=== PATIENT | female | born 1975 | race Caucasian/White ===

== ENCOUNTER → 2017-12-11 07:55 | Outpatient (CLI) | payer BC, SELFPAY ==
[2017-12-11 10:40] LABS: Absolute Lymphocyte Count 2.73 X10^3/ul (0.83-4.51); Absolute Neutrophil Count 5.4 X10^3/uL (2.0-7.7); Basophil# 0.03 X10^3/uL; Basophil% 0.3 % (0-1); Eosinophils% 1.2 % (0-5); Hematocrit 39.6 % (37-47); Hemoglobin 13.1 g/dl (12.0-15.0); Lymphocyte # 2.73 X10^3/ul (4.0); Lymphocyte % 31.6 % (19-41); Mean Corp Hgb Conc 33.1 g/gl (32-36); Mean Corpuscular Hgb 27.8 pg (27.0-32.0); Mean Corpuscular Volume 84.1 fL (81-99); Mean Platelet Vol. 9.6 fl (6.2-12.0); Monocyte% 4.6 % (0-10); Neutrophil # 5.36 X10^3/uL (2.7-7.7); Neutrophil % 62.1 % (47-70); Platelet Count 379 K/mm3 (150-450); RBC Distribution Width CV 13.7 % (11.6-14.6); RBC Distribution Width SD 41.7 fl (35.1-43.9); Red Blood Count 4.71 M/mm3 (4.2-5.4); White Blood Count 8.6 K/mm3 (4.4-11.0)
[2017-12-11 10:42] LABS: POSITIVE COUNT NO; POSITIVE DIFFERENTIAL NO; POSITIVE MORPHOLOGY NO
[2017-12-11 10:56] LABS: Vitamin D,25 Hydroxy 12.2 ng/mL (19.95-100.01)
[2017-12-11 11:10] LABS: ALB/GLOB Ratio 0.7 RATIO (0.9-2.4); AST(SGOT) 11 U/L (15-37); Alanine Aminotransfer ALT/SGPT 24 U/L (13-56); Alkaline Phosphatase 124 U/L (45-117); Anion Gap 10 (5-15); BUN 8 mg/dL (7-18); BUN/Creat Ratio 13.9 RATIO (10-20); Calcium,Total 8.5 mg/dL (8.5-10.1); Chloride 103 mmol/L (98-107); Cholesterol 196 mg/dL (200); Creatinine, Serum 0.58 mg/dL (0.55-1.02); EST Glomerular Filtration Rate 122 mL/min (>60); Est Glom Filt Rate - Afr Amer 148 mL/min (>60); Globulin 4.5 g/dL (2.2-4.2); Glucose 87 mg/dL (74-106); High Density Lipoprotein 41 mg/dL; Potassium 3.8 mmol/L (3.5-5.1); Protein, Total 7.5 g/dL (6.4-8.2); Sodium Level 137 mmol/L (136-145); Thyroid Stim Hormone (TSH) 2.52 uIU/mL (0.358-3.74); Triglycerides 103 mg/dL; Very Low Density Lipoprotein 21 mg/dL (5-40)
== END ==
PROVIDERS: Family Provider Family Medicine; PCP Family Medicine; Visit Provider Family Medicine
DX: I10 Essential (primary) hypertension (principal); E55.9 Vitamin D deficiency, unspecified; R63.5 Abnormal weight gain
CPT/HCPCS: 36415; 80053; 80061; 82306; 84443; 85025

== ENCOUNTER → 2018-03-09 07:06 | Outpatient (CLI) | payer BC, SELFPAY ==
--- NOTE | 2018-03-09 07:11 | BI_ITS ---
MAMMOGRAPHY - BILATERAL SCREENING REASON FOR EXAM: Female, 42 years old. Routine annual screening examination. PERTINENT HISTORY: Grandmother with breast cancer. Aunt with breast cancer. TECHNIQUE: Digital bilateral breast john (3D mammographic acquisition) in the CC and MLO projections. 2-D mediolateral oblique (MLO) and craniocaudad (CC) views of both breasts were obtained. CAD: Full Field Digital Mammography with Computer Added Detection was performed. COMPARISON: Comparison is made with prior study dated March 05, 2017 and November 19, 2015. FINDINGS: Breast Composition: The breasts are almost entirely fatty. There are no dominant masses or suspicious calcifications. Stable small benign-appearing bilateral axillary lymph nodes. No other significant abnormalities are identified. There has been no significant change since the prior study. BI/SCREENING MAMM (CAD), BILAT IMPRESSION: Stable bilateral screening mammogram. Yearly follow-up mammogram recommended. (A) ASSESSMENT CATEGORY: BIRADS Category 2: Benign. A letter regarding these results will be sent to the patient by the facility within 30 days. Approximately 10% of breast cancers are not detected by mammography. A normal mammogram should not delay biopsy of a clinically suspicious abnormality. [id number] Electronically Signed: Bright Quintanilla MD at 9:26 EDT Tel [phone], Service support ,
== END ==
PROVIDERS: Family Provider Family Medicine; PCP Family Medicine; Visit Provider Family Medicine
DX: Z12.31 Encounter for screening mammogram for malignant neoplasm of breast (principal)
CPT/HCPCS: 77063; 77067

== ENCOUNTER → 2018-03-29 14:18 | Outpatient (CLI) | payer BC, SELFPAY ==
--- NOTE | 2018-03-29 14:18 | DT_ITS ---
This patient was seen during an EMR downtime March 22, 2018 - March 29, 2018. This patient may have a combination of paper and electronic documentation or all paper documentation. All documentation is viewable within the e-chart portion of [facility] for each patient visit.
[2018-03-29 16:03] LABS: Hematocrit 42.4 % (37-47); Hemoglobin 13.4 g/dl (12.0-15.0); Mean Corp Hgb Conc 31.6 g/gl (32-36); Mean Corpuscular Hgb 26.9 pg (27.0-32.0); Mean Platelet Vol. 9.3 fl (6.2-12.0); Platelet Count 385 K/mm3 (150-450); RBC Distribution Width CV 14.3 % (11.6-14.6); RBC Distribution Width SD 44.3 fl (35.1-43.9); Red Blood Count 4.99 M/mm3 (4.2-5.4); White Blood Count 10.8 K/mm3 (4.4-11.0)
[2018-03-29 16:07] LABS: Scan Indicated on CBC? Y/N NO
[2018-03-29 16:26] LABS: Follicle Stimulating Hormone 13.9 mIU/mL; Thyroid Stim Hormone (TSH) 3.03 uIU/mL (0.358-3.74)
== END ==
PROVIDERS: Visit Provider Obstetrics & Gynecology
DX: N92.6 Irregular menstruation, unspecified (principal); N95.1 Menopausal and female climacteric states
CPT/HCPCS: 36415; 83001; 84443; 85027

== ENCOUNTER → 2019-01-13 10:11 | Outpatient (CLI) | payer BC, SELFPAY ==
--- NOTE | 2019-01-13 10:15 | RAD_ITS ---
STUDY: X-RAY CHEST REASON FOR EXAM: Female, 43 years old. Cough and wheezing. TECHNIQUE: PA and lateral views of the chest. COMPARISON: September 29, 2016. FINDINGS: The lungs are hypoexpanded. There is no focal mass or infiltrate. There is no demonstrated pleural abnormality. Normal size heart. Normal mediastinum and lalo. Normal visualized pulmonary arteries. Normal visualized aortic arch and descending thoracic aorta. Normal visualized thoracic spine. Normal visualized ribs, clavicles, and shoulders. There is no demonstrated abnormality of the visualized soft tissue structures of the upper abdomen. RAD/Chest PA and Lateral IMPRESSION: No acute cardiopulmonary disease or major interval change. Electronically Signed: Armani Spencer DO at 11:14 EDT Tel [phone], Service support ,
== END ==
PROVIDERS: Family Provider Family Medicine; PCP Family Medicine; Referring Provider Family Medicine; Visit Provider Family Medicine
DX: J11.1 Influenza due to unidentified influenza virus with other respiratory manifestations (principal); R05 Cough
CPT/HCPCS: 71046

== ENCOUNTER → 2019-01-28 14:54 | Outpatient (CLI) | payer BC, SELFPAY ==
[2019-01-28 17:42] LABS: Absolute Lymphocyte Count 3.35 X10^3/ul (0.83-4.51); Absolute Neutrophil Count 8.1 X10^3/uL (2.0-7.7); Basophil# 0.02 X10^3/uL; Basophil% 0.2 % (0-1); Eosinophil# 0.17 X10^3/uL; Eosinophils% 1.4 % (0-5); Hematocrit 39.5 % (37-47); Lymphocyte # 3.35 X10^3/ul (4.0); Lymphocyte % 27.7 % (19-41); Mean Corp Hgb Conc 32.9 g/gl (32-36); Mean Corpuscular Hgb 28.4 pg (27.0-32.0); Mean Corpuscular Volume 86.2 fL (81-99); Mean Platelet Vol. 9.4 fl (6.2-12.0); Monocyte# 0.48 X10^3/uL; Neutrophil # 8.05 X10^3/uL (2.7-7.7); Neutrophil % 66.5 % (47-70); Platelet Count 358 K/mm3 (150-450); RBC Distribution Width CV 14.4 % (11.6-14.6); RBC Distribution Width SD 44.6 fl (35.1-43.9); Red Blood Count 4.58 M/mm3 (4.2-5.4); White Blood Count 12.1 K/mm3 (4.4-11.0)
[2019-01-28 17:43] LABS: POSITIVE COUNT NO; POSITIVE DIFFERENTIAL NO; POSITIVE MORPHOLOGY NO
[2019-01-28 19:20] LABS: ALB/GLOB Ratio 0.7 RATIO (0.9-2.4); AST(SGOT) 16 U/L (15-37); Alanine Aminotransfer ALT/SGPT 28 U/L (13-56); Albumin, Serum 3.2 g/dL (3.2-5.0); Alkaline Phosphatase 117 U/L (45-117); Anion Gap 10 (5-15); BUN 6 mg/dL (7-18); BUN/Creat Ratio 9.6 RATIO (10-20); Calcium,Total 8.5 mg/dL (8.5-10.1); Chloride 104 mmol/L (98-107); Cholesterol 196 mg/dL (200); Creatinine, Serum 0.62 mg/dL (0.55-1.02); EST Glomerular Filtration Rate 111 mL/min (>60); Est Glom Filt Rate - Afr Amer 134 mL/min (>60); Globulin 4.5 g/dL (2.2-4.2); Glucose 77 mg/dL (74-106); High Density Lipoprotein 42 mg/dL; Potassium 3.2 mmol/L (3.5-5.1); Protein, Total 7.7 g/dL (6.4-8.2); Sodium Level 138 mmol/L (136-145); Thyroid Stim Hormone (TSH) 2.76 uIU/mL (0.358-3.74); Triglycerides 115 mg/dL; Very Low Density Lipoprotein 23 mg/dL (5-40)
[2019-01-28 19:48] LABS: Insulin 20.9 mU/L (2.6-37.6); Vitamin D,25 Hydroxy 8.2 ng/mL (29.95-100.01)
== END ==
PROVIDERS: Family Provider Family Medicine; PCP Family Medicine; Visit Provider Family Medicine
DX: Z00.00 Encounter for general adult medical examination without abnormal findings (principal); I10 Essential (primary) hypertension; E55.9 Vitamin D deficiency, unspecified; R53.83 Other fatigue; R73.01 Impaired fasting glucose
CPT/HCPCS: 36415; 80053; 80061; 82306; 83525; 84443; 85025

== ENCOUNTER → 2019-04-08 07:05 | Outpatient (CLI) | payer BC, SELFPAY ==
--- NOTE | 2019-04-08 07:08 | BI_ITS ---
MAMMOGRAPHY - BILATERAL SCREENING 3-D TOMOSYNTHESIS REASON FOR EXAM: Female, 44 years old. Bilateral Screening 3-D tomosynthesis PERTINENT HISTORY: No significant family history. TECHNIQUE: 2-D mammograms and 3-D Tomosynthesis of the breast (s) were performed. CAD was performed. COMPARISON was made to a study of March 09, 2018-March 05, 2017 and November 19, 2015. FINDINGS: Both breasts are entirely involuted by adipose tissue without evidence of spiculated lesion, microcalcifications, skin thickening or nipple retraction. There are benign looking lymph node seen in the axillary areas bilaterally. BI/SCREEN MAMM (CAD) W/SHANIQUA BILAT IMPRESSION: Negative digital mammography of both breasts for malignancy unchanged since the previous exams. ASSESSMENT CATEGORY: BIRADS Category 1: Negative. A letter regarding these results will be sent to the patient by the facility within 30 days. FOLLOW UP RECOMMENDATION: Yearly follow up mammogram recommended. (A) Approximately 10% of breast cancers are not detected by mammography. A normal mammogram should not delay biopsy of a clinically suspicious abnormality. Electronically Signed: Mariela Alegria, at 15:12 EDT Tel , Service support ,
== END ==
PROVIDERS: Family Provider Family Medicine; PCP Family Medicine; Referring Provider Family Medicine; Visit Provider Family Medicine
DX: Z12.31 Encounter for screening mammogram for malignant neoplasm of breast (principal)
CPT/HCPCS: 77063; 77067

== ENCOUNTER 2019-05-02 17:00 | Outpatient (RCR) | payer BC, SELFPAY | END 2019-05-18 23:59 | LOC: NS 17:00 | PROVIDERS: Family Provider Family Medicine; PCP Family Medicine; Visit Provider Family Medicine | DX: E66.01 Morbid (severe) obesity due to excess calories (principal); Z68.42 Body mass index [BMI] 45.0-49.9, adult; Z71.3 Dietary counseling and surveillance | CPT/HCPCS: 97802; 97803 ==

== ENCOUNTER → 2019-06-01 07:46 | Outpatient (CLI) | payer BC, SELFPAY ==
[2019-06-01 10:18] LABS: Absolute Lymphocyte Count 2.39 X10^3/uL (0.83-4.51); Absolute Neutrophil Count 5.8 X10^3/uL (2.0-7.7); Basophil# 0.04 X10^3/uL; Basophil% 0.5 % (0-1); Eosinophils% 1.2 % (0-5); Hematocrit 42.5 % (37-47); Hemoglobin 13.7 g/dL (12.0-15.0); Lymphocyte # 2.39 X10^3/ul (4.0); Lymphocyte % 27.6 % (19-41); Mean Corp Hgb Conc 32.2 g/dL (32-36); Mean Corpuscular Hgb 27.5 pg (27.0-32.0); Mean Corpuscular Volume 85.2 fL (81-99); Mean Platelet Vol. 9.4 fl (6.2-12.0); Monocyte# 0.35 X10^3/uL; NRBC Flagged by Analyzer 0 % (0-5); Neutrophil # 5.75 X10^3/uL (2.7-7.7); Neutrophil % 66.4 % (47-70); Platelet Count 378 K/mm3 (150-450); RBC Distribution Width CV 13.7 % (11.6-14.6); RBC Distribution Width SD 42.7 fl (35.1-43.9); Red Blood Count 4.99 M/mm3 (4.2-5.4); White Blood Count 8.7 K/mm3 (4.4-11.0)
[2019-06-01 10:34] LABS: Vitamin D,25 Hydroxy 31.5 ng/mL (29.95-100.01)
[2019-06-01 10:35] LABS: Cholesterol 220 mg/dL (200); Glucose 103 mg/dL (74-106); High Density Lipoprotein 41 mg/dL; Triglycerides 97 mg/dL; Very Low Density Lipoprotein 19 mg/dL (5-40)
[2019-06-01 13:43] LABS: Hemoglobin A1c 5.9 % (4.2-6.3)
== END ==
PROVIDERS: Family Provider Family Medicine; PCP Family Medicine; Referring Provider Family Medicine; Visit Provider Family Medicine
DX: I10 Essential (primary) hypertension (principal); E78.5 Hyperlipidemia, unspecified; R73.01 Impaired fasting glucose; E16.1 Other hypoglycemia; E55.9 Vitamin D deficiency, unspecified
CPT/HCPCS: 36415; 80061; 82306; 82947; 83036; 85025

== ENCOUNTER 2019-06-27 17:14 | Outpatient (RCR) | payer BC, SELFPAY | END 2019-06-27 23:59 | disposition home or self-care (01) | LOC: NS 17:14 | PROVIDERS: Family Provider Family Medicine; PCP Family Medicine; Visit Provider Family Medicine | DX: Z71.3 Dietary counseling and surveillance (principal); E66.01 Morbid (severe) obesity due to excess calories; Z68.42 Body mass index [BMI] 45.0-49.9, adult | CPT/HCPCS: 97803 ==

== ENCOUNTER → 2019-09-09 20:14 | Outpatient (CLI) | payer BC, SELFPAY | PROVIDERS: Family Provider Family Medicine; PCP Family Medicine; Referring Provider Family Medicine; Visit Provider Family Medicine | DX: G47.10 Hypersomnia, unspecified (principal); R06.83 Snoring; I10 Essential (primary) hypertension; E66.9 Obesity, unspecified | CPT/HCPCS: 95810 ==

== ENCOUNTER → 2019-09-29 20:23 | Outpatient (CLI) | payer BC, SELFPAY | PROVIDERS: Family Provider Family Medicine; PCP Family Medicine; Referring Provider Family Medicine; Visit Provider Family Medicine | DX: G47.10 Hypersomnia, unspecified (principal); E66.9 Obesity, unspecified; I10 Essential (primary) hypertension; R06.83 Snoring | CPT/HCPCS: 95811 ==

== ENCOUNTER → 2019-10-11 09:00 | Outpatient (CLI) | payer BC, SELFPAY | PROVIDERS: Family Provider Family Medicine; PCP Family Medicine; Referring Provider Family Medicine; Visit Provider Family Medicine | DX: Z46.89 Encounter for fitting and adjustment of other specified devices (principal) ==

== ENCOUNTER → 2019-10-28 11:00 | Outpatient (CLI) | payer BC, SELFPAY | PROVIDERS: Family Provider Family Medicine; PCP Family Medicine; Referring Provider Family Medicine; Visit Provider Family Medicine | DX: Z46.89 Encounter for fitting and adjustment of other specified devices (principal) ==

== ENCOUNTER → 2020-04-19 08:55 | Outpatient (CLI) | payer BC, SELFPAY ==
[2020-04-19 12:39] LABS: Absolute Lymphocyte Count 2.66 X10^3/uL (0.83-4.51); Absolute Neutrophil Count 5.4 X10^3/uL (2.0-7.7); Basophil# 0.03 X10^3/uL; Basophil% 0.3 % (0-1); Eosinophil# 0.12 X10^3/uL; Eosinophils% 1.4 % (0-5); Hematocrit 39.9 % (37-47); Hemoglobin 12.4 g/dL (12.0-15.0); Lymphocyte # 2.66 X10^3/ul (4.0); Lymphocyte % 30.9 % (19-41); Mean Corp Hgb Conc 31.1 g/dL (32-36); Mean Corpuscular Hgb 26.7 pg (27.0-32.0); Mean Platelet Vol. 9.6 fl (6.2-12.0); Monocyte# 0.37 X10^3/uL; Monocyte% 4.3 % (0-10); NRBC Flagged by Analyzer 0 % (0-5); Neutrophil # 5.39 X10^3/uL (2.7-7.7); Neutrophil % 62.8 % (47-70); Platelet Count 393 K/mm3 (150-450); RBC Distribution Width SD 47.4 fl (35.1-43.9); Red Blood Count 4.64 M/mm3 (4.2-5.4); White Blood Count 8.6 K/mm3 (4.4-11.0)
[2020-04-19 12:53] LABS: Color, Urine Straw (Yellow); Glucose, Dipstick Normal (Normal); Ketone-Dipstick Negative (Negative); Leukocyte Esterase-Dipstick Negative /ul (Negative); Nitrite-Dipstick Negative (Negative); Occult Blood-Urine 10 /ul (Negative); Protein-Dipstick Negative (Negative); Urine Bilirubin Dipstick Negative (Negative); Urine Clarity Clear (Clear); Urine Urobilinogen Normal (Normal)
[2020-04-19 13:07] LABS: Bacteria 2+ /hpf (None Seen); Mucous, Urine 3+ /hpf (<or=2+)
[2020-04-19 13:09] LABS: Squamous Epithelial Cells - UA 5-10 SEEN /hpf (5-10); White Blood Cells 0-5 SEEN /hpf (0-5)
[2020-04-19 13:13] LABS: Red Blood Cells-Urine 0-5 SEEN /hpf (0-5)
[2020-04-19 13:43] LABS: ALB/GLOB Ratio 0.7 RATIO (0.9-2.4); AST(SGOT) 26 U/L (15-37); Alanine Aminotransfer ALT/SGPT 35 U/L (13-56); Albumin, Serum 3.1 g/dL (3.2-5.0); Alkaline Phosphatase 123 U/L (45-117); Anion Gap 8 (5-15); BUN 8 mg/dL (7-18); BUN/Creat Ratio 11.7 RATIO (10-20); Calcium,Total 8.4 mg/dL (8.5-10.1); Chloride 104 mmol/L (98-107); Cholesterol 206 mg/dL (200); Creatinine, Serum 0.68 mg/dL (0.55-1.02); EST Glomerular Filtration Rate 99 mL/min (>60); Est Glom Filt Rate - Afr Amer 120 mL/min (>60); Globulin 4.7 g/dL (2.2-4.2); Glucose 100 mg/dL (74-106); High Density Lipoprotein 37 mg/dL; Potassium 3.6 mmol/L (3.5-5.1); Protein, Total 7.8 g/dL (6.4-8.2); Sodium Level 136 mmol/L (136-145); T4 Free Direct 1.11 ng/dL (0.76-1.46); Thyroid Stim Hormone (TSH) 3.14 uIU/mL (0.358-3.74); Triglycerides 111 mg/dL; Very Low Density Lipoprotein 22 mg/dL (5-40)
[2020-04-19 13:47] LABS: Hemoglobin A1c 5.8 % (3.8-5.6)
== END ==
PROVIDERS: Family Provider Family Medicine; PCP Family Medicine; Visit Provider Family Medicine
DX: Z00.00 Encounter for general adult medical examination without abnormal findings (principal); I10 Essential (primary) hypertension; E16.1 Other hypoglycemia; E78.5 Hyperlipidemia, unspecified; R73.03 Prediabetes; R60.9 Edema, unspecified
CPT/HCPCS: 36415; 80053; 80061; 81001; 83036; 84439; 84443; 85025

== ENCOUNTER → 2020-05-21 07:03 | Outpatient (CLI) | payer BC, SELFPAY ==
--- NOTE | 2020-05-21 07:06 | BI_ITS ---
MAMMOGRAPHY - BILATERAL SCREENING REASON FOR EXAM: Female, 45 years old. Routine annual screening examination. PERTINENT HISTORY: Grandmother with breast cancer. Aunt with breast cancer. TECHNIQUE: Digital bilateral breast shaniqua (3D mammographic acquisition) in the CC and MLO projections. 2-D mediolateral oblique (MLO) and craniocaudad (CC) views of both breasts were obtained. CAD: Full Field Digital Mammography with Computer Added Detection was performed. COMPARISON: Comparison is made with prior study dated 04/08/2019 and 03/09/2018. FINDINGS: Breast Composition: There are scattered areas of fibroglandular density. There are no dominant masses or suspicious calcifications. Stable benign-appearing bilateral axillary lymph nodes. No other significant abnormalities are identified. There has been no significant change since the prior study. BI/SCREEN MAMM (CAD) W/SHANIQUA BILAT IMPRESSION: Stable bilateral screening mammogram. Yearly follow-up mammogram recommended. (A) ASSESSMENT CATEGORY: BIRADS Category 2: Benign. A letter regarding these results will be sent to the patient by the facility within 30 days. Approximately 10% of breast cancers are not detected by mammography. A normal mammogram should not delay biopsy of a clinically suspicious abnormality. [id number] Electronically Signed: Bright Quintanilla, at 8:58 EDT , Service support ,
== END ==
PROVIDERS: PCP Family Medicine; Referring Provider Family Medicine; Visit Provider Family Medicine
DX: Z12.31 Encounter for screening mammogram for malignant neoplasm of breast (principal)
CPT/HCPCS: 77063; 77067

== ENCOUNTER → 2020-07-19 07:40 | Outpatient (CLI) | payer BC, SELFPAY ==
--- NOTE | 2020-07-19 07:43 | ECHOD_ITS ---
Reason For Study: Murmur Procedure This was a 2D Doppler, Color Flow transthoracic echocardiogram. Exam performed in department. Left Ventricle Normal LV size. The estimated ejection fraction is 70 %. No evidence for diastolic dysfunction. No regional wall motion abnormalities noted. Right Ventricle Normal RV size. Normal systolic function. Atria Normal left atrium. Normal right atrium. No doppler evidence for ASD. Mitral Valve There is no mitral valve stenosis. No mitral valve insufficiency. Tricuspid Valve There is no tricuspid stenosis. Unable to estimate RV systolic pressure due to inadequate jet, pulmonary artery pressure probably normal. Aortic Valve Trisinus/trileaflet aortic valve. There is no aortic stenosis. No aortic valve insufficiency. Pulmonic Valve There is no pulmonic valvular stenosis. No pulmonic valve insufficiency. Great Vessels Normal aortic root. Pericardium/Pleural No pericardial effusion. MMode/2D Measurements & Calculations LVIDd: 3.4 cm IVSd: 1.6 cm LVOT diam: 2.0 cm LVIDs: 2.4 cm LVPWd: 1.4 cm LVOT area: 3.1 cm2 RVDd: 3.6 cm FS: 30.6 % Ao root diam: 3.1 cm LAV(MOD-bp): 40.8 ml LVAd ap4: 30.0 cm2 LAV(MOD-bp) Indexed: 17.9 ml/m2 EDV(MOD-sp4): 90.3 ml LAV(MOD-sp2): 40.2 ml EDV(sp4-el): 92.0 ml LAV(MOD-sp4): 37.1 ml LVAs ap4: 15.0 cm2 ESV(MOD-sp4): 29.5 ml ESV(sp4-el): 28.8 ml EF(MOD-sp4): 67.4 % EF(sp4-el): 68.7 % SV(MOD-sp4): 60.8 ml SV(sp4-el): 63.1 ml LA A4 area: 15.4 cm2 RA A4 area: 10.8 cm2 Doppler Measurements & Calculations MV E max clyde: 84.2 cm/sec Lat Peak E' Clyde: 6.7 cm/sec Med Peak E' Clyde: 6.1 cm/sec MV A max clyde: 120.5 cm/sec E/E' lat: 12.5 E/E' med: 13.7 MV E/A: 0.70 Ao V2 max: 200.4 cm/sec LV V1 max: 131.8 cm/sec SV(LVOT): 84.4 ml Ao max P.1 mmHg LV V1 max P.0 mmHg Ao V2 mean: 128.2 cm/sec LV V1 mean P.4 mmHg Ao mean P.5 mmHg LV V1 mean: 84.5 cm/sec Ao V2 VTI: 38.5 cm LV V1 VTI: 27.0 cm CHELSIE(I,D): 2.2 cm2 CHELSIE(V,D): 2.1 cm2 PA V2 max: 114.4 cm/sec TR max clyde: 242.3 cm/sec TR max P.5 mmHg Interpretation Summary The estimated ejection fraction is 70 %. No evidence for diastolic dysfunction. The study was technically difficult. Ordering Physician: Olman Rm Referring Physician: Olman Rm Performed By: Goldie Arnold, BERNIE
== END ==
PROVIDERS: PCP Family Medicine; Referring Provider Family Medicine; Visit Provider Family Medicine
DX: R01.1 Cardiac murmur, unspecified (principal)
CPT/HCPCS: 93306

== ENCOUNTER → 2020-08-24 14:56 | Outpatient (CLI) | payer BC, SELFPAY ==
[2020-08-16 14:50] VITALS: BMI 46.5
--- NOTE | 2020-08-24 14:56 | CT_ITS ---
STUDY: CT ABDOMEN AND PELVIS WITH CONTRAST REASON FOR EXAM: Female, 45 years old. ABD PAIN, LOWER/UMBILICAL RADIATION DOSAGE (If Supplied By Facility): CTDIvol = ( 17.07 ) mGy, DLP = ( 1370.21 ) mGycm TECHNIQUE: Transaxial images were obtained from the dome of the diaphragm to the symphysis pubis with oral contrast. Oral and amp; IV Readi-CAT and amp; 100mL Isovue-300 was administered. Sagittal and coronal images were reconstructed. Individualized dose optimization techniques were used for this CT. COMPARISON: 04/28/2014 FINDINGS: The visualized lung bases are unremarkable. The visualized portions of the heart are within normal limits. Normal liver. There are surgical clips in the gallbladder fossa consistent with a prior cholecystectomy. Normal spleen. Normal pancreas. Normal bilateral adrenal glands. Normal right kidney. Normal left kidney. Normal visualized stomach. Normal small intestine. Normal colon. The appendix is visualized and appears normal. Normal abdominal aorta. Normal inferior vena cava. Normal retroperitoneum. Normal urinary bladder. Normal abdominal wall. Mild levoscoliosis of the lumbar spine. CT/Abdomen/Pelvis WITH Contrast IMPRESSION: Normal enhanced CT of the abdomen and pelvis. Electronically Signed: Shukri Street MD at 16:41 EST Tel , Service support ,
== END ==
PROVIDERS: PCP Family Medicine; Referring Provider Surgery; Visit Provider Surgery
DX: R10.9 Unspecified abdominal pain (principal)
CPT/HCPCS: 74177; Q9967

== ENCOUNTER → 2020-12-13 09:53 | Outpatient (CLI) | payer BC, SELFPAY ==
[2020-12-13 12:31] LABS: Absolute Lymphocyte Count 2.43 X10^3/uL (0.83-4.51); Absolute Neutrophil Count 5.1 X10^3/uL (2.0-7.7); Basophil# 0.07 X10^3/uL; Basophil% 0.9 % (0-1); Eosinophil# 0.12 X10^3/uL; Eosinophils% 1.5 % (0-5); Hematocrit 43.1 % (37-47); Hemoglobin 13.1 g/dL (12.0-15.0); Lymphocyte # 2.43 X10^3/ul (4.0); Lymphocyte % 30.3 % (19-41); Mean Corp Hgb Conc 30.4 g/dL (32-36); Mean Corpuscular Hgb 26.5 pg (27.0-32.0); Mean Corpuscular Volume 87.1 fL (81-99); Mean Platelet Vol. 9.7 fl (6.2-12.0); Monocyte# 0.31 X10^3/uL; Monocyte% 3.9 % (0-10); NRBC Flagged by Analyzer 0 % (0-5); Neutrophil # 5.07 X10^3/uL (2.7-7.7); Neutrophil % 63.2 % (47-70); Platelet Count 374 K/mm3 (150-450); RBC Distribution Width CV 14.9 % (11.6-14.6); Red Blood Count 4.95 M/mm3 (4.2-5.4)
[2020-12-13 12:50] LABS: ALB/GLOB Ratio 0.7 RATIO (0.9-2.4); AST(SGOT) 21 U/L (15-37); Alanine Aminotransfer ALT/SGPT 41 U/L (13-56); Albumin, Serum 3.2 g/dL (3.2-5.0); Alkaline Phosphatase 129 U/L (45-117); Anion Gap 7 (5-15); BUN 10 mg/dL (7-18); BUN/Creat Ratio 15.2 RATIO (10-20); Calcium,Total 8.7 mg/dL (8.5-10.1); Chloride 105 mmol/L (98-107); Cholesterol 230 mg/dL (200); Creatinine, Serum 0.66 mg/dL (0.55-1.02); EST Glomerular Filtration Rate 103 mL/min (>60); Est Glom Filt Rate - Afr Amer 125 mL/min (>60); Globulin 4.6 g/dL (2.2-4.2); Glucose 92 mg/dL (74-106); High Density Lipoprotein 47 mg/dL; Potassium 3.9 mmol/L (3.5-5.1); Protein, Total 7.8 g/dL (6.4-8.2); Sodium Level 138 mmol/L (136-145); Triglycerides 94 mg/dL; Very Low Density Lipoprotein 19 mg/dL (5-40)
[2020-12-13 12:54] LABS: Hemoglobin A1c 5.6 % (3.8-5.6)
== END ==
PROVIDERS: PCP Family Medicine; Visit Provider Family Medicine
DX: I10 Essential (primary) hypertension (principal); E16.1 Other hypoglycemia; E78.5 Hyperlipidemia, unspecified; E55.9 Vitamin D deficiency, unspecified
CPT/HCPCS: 36415; 80053; 80061; 82306; 83036; 85025

== ENCOUNTER → 2020-12-20 12:30 | Outpatient (CLI) | payer BC, SELFPAY ==
[2020-12-20 15:53] LABS: Microalbumin,Random Urine < 5.0 mg/L (NO RANGE EST.)
== END ==
PROVIDERS: PCP Family Medicine; Visit Provider Family Medicine
DX: I10 Essential (primary) hypertension (principal); E55.9 Vitamin D deficiency, unspecified
CPT/HCPCS: 82043; 82570

== ENCOUNTER → 2021-07-08 07:41 | Outpatient (CLI) | payer BC, SELFPAY ==
--- NOTE | 2021-07-08 07:46 | BI_ITS ---
MAMMOGRAPHY - BILATERAL SCREENING REASON FOR EXAM: Female, 46 years old. Routine annual screening examination. PERTINENT HISTORY: Grandmother with breast cancer. Aunt with breast cancer. TECHNIQUE: Digital bilateral breast shaniqua (3D mammographic acquisition) in the CC and MLO projections. 2-D mediolateral oblique (MLO) and craniocaudad (CC) views of both breasts were obtained. CAD: Full Field Digital Mammography with Computer Added Detection was performed. COMPARISON: Comparison is made with prior examination dated 05/21/2020 and 04/08/2019. FINDINGS: Breast Composition: There are scattered areas of fibroglandular density. There are no dominant masses or suspicious calcifications. Stable benign-appearing small axillary lymph nodes. No other significant abnormalities are identified. There has been no significant change since the prior study. BI/SCRN MAMM (CAD)W/SHANIQUA BILAT IMPRESSION: Stable bilateral screening mammogram. Yearly follow-up mammogram recommended. (A) ASSESSMENT CATEGORY: BIRADS Category 2: Benign. A letter regarding these results will be sent to the patient by the facility within 30 days. Approximately 10% of breast cancers are not detected by mammography. A normal mammogram should not delay biopsy of a clinically suspicious abnormality. [id number] Electronically Signed: Bright Quintanilla MD at 9:11 EDT , Service support ,
== END ==
PROVIDERS: PCP Family Medicine; Referring Provider Family Medicine; Visit Provider Family Medicine
DX: Z12.31 Encounter for screening mammogram for malignant neoplasm of breast (principal)
CPT/HCPCS: 77063; 77067

== ENCOUNTER 2022-01-06 16:30 | Outpatient (RCR) | payer BC, SELFPAY | END 2022-01-16 23:59 | LOC: NS 16:30 | PROVIDERS: PCP Family Medicine; Referring Provider Family Medicine; Visit Provider Family Medicine | DX: Z71.3 Dietary counseling and surveillance (principal); E66.9 Obesity, unspecified; Z68.43 Body mass index [BMI] 50.0-59.9, adult | CPT/HCPCS: 97802; 97803 ==

== ENCOUNTER 2022-01-22 12:46 | Outpatient (RCR) | payer BC, SELFPAY | END 2022-02-15 23:59 | LOC: NS 12:46 | PROVIDERS: PCP Family Medicine; Referring Provider Family Medicine; Visit Provider Family Medicine | DX: Z71.3 Dietary counseling and surveillance (principal); E66.9 Obesity, unspecified; Z68.43 Body mass index [BMI] 50.0-59.9, adult | CPT/HCPCS: 97803 ==

== ENCOUNTER 2022-02-27 07:21 | Outpatient (RCR) | payer BC, SELFPAY | END 2022-02-27 23:59 | disposition home or self-care (01) | LOC: NS 07:21 | PROVIDERS: PCP Family Medicine; Referring Provider Family Medicine; Visit Provider Family Medicine | DX: Z71.3 Dietary counseling and surveillance (principal); E66.9 Obesity, unspecified; Z68.43 Body mass index [BMI] 50.0-59.9, adult | CPT/HCPCS: 97803 ==

== ENCOUNTER → 2022-04-18 | Outpatient (CLI) | payer BC, SELFPAY ==
--- NOTE | 2022-04-18 07:58 | US_ITS ---
STUDY: ABDOMINAL ULTRASOUND - RIGHT UPPER QUADRANT REASON FOR VISIT: Female, 47 years old FATTY LIVER TECHNIQUE: Ultrasound evaluation of the right upper quadrant was performed with real-time and static arita-scale imaging. TECHNICAL QUALITY: Adequate. COMPARISON: None. FINDINGS: Liver: The liver is enlarged and measures 19.4 cm. There is increased echogenicity consistent with fatty infiltration. The bile ducts are within normal limits. There is hepatic color flow. The direction of portal flow is hepatopetal. There is no demonstrated mass lesion. Gallbladder: The patient is status post cholecystectomy. Common Bile Duct (C.B.D.): The common bile duct is dilated and measures 10.3 mm. Pancreas: Normal size of the head, body and tail of the pancreas. There is normal echogenicity of the pancreas. There is no demonstrated pancreatic mass or cyst. Right Kidney: Normal size of the right kidney. The right kidney measures 11.1 cm x 5.9 cm x 5.9 cm. Normal renal cortex. The right cortex measures 1.2 cm. There is no demonstrated renal mass or cyst. There is no right hydronephrosis. US/Abdomen Limited IMPRESSION: Hepatomegaly and diffuse fatty infiltration of the liver. Status post cholecystectomy. Mild dilatation of the common bile duct. Electronically Signed: Bright Quintanilla MD at 12:17 EDT ,
== END | disposition home or self-care (01) ==
LOC: US 07:56
PROVIDERS: PCP Family Medicine; Referring Provider Internal Medicine Gastroenterology; Visit Provider Internal Medicine Gastroenterology
DX: K76.0 Fatty (change of) liver, not elsewhere classified (principal); Z90.49 Acquired absence of other specified parts of digestive tract
CPT/HCPCS: 76705

== ENCOUNTER → 2022-05-15 | Outpatient (CLI) | payer BC, SELFPAY ==
--- NOTE | 2022-05-15 06:58 | US_ITS ---
STUDY: ABDOMINAL ULTRASOUND - ELASTOGRAPHY REASON FOR VISIT: Female, 47 years old. Fatty infiltration of the liver. TECHNIQUE: Liver stiffness measurements were obtained on a ResiModel RS 85 ultrasound machine using a CA 1-7 probe following the SRU guidelines. 3 measurements were obtained using a 2-D-SWE method. The IQR/M was 26% suggesting a quality data set. TECHNICAL QUALITY: Limited study. Examination limited due to obesity. COMPARISON: Comparison is made with prior study dated 04/18/2022. FINDINGS: Liver: Fatty infiltration of the liver. Hepatomegaly. Median liver stiffness measured 10.1 kPa. US/Elastography Parenchyma/Organ IMPRESSION: Liver stiffness measures 10.1 kPa compatible with F2-F3 (Mild to moderate liver fibrosis) Metavir score. Electronically Signed: Bright Quintanilla MD at 14:05 EDT ,
== END | disposition home or self-care (01) ==
LOC: US 06:57
PROVIDERS: PCP Family Medicine; Referring Provider Internal Medicine Gastroenterology; Visit Provider Internal Medicine Gastroenterology
DX: K76.0 Fatty (change of) liver, not elsewhere classified (principal)
CPT/HCPCS: 76981

== ENCOUNTER 2022-07-05 08:02 | Emergency (ER) | payer BC, SELFPAY ==
[2022-07-05 08:02] VITALS: BP 138/95; PULSE 84; RESP 18; TEMP 36.6; O2SAT 98; BMI 48.2
--- NOTE | 2022-07-05 08:21 | EDS_ITS ---
HPI HPI - GI History of Present Illness Chief Complaint: Abd Pain Narrative Narrative: 47-year-old female with mild upper abdominal pain and left-sided abdominal pain. She states it started a couple of days ago. She is not had any nausea, vomiting, diarrhea. No fever or chills. She states the pain is about a 4 at the most. Patient does state that she has had decreased bowel movements over the last couple of days. Her last bowel movement was yesterday and is very small. No black or bloody stools. No urinary complaints. Patient states that she has not taken any laxatives to try to increase her bowel movements. She states that the only abdominal surgery she had was gallbladder removal. No history of obstruction. [facility], [facility] Medical History Depression HTN (hypertension) Home Medications amlodipine 5 mg tablet 5 mg PO DAILY 08/17/15 [History Last Taken Unknown] atorvastatin 20 mg tablet 20 mg PO DAILY 07/05/22 [History Last Taken Unknown] cholecalciferol (vitamin D3) 50 mcg (2,000 unit) tablet (Vitamin D3) 50 mcg PO DAILY 07/05/22 [History Last Taken Unknown] vitamin E 400 unit tablet 45 mg PO DAILY 07/05/22 [History Last Taken Unknown] Allergy/AdvReac Type Severity Reaction Status Date / Time adhesive tape Allergy Mild unknown Verified 08/28/20 09:21 Family History Brother No problems noted. Father Hypertension CAD (coronary artery disease) Surgical History S/P laparoscopic cholecystectomy S/P tubal ligation Status post section Social History Smoking Status: Never smoker alcohol intake: never ROS ROS ED Constitutional Constitutional ED: Denies fever(s) or subjective ENT ENT ED: Denies rhinorrhea or sore throat Cardiovascular Cardiovascular: Denies chest pain or palpitations Respiratory/Chest Respiratory/Chest: Denies cough or dyspnea Gastrointestinal Gastrointestinal: Reports abdominal pain and constipation; Denies diarrhea, melena, nausea or vomiting Genitourinary Genitourinary ED: Denies dysuria or hematuria Musculoskeletal Musculoskeletal: Denies arthralgias or back pain Integumentary Denies abscess or Abrasions Neurologic Neurologic: Denies headache(s) Psychiatric Psychiatric: Denies anxiety or depression Endocrine Endocrinology: Denies polydipsia or polyphagia EXAM Physical Exam Const Vital Signs: 07/05/22 08:02 07/05/22 08:43 Temperature 97.8 F Temperature Source Temporal Pulse Rate 84 84 Respiratory Rate 18 18 Blood Pressure 138/95 H 111/75 Blood Pressure Mean 109 87 Pulse Ox 98 97 Oxygen Delivery Method Room Air Room Air Positive well nourished General Appearance ED: NAD; Negative for pallor HEENT Reports TM's clear and moist mucous membranes normocephalic and atraumatic Tympanic Membrane ED: Yes TM's clear Eyes PERRL and EOMs intact bilaterally General Eye ED: Negative for pale conjunctiva or scleral icterus Resp normal respiratory effort Auscultation: Negative for rales, rhonchi or wheezes Cardio regular rate and regular rhythm GI GI Narrative: Soft, nondistended, no peritoneal signs Palpation: tender epigastric, LLQ and LUQ Back/Spine no CVA tenderness Extremity full ROM Neuro CN's II-XII intact bilaterally Sensorium / Orientation: alert, oriented to person, oriented to place and oriented to time Motor Exam: strength 5/5 throughout Psych mental status grossly normal Skin General Skin Exam: Negative for jaundice or pallor MDM MDM MDM Narrative Medical decision making narrative: Well-appearing 47-year-old female with mild abdominal pain consistent with a few day history of constipation. Abdominal exam is benign. I obtained an acute abdominal series which on my interpretation does not show any obstructive process. No acute cardiopulmonary process noted. After discussion with the patient she is amenable to trying magnesium citrate and see if this alleviates her symptoms. I do not believe she needs blood work or imaging further right now. Return precautions were discussed. Patient discharged stable condition. Impression: 1. Abdominal pain 2. Constipation Lab Data Attestation: I reviewed the patient's lab results. Radiography Diagnostic Testing: Clinical Impression(s) from Imaging Studies Acute Abdomen Series 07/05/22 08:30 IMPRESSION: Normal x-ray examination of the chest, abdomen, and pelvis. Electronically Signed: Shukri Street MD at 9:04 EDT , Discharge Plan Triage Chief Complaint: Abd Pain ED Provider: Jesus Keenan Dx/Rx/DC Orders Instructions: ED Abdominal Pain Unkn Cause Fem, ED Constipation (Adult) Prescriptions: No Action amlodipine 5 MG tablet 5 mg PO DAILY atorvastatin 20 mg Tablet 20 mg PO DAILY vitamin E 400 unit Tablet 45 mg PO DAILY cholecalciferol (vitamin D3) [Vitamin D3] 50 mcg (2,000 unit) Tablet 50 mcg PO DAILY Primary Care Provider: Olman Rm Referrals: Olman Rm DO [Primary Care Provider] - Disposition Disposition: Home, Self Care
--- NOTE | 2022-07-05 08:30 | RAD_ITS ---
STUDY: X-RAY - ACUTE ABDOMINAL SERIES REASON FOR EXAM: Female, 47 years old. abdominal pain TECHNIQUE: Single view of the chest. Supine, and erect view(s) of the abdomen were obtained. COMPARISON: None. FINDINGS: The lungs are clear and expanded. Normal size heart. Normal mediastinum and lalo. Normal visualized pulmonary arteries. Normal visualized aortic arch and descending thoracic aorta. There is a non-specific bowel gas pattern. The soft tissue structures of the abdomen and pelvis are unremarkable. Normal visualized osseous structures. Status post bilateral tubal ligation. RAD/Acute Abdomen Inc Chest IMPRESSION: Normal x-ray examination of the chest, abdomen, and pelvis. Electronically Signed: Shukri Street MD at 9:04 EDT ,
[2022-07-05 08:43] VITALS: BP 111/75; PULSE 84; RESP 18; O2SAT 97
== END 2022-07-05 09:57 | disposition home or self-care (01) ==
PROVIDERS: Emergency Provider Student in an Organized Health Care Education/Training Program; PCP Family Medicine; Visit Provider Student in an Organized Health Care Education/Training Program
DX: K59.00 Constipation, unspecified (principal); I10 Essential (primary) hypertension; Z90.49 Acquired absence of other specified parts of digestive tract; Z79.899 Other long term (current) drug therapy
CPT/HCPCS: 74022; 99282

== ENCOUNTER 2022-07-08 07:54 | Emergency (ER) | payer BC, SELFPAY ==
[2022-07-08 07:55] VITALS: BP 163/101; PULSE 91; RESP 18; TEMP 36.8; O2SAT 98; BMI 49.1
--- NOTE | 2022-07-08 08:56 | CT_ITS ---
INDICATION: upper abdominal pain EXAMINATION: CT ABDOMEN AND PELVIS WITH CONTRAST - CT Abdomen And Pelvis W/ Contrast Injection TECHNIQUE: Helically acquired images were obtained of the abdomen and pelvis following IV contrast. A radiation dose optimization technique was used for this scan. IV Contrast dosage and agent: 100 mL of ISOVUE-300. Oral contrast: None. COMPARISON: 08/24/2020. FINDINGS: LOWER CHEST: Lung bases are clear. No cardiomegaly or pericardial effusion. LIVER: Homogeneous. No focal mass. GALLBLADDER AND BILIARY TREE: Surgical clips visualized in the gallbladder fossa. No intra- or extrahepatic biliary ductal dilation. PANCREAS: No focal cystic or solid mass. SPLEEN: Normal size without focal cystic or solid mass. ADRENAL GLANDS: No nodules. KIDNEYS AND URETERS: Normal renal size and position. No hydronephrosis. PERITONEUM: No ascites or free air. No other fluid collection. Surgical clips visualized in the left anterolateral aspect of the pelvic cavity, these demonstrate no significant change in comparison to the prior study. BOWEL: No evidence of acute appendicitis. No stomach or bowel distension. No focal inflammatory change. LYMPH NODES: No enlarged mesenteric or retroperitoneal lymph nodes. VESSELS: Aorta is non-dilated. URINARY BLADDER: The urinary bladder is decompressed. REPRODUCTIVE ORGANS: No pelvic masses. Mild irregularity in the contour of the uterus is visualized but no evidence of well-defined mass is seen. The ovaries appear unremarkable bilaterally. A simple cyst is visualized in the left ovary measuring 1.7 cm. ABDOMINAL WALL: No discrete abdominal or pelvic wall hernia. BONES: No lytic or blastic abnormality. CT/Abdomen/Pelvis W IV Cont ONLY IMPRESSION: No evidence of acute abdominal/pelvic pathology. Electronically Signed: Jag Fritz MD at 10:28 EDT ,
[2022-07-08] MEDS: 0.9% Normal Saline 1,000 ML 1000 ML IV (09:11)
[2022-07-08] MEDS: Ondansetron 4 MG/2 ML Vial IV (09:13)
[2022-07-08] MEDS: Morphine 4 MG/ML Syringe IV (09:14)
[2022-07-08 09:17] LABS: Absolute Lymphocyte Count 2.61 X10^3/uL (0.83-4.51); Absolute Neutrophil Count 6.5 X10^3/uL (2.0-7.7); Basophil# 0.04 X10^3/uL; Basophil% 0.4 % (0-1); Hematocrit 39.2 % (37-47); Hemoglobin 12.5 g/dL (12.0-15.0); Lymphocyte # 2.61 X10^3/ul (0.83-4.51); Mean Corp Hgb Conc 31.9 g/dL (32-36); Mean Corpuscular Hgb 26.9 pg (27.0-32.0); Mean Corpuscular Volume 84.3 fL (81-99); Mean Platelet Vol. 8.9 fl (6.2-12.0); Monocyte# 0.41 X10^3/uL; Monocyte% 4.2 % (0-10); NRBC Flagged by Analyzer 0 % (0-5); Neutrophil # 6.47 X10^3/uL (2.7-7.7); Neutrophil % 66.9 % (47-70); Platelet Count 336 K/mm3 (150-450); RBC Distribution Width CV 14.6 % (11.6-14.6); RBC Distribution Width SD 44.3 fl (35.1-43.9); Red Blood Count 4.65 M/mm3 (4.2-5.4); White Blood Count 9.7 K/mm3 (4.4-11.0)
[2022-07-08 09:39] LABS: AST(SGOT) 26 U/L (15-37); Alanine Aminotransfer ALT/SGPT 42 U/L (13-56); Albumin, Serum 3.1 g/dL (3.2-5.0); Alkaline Phosphatase 131 U/L (45-117); Anion Gap 7 (5-15); BUN 7 mg/dL (7-18); BUN/Creat Ratio 10.2 RATIO (10-20); Bilirubin, Direct 0.12 mg/dL (0.00-0.30); Calcium,Total 9.1 mg/dL (8.5-10.1); Chloride 109 mmol/L (98-107); Creatinine, Serum 0.69 mg/dL (0.55-1.02); EST Glomerular Filtration Rate 98 mL/min (>60); Est Glom Filt Rate - Afr Amer 118 mL/min (>60); Estimated Creatinine Clearance 91.67 ml/min; Globulin 4.6 g/dL (2.2-4.2); Glucose 122 mg/dL (74-106); Lipase 94 U/L (73-393); Potassium 3.6 mmol/L (3.5-5.1); Protein, Total 7.7 g/dL (6.4-8.2); Sodium Level 143 mmol/L (136-145); Troponin-I HS 3 pg/mL (3.0-54.0)
--- NOTE | 2022-07-08 10:05 | EDS_ITS ---
HPI HPI - GI History of Present Illness Chief Complaint: Abd Pain Informant: patient Narrative Narrative: Patient is a 47-year-old female with history of anxiety, hypertension, hyperlipidemia and prediabetes presenting with worsening upper abdominal pain. Patient was seen in the ER 3 days ago for the same complaint. At that time was felt to be secondary to constipation and she was started on stool softener. She did not have any work-up at that time and chose to be treated conservatively. She started on senna and had a couple soft stools yesterday. She did she was actually feeling better until this morning. She states she woke up with increased achy pain in her epigastric region. It is diffuse across her upper abdomen. She states she has been passing gas. She denies any blood in her stool. She notes she is also getting intermittent upper chest discomfort but thinks that is associate with her anxiety. She currently has no chest pain or chest discomfort. No associated shortness of breath. Mild nausea with no vom iting. No black or blood in her stool. States she is previously seen Dr. Shepherd who did a CT scan and states she had a small hernia but notes it is nothing that would be intervened on. She has a history of cholecystectomy and 2 C-sections. [facility] Medical History (Updated 07/08/22 @ 12:[address] Arlyn Vaz DO) Depression HTN (hypertension) Home Medications amlodipine 5 mg tablet 5 mg PO DAILY 08/17/15 [History Last Taken Unknown] atorvastatin 20 mg tablet 20 mg PO DAILY 07/05/22 [History Last Taken Unknown] cholecalciferol (vitamin D3) 50 mcg (2,000 unit) tablet (Vitamin D3) 50 mcg PO DAILY 07/05/22 [History Last Taken Unknown] vitamin E 400 unit tablet 45 mg PO DAILY 07/05/22 [History Last Taken Unknown] famotidine 40 mg tablet (Pepcid) 40 mg PO DAILY #14 tabs 07/08/22 [Rx Last Taken Unknown] Allergy/AdvReac Type Severity Reaction Status Date / Time adhesive tape Allergy Mild unknown Verified 07/08/22 07:57 Family History Brother No problems noted. Father Hypertension CAD (coronary artery disease) Surgical History S/P laparoscopic cholecystectomy S/P tubal ligation Status post section Social History Smoking Status: Never smoker alcohol intake: never ROS ROS ED Constitutional Constitutional ED: Denies chills or fever(s) ENT ENT ED: Denies rhinorrhea or sore throat Cardiovascular Cardiovascular: Reports chest pain; Denies palpitations Respiratory/Chest Respiratory/Chest: Denies cough or dyspnea Gastrointestinal Gastrointestinal: Reports abdominal pain, constipation and nausea; Denies vomiting Genitourinary Genitourinary ED: Denies dysuria or hematuria Musculoskeletal Musculoskeletal: Denies arthralgias, back pain or myalgias Integumentary Denies rash Neurologic Neurologic: Denies headache(s) or paresthesias Psychiatric Psychiatric: Reports anxiety Hematologic/Lymphatic Hematologic/Lymphatic: Denies easy bleeding or easy bruising EXAM Physical Exam Const Vital Signs: 07/08/22 07:55 07/08/22 13:06 Temperature 98.2 F Temperature Source Temporal Pulse Rate 91 80 Respiratory Rate 18 16 Blood Pressure 163/101 H 129/86 H Blood Pressure Mean 121 100 Pulse Ox 98 96 Oxygen Delivery Method Room Air Room Air Positive well nourished, well developed and obese General Appearance ED: well developed and NAD Nutritional Appearance: obese HEENT Reports moist mucous membranes normocephalic and atraumatic Eyes PERRL and EOMs intact bilaterally Neck supple Resp normal respiratory effort Cardio regular rate, regular rhythm and no murmurs GI non-tender, non-distended and no masses Back/Spine no CVA tenderness Extremity full ROM Neuro moves all extremities Sensorium / Orientation: alert, oriented to person, oriented to place and oriented to time Psych mental status grossly normal and thought process normal Skin no wounds MDM MDM MDM Narrative Medical decision making narrative: Patient is evaluated for recurrent upper abdominal pain. It is worse in her epigastric region but she points to her entire upper abdomen. She is tried stool softeners but continues to have discomfort. Patient is initially given IV fluids, IV Zofran and morphine for symptom control. She does have improvement on repeat evaluation. CBC, CMP and lipase are largely normal. High since he troponin is 3 and she does not have any ischemic EKG changes. I do not think this is referred cardiac pain. Urinalysis is normal. CT of the abdomen pelvis does not show any acute process. The patient is given a GI cocktail with further improvement of her symptoms. Discussed that this could be peptic ulcer disease, gastritis or other GI issue. She will follow-up with her surgeon, Dr. Cora Fagan her primary care doctor. I did start her on Pepcid. She is agreeable to splenic care. Counseled on return precautions. Lab Data Attestation: I reviewed the patient's lab results. Labs: Laboratory Results - last 24 hr 07/08/22 07/08/22 07/08/22 09:12 09:12 11:25 WBC 9.7 RBC 4.65 Hgb 12.5 Hct 39.2 MCV 84.3 MCH 26.9 L MCHC 31.9 L RDW Std Deviation 44.3 H RDW Coeff of Conor 14.6 Plt Count 336 MPV 8.9 Immature Gran % (Auto) 0.500 Neut % (Auto) 66.9 Lymph % (Auto) 27.0 [place] % (Auto) 4.2 Eos % (Auto) 1.0 Baso % (Auto) 0.4 Absolute Neuts (auto) 6.5 Absolute Lymphs (auto) 2.61 Nucleated RBC % 0 Sodium 143 Potassium 3.6 Chloride 109 H Carbon Dioxide 27.0 Anion Gap 7 BUN 7 Creatinine 0.69 Estim Creat Clear Calc 91.67 Est GFR (MDRD) Af Amer 118 Est GFR (MDRD) Non-Af 98 BUN/Creatinine Ratio 10.2 Glucose 122 H Calcium 9.1 Total Bilirubin 0.40 Direct Bilirubin 0.12 AST 26 ALT 42 Alkaline Phosphatase 131 H Troponin I High Sens 3 Total Protein 7.7 Albumin 3.1 L Globulin 4.6 H Lipase 94 Urine Color Yellow Urine Clarity Clear Urine pH 7.0 Ur Specific [place] 1.005 Urine Protein Negative Urine Glucose (UA) Normal Urine Ketones Negative Urine Occult Blood Negative Urine Nitrite Negative Urine Bilirubin Negative Urine Urobilinogen Normal Ur Leukocyte Esterase Negative Urine RBC 0 SEEN Urine WBC 0 SEEN Ur Squamous Epith Cells 0-5 SEEN Urine Bacteria 0 SEEN Urine Mucus 0 SEEN Urine Test Negative Radiography Diagnostic Testing: Clinical Impression(s) from Imaging Studies Abdomen/Pelvis CT 07/08/22 08:56 IMPRESSION: No evidence of acute abdominal/pelvic pathology. Electronically Signed: Jag Fritz MD at 10:28 EDT Reading Location ID and State: [facility] / [place] Tel , Service support , Rhythm Strip Rhythm Strip: Sinus Rhythm Rate: 78 Ectopy: None EKG Initial EKG: Attestation: I personally reviewed and interpreted this EKG as follows: Interpretation: Sinus Rhythm Comments: Normal sinus rhythm at a rate of 78 Normal axis Normal intervals Normal ST segments No change greater prior EKG on 09/29/2015 Discharge Plan Triage Chief Complaint: Abd Pain ED Provider: Arlyn Vaz Dx/Rx/DC Orders Clinical Impression: Epigastric abdominal pain Instructions: ED Epigastric Pain Uncertain Cause Prescriptions: New famotidine [Pepcid] 40 mg tablet 40 mg PO DAILY Qty: 14 0RF No Action amlodipine 5 MG tablet 5 mg PO DAILY atorvastatin 20 mg Tablet 20 mg PO DAILY vitamin E 400 unit Tablet 45 mg PO DAILY cholecalciferol (vitamin D3) [Vitamin D3] 50 mcg (2,000 unit) Tablet 50 mcg PO DAILY Primary Care Provider: Olman Rm Referrals: Olman Rm DO [Primary Care Provider] - FriendAron DO [Med Staff - Active Staff] - As Needed Disposition Disposition: Home, Self Care Discharge Date/Time: 07/08/22 13:14
[2022-07-08 11:34] LABS: Bacteria 0 SEEN /hpf (None Seen); Mucous, Urine 0 SEEN /hpf (<or=2+); Red Blood Cells-Urine 0 SEEN /hpf (0-5); White Blood Cells 0 SEEN /hpf (0-5)
[2022-07-08 11:37] LABS: Color, Urine Yellow (Yellow); Glucose, Dipstick Normal (Normal); Ketone-Dipstick Negative (Negative); Leukocyte Esterase-Dipstick Negative /ul (Negative); Nitrite-Dipstick Negative (Negative); Occult Blood-Urine Negative /ul (Negative); Protein-Dipstick Negative (Negative); Specific Gravity, Urine 1.005 (1.002-1.030); Urine Bilirubin Dipstick Negative (Negative); Urine Clarity Clear (Clear); Urine Urobilinogen Normal (Normal)
[2022-07-08 11:40] LABS: Internal QC Validated? YES +Cl - CLEAR BKGD; Pregnancy, Urine Negative Negative
[2022-07-08 11:42] LABS: Squamous Epithelial Cells - UA 0-5 SEEN /hpf (5-10)
[2022-07-08] MEDS: Mag Hydrox/Al Hydrox/Simeth 30 ML UDC PO (12:08)
[2022-07-08 13:06] VITALS: BP 129/86; PULSE 80; RESP 16; O2SAT 96
== END 2022-07-08 13:14 | disposition home or self-care (01) ==
PROVIDERS: Emergency Provider Emergency Medicine; PCP Family Medicine; Visit Provider Emergency Medicine
DX: R10.13 Epigastric pain (principal); I10 Essential (primary) hypertension; E78.5 Hyperlipidemia, unspecified; Z98.51 Tubal ligation status; Z90.49 Acquired absence of other specified parts of digestive tract; Z79.899 Other long term (current) drug therapy
CPT/HCPCS: 74177; 80048; 80076; 81001; 81025; 83690; 84484; 85025; 93005; 96361; 96374; 96375; 99283; J7030; Q9967; A4216; J2405

== ENCOUNTER → 2022-08-04 | Outpatient (CLI) | payer BC, SELFPAY ==
--- NOTE | 2022-08-04 07:05 | BI_ITS ---
MAMMOGRAPHY - BILATERAL SCREENING REASON FOR EXAM: Female, 47 years old. Routine annual screening examination. PERTINENT HISTORY: Grandmother with breast cancer. Grandmother with breast cancer. TECHNIQUE: Digital bilateral breast shaniqua (3D mammographic acquisition) in the CC and MLO projections. 2-D mediolateral oblique (MLO) and craniocaudad (CC) views of both breasts were obtained. CAD: Full Field Digital Mammography with Computer Added Detection was performed. COMPARISON: Comparison is made with prior study dated 07/08/2021 and 05/21/2020. FINDINGS: Breast Composition: There are scattered areas of fibroglandular density. There are no dominant masses or suspicious calcifications. Stable benign-appearing bilateral axillary No other significant abnormalities are identified. There has been no significant change since the prior study. BI/SCRN MAMM (CAD)W/SHANIQUA BILAT IMPRESSION: Stable bilateral screening mammogram. Yearly follow-up mammogram recommended. (A) ASSESSMENT CATEGORY: BIRADS Category 2: Benign. A letter regarding these results will be sent to the patient by the facility within 30 days. Approximately 10% of breast cancers are not detected by mammography. A normal mammogram should not delay biopsy of a clinically suspicious abnormality. [id number] Electronically Signed: Bright Quintanilla MD at 8:43 EDT ,
== END | disposition home or self-care (01) ==
LOC: OPBI 07:03
PROVIDERS: PCP Family Medicine; Visit Provider Obstetrics & Gynecology
DX: Z12.31 Encounter for screening mammogram for malignant neoplasm of breast (principal); Z80.3 Family history of malignant neoplasm of breast
CPT/HCPCS: 77063; 77067

== ENCOUNTER → 2022-08-08 | Outpatient (CLI) | payer BC, SELFPAY ==
[2022-08-08 12:54] LABS: Hemoglobin A1c 6.2 % (3.8-5.6)
[2022-08-08 12:57] LABS: ALB/GLOB Ratio 0.7 RATIO (0.9-2.4); AST(SGOT) 21 U/L (15-37); Alanine Aminotransfer ALT/SGPT 37 U/L (13-56); Albumin, Serum 3.4 g/dL (3.2-5.0); Alkaline Phosphatase 148 U/L (45-117); Anion Gap 8 (5-15); BUN 7 mg/dL (7-18); BUN/Creat Ratio 10.4 RATIO (10-20); Calcium,Total 9.1 mg/dL (8.5-10.1); Chloride 105 mmol/L (98-107); Cholesterol 151 mg/dL (200); Creatinine, Serum 0.68 mg/dL (0.55-1.02); EST Glomerular Filtration Rate 100 mL/min (>60); Est Glom Filt Rate - Afr Amer 120 mL/min (>60); Globulin 4.8 g/dL (2.2-4.2); Glucose 114 mg/dL (74-106); High Density Lipoprotein 42 mg/dL; Potassium 3.8 mmol/L (3.5-5.1); Protein, Total 8.2 g/dL (6.4-8.2); Sodium Level 137 mmol/L (136-145); Triglycerides 90 mg/dL; Very Low Density Lipoprotein 18 mg/dL (5-40)
== END | disposition home or self-care (01) ==
LOC: LAB.FUTURE 10:56
PROVIDERS: PCP Family Medicine; Visit Provider Family Medicine
DX: E88.81 Metabolic syndrome and other insulin resistance (principal); I10 Essential (primary) hypertension; E16.1 Other hypoglycemia; E78.5 Hyperlipidemia, unspecified; E55.9 Vitamin D deficiency, unspecified
CPT/HCPCS: 36415; 80053; 80061; 82306; 83036

== ENCOUNTER → 2022-09-23 | Outpatient (CLI) | payer BC, SELFPAY ==
--- NOTE | 2022-09-23 12:16 | ART_ITS ---
Reason For Study: pain Procedure A bilateral lower extremity continuous wave Doppler with analog waveform analysis and ankle brachial indexes. Left Segmental Pressures Left brachial= 140mmHg. Left posterior tibial artery = 169mmHg. Left dorsalis pedis artery = 158mmHg. The left dorsalis pedis waveforms are triphasic. The left posterior tibial artery waveforms are triphasic. Right Segmental Pressures Right brachial= 147mmHg. Right posterior tibial artery = 167mmHg. Right dorsalis pedis artery = 153mmHg. The right dorsalis pedis waveforms are triphasic. The right posterior tibial artery waveforms are triphasic. Indices The right ankle brachial index by the posterior tibial artery is 1.14. The right ankle brachial index by the dorsalis pedis is 1.04. The left ankle brachial index by the posterior tibial artery is 1.15. The left ankle brachial index by the dorsalis pedis is 1.07. VL/Ankle Brachial Index Interpretation Summary Triphasic Doppler waveforms are noted at ankle level bilaterally. Pulse-volume recordings appear satisfactory at ankle level bilaterally. Resting ankle-brachial indices are nor mal bilaterally. There is no evidence of significant arterial occlusive disease in the lower ext remities bilaterally. Ordering Physician: Olman Rm Performed By: Ryan Guzman RVT
--- NOTE | 2022-09-23 12:16 | VDLE_ITS ---
Reason For Study: pain RIGHT LEFT GSV is normal. GSV is normal. CFV is compressible, spontaneous, phasic, CFV is compressible, spontaneous, phasic, competent and demonstrates normal competent, and demonstrates normal augmentation. augmentation. FV is compressible, spontaneous, phasic, FV is compressible, spontaneous, phasic, competent and demonstrates normal competent and demonstrates normal augmentation. augmentation. POP V is compressible, spontaneous, phasic, POP V is compressible, spontaneous, phasic, competent and demonstrates normal competent and demonstrates normal augmentation. augmentation. T/P Trunk is compressible. T/P Trunk is compressible. PTV is compressible. PTV is compressible. RT PerV is compressible. LT PerV is compressible. Procedure This is a venous duplex using B-mode, color flow and spectral Doppler. Exam performed in department. The exam was diagnostic. A preliminary report was called and/or faxed to Dr. Rm. VL/Venous Duplex US - Shreyas Extrem Interpretation Summary Deep veins of the lower extremities are bilaterally patent and compressible seg mentally. There is no evidence of deep vein thrombosis on either side. Valvular competence appears in tact within the proximal deep venous systems bilaterally. The great saphenous veins appear bila terally patent and compressible segmentally. Ordering Physician: Olman Rm Performed By: Ryan Guzman RVT
== END | disposition home or self-care (01) ==
PROVIDERS: PCP Family Medicine; Referring Provider Family Medicine; Visit Provider Family Medicine
DX: M79.662 Pain in left lower leg (principal); M79.661 Pain in right lower leg
CPT/HCPCS: 93922; 93970

== ENCOUNTER → 2022-09-24 | Outpatient (CLI) | payer BC, SELFPAY ==
--- NOTE | 2022-09-24 09:17 | STEWCON_ITS ---
Reason For Study: Metabolic Syndrome; Chest Pain Stress Results Protocol: All Protocol WITH DEFINITY Maximum Predicted HR: 174 bpm Target HR: 148 bpm % Maximum Predicted HR: 86 % Heart Stage Duration Rate BP Comment (mm:ss) (bpm) Baseline 82 138/84No Chest Pain; 6 ML Diluted Definity All Protocol Stage I 3:00 123 146/78No Chest Pain All Protocol Stage II 3:00 137 150/72No Chest Pain; Mild Dypsnea All Protocol Stage III 1:00 150 / No Chest Pain; Mod Dyspnea No Chest Pain; EKG Malfunctioned 1st 3 min of Recovery 92 128/70Recovery Stress Duration: 7:00 mm:ss Maximum Stress HR: 150 bpm METS: 10 Baseline Echocardiogram Findings Stress Echo Wall motion Data Resting WM Intermediate WM Stress WM ECHO/Stress Test Echo W/Contrast Interpretation Summary Exercise stress echo. 47-year-old lady with a history of chest pain. Stress protocol: Resting EKG demonstrates normal sinus rhythm with a rate of 82 bpm normal inter vals are noted resting blood pressure is 138/84 mmHg. The patient exercised according to the r egular All protocol for a total duration of 7 minutes. Patient completed 1 minute into stage III of the All protocol. The maximum heart rate attained was 150 bpm which was 86% of max impacted heart rate the maximum workload was 10 metabolic equivalents. At rest there were no ST or T wave spicer es noted to suggest ischemia and at peak exercise nonspecific ST changes were noted. The test was t erminated due to dyspnea. The peak blood pressure was 150/72 mmHg. Rate-pressure product was 20, 550. Stress echocardiogram. The resting echocardiogram was performed with Definity e nhancement demonstrating preserved ejection fraction of 55% with no wall motion abnormalit ies noted. At peak exercise there was thickening of all trivedi and reduction of low ventricular cav ity size peaking at 75%. No wall motion abnormalities were noted. Conclusion: Normal exercise stress echo with no evidence of ischemia at a high workload. Preserved ejection fraction. Ordering Physician: Olman Rm Referring Physician: Olman Rm Performed By: Vijay Strange RCS
== END | disposition home or self-care (01) ==
LOC: CVS 09:14
PROVIDERS: PCP Family Medicine; Referring Provider Family Medicine; Visit Provider Family Medicine
DX: E88.81 Metabolic syndrome and other insulin resistance (principal); I10 Essential (primary) hypertension; R07.9 Chest pain, unspecified
CPT/HCPCS: 93017; 93350; Q9957; A4216; C8928

== ENCOUNTER → 2022-11-24 | Outpatient (CLI) | payer BC, SELFPAY ==
[2022-11-24 12:38] LABS: ALB/GLOB Ratio 0.7 RATIO (0.9-2.4); AST(SGOT) 23 U/L (15-37); Alanine Aminotransfer ALT/SGPT 34 U/L (13-56); Albumin, Serum 3.2 g/dL (3.2-5.0); Alkaline Phosphatase 139 U/L (45-117); Anion Gap 8 (5-15); BUN 9 mg/dL (7-18); BUN/Creat Ratio 13.1 RATIO (10-20); Chloride 107 mmol/L (98-107); Cholesterol 132 mg/dL (200); Creatinine, Serum 0.69 mg/dL (0.55-1.02); EST Glomerular Filtration Rate 98 mL/min (>60); Est Glom Filt Rate - Afr Amer 118 mL/min (>60); Globulin 4.6 g/dL (2.2-4.2); Glucose 120 mg/dL (74-106); High Density Lipoprotein 34 mg/dL; Protein, Total 7.8 g/dL (6.4-8.2); Sodium Level 141 mmol/L (136-145); Triglycerides 113 mg/dL; Very Low Density Lipoprotein 23 mg/dL (5-40)
[2022-11-24 12:41] LABS: Vitamin D,25 Hydroxy 61.4 ng/mL
[2022-11-24 13:09] LABS: Hemoglobin A1c 6.5 % (3.8-5.6)
== END | disposition home or self-care (01) ==
LOC: BFHLAB 09:38
PROVIDERS: PCP Family Medicine; Visit Provider Family Medicine
DX: E88.81 Metabolic syndrome and other insulin resistance (principal); I10 Essential (primary) hypertension; K76.0 Fatty (change of) liver, not elsewhere classified; E55.9 Vitamin D deficiency, unspecified
CPT/HCPCS: 36415; 80053; 80061; 82306; 83036

== ENCOUNTER → 2023-02-16 | Outpatient (CLI) | payer BC, SELFPAY ==
[2023-02-16 15:23] LABS: ALB/GLOB Ratio 0.7 RATIO (0.9-2.4); AST(SGOT) 14 U/L (15-37); Alanine Aminotransfer ALT/SGPT 27 U/L (13-56); Albumin, Serum 3.2 g/dL (3.2-5.0); Alkaline Phosphatase 154 U/L (45-117); Anion Gap 9 (5-15); BUN 9 mg/dL (7-18); BUN/Creat Ratio 13.3 RATIO (10-20); Calcium,Total 9.2 mg/dL (8.5-10.1); Chloride 105 mmol/L (98-107); Cholesterol 135 mg/dL (200); Creatinine, Serum 0.68 mg/dL (0.55-1.02); EST Glomerular Filtration Rate 99 mL/min (>60); Est Glom Filt Rate - Afr Amer 120 mL/min (>60); Globulin 4.7 g/dL (2.2-4.2); Glucose 88 mg/dL (74-106); High Density Lipoprotein 36 mg/dL; Potassium 3.8 mmol/L (3.5-5.1); Protein, Total 7.9 g/dL (6.4-8.2); Sodium Level 140 mmol/L (136-145); Triglycerides 118 mg/dL; Very Low Density Lipoprotein 24 mg/dL (5-40)
[2023-02-16 15:29] LABS: Hemoglobin A1c 5.8 % (3.8-5.6)
== END | disposition home or self-care (01) ==
LOC: BFHLAB 11:16
PROVIDERS: PCP Family Medicine; Referring Provider Family Medicine; Visit Provider Family Medicine
DX: E11.9 Type 2 diabetes mellitus without complications (principal); I10 Essential (primary) hypertension; E78.5 Hyperlipidemia, unspecified
CPT/HCPCS: 36415; 80053; 80061; 83036

== ENCOUNTER → 2023-07-13 | Outpatient (CLI) | payer BC, SELFPAY ==
[2023-07-13 10:29] LABS: Absolute Lymphocyte Count 2.91 X10^3/uL (0.83-4.51); Absolute Neutrophil Count 7.8 X10^3/uL (2.0-7.7); Basophil# 0.05 X10^3/uL; Basophil% 0.4 % (0-1); Eosinophil# 0.18 X10^3/uL; Eosinophils% 1.6 % (0-5); Hematocrit 40.7 % (37-47); Hemoglobin 12.7 g/dL (12.0-15.0); Lymphocyte # 2.91 X10^3/ul (0.83-4.51); Lymphocyte % 25.6 % (19-41); Mean Corp Hgb Conc 31.2 g/dL (32-36); Mean Corpuscular Hgb 26.9 pg (27.0-32.0); Mean Corpuscular Volume 86.2 fL (81-99); Mean Platelet Vol. 9.2 fl (6.2-12.0); Monocyte# 0.37 X10^3/uL; Monocyte% 3.3 % (0-10); NRBC Flagged by Analyzer 0 % (0-5); Neutrophil # 7.84 X10^3/uL (2.7-7.7); Neutrophil % 68.9 % (47-70); Platelet Count 349 K/mm3 (150-450); RBC Distribution Width CV 14.4 % (11.6-14.6); RBC Distribution Width SD 45.5 fl (35.1-43.9); Red Blood Count 4.72 M/mm3 (4.2-5.4); White Blood Count 11.4 K/mm3 (4.4-11.0)
[2023-07-13 10:48] LABS: Hemoglobin A1c 6.1 % (3.8-5.6)
[2023-07-13 11:35] LABS: ALB/GLOB Ratio 0.7 RATIO (0.9-2.4); AST(SGOT) 15 U/L (15-37); Alanine Aminotransfer ALT/SGPT 31 U/L (13-56); Albumin, Serum 3.1 g/dL (3.2-5.0); Alkaline Phosphatase 149 U/L (45-117); Anion Gap 8 (5-15); BUN 8 mg/dL (7-18); BUN/Creat Ratio 11.3 RATIO (10-20); Chloride 106 mmol/L (98-107); Cholesterol 149 mg/dL (200); Creatinine, Serum 0.71 mg/dL (0.55-1.02); EST Glomerular Filtration Rate 94 mL/min (>60); Est Glom Filt Rate - Afr Amer 114 mL/min (>60); Globulin 4.6 g/dL (2.2-4.2); Glucose 107 mg/dL (74-106); High Density Lipoprotein 38 mg/dL; Potassium 3.6 mmol/L (3.5-5.1); Protein, Total 7.7 g/dL (6.4-8.2); Sodium Level 137 mmol/L (136-145); Triglycerides 118 mg/dL; Very Low Density Lipoprotein 24 mg/dL (5-40)
== END | disposition home or self-care (01) ==
LOC: MTLAB 08:06
PROVIDERS: PCP Family Medicine; Referring Provider Family Medicine; Visit Provider Family Medicine
DX: Z00.00 Encounter for general adult medical examination without abnormal findings (principal); E11.9 Type 2 diabetes mellitus without complications
CPT/HCPCS: 36415; 80053; 80061; 83036; 85025; 86900; 86901

== ENCOUNTER → 2023-08-05 | Outpatient (CLI) | payer BC, SELFPAY ==
--- NOTE | 2023-08-05 07:02 | BI_ITS ---
MAMMOGRAPHY - BILATERAL SCREENING REASON FOR EXAM: Female, 48 years old. Routine annual screening examination. PERTINENT HISTORY: Grandmother with breast cancer. Aunt with breast cancer. TECHNIQUE: Digital bilateral breast shaniqua (3D mammographic acquisition) in the CC and MLO projections. 2-D mediolateral oblique (MLO) and craniocaudad (CC) views of both breasts were obtained. CAD: Full Field Digital Mammography with Computer Added Detection was performed. COMPARISON: Comparison is made with prior study August 04, 2022 and July 08, 2021. FINDINGS: Breast Composition: There are scattered areas of fibroglandular density. There are no dominant masses or suspicious calcifications. Stable small benign-appearing bilateral axillary lymph nodes. No other significant abnormalities are identified. There has been no significant change since the prior study. BI/SCRN MAMM (CAD)W/SHANIQUA BILAT IMPRESSION: Stable bilateral screening mammogram. Yearly follow-up mammogram recommended. (A) ASSESSMENT CATEGORY: BIRADS Category 2: Benign. A letter regarding these results will be sent to the patient by the facility within 30 days. Approximately 10% of breast cancers are not detected by mammography. A normal mammogram should not delay biopsy of a clinically suspicious abnormality. [id number] Electronically Signed: Bright Quintanilla MD at 9:11 EDT ,
== END | disposition home or self-care (01) ==
LOC: OPBI 06:59
PROVIDERS: PCP Family Medicine; Referring Provider Family Medicine; Visit Provider Family Medicine
DX: Z12.31 Encounter for screening mammogram for malignant neoplasm of breast (principal); Z80.3 Family history of malignant neoplasm of breast
CPT/HCPCS: 77063; 77067

== ENCOUNTER 2023-09-07 09:55 | Emergency (ER) | payer BC, SELFPAY ==
[2023-09-07 09:56] VITALS: BP 145/110; PULSE 82; RESP 16; TEMP 36.8; O2SAT 99; BMI 47.0
--- NOTE | 2023-09-07 10:07 | EX.ED.DYSGE1 ---
HPI History of Present Illness Chief Complaint: Headache [facility] Medical History (Updated 09/07/23 @ 10:[address] Lm Patel, DO) Depression HTN (hypertension) Home Medications amlodipine 5 mg tablet 5 mg PO DAILY 08/17/15 [History Last Taken Unknown] atorvastatin 20 mg tablet 20 mg PO DAILY 07/05/22 [History Last Taken Unknown] cholecalciferol (vitamin D3) 50 mcg (2,000 unit) tablet (Vitamin D3) 50 mcg PO DAILY 07/05/22 [History Last Taken Unknown] vitamin E 400 unit tablet 45 mg PO DAILY 07/05/22 [History Last Taken Unknown] metformin 500 mg tablet 500 mg PO BID 07/07/23 [History Last Taken Unknown] metoclopramide HCl 5 mg tablet (Reglan) 5 mg PO Q8H PRN PRN headache 5 days #15 tabs 09/07/23 [Rx Last Taken Unknown] Allergy/AdvReac Type Severity Reaction Status Date / Time adhesive tape Allergy Intermediate Hives Verified 09/07/23 10:01 Family History Brother No problems noted. Father Hypertension CAD (coronary artery disease) Surgical History S/P laparoscopic cholecystectomy S/P tubal ligation Status post section Social History Smoking Status: Never smoker alcohol intake: never EXAM Physical Exam Const Vital Signs: 09/07/23 09:56 Temperature 98.2 F Temperature Source Temporal Pulse Rate 82 Respiratory Rate 16 Blood Pressure 145/110 H Blood Pressure Mean 121 Pulse Ox 99 Oxygen Delivery Method Room Air MDM MDM MDM Narrative Medical decision making narrative: HISTORY OF PRESENT ILLNESS: 48-year-old female presents with headache. Notes right-sided hoahaoism pain since Thursday. Is in the setting of having double ear infection. States she has been compliant with home antimicrobial therapy. She further states this began gradually on Thursday. Denies any recent head trauma. Patient denies sudden onset or thunderclap headache, denies maximal intensity within 1 minute, vomiting, neck pain or stiffness, changes in vision, fever, history malignancy, syncope, seizures. REVIEW OF SYSTEMS: All other systems reviewed and are negative except as noted in the history of present illness. At least 10 review of systems reviewed and are negative except as noted in history of present illness. PHYSICAL EXAM: Nursing triage notes reviewed, Vital signs reviewed Constitutional: please see [facility] HENT: MMM, bilateral TMs pearly arita with no obvious hyperemia, no temporal artery tenderness, Eyes: Pupils equal round and reactive to light, Extraocular muscles intact Neck: No stridor, no JVD, full neck ROM, no carotid bruits Lungs: Clear to auscultation, No wheezing or rales. No increased work of breathing, no conversational dyspnea, no accessory muscle use, no nasal flaring. No respiratory distress noted Heart: Regular rate and rhythm, No murmurs, No rubs and No gallops, 2+ distal pulses (radial, femoral, posterior tibial) in all extremities Neuro: Alert and oriented x3, neuro exam at baseline, cranial nerves II through XII are intact. No pain with extraocular muscle movement. There is negative test of skew. Normal speech. 5 of 5 strength in upper and lower extremities in flexion extension. Intact sensation to light touch in upper and lower extremity dermatomes. No truncal or extremity ataxia. No dysdiadochokinesia. Normal gait. 2+ reflexes. No meningeal signs. Negative Babinski. NIH of 0 Skin: No rash or lesions noted MEDICAL DECISION MAKING: Chief Complaint: Headache External records reviewed: Imaging studies reviewed: No recent advanced imaging of the brain noted Factors affecting care: Hypertension, hyperlipidemia, type 2 diabetes Social determinants of health: none History obtained from others: none Consults: none [facility] Narrative: Patient was hemodynamically stable, afebrile, nontoxic-appearing. There are no focal neurologic deficits on exam. No temporal artery tenderness. I suspect the patient's headache is likely secondary to recent otitis media for which she is undergoing antimicrobial therapy for. I considered the following differential diagnosis: Subarachnoid hemorrhage, epidural hematoma, ICH, meningitis, carotid artery dissection, primary headache (primary headache, migraine, tension headache, cluster headache), temporal arteritis The patient looks great and is in no significant objective discomfort currently. The patient's headache is non-specific. Exam is unremarkable. The patient is in no distress and the patient?s neurological exam is non-focal, neck is supple and without meningismus. The headache is not consistent with meningitis or infection, nor is it consistent with intracranial bleed (SAH etc.), carotid dissection, nor mass by history and examination. Medication and outpatient follow-up was instructed. The patient was instructed to return as needed or if symptoms changed or worsened, fever developed or inability to tolerate fluids. The patient agreed with plan. The patient and/or family, caregivers express understanding. The patient and/or family, caregivers agrees with the plan. Total critical care time today provided was at least 0 minutes. This excludes separately billable procedures. Critical care time (if documented) is secondary to the patient having high probability of clinically significant/life threatening deterioration in the patient's condition which required my urgent intervention. Shared decision making: I will have a discussion with the patient and or visitors regarding risk/benefits of further testing or admission. They will be made aware of of the risk/benefits inherent in this decision they will be given the opportunity to voice understanding. Impression: 1. Acute headache Disposition: Discharge Discharge Plan Triage Chief Complaint: Headache ED Provider: Lm Patel Dx/Rx/DC Orders Clinical Impression: Acute headache Instructions: ED Headache Unspecified Prescriptions: New metoclopramide HCl [Reglan] 5 mg tablet 5 mg PO Q8H PRN PRN (Reason: headache) 5 Days Qty: 15 0RF No Action amlodipine 5 MG tablet 5 mg PO DAILY atorvastatin 20 mg Tablet 20 mg PO DAILY vitamin E 400 unit Tablet 45 mg PO DAILY cholecalciferol (vitamin D3) [Vitamin D3] 50 mcg (2,000 unit) Tablet 50 mcg PO DAILY Stand Alone Forms: ED Work / School Excuse Primary Care Provider: Olman Rm Referrals: Olman Rm DO [Primary Care Provider] - Activity Restrictions/Additional Instructions: Thank you for trusting us with your care today! Please take Tylenol (2 pills, 650 mg), ibuprofen (2 pills, 400 mg) every 6 hours as needed for pain and fever control. Please take Reglan as needed for headache treatment. Please return to the emergency department if your symptoms change or worsen. Specifically develop loss of vision, if you lose consciousness, develop seizures, develop focal loss of sensation or movement in your extremities. Please follow with your primary care physician for further outpatient evaluation and management. Disposition Disposition: Home, Self Care Discharge Date/Time: 09/07/23 10:52
[2023-09-07] MEDS: Ibuprofen 200 MG Tablet 400 MG PO (10:25)
[2023-09-07] MEDS: Acetaminophen 325 MG Tablet PO (10:26)
[2023-09-07] MEDS: Metoclopramide 5 MG TABLET PO (10:26)
== END 2023-09-07 10:52 | disposition home or self-care (01) ==
LOC: ED 10:21
PROVIDERS: Emergency Provider Emergency Medicine; PCP Family Medicine; Visit Provider Emergency Medicine
DX: R51.9 Headache, unspecified (principal); E11.9 Type 2 diabetes mellitus without complications
CPT/HCPCS: 99283

== ENCOUNTER → 2023-11-30 | Outpatient (CLI) | payer BC, SELFPAY ==
--- OUTSIDE RECORDS SUMMARY | 2023-11-30 07:04 | XMS RPT_ITS | CCD ---
Author Name Unknown Address [address] [facility] [address] [place] [address] Organization [facility] Care Team Providers Care Manager Golf Name Role Phone Peterson Rm DO Primary Care Provider MARSHA SUNG Attending Unavailable PETERSON RM Primary Care Unavailable MARSHA SUNG Attending Unavailable PETERSON RM Primary Care Unavailable Peterson Rm Primary Care Provider OSIRIS VELASQUEZ Attending Unavailable PETERSON RM Primary Care Unavailable OSIRIS VELASQUEZ Attending Unavailable PETERSON RM Primary Care Unavailable OSIRIS VELASQUEZ Attending Unavailable PETERSON RM Primary Care Unavailable OSIRIS VELASQUEZ Attending Unavailable PETERSON RM Primary Care Unavailable OSIRIS VELASQUEZ Attending Unavailable Medications Current Medications Medication Drug Class(es) Dates Sig (Normalized) Sig (Original) amLODIPine 5 mg oral tablet (7 sources) Dihydropyridine Calcium Channel Kim Start: 05-28-2022 amLODIPine (Norvasc) 5 MG tablet Take 1 tablet by mouth. 0 05/28/2022 Active Completed/Discontinued Medications Medication Drug Class(es) Dates Sig (Normalized) Sig (Original) Bifidobacterium Infantis (3 sources) End: 05-28-2023 Bifidobacterium infantis (ALIGN ORAL) Take by mouth. 0 05/28/2023 Discontinued Problems Active Problems Problem Classification Problem Date Documented Da te Episodic/Chronic Diabetes mellitus without complication (6 sources) Type 2 diabetes mellitus without complication; Translations: [Type 2 diabetes mellitus without complications] Onset: 01-21-2023 Chronic Disorders of lipid metabolism (4 sources) Hyperlipidemia; Translations: [Hyperlipidemia, unspecified] Onset: 06-30-2022 08-02-2022 Chronic Other nutritional; endocrine; and metabolic disorders (6 sources) Body mass index 40+ - severely obese; Translations: [Body mass index (BMI) 45.0-49.9, adult] Onset: 05-28-2023 Chronic Other nutritional; endocrine; and metabolic disorders (4 sources) Severe obesity; Translations: [Morbid (severe) obesity due to excess calories] Chronic Other nutritional; endocrine; and metabolic disorders (2 sources) Body mass index (BMI) 45.0-49.9, adult; Translations: [Body mass index (BMI) 45.0-49.9, adult (HCC)] Onset: 01-21-2023 Chronic Other nutritional; endocrine; and metabolic disorders (2 sources) Morbid (severe) obesity due to excess calories; Translations: [Morbid (severe) obesity due to excess calories (HCC)] Onset: 01-21-2023 Chronic Residual codes; unclassified (4 sources) Sleep apnea; Translations: [Sleep apnea, unspecified] Onset: 06-30-2022 08-02-2022 Chronic Past or Other Problems Problem Classification Problem Date Documented Da te Episodic/Chronic Diabetes mellitus without complication (4 sources) Prediabetes; Translations: [Prediabetes] Onset: 06-30-2022 08-02-2022 Episodic Inflammatory diseases of female pelvic organs (2 sources) Abscess of vulva; Translations: [Abscess of vulva] Onset: 01-16-2023 Episodic Other lower respiratory disease (4 sources) Dyspnea on exertion; Translations: [Other forms of dyspnea] Onset: 06-30-2022 08-02-2022 Episodic Other nutritional; endocrine; and metabolic disorders (2 sources) Weight loss; Translations: [Weight Loss] Onset: 12-12-2022 Episodic Results Test Name Value Interpretation Reference Range Facil ity Vital Signs Date Time Vital Sign Value Performing Clinician Faci lity 08-14-2023 08:19-0400 Body height 166.4 cm Osiris Velasquez MD Work Phone: [facility] 08-14-2023 08:19-0400 Body mass index (BMI) [Ratio] 46.44 kg/m2 Osiris Velasquez MD Work Phone: [facility] 08-14-2023 08:19-0400 Body weight 128.55 kg Osiris Velasquez MD Work Phone: [facility] 08-14-2023 08:19-0400 Diastolic blood pressure 84 mm[Hg] Osiris Velasquez MD Work Phone: [facility] 08-14-2023 08:19-0400 Heart rate 80 /min Osiris Velasquez MD Work Phone: [facility] 08-14-2023 08:19-0400 Systolic blood pressure 123 mm[Hg] Osiris Velasquez MD Work Phone: [facility] 05-28-2023 08:21-0400 Body height 165.1 cm Marsha Sung MD Work Phone: [facility] 05-28-2023 08:21-0400 Body weight 128.28 kg Marsha Sung MD Work Phone: [facility] 05-28-2023 08:21-0400 Diastolic blood pressure 78 mm[Hg] Marsha Sung MD Work Phone: [facility] 05-28-2023 08:21-0400 Systolic blood pressure 128 mm[Hg] Marsha Sung MD Work Phone: [facility] 05-20-2023 08:03-0400 Body height 166.4 cm Osiris Velasquez MD Work Phone: [facility] 05-20-2023 08:03-0400 Body mass index (BMI) [Ratio] 47.49 kg/m2 Osiris Velasquez MD Work Phone: [facility] 05-20-2023 08:03-0400 Body weight 131.45 kg Osiris Velasquez MD Work Phone: [facility] 05-20-2023 08:03-0400 Diastolic blood pressure 71 mm[Hg] Osiris Velasquez MD Work Phone: [facility] 05-20-2023 08:03-0400 Heart rate 76 /min Osiris Velasquez MD Work Phone: [facility] 05-20-2023 08:03-0400 Systolic blood pressure 104 mm[Hg] Osiris Velasquez MD Work Phone: [facility] 01-21-2023 07:38-0400 Body height 166.4 cm Osiris Velasquez MD Work Phone: [facility] 01-21-2023 07:38-0400 Body mass index (BMI) [Ratio] 47.03 kg/m2 Osiris Velasquez MD Work Phone: [facility] 01-21-2023 07:38-0400 Body weight 130.18 kg Osiris Velasquez MD Work Phone: [facility] 01-21-2023 07:38-0400 Diastolic blood pressure 82 mm[Hg] Osiris Velasquez MD Work Phone: [facility] 01-21-2023 07:38-0400 Heart rate 85 /min Osiris Velasquez MD Work Phone: [facility] 01-21-2023 07:38-0400 Systolic blood pressure 126 mm[Hg] Osiris Velasquez MD Work Phone: [facility] 01-16-2023 14:20-0400 Body weight 134.72 kg Marsha Sung MD Work Phone: [facility] 01-16-2023 14:20-0400 Diastolic blood pressure 88 mm[Hg] Marsha Sung MD Work Phone: [facility] 01-16-2023 14:20-0400 Systolic blood pressure 132 mm[Hg] Marsha Sung MD Work Phone: [facility] Encounters Encounter Date Encounter Type Care Provider Facility Start: 08-14-2023 End: 08-14-2023 ambulatory OSIRIS VELASQUEZ [facility] Start: 08-14-2023 End: 08-14-2023 Office outpatient visit 15 minutes Osiris Velasquez MD Work Phone: [facility] Procedures Date Procedure Procedure Detail Performing Clinician Start: 08-05-2023 Mammography Osiris maurice MD Work Phone: Start: 08-04-2022 Mammography Marsha rice MD Work Phone: Plan of Treatment Date Care Activity Detail Author Start: 2026 Zoster Vaccines (1 of 2) Zoster Vaccines (1 of 2) [facility] Start: 10-21-2024 HPV TESTING HPV TESTING [facility] Start: 10-21-2024 PAP TESTING PAP TESTING [facility] Start: 08-05-2024 Screening for malignant neoplasm of breast Mammogram [facility] Start: 09-30-2023 End: 09-30-2023 Patient encounter procedure 09/30/2023 8:00 AM EST Office Visit [facility] [address] [place] [address] Osiris Velasquez MD [address] [place], [place] [id number] [facility] Start: 08-04-2023 Mammography MAMMOGRAM [facility] Start: 08-04-2023 Screening for malignant neoplasm of breast Mammogram [facility] Start: 07-08-2023 End: 07-08-2023 Patient encounter procedure 07/08/2023 8:20 AM EDT Office Visit [facility] [address] [place] [address] Osiris Velasquez MD [address] [place], [place] [id number] [facility] Start: 06-19-2023 Influenza vaccination [facility] Start: 02-27-2023 End: 02-27-2023 Patient encounter procedure 02/27/2023 Office Visit Weight Management Osiris Velasquez MD [address] [place], [place] [id number] [facility] Start: 10-19-2022 DEPRESSION ASSESSMENT DEPRESSION ASSESSMENT [facility] Start: 12-20-2021 COVID-19 VACCINE (3 - Booster for Moderna series) COVID-19 VACCINE (3 - Booster for Moderna series) [facility] Start: 03-04-2022 COVID-19 VACCINE (3 - Moderna series) COVID-19 VACCINE (3 - Moderna series) [facility] Start: 2021 COLOGUARD (FIT-DNA) COLOGUARD (FIT-DNA) [facility] Start: 2021 Colonoscopy COLONOSCOPY [facility] Start: 2021 COLORECTAL CANCER SCREENING COLORECTAL CANCER SCREENING [facility] Start: [address] COLONOGRAPHY [facility] Start: 2021 DIABETES SCREEN DIABETES SCREEN [facility] Start: 2021 FECAL OCCULT BLOOD FECAL OCCULT BLOOD [facility] Start: 2021 LIPID SCREEN LIPID SCREEN [facility] Start: 2021 SIGMOIDOSCOPY SIGMOIDOSCOPY [facility] Start: 2006 Screening for malignant neoplasm of cervix [facility] Start: 1997 Screening for malignant neoplasm of cervix Pap Smear [facility] Start: 1995 DTaP/Tdap/Td Vaccines (1 - Tdap) DTaP/Tdap/Td Vaccines (1 - Tdap) [facility] Start: 1995 Urine microalbumin profile DTAP,TDAP,TD (1 - Tdap) [facility] Start: 1995 Urine screening for protein Diabetes: Urine Protein Screening [facility] Start: 1994 HEPATITIS C SCREENING HEPATITIS C SCREENING [facility] Start: 1994 Hepatitis C screening Hepatitis C Screening [facility] Start: 1994 HIV SCREENING HIV SCREENING [facility] Start: 1988 Depression Screening Depression Screening [facility] Start: 1986 Diabetic foot examination Diabetes: Foot Exam [facility] Start: 1986 Glaucoma screening Diabetes: Retinopathy Screening [facility] Start: 1986 Preventive dental service Diabetes: Dental Exam [facility] Start: 1982 Pneumococcal Vaccine: Pediatrics (0 to 5 Years) and At-Risk Patients (6 to 64 Years) (1 - PCV) Pneumococcal Vaccine: Pediatrics (0 to 5 Years) and At-Risk Patients (6 to 64 Years) (1 - PCV) [facility] Start: 1977 MMR Vaccines (1 of 1 - Standard series) MMR Vaccines (1 of 1 - Standard series) [facility] Start: 1976 Hemoglobin A1c measurement Diabetes: Hemoglobin A1C [facility] Start: 1976 HEPATITIS B (1 of 3 - 3-dose series) HEPATITIS B (1 of 3 - 3-dose series) [facility] Start: 1976 Hepatitis B Vaccines (1 of 3 - 3-dose series) Hepatitis B Vaccines (1 of 3 - 3-dose series) [facility] Start: 1976 HIV screening HIV Screening [facility] Start: 1976 Lipid panel Lipid Panel [facility] Start: 1976 Screening for malignant neoplasm of colon [facility] Immunizations Immunization Date Immunization Notes Care Provider [facility] 07-30-2022 influenza virus vaccine, unspecified formulation Osiris Velasquez MD Work Phone: [facility] 08-31-2018 influenza, injectabl e, quadrivalent, preservative free Marsha Sung MD Work Phone: [facility] Work Phone: Payers Date Payer Category Payer Unknown [id number] 2013 Unknown [id number] Social History Date Type Detail Facility Start: 01-16-2023 End: 05-28-2023 Tobacco smoking status NHIS Never smoked tobacco [facility] Start: 01-16-2023 End: 05-28-2023 Tobacco use and exposure Smokeless tobacco non-user [facility] Start: 01-16-2023 End: 08-14-2023 Alcohol intake Ex-drinker (finding) [facility] Start: 1975 Sex Assigned At Not on file [facility] Start: 01-11-2023 End: 05-20-2023 Exposure to SARS-CoV-2 (event) Not sure [facility] Start: 12-12-2022 End: 05-28-2023 History of Social function [facility] Start: 12-12-2022 End: 05-28-2023 Tobacco use panel [facility] National Score (1-100), lower number is lower risk 51 [facility] NEGATED: Highlighted rowStart: NINF History of tobacco use Passive smoker [facility] Work Phone: Clinical Notes 10-29-2022 to 08-14-2023 Michelle Barajas LPN - 08/14/2023 8:40 AM Cory Velasquez MD - 08/14/2023 8:40 AM Marsha Gonzalez MD - 05/28/2023 8:20 AM Chichi Barajas LPN - 05/20/2023 8:20 AM EDT Note Date & Type Note Facility 08-14-2023 History of Presen t illness Narrative [facility] NON-SURGICAL WEIGHT LOSS MANAGEMENT PROGRAM ROOMING NOTE: FOLLOW UP VISIT Patient: Olamide Cast Date of : 1975 Service Date: 08/14/2023 Patient History/Assessment Summary: The patient is a pleasant 48 y.o. year old female, who stands Height: 5' 5.5 (166.4 cm) tall with a weight of Weight: 283 lb 6.4 oz (129 kg) pounds, resulting in a BMI of Body mass index is 46.44 kg/m . kg/m2. She is here for follow-up for non-surgical treatment of Obesity Patient has the following question(s): none Pre Program Weight Metrics ([facility]) Date of Initial Consultation:@FLOWLAST([id number])@ Initial Weight: @FLOWLAST([id number])@ Initial BMI: @FLOWLAST([id number])@ Lena Body Weight: @FLOWLAST([id number])@ Excess Body Weight: @FLOWLAST([id number])@ Body Fat Percentage: No flowsheet data found. Subsequent Body Fat Percentage: No flowsheet data found. Pre Program Weight Metrics (Epic) (Surgical Wt Loss Management- baseline) This Visit Non-Surgical Subsequent Eval Date: 08/14/23 Height: 5' 5.5 (166.4 cm) Weight: 283 lb 6.4 oz (129 kg) BMI: 46.44 Weight Change: -6.4 lbs Total Weight Change: -24.4 lbs % EBWL: 14% Subsequent Body Fat %: 55.73 Body Fat % Change: -1.26 Follow Up Weight Metrics Last Three Weights Including Today's Weight: Wt Readings from Last 3 Encounters: 08/14/23 283 lb 6.4 oz (129 kg) 05/20/23 289 lb 12.8 oz (131 kg) 01/21/23 287 lb (130 kg) Diabetes Do you currently have diabetes? Yes Are you currently prescribed insulin? No Are you currently prescribed an oral medication for diabetes? Yes GERD (Gastroesophageal Reflux Disease) Do you currently have GERD? No Do you get heartburn type symptoms more than twice per week? No Are you currently on a medication for GERD? (not TUMS) (examples: Prilosec/omeprazole, Zantac/ranitidine, etc.) No Hyperlipidemia (high cholesterol) Do you currently have a diagnosis of high cholesterol? Yes Are you currently prescribed a medication for high cholesterol? (examples Lipitor/Atorvastatin, Pravastatin, Zetia, Tricor, etc.) Yes Have you been diagnosed with high cholesterol but chosen not to take medication? No Hypertension (high blood pressure) Do you currently have a diagnosis of Hypertension? Yes Are you currently on a medication for Hypertension? Yes Have you been diagnosed with Hypertension but have chosen not to take the medication? No Sleep Apnea Do you currently have Sleep Apnea? No Are you on a device (CPAP, BiPAP, etc) for Sleep Apnea? No Have you been diagnosed with Sleep Apnea but cannot tolerate or have chosen not to treat? No Comorbids summary (flow sheet comorbids) Falls Risk Assessment Patient does not take medications which affect BP or mental status Patient does not have newly prescribed or changed dosage of medications within past 30 days which affect BP or mental status Patient has not fallen in the past 2 months Patient does not demonstrate unsteady gait Patient uses the following ambulatory assistive devices: none Patient states the presence of the following traits which increases risk of fall: none Patient is not on home O2 Completed by: Michelle Barajas LPN HPI, PHYSICAL EXAMINATION & PLAN HPI: Patient here today for follow up for non-surgical weight loss management Weight trend since last visit: lost 4 lbs over 3 m stable This patient's excess weight is causing the following co-morbid conditions at this time:DM Physical Examination: Blood pressure 126/82, pulse 85, height 5' 5.5 (1.664 m), weight 287 lb (130 kg). General: This patient is calm and pleasant General: This patient is awake, alert, and oriented, and is in no apparent distress. Extremities: No cyanosis, clubbing or edema/ No calf tenderness/No restrictions of movement, is ambulatory without assistance. Neurological: Intact x 4 extremities, no focal deficits notes. Skin: No rashes or lesions noted. Social History: This patient is alone for the evaluation today. She does notsmoke, and does notdrink alcohol. Current Diet This patient s current diet is: 80% meal plan Her diet contains adequate amounts of protein, adequate amounts of healthy fats, adequate amounts of green, leafy vegetables, and adequate amounts of fruits. Her comfort foods include: none Current Activity This patient currently does exercise for 30 Minutes per session, 4 times per week, including the following: walking and water ferdinand . Current Eating Behaviors This patients demonstrates the following behaviors as they relate to her eating: structured She eats approximately 3-4 times per day. Her last meal/snack was at 6 am/pm. Progress Made Towards Goals: 3 month weight goal: 20 6 month weight goal: 30 12 month weight goal: 60 Plan: Obesity stable Continue current management, continue weight loss program Will focus on the portion control Calorie [id number] daily Will restart with meal preparation Discuss option for breakfast , lunch and dinner Portions Focus on the meal structure, composition and portion control Discuss how to eat in the hospital Minimize damages for stress eating ( CABG in 2 wks) DM Recent dx Started on metformin and ozempic Discuss the mechanism of action Continue current management, continue weight loss program stable [x] Protein goal of 1g protein per 1 kg of ideal body weight: 75 grams [x] Patient advised to maintain a food/exercise/behavior diary until next physician visit and to bring the completed diary to next visit [] Referred patient to surgical weight loss management program (FD to place referral) Other: Physician Diet Recommendations given to patient See Follow up Section of today's encounter for next visit and additional scheduling orders Obtain follow up lab work: BARIATRIC; Non Surg Lab orders: no Patient is not taking anti-obesity medication. I spend a total of 20 minutes on the same day of the visit in discussing/counseling the patient regarding the diet and exercise in order to lose weight.Education on the meal plan and 7 rules of eating is provided. Meal prep is encouraged as a foundation of the meal plan. Food journal is encouraged as a feedback system. Exercise and its role in weight loss is explained. Weight loss medications role in weight loss journey is discussed DM Is associated with obesity and weight loss is discussed as a treatment option for DM Full chart review was performed.Clinical documentation is updated and completed. documented in this encounter [facility] 05-28-2023 Note HNO ID: [id number] Author: Marsha Sung MD Service: ? Author Type: Physician Type: Progress Notes Filed: 05/28/2023 8:54 AM Note Text: Jayde is a 48 year old who presents for an annual gynecologic exam without complaints. Menses: s/p endoemtrial ablation, no menses. No hot flashes or other concerns. Contraception: tubal sterilization HPV vaccine: No Last Pap: 10/25/2019 normal HPV: 10/25/2019 negative History of abnormal pap: No Last mammogram: 2021normal OB History T2 L2 SAB0 IAB0 Ectopic0 Multiple0 Live Births2 Nurse Wound History LMP: 04/28/2018, Ablation Age at Menarche: Age at First : Age at Menopause: Nurse Wound History Comments: Sexual Activity: Yes; Male; novasure Contraception: Tubal Ligation PAST MEDICAL HISTORY Diagnosis Date Anxiety Diabetes mellitus (HCC) Heart murmur Hypertension PAST SURGICAL HISTORY Procedure Laterality Date DELIVERY ONLY x 2 CHOLECYSTECTOMY CYST/MOLE REMOVAL 09/2021 ENDOMETRIAL ABLTJ THERMAL W/O HYSTEROSCOPIC GUID 2015 novasure approx 2015 LIGATE FALLOPIAN TUBE FAMILY HISTORY Problem Relation Age of Onset other (back pain) Mother Hypertension Father Clotting Disorder Sister factor V Factor 5 Leiden Sister Breast Cancer Maternal Grandmother Ischemic Heart Disease Maternal Grandfather 53 of [place] Breast Cancer Maternal Aunt SOCIAL HISTORY Social History Tobacco Use Smoking status: Never Passive exposure: Never Smokeless tobacco: Never Vaping Use Vaping Use: Never used Substance Use Topics Alcohol use: Not Currently Drug use: Never REVIEW OF SYSTEMS Abdomen: No abdominal pain, nausea, vomiting, diarrhea, or constipation. No bloating, early satiety, indigestion, or increased flatulence. Bladder: No dysuria, gross hematuria, urinary frequency, urinary urgency, or incontinence. Breast: No breast lumps, nipple d/c, overlying skin changes, redness or skin retraction. Allergies and current medication updated:Yes EXAM: Ht 5' 5 (1.65m) Wt 282 lb 12.8 oz (128.3kg) LMP 04/28/2018 BMI 47.06 kg/(m2). GENERAL: pleasant, female in no apparent distress HEENT: Normocephalic, atraumatic, mucus membranes moist, and no lesions NECK: Supple, full range of motion, no adenopathy, and thyroid normal DERMATOLOGY: Normal, without lesions, non-icteric, and non-hirsute BREAST: soft, non-tender, symmetric, no dominant mass, normal nipple-areolar complex, no lymphadenopathy, and no nipple discharge CHEST: Normal inspiratory effort ABDOMEN: soft, non-tender, and no masses PELVIC: external genitalia normal, normal Bartholin's glands, urethra, [place]'s glands, no vulvar lesions, no cervical lesions, good vaginal support, physiologic discharge present, normal appearing perineal body and perianal region BIMANUAL: uterus normal size, shape and consistency, no adnexal masses, and non-tender RECTOVAGINAL: deferred. NEURO: alert and oriented x3,exam grossly non-focal EXTREMITIES: normal ASSESSMENT/PLAN: 1) Health maintenance: Pap/HPV up to date. Mammogram ordered. 2) Contraception: tubal sterilization. Contraceptive options reviewed and information provided. 3) STD screening: Declined STD check. 4) Follow up one year or sooner as needed Marsha Sung MD [facility] 05-28-2023 History of Presen t illness Narrative Jayde is a 48 year old who presents for an annual gynecologic exam without complaints. Menses: s/p endoemtrial ablation, no menses. No hot flashes or other concerns. Contraception: tubal sterilization HPV vaccine: No Last Pap: 10/25/2019 normal HPV: 10/25/2019 negative History of abnormal pap: No Last mammogram: 2021normal OB History T2 L2 SAB0 IAB0 Ectopic0 Multiple0 Live Births2 Nurse Wound History LMP: 04/28/2018, Ablation Age at Menarche: Age at First : Age at Menopause: Nurse Wound History Comments: Sexual Activity: Yes; Male; novasure Contraception: Tubal Ligation PAST MEDICAL HISTORY Diagnosis Date Anxiety Diabetes mellitus (HCC) Heart murmur Hypertension PAST SURGICAL HISTORY Procedure Laterality Date DELIVERY ONLY x 2 CHOLECYSTECTOMY CYST/MOLE REMOVAL 09/2021 ENDOMETRIAL ABLTJ THERMAL W/O HYSTEROSCOPIC GUID 2014 novasure approx 2015 LIGATE FALLOPIAN TUBE FAMILY HISTORY Problem Relation Age of Onset other (back pain) Mother Hypertension Father Clotting Disorder Sister factor V Factor 5 Leiden Sister Breast Cancer Maternal Grandmother Ischemic Heart Disease Maternal Grandfather 53 of [place] Breast Cancer Maternal Aunt SOCIAL HISTORY Social History Tobacco Use Smoking status: Never Passive exposure: Never Smokeless tobacco: Never Vaping Use Vaping Use: Never used Substance Use Topics Alcohol use: Not Currently Drug use: Never REVIEW OF SYSTEMS Abdomen: No abdominal pain, nausea, vomiting, diarrhea, or constipation. No bloating, early satiety, indigestion, or increased flatulence. Bladder: No dysuria, gross hematuria, urinary frequency, urinary urgency, or incontinence. Breast: No breast lumps, nipple d/c, overlying skin changes, redness or skin retraction. Allergies and current medication updated:Yes EXAM: Ht 5' 5 (1.65m) Wt 282 lb 12.8 oz (128.3kg) LMP 04/28/2018 BMI 47.06 kg/(m^2). GENERAL: pleasant, female in no apparent distress HEENT: Normocephalic, atraumatic, mucus membranes moist, and no lesions NECK: Supple, full range of motion, no adenopathy, and thyroid normal DERMATOLOGY: Normal, without lesions, non-icteric, and non-hirsute BREAST: soft, non-tender, symmetric, no dominant mass, normal nipple-areolar complex, no lymphadenopathy, and no nipple discharge CHEST: Normal inspiratory effort ABDOMEN: soft, non-tender, and no masses PELVIC: external genitalia normal, normal Bartholin's glands, urethra, [place]'s glands, no vulvar lesions, no cervical lesions, good vaginal support, physiologic discharge present, normal appearing perineal body and perianal region BIMANUAL: uterus normal size, shape and consistency, no adnexal masses, and non-tender RECTOVAGINAL: deferred. NEURO: alert and oriented x3,exam grossly non-focal EXTREMITIES: normal ASSESSMENT/PLAN: 1) Health maintenance: Pap/HPV up to date. Mammogram ordered. 2) Contraception: tubal sterilization. Contraceptive options reviewed and information provided. 3) STD screening: Declined STD check. 4) Follow up one year or sooner as needed Marsha Sung MD documented in this encounter [facility] 05-20-2023 History of Presen t illness Narrative [facility] NON-SURGICAL WEIGHT LOSS MANAGEMENT PROGRAM ROOMING NOTE: FOLLOW UP VISIT Patient: Olamide Cast Date of : 1975 Service Date: 05/20/2023 Patient History/Assessment Summary: The patient is a pleasant 48 y.o. year old female, who stands Height: 5' 5.5 (166.4 cm) tall with a weight of Weight: 289 lb 12.8 oz (131 kg) pounds, resulting in a BMI of Body mass index is 47.49 kg/m . kg/m2. She is here for follow-up for non-surgical treatment of Morbid Obesity Patient has the following question(s): none Pre Program Weight Metrics (CARE Path) Date of Initial Consultation:@FLOWLAST([id number])@ Initial Weight: @FLOWLAST([id number])@ Initial BMI: @FLOWLAST([id number])@ Lena Body Weight: @FLOWLAST([id number])@ Excess Body Weight: @FLOWLAST([id number])@ Body Fat Percentage: No flowsheet data found. Subsequent Body Fat Percentage: No flowsheet data found. Pre Program Weight Metrics (Epic) (Surgical Wt Loss Management- baseline) This Visit Non-Surgical Subsequent Eval Date: 05/20/23 Height: 5' 5.5 (166.4 cm) Weight: 289 lb 12.8 oz (131 kg) BMI: 47.49 Weight Change: 2.8 lbs Total Weight Change: -18 lbs % EBWL: 11% Subsequent Body Fat %: 56.99 Body Fat % Change: 0.55 Follow Up Weight Metrics Last Three Weights Including Today's Weight: Wt Readings from Last 3 Encounters: 05/20/23 289 lb 12.8 oz (131 kg) 01/21/23 287 lb (130 kg) 12/12/22 296 lb 12.8 oz (135 kg) Diabetes Do you currently have diabetes? No Are you currently prescribed insulin? No Are you currently prescribed an oral medication for diabetes? No GERD (Gastroesophageal Reflux Disease) Do you currently have GERD? no Do you get heartburn type symptoms more than twice per week? No Are you currently on a medication for GERD? (not TUMS) (examples: Prilosec/omeprazole, Zantac/ranitidine, etc.) No Hyperlipidemia (high cholesterol) Do you currently have a diagnosis of high cholesterol? Yes Are you currently prescribed a medication for high cholesterol? (examples Lipitor/Atorvastatin, Pravastatin, Zetia, Tricor, etc.) Yes Have you been diagnosed with high cholesterol but chosen not to take medication? No Hypertension (high blood pressure) Do you currently have a diagnosis of Hypertension? Yes Are you currently on a medication for Hypertension? Yes Have you been diagnosed with Hypertension but have chosen not to take the medication? No Sleep Apnea Do you currently have Sleep Apnea? Yes Are you on a device (CPAP, BiPAP, etc) for Sleep Apnea? Yes Have you been diagnosed with Sleep Apnea but cannot tolerate or have chosen not to treat? No Comorbids summary (flow sheet comorbids) Falls Risk Assessment Patient does not take medications which affect BP or mental status Patient does not have newly prescribed or changed dosage of medications within past 30 days which affect BP or mental status Patient has not fallen in the past 2 months Patient does not demonstrate unsteady gait Patient uses the following ambulatory assistive devices: none Patient states the presence of the following traits which increases risk of fall: none Patient is not on home O2 Completed by: Michelle Barajas LPN HPI, PHYSICAL EXAMINATION & PLAN HPI: Patient here today for follow up for non-surgical weight loss management Weight trend since last visit: lost 2 lbs over 4 m stable This patient's excess weight is causing the following co-morbid conditions at this time:DM Physical Examination: Blood pressure 126/82, pulse 85, height 5' 5.5 (1.664 m), weight 287 lb (130 kg). General: This patient is calm and pleasant General: This patient is awake, alert, and oriented, and is in no apparent distress. Extremities: No cyanosis, clubbing or edema/ No calf tenderness/No restrictions of movement, is ambulatory without assistance. Neurological: Intact x 4 extremities, no focal deficits notes. Skin: No rashes or lesions noted. Social History: This patient is alone for the evaluation today. She does notsmoke, and does notdrink alcohol. Current Diet This patient s current diet is: 80% meal plan Her diet contains adequate amounts of protein, adequate amounts of healthy fats, adequate amounts of green, leafy vegetables, and adequate amounts of fruits. Her comfort foods include: none Current Activity This patient currently does exercise for 30 Minutes per session, 4 times per week, including the following: walking and water ferdinand . Current Eating Behaviors This patients demonstrates the following behaviors as they relate to her eating: structured She eats approximately 3-4 times per day. Her last meal/snack was at 6 am/pm. Progress Made Towards Goals: 3 month weight goal: 20 6 month weight goal: 30 12 month weight goal: 60 Plan: Obesity stable Continue current management, continue weight loss program Will focus on the portion control Calorie 4812-0010 daily Will restart with meal preparation Discuss option for breakfast , lunch and dinner Portions Focus on the meal structure, composition and portion control DM Recent dx Started on metformin Continue current management, continue weight loss program stable [x] Protein goal of 1g protein per 1 kg of ideal body weight: 75 grams [x] Patient advised to maintain a food/exercise/behavior diary until next physician visit and to bring the completed diary to next visit [] Referred patient to surgical weight loss management program (FD to place referral) Other: Physician Diet Recommendations given to patient See Follow up Section of today's encounter for next visit and additional scheduling orders Obtain follow up lab work: BARIATRIC; Non Surg Lab orders: no Patient is not taking anti-obesity medication. I spend a total of 20 minutes on the same day of the visit in discussing/counseling the patient regarding the diet and exercise in order to lose weight.Education on the meal plan and 7 rules of eating is provided. Meal prep is encouraged as a foundation of the meal plan. Food journal is encouraged as a feedback system. Exercise and its role in weight loss is explained. Weight loss medications role in weight loss journey is discussed DM Is associated with obesity and weight loss is discussed as a treatment option for DM Full chart review was performed.Clinical documentation is updated and completed. documented in this encounter [facility] 02-19-2023 Miscellaneous Notes Please see pt's mychart message and further advise. Olamide Cisneros LPN documented in this encounter [facility] 01-21-2023 History of Presen t illness Narrative [facility] NON-SURGICAL WEIGHT LOSS MANAGEMENT PROGRAM ROOMING NOTE: FOLLOW UP VISIT Patient: Olamide Cast Date of : 1975 Service Date: 01/21/2023 Patient History/Assessment Summary: The patient is a pleasant 47 y.o. year old female, who stands Height: 5' 5.5 (166.4 cm) tall with a weight of Weight: 287 lb (130 kg) pounds, resulting in a BMI of Body mass index is 47.03 kg/m . kg/m2. She is here for follow-up for non-surgical treatment of Obesity Patient has the following question(s): none Pre Program Weight Metrics ([facility]ARE [facility]) Date of Initial Consultation:@FLOWLAST([id number])@ Initial Weight: @FLOWLAST([id number])@ Initial BMI: @FLOWLAST([id number])@ Lena Body Weight: @FLOWLAST([id number])@ Excess Body Weight: @FLOWLAST([id number])@ Body Fat Percentage: No flowsheet data found. Subsequent Body Fat Percentage: No flowsheet data found. Pre Program Weight Metrics (Epic) (Surgical Wt Loss Management- baseline) This Visit Non-Surgical Subsequent Eval Date: 01/20/23 Height: 5' 5.5 (166.4 cm) Weight: 287 lb (130 kg) BMI: 47.03 Weight Change: -9.8 lbs Total Weight Change: -20.8 lbs % EBWL: 12% Subsequent Body Fat %: 56.44 Body Fat % Change: -1.92 Follow Up Weight Metrics Last Three Weights Including Today's Weight: Wt Readings from Last 3 Encounters: 01/21/23 287 lb (130 kg) 12/12/22 296 lb 12.8 oz (135 kg) 10/29/22 (!) 307 lb 12.8 oz (140 kg) Diabetes Do you currently have diabetes? Yes Are you currently prescribed insulin? Yes Are you currently prescribed an oral medication for diabetes? Yes GERD (Gastroesophageal Reflux Disease) Do you currently have GERD? No Do you get heartburn type symptoms more than twice per week? No Are you currently on a medication for GERD? (not TUMS) (examples: Prilosec/omeprazole, Zantac/ranitidine, etc.) No Hyperlipidemia (high cholesterol) Do you currently have a diagnosis of high cholesterol? Yes Are you currently prescribed a medication for high cholesterol? (examples Lipitor/Atorvastatin, Pravastatin, Zetia, Tricor, etc.) Yes Have you been diagnosed with high cholesterol but chosen not to take medication? Yes Hypertension (high blood pressure) Do you currently have a diagnosis of Hypertension? yes Are you currently on a medication for Hypertension? Yes Have you been diagnosed with Hypertension but have chosen not to take the medication? No Sleep Apnea Do you currently have Sleep Apnea? Yes Are you on a device (CPAP, BiPAP, etc) for Sleep Apnea? Yes Have you been diagnosed with Sleep Apnea but cannot tolerate or have chosen not to treat? No Comorbids summary (flow sheet comorbids) Falls Risk Assessment Patient does not take medications which affect BP or mental status Patient does not have newly prescribed or changed dosage of medications within past 30 days which affect BP or mental status Patient has not fallen in the past 2 months Patient does not demonstrate unsteady gait Patient uses the following ambulatory assistive devices: none Patient states the presence of the following traits which increases risk of fall: none Patient is not on home O2 Completed by: Michelle Barajas LPN HPI, PHYSICAL EXAMINATION & PLAN HPI: Patient here today for follow up for non-surgical weight loss management Weight trend since last visit: lost 9 lbs over 1 m stable This patient's excess weight is causing the following co-morbid conditions at this time:DM Physical Examination: Blood pressure 126/82, pulse 85, height 5' 5.5 (1.664 m), weight 287 lb (130 kg). General: This patient is calm and pleasant General: This patient is awake, alert, and oriented, and is in no apparent distress. Extremities: No cyanosis, clubbing or edema/ No calf tenderness/No restrictions of movement, is ambulatory without assistance. Neurological: Intact x 4 extremities, no focal deficits notes. Skin: No rashes or lesions noted. Social History: This patient is alone for the evaluation today. She does notsmoke, and does notdrink alcohol. Current Diet This patient s current diet is: 80% meal plan Her diet contains adequate amounts of protein, adequate amounts of healthy fats, adequate amounts of green, leafy vegetables, and adequate amounts of fruits. Her comfort foods include: none Current Activity This patient currently does exercise for 30 Minutes per session, 4 times per week, including the following: walking and water ferdinand . Current Eating Behaviors This patients demonstrates the following behaviors as they relate to her eating: structured She eats approximately 3-4 times per day. Her last meal/snack was at 6 am/pm. Progress Made Towards Goals: 3 month weight goal: 20 6 month weight goal: 30 12 month weight goal: 60 Plan: Obesity stable Continue current management, continue weight loss program Will focus on the portion control Calorie 1643-0336 daily Will start feedback system DM Recent dx Started on metformin Continue current management, continue weight loss program stable [x] Protein goal of 1g protein per 1 kg of ideal body weight: 75 grams [x] Patient advised to maintain a food/exercise/behavior diary until next physician visit and to bring the completed diary to next visit [] Referred patient to surgical weight loss management program (FD to place referral) Other: Physician Diet Recommendations given to patient See Follow up Section of today's encounter for next visit and additional scheduling orders Obtain follow up lab work: BARIATRIC; Non Surg Lab orders: no Patient is not taking anti-obesity medication. I spend a total of 20 minutes on the same day of the visit in discussing/counseling the patient regarding the diet and exercise in order to lose weight.Education on the meal plan and 7 rules of eating is provided. Meal prep is encouraged as a foundation of the meal plan. Food journal is encouraged as a feedback system. Exercise and its role in weight loss is explained. Weight loss medications role in weight loss journey is discussed DM Is associated with obesity and weight loss is discussed as a treatment option for DM Full chart review was performed.Clinical documentation is updated and completed. documented in this encounter [facility] 01-16-2023 Note HNO ID: [id number] Author: Marsha Sung MD Service: ? Author Type: Physician Type: Progress Notes Filed: 01/16/2023 3:27 PM Note Text: Jayde Cast is a 47 year old female who presents for problem visit for lump right Noticed morning when she was showering. Mildly tender. No drainage that she notices. No history of previous lesions. No dysuria or hematuria. Has been exercising and so wondered if she got an infected hair or boil from that. No fevers or chills OB History T2 L2 SAB0 IAB0 Ectopic0 Multiple0 Live Births2 Nurse Wound History LMP: 04/28/2018, Ablation Age at Menarche: Age at First : Age at Menopause: Nurse Wound History Comments: Sexual Activity: Yes; Male; novasure Contraception: Tubal Ligation PAST MEDICAL HISTORY Diagnosis Date Anxiety Heart murmur Hypertension PAST SURGICAL HISTORY Procedure Laterality Date DELIVERY ONLY x 2 CHOLECYSTECTOMY CYST/MOLE REMOVAL 09/2021 ENDOMETRIAL ABLTJ THERMAL W/O HYSTEROSCOPIC GUID 2015 novasure approx 2015 LIGATE FALLOPIAN TUBE FAMILY HISTORY Problem Relation Age of Onset other (back pain) Mother Hypertension Father Clotting Disorder Sister factor V Factor 5 Leiden Sister Breast Cancer Maternal Grandmother Ischemic Heart Disease Maternal Grandfather 53 of [place] Breast Cancer Maternal Aunt Social History Tobacco Use Smoking status: Never Smokeless tobacco: Never Vaping Use Vaping Use: Never used Substance Use Topics Alcohol use: Not Currently Drug use: Never Current Outpatient Medications Medication Sig metFORMIN (GLUCOPHAGE) 500 mg tablet Take 500 mg by mouth twice daily. vitamin E acid succinate (VITAMIN E SUCCINATE) 268 mg (400 unit) tab Take 1 tablet by mouth once daily. elderberry fruit (ELDERBERRY ORAL) Take by mouth as directed. Bifidobacterium infantis (ALIGN ORAL) Take by mouth. cholecalciferol, vitamin D3, (VITAMIN D3 ORAL) Take by mouth. atorvastatin calcium (ATORVASTATIN ORAL) Take by mouth. amLODIPine (NORVASC) 5 mg tablet Take 5 mg by mouth once daily. FLUoxetine HCl (PROZAC) 40 mg capsule Take 40 mg by mouth once daily. (Patient not taking: Reported on 01/16/2023) No current facility-administered medications for this visit. Allergies As of Date: 01/16/2023 (No Known Allergies) Fully Assessed 12/30/2021 Allergies and current medication updated:Yes EXAM: BP 132/88 Wt 297 lb (134.7kg) LMP 04/28/2018 GENERAL: pleasant, female in no apparent distress PELVIC: Counseling inclusion cyst in the labia majora bilaterally. Normal labia minora. Normal hair distribution and lines pubis. Normal perineum. Right labia majora has a 1.5 x 1 cm indurated area with some erythema that is tender. Small necrotic area at the apex of this lesion. No other lesions, fissures, ulcerations or hyperpigmentation. Consistent with boil/abscess ASSESSMENT AND PLAN: Response alternatives to incision and drainage of the vulvar abscess were discussed with patient, questions were answered to her satisfaction she desires to proceed. Consent was signed. Discussed with her post drainage management and wound care. Call if any worsening of symptoms. Otherwise follow-up for annual as scheduled. Bactrim prescription given for mild surrounding cellulitis. Medical Decision Making: Problems: Moderate: New problem with uncertain prognosis Risk: Moderate: Drug management Medical Decision Making Level: 4 - Moderate Marsha Sung MD Jayde Cast is a 47 year old female who presents for management of vulva abscess right labia majroum EXAM: BP 132/88 Wt 297 lb (134.7kg) LMP 04/28/2018 UNIVERSAL PROTOCOL / SAFETY CHECKLIST Procedure to be Performed: IANDC of vulvar abscess Sign In: A Moment of CARE was completed. Personnel directly involved with the procedure wore the appropriate PPE (Personal Protective Equipment). Patient/Surrogate Stated/Verified: PATIENT VERIFIED(optional for EMERGENT procedures): Patient name, Date of , Relevant allergies, and The intended procedure Time Out Communication: Intended patient and procedure match the source documents. Consent documented and matches the intended procedure. No implant(s) inserted. Sign Out: SIGN OUT (optional for EMERGENT procedures): No specimen collected. All instruments, equipment, possible retained foreign bodies accounted for. Post-procedure follow-up management communicated and Plan of Care Visit completed when applicable. Marsha Sung MD PROCEDURE NOTE: bilateral Labial area was cleansed with betadine and anesthetized with 0.3mL 0.5 % bupivicaine w/ 1:100,000 epi. Procedure Summary: Patient tolerated procedure well. ASSESSMENT: right labial vulvar abscess PLAN: Antibiotics given: bactrim wound care reviewed Marsha Sung MD [facility] 01-16-2023 History of Presen t illness Narrative Jayde Cast is a 47 year old female who presents for problem visit for lump right Noticed morning when she was showering. Mildly tender. No drainage that she notices. No history of previous lesions. No dysuria or hematuria. Has been exercising and so wondered if she got an infected hair or boil from that. No fevers or chills OB History T2 L2 SAB0 IAB0 Ectopic0 Multiple0 Live Births2 Nurse Wound History LMP: 04/28/2018, Ablation Age at Menarche: Age at First : Age at Menopause: Nurse Wound History Comments: Sexual Activity: Yes; Male; novasure Contraception: Tubal Ligation PAST MEDICAL HISTORY Diagnosis Date Anxiety Heart murmur Hypertension PAST SURGICAL HISTORY Procedure Laterality Date DELIVERY ONLY x 2 CHOLECYSTECTOMY CYST/MOLE REMOVAL 09/2021 ENDOMETRIAL ABLTJ THERMAL W/O HYSTEROSCOPIC GUID 2014 novasure approx 2014 LIGATE FALLOPIAN TUBE FAMILY HISTORY Problem Relation Age of Onset other (back pain) Mother Hypertension Father Clotting Disorder Sister factor V Factor 5 Leiden Sister Breast Cancer Maternal Grandmother Ischemic Heart Disease Maternal Grandfather 53 of [place] Breast Cancer Maternal Aunt Social History Tobacco Use Smoking status: Never Smokeless tobacco: Never Vaping Use Vaping Use: Never used Substance Use Topics Alcohol use: Not Currently Drug use: Never Current Outpatient Medications Medication Sig metFORMIN (GLUCOPHAGE) 500 mg tablet Take 500 mg by mouth twice daily. vitamin E acid succinate (VITAMIN E SUCCINATE) 268 mg (400 unit) tab Take 1 tablet by mouth once daily. elderberry fruit (ELDERBERRY ORAL) Take by mouth as directed. Bifidobacterium infantis (ALIGN ORAL) Take by mouth. cholecalciferol, vitamin D3, (VITAMIN D3 ORAL) Take by mouth. atorvastatin calcium (ATORVASTATIN ORAL) Take by mouth. amLODIPine (NORVASC) 5 mg tablet Take 5 mg by mouth once daily. FLUoxetine HCl (PROZAC) 40 mg capsule Take 40 mg by mouth once daily. (Patient not taking: Reported on 01/16/2023) No current facility-administered medications for this visit. Allergies As of Date: 01/16/2023 (No Known Allergies) Fully Assessed 12/30/2021 Allergies and current medication updated:Yes EXAM: BP 132/88 Wt 297 lb (134.7kg) LMP 04/28/2018 GENERAL: pleasant, female in no apparent distress PELVIC: Counseling inclusion cyst in the labia majora bilaterally. Normal labia minora. Normal hair distribution and lines pubis. Normal perineum. Right labia majora has a 1.5 x 1 cm indurated area with some erythema that is tender. Small necrotic area at the apex of this lesion. No other lesions, fissures, ulcerations or hyperpigmentation. Consistent with boil/abscess ASSESSMENT AND PLAN: Response alternatives to incision and drainage of the vulvar abscess were discussed with patient, questions were answered to her satisfaction she desires to proceed. Consent was signed. Discussed with her post drainage management and wound care. Call if any worsening of symptoms. Otherwise follow-up for annual as scheduled. Bactrim prescription given for mild surrounding cellulitis. Medical Decision Making: Problems: Moderate: New problem with uncertain prognosis Risk: Moderate: Drug management Medical Decision Making Level: 4 - Moderate Marsha Sung MD Jayde Cast is a 47 year old female who presents for management of vulva abscess right labia majroum EXAM: BP 132/88 Wt 297 lb (134.7kg) LMP 04/28/2018 UNIVERSAL PROTOCOL / SAFETY CHECKLIST Procedure to be Performed: I&C of vulvar abscess Sign In: A Moment of CARE was completed. Personnel directly involved with the procedure wore the appropriate PPE (Personal Protective Equipment). Patient/Surrogate Stated/Verified: PATIENT VERIFIED(optional for EMERGENT procedures): Patient name, Date of , Relevant allergies, and The intended procedure Time Out Communication: Intended patient and procedure match the source documents. Consent documented and matches the intended procedure. No implant(s) inserted. Sign Out: SIGN OUT (optional for EMERGENT procedures): No specimen collected. All instruments, equipment, possible retained foreign bodies accounted for. Post-procedure follow-up management communicated and Plan of Care Visit completed when applicable. Marsha Sung MD PROCEDURE NOTE: bilateral Labial area was cleansed with betadine and anesthetized with 0.3mL 0.5 % bupivicaine w/ 1:100,000 epi. Procedure Summary: Patient tolerated procedure well. ASSESSMENT: right labial vulvar abscess PLAN: Antibiotics given: bactrim wound care reviewed Marsha Sung MD documented in this encounter [facility] 10-29-2022 Note [facility] NON-SURGICAL WEIGHT LOSS MANAGEMENT PROGRAM PROGRESS NOTE INITIAL EVALUATION Patient: Olamide Cast Service Date: 10/29/22 Date of : 1975 Patient History/Assessment Summary: The patient is a pleasant 47 y.o. year old female, who stands Height: 5' 5.5 (166.4 cm) tall with a weight of Weight: (!) 307 lb 12.8 oz (140 kg) pounds, resulting in a BMI of Body mass index is 50.44 kg/m?. kg/m2. She has been overweight for 10+ years, and has tried and failed multiple previous diet attempts and is now seeking non-surgical treatment of her obese. This patient is unaccompanied for the evaluation today. PLAN ROS: I have reviewed New Patient Assessment Form with the Patient, which is located in the [employer]ester Tab. History: Past Medical History: Diagnosis Date Anxiety Depression TRISTAN (dyspnea on exertion) Hyperlipidemia Joint pain Pre-diabetes Sleep apnea ON BIPAP Past Surgical History: Procedure Laterality Date SECTION (HISTORICAL) 2002 [place] SECTION (HISTORICAL) 2000 [place] CHOLECYSTECTOMY 2000 [place] TUBAL LIGATION 2003 [place] Family History Problem Relation Name Age of Onset Obesity Father Hypertension Father Heart disease Maternal Grandfather Diabetes Father Cancer Maternal Grandmother Social History Tobacco Use Smoking status: Never Smokeless tobacco: Never Substance Use Topics Alcohol use: Not Currently This patient's excess weight is causing the following co-morbid conditions at this time:High Cholesterol Physical Examination: BP 119/71 Pulse 86 Resp 16 Ht 5' 5.5 (1.664 m) Wt (!) 307 lb 12.8 oz (140 kg) BMI 50.44 kg/m? Weight Metrics: Lena Body Weight: Lena Body Weight: 137 lb (62.1 kg) Excess Body Weight: Lena BMI: 30 General: This patient is alert and oriented X3 General: This patient is obese, and is in no apparent distress. Psychological: Patient is awake, alert and oriented to person, place and time Patient's mood is Euthymic Current Diet This patient?s current diet is:high in simple carbohydrates and contains large amounts of high glycemic index foods Her diet contains adequate amounts of protein, adequate amounts of healthy fats, adequate amounts of green, leafy vegetables, and adequate amounts of fruits. Her comfort foods include:fried foods and salty foods Current Activity This patient currently does exercise for 15 per session, 7 times per week, including the following: walking Current Eating Behaviors No meal planning Large portion Eating out lunch Health and Behavior Inventory Patient scores as (Select one): [] Unguided Grazer [] Nighttime Nibbler [x] Convenient Consumer [] Fruitless Gail [] Mindless Muncher [] Hearty Portioner [] Deprived Sneaker [] Hate to Move Struggler [] Self-Conscious Hider [] Inexperienced [place] [] Fmy-ht-Vyrgqjq Doer [] Set-Routine Repeater [] Brxst-ghm-Wwkqb Sufferer [] Gq-ipyu-ww-Exercise Protester [] Emotional Installer Helper [] Yeo-Vmjw-Zedsan Sufferer [] Persistent Procrastinator [] Can?t-Say-No Pleaser [] Fast Pacer [] 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 Her last meal/snack was at 6-7 pm. Plan: Obesity stable Continue current management, start weight loss program Advised patient that they are cleared medically to proceed with enrollment in our non-surgical weight loss management program Goals: 3 month weight goal: 20 lbs 6 month weight goal: 30 lbs 12 month weight goal: 40 lbs Tests Labwork:none - to be drawn 2 weeks prior to first physician follow up visit Additional Labwork: None - to be drawn 2 weeks prior to first physician follow up visit Consultations: Cardiology Risk Stratification: None Pulmonary Evaluation: None Other Consultations:None Obtain prior medical records from: [] Refer for Surgical Weight Loss Evaluation Mail labwork order with schedule Current Meds Patient's Medications New Prescriptions No medications on file Previous Medications AMLODIPINE (NORVASC) 5 MG TABLET Take 1 tablet by mouth. ATORVASTATIN (LIPITOR) 20 MG TABLET Take 1 tablet by mouth. CHOLECALCIFEROL (D3-5) 5,000 UNITS TABLET Take by mouth. ELDERBERRY PO Take by mouth. VITAMIN E 400 UNITS TABLET Take 1 tablet by mouth daily. Modified Medications No medications on file Discontinued Medications No medications on file Patient is not taking anti-obesity medication. I spent a total of 45 minutes on the day of the visit in counseling, discussing lifestyle changes that are pertinent to a successful weight loss journey;and reviewing the chart including available communication from the the patient and the referring provider. 1.Education on meal composition,meal structure, meal preps, shopping list 2. Discus (more content not included)... [facility] Type 2 diabetes mellitus without complication, without long-term current use of insulin (CMS/HCC) (HCC)- Primary BMI 45.0-49.9, adult (HCC) Class 3 severe obesity with serious comorbidity and body mass index (BMI) of 45.0 to 49.9 in adult, unspecified obesity type (HCC) documented in this encounter [facility] note* Diagnosis Type 2 diabetes mellitus without complication, without long-term current use of insulin (CMS/HCC) (HCC)- Primary BMI 45.0-49.9, adult (HCC) Class 3 severe obesity with serious comorbidity and body mass index (BMI) of 45.0 to 49.9 in adult, unspecified obesity type (HCC) documented in this encounter [facility] note* Diagnosis Type 2 diabetes mellitus without complication, without long-term current use of insulin (CMS/HCC) (HCC)- Primary BMI 45.0-49.9, adult (HCC) Class 3 severe obesity with serious comorbidity and body mass index (BMI) of 45.0 to 49.9 in adult, unspecified obesity type (HCC) documented in this encounter [facility] note* Diagnosis Encounter for gynecological examination (general) (routine) without abnormal findings- Primary Obesity, Class III, BMI >= 40 Morbid obesity documented in this encounter [facility] Summary Purpose Family History No Family History Records FoundNo Family History Records Found Advance Directives No Advanced Directives Records FoundNo Advanced Directives Records Found Additional Source Comments Source Comments (unrecognize d section and content) In the event this informatio n is protected by the Federal Confidentiality of Alcohol and Drug Abuse Patient Records regulations: The Federal rules restrict any use of the information to criminally investigate or prosecute any alcohol or drug abuse patient.[facility] event this information is protected by the Federal Confidentiality of Alcohol and Drug Abuse Patient Records regulations: The Federal rules restrict any use of the information to criminally investigate or prosecute any alcohol or drug abuse patient.[facility] the event this information is protected by the Federal Confidentiality of Alcohol and Drug Abuse Patient Records regulations: The Federal rules restrict any use of the information to criminally investigate or prosecute any alcohol or drug abuse patient.[facility] Reason for Visit (unrecogniz ed section and content) Reason Comments Weight Loss NSURG #3 Reason Comments Weight Loss NSURG #4 Reason Comments Yearly Exam Reason Comments Weight Loss NSURG #5 Care Teams (unrecognized sec tion and content) Manager Golf Relationship Specialty Start Date End Date Peterson Rm [address] [place] [place] [phone] PCP - General 06/09/22 Manager Golf Relationship Specialty Start Date End Date Peterson Rm DO [address] [place], [place] [phone] PCP - General Family Medicine 07/06/18 Manager Golf Relationship Specialty Start Date End Date Peterson Rm [address] [place] [phone] PCP - General 06/09/22 Manager Golf Relationship Specialty Start Date End Date Peterson Rm [address] [place] [phone] PCP - General 06/09/22 Manager Golf Relationship Specialty Start Date End Date Peterson Rm DO [address] [place] [phone] PCP - General Family Medicine 07/06/18 INFORMATION SOURCE (unrecogn ized section and content) DATE CREATED AUTHOR [facility]23 [facility] FOR RECORDS PERTAINING TO PATIENTS WHO ARE OR HAVE BEEN ENROLLED IN A CHEMICAL DEPENDENCY/SUBSTANCEABUSE PROGRAM, SOME INFORMATION MAY BE OMITTED. This clinical summary was aggregated from multiple sources. Caution should be exercised in using it in the provision of clinical care. This summary normalizes information from multiple sources, and as a consequence, information in this document may materially change the coding, format and clinical context of patient data. In addition, data may be omitted in some cases. CLINICAL DECISIONS SHOULD BE BASED ON THE PRIMARY CLINICAL RECORDS. [facility] [employer] [facility]. provides no warranty or guarantee of the accuracy or completeness of information in this document.
[2023-11-30 12:05] LABS: ALB/GLOB Ratio 0.7 RATIO (0.9-2.4); AST(SGOT) 16 U/L (15-37); Alanine Aminotransfer ALT/SGPT 32 U/L (13-56); Albumin, Serum 3.2 g/dL (3.2-5.0); Alkaline Phosphatase 141 U/L (45-117); Anion Gap 9 (5-15); BUN 11 mg/dL (7-18); BUN/Creat Ratio 16.2 RATIO (10-20); Calcium,Total 9.3 mg/dL (8.5-10.1); Chloride 106 mmol/L (98-107); Cholesterol 159 mg/dL (200); Creatinine, Serum 0.68 mg/dL (0.55-1.02); EST Glomerular Filtration Rate 98 mL/min (>60); Est Glom Filt Rate - Afr Amer 119 mL/min (>60); Globulin 4.6 g/dL (2.2-4.2); Glucose 103 mg/dL (74-106); High Density Lipoprotein 40 mg/dL; Potassium 3.9 mmol/L (3.5-5.1); Protein, Total 7.8 g/dL (6.4-8.2); Sodium Level 140 mmol/L (136-145); Triglycerides 87 mg/dL; Very Low Density Lipoprotein 17 mg/dL (5-40)
[2023-11-30 14:13] LABS: Hemoglobin A1c 6.3 % (3.8-5.6)
== END | disposition home or self-care (01) ==
PROVIDERS: PCP Family Medicine; Referring Provider Family Medicine; Visit Provider Family Medicine
DX: I10 Essential (primary) hypertension (principal); E11.9 Type 2 diabetes mellitus without complications; K76.0 Fatty (change of) liver, not elsewhere classified
CPT/HCPCS: 36415; 80053; 80061; 83036

== ENCOUNTER → 2024-03-30 | Outpatient (CLI) | payer BC, SELFPAY ==
--- NOTE | 2024-03-30 07:07 | US_ITS ---
STUDY: ABDOMINAL ULTRASOUND - RIGHT UPPER QUADRANT REASON FOR VISIT: Female, 49 years old fatty infiltration of the liver. TECHNIQUE: Ultrasound evaluation of the right upper quadrant was performed with real-time and static arita-scale imaging. TECHNICAL QUALITY: Adequate. COMPARISON: Comparison is made with prior study dated April 18, 2022. FINDINGS: Liver: The liver is enlarged and measures 19.2 cm. There is increased echogenicity consistent with fatty infiltration. The bile ducts are within normal limits. There is hepatic color flow. The direction of portal flow is hepatopetal. There is no demonstrated mass lesion. Gallbladder: The patient is status post cholecystectomy. Common Bile Duct (C.B.D.): The common bile duct measures 7.5 mm. Pancreas: Normal size of the head, body and tail of the pancreas. There is increased echogenicity of the pancreas. There is no demonstrated pancreatic mass or cyst. Right Kidney: Normal size of the right kidney. The right kidney measures 11.6 cm x 5.8 cm x 5.5 cm. Normal renal cortex. The right cortex measures 1.3 cm. There is no demonstrated renal mass or cyst. There is no right hydronephrosis. US/Liver IMPRESSION: Hepatomegaly and fatty infiltration of the liver. Status post cholecystectomy. Mild prominence of the common bile duct. Electronically Signed: Bright Quintanilla MD at 8:53 EDT ,
== END | disposition home or self-care (01) ==
PROVIDERS: PCP Family Medicine; Referring Provider Family Medicine; Visit Provider Family Medicine
DX: K76.0 Fatty (change of) liver, not elsewhere classified (principal)
CPT/HCPCS: 76705

== ENCOUNTER → 2024-06-02 | Outpatient (CLI) | payer BC, SELFPAY ==
[2024-06-02 10:08] LABS: Absolute Lymphocyte Count 3.06 X10^3/uL (0.83-4.51); Basophil# 0.04 X10^3/uL; Basophil% 0.4 % (0-1); Eosinophil# 0.14 X10^3/uL; Eosinophils% 1.4 % (0-5); Hemoglobin 12.6 g/dL (12.0-15.0); Lymphocyte # 3.06 X10^3/ul (0.83-4.51); Lymphocyte % 31.6 % (19-41); Mean Corp Hgb Conc 31.5 g/dL (32-36); Mean Corpuscular Hgb 26.4 pg (27.0-32.0); Mean Corpuscular Volume 83.7 fL (81-99); Mean Platelet Vol. 9.4 fl (6.2-12.0); Monocyte# 0.41 X10^3/uL; Monocyte% 4.2 % (0-10); NRBC Flagged by Analyzer 0 % (0-5); Neutrophil # 6.02 X10^3/uL (2.7-7.7); Neutrophil % 62.2 % (47-70); Platelet Count 333 K/mm3 (150-450); RBC Distribution Width CV 14.6 % (11.6-14.6); RBC Distribution Width SD 44.5 fl (35.1-43.9); Red Blood Count 4.78 M/mm3 (4.2-5.4); White Blood Count 9.7 K/mm3 (4.4-11.0)
[2024-06-02 10:55] LABS: ALB/GLOB Ratio 0.7 RATIO (0.9-2.4); AST(SGOT) 18 U/L (15-37); Alanine Aminotransfer ALT/SGPT 34 U/L (13-56); Alkaline Phosphatase 139 U/L (45-117); Anion Gap 10 (5-15); BUN 8 mg/dL (7-18); BUN/Creat Ratio 10.7 RATIO (10-20); Calcium,Total 8.8 mg/dL (8.5-10.1); Chloride 105 mmol/L (98-107); Cholesterol 125 mg/dL (200); Creatinine, Serum 0.75 mg/dL (0.55-1.02); EST Glomerular Filtration Rate 88 mL/min (>60); Est Glom Filt Rate - Afr Amer 107 mL/min (>60); Globulin 4.5 g/dL (2.2-4.2); Glucose 97 mg/dL (74-106); High Density Lipoprotein 40 mg/dL; Potassium 3.7 mmol/L (3.5-5.1); Protein, Total 7.5 g/dL (6.4-8.2); Sodium Level 138 mmol/L (136-145); Triglycerides 91 mg/dL; Very Low Density Lipoprotein 18 mg/dL (5-40)
[2024-06-02 14:17] LABS: Hemoglobin A1c 5.4 % (3.8-5.6)
== END | disposition home or self-care (01) ==
PROVIDERS: PCP Family Medicine; Referring Provider Family Medicine; Visit Provider Family Medicine
DX: Z00.00 Encounter for general adult medical examination without abnormal findings (principal); E11.9 Type 2 diabetes mellitus without complications
CPT/HCPCS: 36415; 80053; 80061; 83036; 85025

== ENCOUNTER → 2024-08-08 | Outpatient (CLI) | payer BC, SELFPAY ==
--- NOTE | 2024-08-08 07:17 | BI_ITS ---
MAMMOGRAPHY - BILATERAL SCREENING REASON FOR EXAM: Female, 49 years old. Routine annual screening examination. PERTINENT HISTORY: Grandmother with breast cancer. Aunt with breast cancer. TECHNIQUE: Digital bilateral breast shaniqua (3D mammographic acquisition) in the CC and MLO projections. 2-D mediolateral oblique (MLO) and craniocaudad (CC) views of both breasts were obtained. CAD: Full Field Digital Mammography with Computer Added Detection was performed. COMPARISON: Comparison is made with prior study August 05, 2023 and August 04, 2022. FINDINGS: Breast Composition: There are scattered areas of fibroglandular density. There are no dominant masses or suspicious calcifications. Stable bilateral axillary lymph nodes. No other significant abnormalities are identified. There has been no significant change since the prior study. BI/SCRN MAMM (CAD)W/SHANIQUA BILAT IMPRESSION: Stable bilateral screening mammogram. Yearly follow-up mammogram recommended. (A) ASSESSMENT CATEGORY: BIRADS Category 2: Benign. A letter regarding these results will be sent to the patient by the facility within 30 days. Approximately 10% of breast cancers are not detected by mammography. A normal mammogram should not delay biopsy of a clinically suspicious abnormality. [id number] Electronically Signed: Bright Quintanilla MD at 11:01 EDT ,
== END | disposition home or self-care (01) ==
LOC: OPBI 07:08
PROVIDERS: PCP Family Medicine; Referring Provider Family Medicine; Visit Provider Family Medicine
DX: Z12.31 Encounter for screening mammogram for malignant neoplasm of breast (principal)
CPT/HCPCS: 77063; 77067

== ENCOUNTER → 2024-08-25 | Outpatient (CLI) | payer BC, SELFPAY ==
[2024-08-25 12:42] LABS: Hemoglobin A1c 5.6 % (3.8-5.6)
== END | disposition home or self-care (01) ==
PROVIDERS: PCP Family Medicine; Referring Provider Family Medicine; Visit Provider Family Medicine
DX: E11.9 Type 2 diabetes mellitus without complications (principal)
CPT/HCPCS: 36415; 83036

== ENCOUNTER → 2024-11-14 | Outpatient (CLI) | payer BC, SELFPAY ==
[2024-11-14 15:38] LABS: Absolute Lymphocyte Count 3.11 X10^3/uL (0.83-4.51); Absolute Neutrophil Count 8.7 X10^3/uL (2.0-7.7); Basophil# 0.08 X10^3/uL; Basophil% 0.6 % (0-1); Eosinophil# 0.12 X10^3/uL; Hematocrit 43.8 % (37-47); Hemoglobin 13.9 g/dL (12.0-15.0); Lymphocyte # 3.11 X10^3/ul (0.83-4.51); Lymphocyte % 24.9 % (19-41); Mean Corp Hgb Conc 31.7 g/dL (32-36); Mean Corpuscular Hgb 26.9 pg (27.0-32.0); Mean Corpuscular Volume 84.9 fL (81-99); Mean Platelet Vol. 9.6 fl (6.2-12.0); Monocyte# 0.44 X10^3/uL; Monocyte% 3.5 % (0-10); NRBC Flagged by Analyzer 0 % (0-5); Neutrophil # 8.68 X10^3/uL (2.7-7.7); Neutrophil % 69.7 % (47-70); Platelet Count 364 K/mm3 (150-450); RBC Distribution Width CV 14.8 % (11.6-14.6); RBC Distribution Width SD 46.4 fl (35.1-43.9); Red Blood Count 5.16 M/mm3 (4.2-5.4); White Blood Count 12.5 K/mm3 (4.4-11.0)
[2024-11-14 15:43] LABS: ALB/GLOB Ratio 0.6 RATIO (0.9-2.4); AST(SGOT) 25 U/L (15-37); Alanine Aminotransfer ALT/SGPT 27 U/L (13-56); Albumin, Serum 3.3 g/dL (3.2-5.0); Alkaline Phosphatase 160 U/L (45-117); Anion Gap 7 (5-15); BUN 8 mg/dL (7-18); BUN/Creat Ratio 11.6 RATIO (10-20); Calcium,Total 9.4 mg/dL (8.5-10.1); Chloride 108 mmol/L (98-107); Creatinine, Serum 0.69 mg/dL (0.55-1.02); EST Glomerular Filtration Rate 96 mL/min (>60); Est Glom Filt Rate - Afr Amer 116 mL/min (>60); Globulin 5.1 g/dL (2.2-4.2); Glucose 87 mg/dL (74-106); Protein, Total 8.4 g/dL (6.4-8.2); Sodium Level 137 mmol/L (136-145)
== END | disposition home or self-care (01) ==
PROVIDERS: PCP Family Medicine; Visit Provider Family Medicine
DX: R10.11 Right upper quadrant pain (principal)
CPT/HCPCS: 36415; 80053; 85025

== ENCOUNTER → 2024-11-15 | Outpatient (CLI) | payer BC, SELFPAY ==
[2024-11-15 10:25] LABS: Erythrocyte Sedimentation Rate 29 mm/hr (0-30)
[2024-11-18 17:07] LABS: Immunoglobulin A 535 mg/dL (87-352); Immunoglobulin G 1428 mg/dL (586-1602); Immunoglobulin M 194 mg/dL (26-217); PROEL- A/G Ratio 0.9 (0.7-1.7); PROEL- Albumin 3.6 g/dL (2.9-4.4); PROEL- Alpha-1 Globulin 0.3 g/dL (0.0-0.4); PROEL- Beta Globulin 1.2 g/dL (0.7-1.3); PROEL- Gamma Globulin 1.4 g/dL (0.4-1.8); PROEL- Globulin, Total 3.9 g/dL (2.2-3.9); PROEL- TOTAL PROTEIN 7.5 g/dL (6.0-8.5); PROEL-M-Spike Not Observed g/dL (Not Observed); PROELU- Albumin, Urine 20.9 % (.); PROELU- Alpha-1-Globulin,Ur 5.8 % (.); PROELU- Alpha-2-Globulin,Ur 20.4 % (.); PROELU- Beta Globulin, Ur 44.4 % (.); PROELU- Gamma Globulin, Ur 8.5 % (.); Total Protein, Ur 11.4 mg/dL (Not Estab.)
== END | disposition home or self-care (01) ==
LOC: MTLAB 08:43
PROVIDERS: PCP Family Medicine; Referring Provider Family Medicine; Visit Provider Family Medicine
DX: D72.829 Elevated white blood cell count, unspecified (principal); R77.1 Abnormality of globulin
CPT/HCPCS: 36415; 82784; 84165; 84166; 85652; 86140; 86334

== ENCOUNTER → 2024-11-16 | Outpatient (CLI) | payer BC, SELFPAY ==
--- NOTE | 2024-11-16 07:05 | US_ITS ---
PROCEDURE: ABDOMEN LIMITED REASON FOR EXAM: Right upper quadrant pain for 5 days. History of FLD. COMPARISON: None provided. FINDINGS: Liver: Hepatomegaly is seen, with the liver measured at 19.3 cm in length. Diffusely echogenic hepat ic parenchyma is seen, with differential diagnosis including diffuse fatty infiltration of the liver and hepatocellular disease. No focal hepatic process is noted. A smooth hepatic surface is seen. No evidence of intrahepatic biliary ductal dilation. Hepatopetal flow is noted 4 the portal vein. Gallbladder: Surgically absent Common bile duct: Normal measuring 7.4 mm. Pancreas: Visualized portions are sonographically unremarkable. Visualized portions of the right kidney are unremarkable. The right kidney is measured at 11.5 x 6.0 x 5.8 cm. The cortex is measured at 13 mm in thickness. No right upper quadrant ascites. US/Abdomen Limited IMPRESSION: 1. Hepatomegaly is seen, with the liver measured at 19.3 cm in length. Diffusel y echogenic hepatic parenchyma is seen, with differential diagnosis including diffuse fatty infiltration of the liver and he patocellular disease. 2. Prior cholecystectomy. Reading Location: [id number]
== END | disposition home or self-care (01) ==
LOC: US 07:04
PROVIDERS: PCP Family Medicine; Referring Provider Family Medicine; Visit Provider Family Medicine
DX: R10.11 Right upper quadrant pain (principal)
CPT/HCPCS: 76705

== ENCOUNTER → 2025-03-15 | Outpatient (CLI) | payer BC, SELFPAY ==
[2025-03-15 11:05] LABS: Absolute Lymphocyte Count 2.76 X10^3/uL (0.83-4.51); Absolute Neutrophil Count 7.4 X10^3/uL (2.0-7.7); Basophil# 0.07 X10^3/uL; Basophil% 0.6 % (0-1); Eosinophil# 0.12 X10^3/uL; Eosinophils% 1.1 % (0-5); Hematocrit 42.4 % (37-47); Hemoglobin 13.6 g/dL (12.0-15.0); Lymphocyte # 2.76 X10^3/ul (0.83-4.51); Lymphocyte % 25.6 % (19-41); Mean Corp Hgb Conc 32.1 g/dL (32-36); Mean Corpuscular Hgb 26.9 pg (27.0-32.0); Mean Corpuscular Volume 83.8 fL (81-99); Mean Platelet Vol. 9.5 fl (6.2-12.0); Monocyte# 0.44 X10^3/uL; Monocyte% 4.1 % (0-10); NRBC Flagged by Analyzer 0 % (0-5); Neutrophil # 7.38 X10^3/uL (2.7-7.7); Neutrophil % 68.3 % (47-70); Platelet Count 396 K/mm3 (150-450); RBC Distribution Width CV 14.8 % (11.6-14.6); RBC Distribution Width SD 45.1 fl (35.1-43.9); Red Blood Count 5.06 M/mm3 (4.2-5.4); White Blood Count 10.8 K/mm3 (4.4-11.0)
[2025-03-15 11:23] LABS: Hemoglobin A1c 5.8 % (<=5.6)
[2025-03-15 12:02] LABS: Microalbumin,Random Urine < 12.0 mg/L (NO RANGE EST.); Microalbumin:Creatinine Ratio UNABLE TO CALCULATE mg/g CRE
[2025-03-15 13:04] LABS: AST(SGOT) 20 U/L (<=31); Alanine Aminotransfer ALT/SGPT 26 U/L (<=34); Albumin, Serum 3.8 g/dL (3.5-5.0); Alkaline Phosphatase 178 U/L (35-104); Anion Gap 13 (5-15); BUN 8 mg/dL (4-19); BUN/Creat Ratio 11.3 RATIO (10-20); Calcium,Total 9.1 mg/dL (7.6-11.0); Carbon Dioxide 21.6 mmol/L (21.0-32.0); Chloride 104 mmol/L (98-108); Cholesterol 145 mg/dL (<=200); Creatinine, Serum 0.72 mg/dL (0.70-1.20); EST Glomerular Filtration Rate 104 (>60); Glucose 103 mg/dL (70-99); High Density Lipoprotein 37 mg/dL; Low Density Lipoprotein Calc. 93 mg/dL; Potassium 3.8 mmol/L (3.3-5.1); Protein, Total 7.8 g/dL (5.9-8.4); Sodium Level 139 mmol/L (133-145); Total Bilirubin 0.44 mg/dL (0.00-1.30); Triglycerides 72 mg/dL; Very Low Density Lipoprotein 14 mg/dL (5-40); cholesterol:hdl ratio screen 3.91
== END | disposition home or self-care (01) ==
LOC: MTLAB 07:15
PROVIDERS: PCP Family Medicine; Referring Provider Family Medicine; Visit Provider Family Medicine
DX: E11.9 Type 2 diabetes mellitus without complications (principal); D72.829 Elevated white blood cell count, unspecified
CPT/HCPCS: 36415; 80053; 80061; 82043; 82570; 83036; 85025; 86140

== ENCOUNTER → 2025-04-12 | Outpatient (CLI) | payer BC, SELFPAY ==
--- OUTSIDE RECORDS SUMMARY | 2025-04-12 07:10 | XMS RPT_ITS | CCD ---
Author Organization [facility] Care Team Providers Care Real Time Analyst Name Role Phone Dr. Peterson Rm Primary Care Provider [phone] Dr. Edwar Shea Attending Provider [phone] Peterson Rm Referring Provider [phone] SHERRI Bobby Attending Provider Peterson Rm DO Primary Care Provider Peterson Rm Primary Care Provider Peterson Rm Primary Care Provider [phone] MARSHA SUNG Attending Unavailable PETERSON RM Primary Care Unavailable MARSHA SUNG Attending Unavailable PETERSON RM Primary Care Unavailable Dr. Peterson Rm Primary Care Provider [phone] Dr. Peterson Rm Referring Provider SHERRI Sanchez Attending Provider [phone] OSIRIS VELASQUEZ Attending Unavailable PETERSON RM Primary Care Unavailable OSIRIS VELASQUEZ Attending Unavailable PETERSON RM Primary Care Unavailable OSIRIS VELASQUEZ Attending Unavailable PETERSON RM Primary Care Unavailable OSIRIS VELASQUEZ Attending Unavailable PETERSON RM Primary Care Unavailable OSIRIS VELASQUEZ Attending Unavailable Dr. Peterson Rm Primary Care Provider [phone] Dr. Peterson Rm Referring Provider [phone] SHERRI Sanchez Attending Provider [phone] Peterson Rm DO Primary Care Provider Dr. Peterson Rm DO Attending Provider [phone] Dr. Peterson Rm DO Referring Provider [phone] Peterson Rm Attending Unavailable Peterson Rm Primary Care Unavailable Peterson Rm Referring Unavailable Peterson Rm Attending Unavailable Peterson Rm Primary Care Unavailable Peterson Rm Referring Unavailable Peterson Rm Attending Unavailable Peterson Rm Primary Care Unavailable Peterson Rm Referring Unavailable Peterson Rm Attending Unavailable Peterson Rm Primary Care Unavailable JagPeterson apple Referring Unavailable JagPeterson apple Primary Care Unavailable JagPeterson apple Attending Unavailable Peterson Rm Referring Unavailable JagPeterson apple Primary Care Unavailable JagPeterson apple Attending Unavailable Peterson Rm Referring Unavailable JagPeterson apple Primary Care Unavailable JagPeterson apple Attending Unavailable Peterson Rm Attending Unavailable JagPeterson apple Primary Care Unavailable JagPeterson apple Attending Unavailable Peterson Rm Primary Care Unavailable Peterson Rm Primary Care Unavailable Peterson Rm Referring Unavailable Peterson Rm Attending Unavailable Allergies Allergy Classification Reported Allergen(s) Allergy Type Date of Onset Reaction(s) Facility (5 sources) Adhesive Tape; Translations: [adhesive tape] Allergy to substance 07-07-2023 [facility] Medications Current Medications Medication Drug Class(es) Dates Sig (Normalized) Sig (Original) amLODIPine 5 mg oral tablet (20 sources) Dihydropyridine Calcium Channel Kim Start: 08-17-2015 take 1 tablet by mouth once daily Amlodipine 5 MG tablet Active 5 mg PO DAILY August 17, 2015 12:00am Comment on above: Take 5 mg by mouth o nce daily. atorvastatin 20 mg oral tablet (20 sources) HMG-CoA Reductase Inhibitor Start: 04-02-2022 take 1 tablet by mouth once daily Atorvastatin 20 mg Tablet Active 20 mg PO DAILY July 05, 2022 12:00am atorvastatin alvino cium (ATORVASTATIN ORAL) Take by mouth. 0 Active Comment on above: Take by mouth. cholecalciferol 0.05 mg oral tablet (19 sources) Vitamin D Start: take 1 tablet by mouth once daily Cholecalciferol (Vitamin D3) (Vitamin D3) 50 mcg (2,000 unit) Tablet Active 50 ug PO DAILY July 05, 2022 12:00am cholecalciferol (D3-5) 5,000 Units tablet Take by mouth. 0 Active Elderberry preparation (8 sources) ELDERBERRY PO Ta ke by mouth. 0 Active metoclopramide 5 mg oral tablet (3 sources) Dopamine-2 Receptor Antagonist Start: 023 take 1 tablet by mouth every eight hours as needed for headache Metoclopramide Hcl (Reglan) 5 mg tablet Active 5 mg PO EVERY 8 HOURS NEEDED as needed for headache 15 September 07, 2023 11:14am sulfamethoxazole 800 mg / trimethoprim 160 mg oral tablet (1 source) Dihydrofolate Reductase Inhibitor Antibacterial, Sulfonamide Antimicrobial Start: 023 End: sulfamethoxazole-tri methoprim (BACTRIM DS) 800-160 mg per tablet Take 1 tablet by mouth twice daily for 5 days. FOR 3 DAYS. 10 tablet 0 01/16/2023 01/21/2023 Active Comment on above: Take 1 tablet by crystal th twice daily for 5 days. FOR 3 DAYS. Vitamin E (20 sources) Start: take 45 mg by mouth once daily Vitamin E Active 45 MG PO DAILY July 04, 2022 11:00pm Start: 07-05-2022 take 45 mg by mouth once daily Vitamin E Active 45 MG PO DAILY July 05, 2022 12:00am take 1 tablet by crystal th once daily Vitamin E 400 units tablet Take 1 tablet by mouth daily. 0 Active Comment on above: Take 1 tablet by crystal th once daily. Vitamin E 400 unit Tablet (1 source) Start: 07-05-2022 Vitamin E 400 unit Tablet Active 45 mg PO DAILY July 05, 2022 12:00am Completed/Discontinued Medications Medication Drug Class(es) Dates Sig (Normalized) Sig (Original) amoxicillin 875 mg / clavulanate 125 mg oral tablet (6 sources) Penicillin-class Antibacterial Start: 10-13-2022 End: 10-23-2022 Amoxicillin-Pot Clavulanate 875-125 mg tablet Discontinued 1 {tbl} PO Q12H 07 08October 13, 2022 1:00am October 22, 2022 1:00am October 23, 2022 1:04am Start: 10-13-2022 End: 10-23-2022 take 1 tablet by mouth every twelve hours Amoxicillin-Pot Clavulanate Discontinued 1 TABLET PO Q12H 20 October 13, 2022 12:00am October 23, 2022 12:04am Bifidobacterium Infantis (3 sources) End: 05-28-2023 Bifidobacterium infantis (AL IGN ORAL) Take by mouth. 0 05/28/2023 Discontinued Bifidobacterium infantis (ALIGN ORAL) Take by mouth. 0 Active Comment on above: Take by mouth. cholecalciferol, vitamin D3, (VITAMIN D3 ORAL) (3 sources) cholecalciferol, vitamin D3, (VITAMIN D3 ORAL) Take by mouth. 0 Active Comment on above: Take by mouth. ELDERBERRY FRUIT (3 sources) elderberry fruit (ELDERBERRY ORAL) Take by mouth as directed. 0 Active Comment on above: Take by mouth as dir ected. famotidine 40 mg oral tablet (10 sources) Histamine-2 Receptor Antagonist Start: 2 End: 3 take 1 tablet by mouth once daily Famotidine (Pepcid) 40 mg tablet Discontinued 40 mg PO DAILY July 08, 2022 12:00am July 07, 2023 1:06pm FLUoxetine 40 mg oral capsule (6 sources) Serotonin Reuptake Inhibitor Start: 2 End: 3 take 1 capsule by mouth once daily FLUoxetine HCl (PROZAC) 40 mg capsule Take 40 mg by mouth once daily. 0 11/27/2021 05/28/2023 Discontinued Start: 08-17-2015 take 20 mg by mouth once daily Fluoxetine Active 20 MG PO DAILY August 17, 2015 7:25pm Comment on above: Take 40 mg by mouth once daily. LORazepam 1 mg oral tablet (14 sources) Benzodiazepine Start: 09-22-20 15 End: 08-16-20 20 take 1 tablet by mouth three times daily as needed for anxiety Lorazepam 1 MG tablet Discontinued 1 mg PO THREE TIMES A DAY as needed for Anxiety September 22, 2015 4:23am August 16, 2020 2:51pm metFORMIN hydrochloride 500 mg oral tablet (13 sources) Biguanide Start: 12-30-19 23 take 1 tablet by mouth twice daily Metformin 500 mg tablet Discontinued 500 mg PO TWICE A DAY July 07, 2023 12:00am metFORMIN (Gluco phage) 500 MG tablet Take by mouth 2 times daily (with meals). 0 Active Comment on above: Take 500 mg by mouth twice daily. Problems Active Problems Problem Classification Problem Date Documented Da te Episodic/Chronic Diabetes mellitus without complication (14 sources) Type 2 diabetes mellitus without complication; Translations: [Type 2 diabetes mellitus without complications] Onset: 01-21-2023 Chronic Diseases of white blood cells (1 source) Elevated white blood cell count, unspecified; Translations: [Elevated white blood cell count, unspecified] Onset: 12-01-2024 Chronic Disorders of lipid metabolism (10 sources) Hyperlipidemia; Translations: [Hyperlipidemia, unspecified] Onset: 06-30-2022 08-02-2022 Chronic Headache; including migraine (3 sources) Acute headache; Translations: [Acute headache] 09-07-2023 Episodic Other diseases of veins and lymphatics (4 sources) Venous varices; Translations: [Varicose veins of other specified sites] 07-10-2023 Episodic Comment on above: Left lateral thigh Other diseases of veins and lymphatics (2 sources) Varicose veins of other specified sites; Translations: [Asymptomatic varicose veins] 07-07-2023 Episodic Other nutritional; endocrine; and metabolic disorders (10 sources) Body mass index 40+ - severely obese; Translations: [Body mass index (BMI) 45.0-49.9, adult] Onset: 05-28-2023 Chronic Other nutritional; endocrine; and metabolic disorders (8 sources) Severe obesity; Translations: [Morbid (severe) obesity [...] to excess calories (HCC)] Onset: 01-21-2023 Chronic Otitis media and related conditions (7 sources) Acute left otitis media; Translations: [Otitis media, unspecified, left ear] 10-13-2022 Episodic Residual codes; unclassified (8 sources) Sleep apnea; Translations: [Sleep apnea, unspecified] Onset: 06-30-2022 08-02-2022 Chronic Past or Other Problems Problem Classification Problem Date Documented Da te Episodic/Chronic Abdominal pain (11 sources) Epigastric pain; Translations: [Epigastric pain] Onset: 12-04-2024 07-16-2022 Episodic Diabetes mellitus without complication (8 sources) Prediabetes; Translations: [Prediabetes] Onset: 06-30-2022 08-02-2022 Episodic Inflammatory diseases of female pelvic organs (2 sources) Abscess of vulva; Translations: [Abscess of vulva] Onset: 01-16-2023 Episodic Other lower respiratory disease (8 sources) Dyspnea on exertion; Translations: [Other forms of dyspnea] Onset: 06-30-2022 08-02-2022 Episodic Other nutritional; endocrine; and metabolic disorders (2 sources) Weight loss; Translations: [Weight Loss] Onset: 12-12-2022 Episodic Other screening for suspected conditions (not mental disorders or infectious disease) (1 source) Encounter for screening mammogram for malignant neoplasm of breast; Translations: [Encounter for screening mammogram for malignant neoplasm of breast] Onset: 08-29-2024 Episodic Results Test Name Value Interpretation Reference Range Facility Absolute lymphocyte countOrd ered By: Peterson Rm on 03-15-2025 Lymphocytes Auto (Unsp spec) [#/Vol] 2.76 10*3/uL 0.83-4.51 [facility] Absolute neutrophil countOrd ered By: Peterson Rm on 03-15-2025 Neutrophils (Bld) [#/Vol] 7.4 10*3/uL 2.0-7.7 [facility] Anion gap in Serum or Plasma Ordered By: Peterson Rm on 03-15-2025 Anion gap [Moles/Vol] 13 mmol/L 5- [facility] Automated lymphocyte count a s percentage of total leukocytesOrdered By: Peterson Rm on 03-15-2025 Lymphocytes/100 WBC Auto (Unsp spec) 25.6 % - [facility] BUN/creatinine ratioOrdered By: Peterson Rm on 03-15-2025 Urea nitrogen/Creatinine [Mass ratio] 11.3 mg/mg 10- [facility] Basophil percentageOrdered B y: Peterson Rm on 03-15-2025 Basophils/100 WBC (Bld) 0.6 % 0-1 [facility] Bilirubin, totalOrdered By: Peterson Rm on 03-15-2025 Bilirubin [Mass/Vol] 0.44 mg/dL 0.00-1.30 [facility] CBC W/Diff, Automatedon 02-17 Absolute Lymph 2.76 X10 3/uL Normal 0.83-4.51 [facility] Comment on above: Performed By: #### L 3600.4000, L501.6710, L101.9900, L3200.1275, L3100.3450 #### [facility] [address] [place], [address] Absolute Neut 7.4 X10 3/uL Normal 2.0-7.7 [facility] Comment on above: Performed By: #### L 3600.4000, L501.6710, L101.9900, L3200.1275, L3100.3450 #### [facility] [address] [place], [address] Basophils/100 WBC (Bld) 0.6 % Normal 0-1 [facility] Comment on above: Performed By: #### L 3600.4000, L501.6710, L101.9900, L3200.1275, L3100.3450 #### [facility] [address] [place], [address] Eosinophils/100 WBC (Bld) 1.1 % Normal 0-5 [facility] Comment on above: Performed By: #### L 3600.4000, L501.6710, L101.9900, L3200.1275, L3100.3450 #### [facility] [address] [place], [address] Erythrocyte distribution width (RBC) [Ratio] 14.8 % High 11.6-14.6 [facility] Comment on above: Performed By: #### L 3600.4000, L501.6710, L101.9900, L3200.1275, L3100.3450 #### [facility] [address] [place], [address] Hematocrit (Bld) [Volume fraction] 42.4 % Normal 37-47 [facility] Comment on above: Performed By: #### L 3600.4000, L501.6710, L101.9900, L3200.1275, L3100.3450 #### [facility] [address] [place], [address] Hemoglobin (Bld) [Mass/Vol] 13.6 g/dL Normal 12.0-15.0 [facility] Comment on above: Performed By: #### L 3600.4000, L501.6710, L101.9900, L3200.1275, L3100.3450 #### [facility] [address] [place], [address] IG% 0.300 Normal 0.0-0.9 [facility] Comment on above: Result Comment: IG% - Immature Granulocytes (promyelocytes, myelocytes and metamyelocytes) > 1% indicates that a LEFT SHIFT is Present. Performed By: #### L 3600.4000, L501.6710, L101.9900, L3200.1275, L3100.3450 #### [facility] [address] [place], [address] Lymphocytes/100 WBC (Bld) 25.6 % Normal 19-41 [facility] Comment on above: Performed By: #### L 3600.4000, L501.6710, L101.9900, L3200.1275, L3100.3450 #### [facility] [address] [place], [address] MCH (RBC) [Entitic mass] 26.9 pg Low 27.0-32.0 [facility] Comment on above: Performed By: #### L 3600.4000, L501.6710, L101.9900, L3200.1275, L3100.3450 #### [facility] [address] [place], [address] MCHC (RBC) [Mass/Vol] 32.1 g/dL Normal 32-36 [facility] Comment on above: Performed By: #### L 3600.4000, L501.6710, L101.9900, L3200.1275, L3100.3450 #### [facility] [address] [place], [address] MCV (RBC) [Entitic vol] 83.8 fL Normal 81-99 [facility] Comment on above: Performed By: #### L 3600.4000, L501.6710, L101.9900, L3200.1275, L3100.3450 #### [facility] [address] [place], [address] Monocytes/100 WBC (Bld) 4.1 % Normal 0-10 [facility] Comment on above: Performed By: #### L 3600.4000, L501.6710, L101.9900, L3200.1275, L3100.3450 #### [facility] [address] [place], [address] Neutrophils/100 WBC (Bld) 68.3 % Normal 47-70 [facility] Comment on above: Performed By: #### L 3600.4000, L501.6710, L101.9900, L3200.1275, L3100.3450 #### [facility] [address] [place], [address] Nucleated RBC (Bld) [#/Vol] 0 10*3/uL Normal 0-5 [facility] Comment on above: Performed By: #### L 3600.4000, L501.6710, L101.9900, L3200.1275, L3100.3450 #### [facility] [address] [place], [address] Platelet mean volume (Bld) [Entitic vol] 9.5 fL Normal 6.2-12.0 [facility] Comment on above: Performed By: #### L 3600.4000, L501.6710, L101.9900, L3200.1275, L3100.3450 #### [facility] [address] [place], [address] Platelets (Bld) [#/Vol] 396 10*3/uL Normal 150-450 [facility] Comment on above: Performed By: #### L 3600.4000, L501.6710, L101.9900, L3200.1275, L3100.3450 #### [facility] [address] [place], [address] RBC (Bld) [#/Vol] 5.06 10*6/uL Normal 4.2-5.4 [facility] Comment on above: Performed By: #### L 3600.4000, L501.6710, L101.9900, L3200.1275, L3100.3450 #### [facility] [address] [place], [address] RDW SD 45.1 fl High 35.1-43.9 [facility] Comment on above: Performed By: #### L 3600.4000, L501.6710, L101.9900, L3200.1275, L3100.3450 #### [facility] [address] [place], [address] WBC (Bld) [#/Vol] 10.8 10*3/uL Normal 4.4-11.0 [facility] Comment on above: Performed By: #### L 3600.4000, L501.6710, L101.9900, L3200.1275, L3100.3450 #### [facility] [address] [place], [address] CRPon 03-15-2025 C-REACTIVE PROT 27.80 mg/L High 0.0-3.0 [facility] Comment on above: Performed By: #### L 3600.4000, L501.6710, L101.9900, L3200.1275, L3100.3450 #### [facility] [address] [place], [address] Calculated very low density lipoprotein (VLDL) cholesterol measurementOrdered By: Peterson Rm on 03-15-2025 Calculated very low density lipoprotein (VLDL) cholesterol measurement 14 mg/dL 5-40 [facility] Carbon dioxide, total [Moles /volume] in Central venous bloodOrdered By: Peterson Rm on 03-15-2025 CO2 [Moles/Vol] 21.6 mmol/L 21.0-32.0 [facility] Chloride assayOrdered By: Mike Rm on 03-15-2025 Chloride [Moles/Vol] 104 mmol/L 98-108 [facility] Comprehensive Metabolic Prof ilon 03-15-2025 Albumin [Mass/Vol] 3.8 g/dL Normal 3.5-5.0 [facility] Comment on above: Performed By: #### L 3600.4000, L501.6710, L101.9900, L3200.1275, L3100.3450 #### [facility] [address] [place], [address] Albumin/Globulin [Mass ratio] 1.0 {ratio} Normal 0.9-2.4 [facility] Comment on above: Performed By: #### L 3600.4000, L501.6710, L101.9900, L3200.1275, L3100.3450 #### [facility] [address] [place], [address] ALK PHOS 178 U/L High 35-104 [facility] Comment on above: Performed By: #### L 3600.4000, L501.6710, L101.9900, L3200.1275, L3100.3450 #### [facility] [address] [place], [address] ALT [Catalytic activity/Vol] 26 U/L Normal <=34 [facility] Comment on above: Performed By: #### L 3600.4000, L501.6710, L101.9900, L3200.1275, L3100.3450 #### [facility] [address] [place], [address] AST [Catalytic activity/Vol] 20 U/L Normal <=31 [facility] Comment on above: Performed By: #### L 3600.4000, L501.6710, L101.9900, L3200.1275, L3100.3450 #### [facility] [address] [place], [address] Bilirubin [Mass/Vol] 0.44 mg/dL Normal 0.00-1.30 [facility] Comment on above: Performed By: #### L 3600.4000, L501.6710, L101.9900, L3200.1275, L3100.3450 #### [facility] [address] [place], [address] BUN/CRE 11.3 RATIO Normal 10-20 [facility] Comment on above: Performed By: #### L 3600.4000, L501.6710, L101.9900, L3200.1275, L3100.3450 #### [facility] [address] [place], [address] Calcium [Mass/Vol] 9.1 mg/dL Normal 7.6-11.0 [facility] Comment on above: Performed By: #### L 3600.4000, L501.6710, L101.9900, L3200.1275, L3100.3450 #### [facility] [address] [place], [address] Chloride [Moles/Vol] 104 mmol/L Normal 98-108 [facility] Comment on above: Performed By: #### L 3600.4000, L501.6710, L101.9900, L3200.1275, L3100.3450 #### [facility] [address] [place], [address] CO2 [Moles/Vol] 21.6 mmol/L Normal 21.0-32.0 [facility] Comment on above: Performed By: #### L 3600.4000, L501.6710, L101.9900, L3200.1275, L3100.3450 #### [facility] [address] [place], [address] Creatinine [Mass/Vol] 0.72 mg/dL Normal 0.70-1.20 [facility] Comment on above: Performed By: #### L 3600.4000, L501.6710, L101.9900, L3200.1275, L3100.3450 #### [facility] [address] [place], [address] GAP 13 Normal 5-15 [facility] Comment on above: Performed By: #### L 3600.4000, L501.6710, L101.9900, L3200.1275, L3100.3450 #### [facility] [address] [place], [address] GFR/1.73 sq M.predicted among non-blacks MDRD (S/P/Bld) [Vol rate/Area] 104 mL/min/{1.73_m2} Normal >60 [facility] Comment on above: Result Comment: mL/m in/1.73m2 CKD-EPI Creatinine Equation (2020) Performed By: #### L 3600.4000, L501.6710, L101.9900, L3200.1275, L3100.3450 #### [facility] [address] [place], [address] Globulin (S) [Mass/Vol] 4.0 g/dL Normal 2.2-4.2 [facility] Comment on above: Performed By: #### L 3600.4000, L501.6710, L101.9900, L3200.1275, L3100.3450 #### [facility] [address] [place], [address] Glucose [Mass/Vol] 103 mg/dL High 70-99 [facility] Comment on above: Performed By: #### L 3600.4000, L501.6710, L101.9900, L3200.1275, L3100.3450 #### [facility] [address] [place], [address] Potassium [Moles/Vol] 3.8 mmol/L Normal 3.3-5.1 [facility] Comment on above: Performed By: #### L 3600.4000, L501.6710, L101.9900, L3200.1275, L3100.3450 #### [facility] [address] [place], [address] Sodium [Moles/Vol] 139 mmol/L Normal 133-145 [facility] Comment on above: Performed By: #### L 3600.4000, L501.6710, L101.9900, L3200.1275, L3100.3450 #### [facility] [address] [place], [address] T PROT 7.8 g/dL Normal 5.9-8.4 [facility] Comment on above: Performed By: #### L 3600.4000, L501.6710, L101.9900, L3200.1275, L3100.3450 #### [facility] [address] [place], [address] Urea nitrogen [Mass/Vol] 8 mg/dL Normal 4-19 [facility] Comment on above: Performed By: #### L 3600.4000, L501.6710, L101.9900, L3200.1275, L3100.3450 #### [facility] [address] [place], [address] Eosinophil percentageOrdered By: Peterson Rm on 03-15-2025 Eosinophils/100 WBC (Bld) 1.1 % 0-5 [facility] Erythrocyte distribution wid th ratioOrdered By: Peterson CrockerJag on 03-15-2025 Erythrocyte distribution width (RBC) [Ratio] 14.8 % High 11.6-14.6 [facility] Erythrocyte distribution wid th standard deviationOrdered By: Peterson Jag on 03-15-2025 Erythrocyte distribution width (RBC) [Ratio] 45.1 fl High 35.1-43.9 [facility] Glomerular filtration rate ( GFR) estimation/1.73 sq m using serum, plasma, or whole bOrdered By: Peterson Rm on 03-15-2025 GFR/1.73 sq M.predicted among non-blacks MDRD (S/P/Bld) [Vol rate/Area] 104 mL/min/{1.73_m2} >60 [facility] Comment on above: mL/min/1.73m2 CKD-EP I Creatinine Equation (2020) Hematocrit Auto (Bld) [Volum e fraction]Ordered By: Peterson Rm on 03-15-2025 Hematocrit (Bld) [Volume fraction] 42.4 % 37-47 [facility] Hemoglobin A1con 03-15-2025 HbA1c (Bld) [Mass fraction] 5.8 % High <=5.6 [facility] Comment on above: Result Comment: Norm al < 5.7 % Prediabetic 5.7 - 6.4 % Diabetic >or= 6.5 % Please note range changes. Performed By: #### L 3600.4000, L501.6710, L101.9900, L3200.1275, L3100.3450 #### [facility] [address] [place], [address] Hemoglobin A1c percentageOrd ered By: Peterson Rm on 03-15-2025 HbA1c (Bld) [Mass fraction] 5.8 % High <5.7 [facility] Comment on above: Normal < 5.7 % Predi abetic 5.7 - 6.4 % Diabetic >or= 6.5 % Please note range changes. Hemoglobin measurementOrdere d By: Peterson Rm on 03-15-2025 Hemoglobin (Bld) [Mass/Vol] 13.6 g/dL 12.0-15.0 [facility] Immature granulocytes/100 WB C Auto (Bld)Ordered By: Peterson Rm on 03-15-2025 Immature granulocytes/100 WBC (Bld) 0.300 % 0.0-0.9 [facility] [facility] Comment on above: IG% - Immature Granu locytes (promyelocytes, myelocytes and metamyelocytes) > 1% indicates that a LEFT SHIFT is Present. LDL calc ser/plasOrdered By: Peterson Rm on 03-15-2025 Cholesterol in LDL [Mass/Vol] 93 mg/dL [facility] Comment on above: Wtjheecjjp=644-963 m g/dL & Higher Ynfg=436 mg/dL or greater Laboratory - Chemistry and C hemistry - challengeOrdered By: Peterson Rm on 03-15-2025 AST [Catalytic activity/Vol] 20 U/L <32 [facility] Lipid Profileon 03-15-2025 CHOL:HDL 3.91 Normal [facility] Comment on above: Performed By: #### L 3600.4000, L501.6710, L101.9900, L3200.1275, L3100.3450 #### [facility] [address] [place], [address] Cholesterol [Mass/Vol] 145 mg/dL Normal <=200 [facility] Comment on above: Result Comment: Chol esterol level, Desirable <200 mg/dL Borderline high cholesterol 200-239 mg/dL High cholesterol >=240 mg/dL Recommendations of the NCEP Adult Treatment Panel for the following risk-cutoff thresholds for the [place] population. Performed By: #### L 3600.4000, L501.6710, L101.9900, L3200.1275, L3100.3450 #### [facility] [address] [place], [address] Cholesterol in HDL [Mass/Vol] 37 mg/dL Low [facility] Comment on above: Result Comment: Susana onal Cholesterol Education Program (NCEP) guidelines: <40 mg/dL: Low HDL-cholesterol (major risk factor for CHD) >= 60 mg/dL: High HDL-cholesterol (negative risk factor for CHD) HDL-cholesterol is affected by a number of factors, e.g. smoking, exercise, hormones, sex and age. Performed By: #### L 3600.4000, L501.6710, L101.9900, L3200.1275, L3100.3450 #### [facility] [address] [place], [address] Cholesterol in LDL [Mass/Vol] 93 mg/dL Normal [facility] Comment on above: Result Comment: Bord bopcnc=822-619 mg/dL Higher Tvud=828 mg/dL or greater Performed By: #### L 3600.4000, L501.6710, L101.9900, L3200.1275, L3100.3450 #### [facility] [address] [place], [address] Cholesterol in VLDL [Mass/Vol] 14 mg/dL Normal 5-40 [facility] Comment on above: Performed By: #### L 3600.4000, L501.6710, L101.9900, L3200.1275, L3100.3450 #### [facility] [address] [place], [address] Triglyceride [Mass/Vol] 72 mg/dL Normal [facility] Comment on above: Result Comment: The drugs N-Acetylcysteine and Metamizole may falsely depress this assay. Normal range: <150 mg/dL Borderline High: 150-199 mg/dL High: 200-499 mg/dL Very High: >500 mg/dL Performed By: #### L 3600.4000, L501.6710, L101.9900, L3200.1275, L3100.3450 #### [facility] [address] [place], [address] MCV (mean corpuscular volume ) determinationOrdered By: Peterson Rm on 03-15-2025 MCV (RBC) [Entitic vol] 83.8 fL 81-99 [facility] Mean corpuscular hemoglobin (MCH) determinationOrdered By: Peterson Rm on 03-15-2025 MCH (RBC) [Entitic mass] 26.9 pg Low 27.0-32.0 [facility] Mean corpuscular hemoglobin concentration (MCHC) determinationOrdered By: Peterson Rm on 03-15-2025 MCHC (RBC) [Mass/Vol] 32.1 g/dL 32-36 [facility] Mean platelet volume determi nationOrdered By: Peterson Rm on 03-15-2025 Platelet mean volume (Bld) [Entitic vol] 9.5 fL 6.2-12.0 [facility] Microalb:Creat Ratio,Random URon 03-15-2025 Creatinine [Mass/Vol] 116.00 mg/dL Normal 28.00-217.00 [facility] Comment on above: Performed By: #### L 3600.4000, L501.6710, L101.9900, L3200.1275, L3100.3450 #### [facility] [address] [place], [address] MALB:CREAT UNABLE TO CALCULATE Normal [facility] Comment on above: Performed By: #### L 3600.4000, L501.6710, L101.9900, L3200.1275, L3100.3450 #### [facility] [address] [place], [address] MICROALBUMIN,UR < 12.0 Normal NO RANGE EST. [facility] Comment on above: Performed By: #### L 3600.4000, L501.6710, L101.9900, L3200.1275, L3100.3450 #### [facility] [address] [place], [address] Microalbumin/creat ratio urO rdered By: Peterson Rm on 03-15-2025 Urine microalbumin/creatinine ratio measurement UNABLE TO CALCULATE mg/g CRE [facility] Monocyte percentageOrdered B y: Peterson Rm on 03-15-2025 Monocytes/100 WBC (Bld) 4.1 % 0-10 [facility] Neutrophil percentageOrdered By: Peterson Rm on 03-15-2025 Neutrophils/100 WBC (Bld) 68.3 % 47-70 [facility] Nucleated red blood cell per centageOrdered By: Peterson Rm on 03-15-2025 Nucleated RBC/100 WBC (Bld) [Ratio] 0 % 0-5 [facility] Platelet countOrdered By: Mike Rm on 03-15-2025 Platelets (Bld) [#/Vol] 396 10*3/uL 150-450 [facility] Potassium measurement (mass/ volume)Ordered By: Peterson Rm on 03-15-2025 Potassium (Unsp spec) [Mass/Vol] 3.8 mmol/L 3.3-5.1 [facility] RBC Auto (Bld) [#/Vol]Ordere d By: Peterson Rm on 03-15-2025 RBC (Bld) [#/Vol] 5.06 10*6/uL 4.2-5.4 [facility] Random urine creatinine christal urement (mass/volume)Ordered By: Peterson Rm on 03-15-2025 Creatinine Unsp time (U) [Mass/Vol] 116.00 mg/dL 28.00-217.00 [facility] Screening total cholesterol/ high density lipoprotein (HDL) cholesterol ratioOrdered By: Peterson Rm on 03-15-2025 Cholesterol.total/Cholest abiel in HDL [Mass ratio] 3.91 {ratio} [facility] Serum creatinine measurement (mass/volume)Ordered By: Peterson Rm on 03-15-2025 Creatinine [Mass/Vol] 0.72 mg/dL 0.70-1.20 [facility] Serum globulin measurementOr dered By: Peterson Rm on 03-15-2025 Globulin (S) [Mass/Vol] 4.0 g/dL 2.2-4.2 [facility] Serum glucose measurement (m ass/volume)Ordered By: Peterson Rm on 03-15-2025 Glucose [Mass/Vol] 103 mg/dL High 70-99 [facility] Serum or plasma C reactive p rotein measurement (mass/volume)Ordered By: Peterson Rm on 03-15-2025 CRP [Mass/Vol] 27.80 mg/L High 0.0-3.0 [facility] Serum or plasma alanine pena otransferase (ALT) measurementOrdered By: Peterson Rm on 03-15-2025 ALT [Catalytic activity/Vol] 26 U/L <35 [facility] Serum or plasma albumin christal urement (mass/volume)Ordered By: Peterson Rm on 03-15-2025 Albumin [Mass/Vol] 3.8 g/dL 3.5-5.0 [facility] Serum or plasma albumin/glob ulin mass ratioOrdered By: Peterson Rm on 03-15-2025 Albumin/Globulin [Mass ratio] 1.0 {ratio} 0.9-2.4 [facility] Serum or plasma alkaline enedelia sphatase measurementOrdered By: Peterson Rm on 03-15-2025 ALP [Catalytic activity/Vol] 178 U/L High 35-104 [facility] Serum or plasma calcium christal urement (mass/volume)Ordered By: Peterson Rm on 03-15-2025 Calcium [Mass/Vol] 9.1 mg/dL 7.6-11.0 [facility] Serum or plasma cholesterol in HDL measurement (mass/volume)Ordered By: Peterson Rm on 03-15-2025 Cholesterol in HDL [Mass/Vol] 37 mg/dL Low >40 [facility] Comment on above: National Cholesterol Education Program (NCEP) guidelines:<40 mg/dL: Low HDL-cholesterol (major risk factor for CHD)>= 60 mg/dL: High HDL-cholesterol (negative risk factor for CHD)HDL-cholesterol is affected by a number of factors, e.g. smoking, exercise, hormones, sex and age. Serum or plasma cholesterol measurement (mass/volume)Ordered By: Peterson Rm on 03-15-2025 Cholesterol [Mass/Vol] 145 mg/dL <201 [facility] Comment on above: Cholesterol level, D esirable <200 mg/dLBorderline high cholesterol 200-239 mg/dLHigh cholesterol >=240 mg/dLRecommendations of the NCEP Adult Treatment Panel for the following risk-cutoff thresholds for the [place] population. Serum or plasma urea nitroge n measurement (mass/volume)Ordered By: Peterson Rm on 03-15-2025 Urea nitrogen [Mass/Vol] 8 mg/dL 4-19 [facility] Sodium levelOrdered By: Peterson Rm on 03-15-2025 Sodium [Moles/Vol] 139 mmol/L 133-145 [facility] Total proteinOrdered By: Amrita Rm on 03-15-2025 Protein [Mass/Vol] 7.8 g/dL 5.9-8.4 [facility] Triglycerides measurementOrd ered By: Peterson Rm on 03-15-2025 Triglyceride [Mass/Vol] 72 mg/dL <199 [facility] Comment on above: The drugs N-Acetylcy steine and Metamizole may falsely depress this assay. Normal range: <150 mg/dLBorderline High: 150-199 mg/dLHigh: 200-499 mg/dLVery High: >500 mg/dL Urine albumin measurement [facility] detection limit of 20 mg/L or less (mass/volume)Ordered By: Peterson Rm on 03-15-2025 Albumin DL <= 20 mg/L (U) [Mass/Vol] < 12.0 mg/L NO RANGE EST. [facility] White blood cell (WBC) count Ordered By: Peterson Rm on 03-15-2025 WBC (Bld) [#/Vol] 10.8 10*3/uL 4.4-11.0 [facility] Protein Electro.Ur-Randomon 12-04-2024 M-SPIKE,U Normal [facility] Comment on above: Result Comment: NOT OBSERVED Performed By: #### L 3600.4000, L501.6710, L101.9900, L3200.1275, L3100.3450 #### [facility] [address] [place], [address] Immunofixation, Serumon - MICHAEL RESULT,S Comment Normal . [facility] Comment on above: Result Comment: No m onoclonality detected. Performed By: #### L 3600.4000, L501.6710, L101.9900, L3200.1275, L3100.3450 #### [facility] [address] [place], [address] IMMUNOGLOB A QN 535 mg/dL High 87-352 [facility] Comment on above: Performed By: #### L 3600.4000, L501.6710, L101.9900, L3200.1275, L3100.3450 #### [facility] [address] [place], [address] IMMUNOGLOB G QN 1428 mg/dL Normal 586-1602 [facility] Comment on above: Performed By: #### L 3600.4000, L501.6710, L101.9900, L3200.1275, L3100.3450 #### [facility] [address] [place], [address] IMMUNOGLOB M QN 194 mg/dL Normal 26-217 [facility] Comment on above: Result Comment: Perf ormed at: - [facility] [address] [id number] Sales Development Director: Mark Balderrama PhD, Phone: [phone] Performed By: #### L 3600.4000, L501.6710, L101.9900, L3200.1275, L3100.3450 #### [facility] [address] [place], [address] Protein Electroph, Son 11-18 Albumin [Mass/Vol] 3.6 g/dL Normal 2.9-4.4 [facility] Comment on above: Performed By: #### L 3600.4000, L501.6710, L101.9900, L3200.1275, L3100.3450 #### [facility] [address] [place], [address] Albumin/Globulin [Mass ratio] 0.9 {ratio} Normal 0.7-1.7 [facility] Comment on above: Performed By: #### L 3600.4000, L501.6710, L101.9900, L3200.1275, L3100.3450 #### [facility] [address] [place], [address] ALPHA-1 GLOBUL 0.3 g/dL Normal 0.0-0.4 [facility] Comment on above: Performed By: #### L 3600.4000, L501.6710, L101.9900, L3200.1275, L3100.3450 #### [facility] [address] [place], [address] ALPHA-2 GLOBUL 1.0 g/dL Normal 0.4-1.0 [facility] Comment on above: Performed By: #### L 3600.4000, L501.6710, L101.9900, L3200.1275, L3100.3450 #### [facility] [address] [place], [address] BETA GLOBULIN 1.2 g/dL Normal 0.7-1.3 [facility] Comment on above: Performed By: #### L 3600.4000, L501.6710, L101.9900, L3200.1275, L3100.3450 #### [facility] [address] [place], [address] GAMMA GLOBULIN 1.4 g/dL Normal 0.4-1.8 [facility] Comment on above: Performed By: #### L 3600.4000, L501.6710, L101.9900, L3200.1275, L3100.3450 #### [facility] [address] [place], [address] Globulin (S) [Mass/Vol] 3.9 g/dL Normal 2.2-3.9 [facility] Comment on above: Performed By: #### L 3600.4000, L501.6710, L101.9900, L3200.1275, L3100.3450 #### [facility] [address] [place], [place], [address] INTERPRETATION Comment Normal . [facility] Comment on above: Result Comment: Prot ein electrophoresis scan will follow via computer, mail, or music director delivery. Performed By: #### L 3600.4000, L501.6710, L101.9900, L3200.1275, L3100.3450 #### [facility] [address] [place], [place], [address] M-SPIKE Not Observed Normal Not Observed [facility] Comment on above: Performed By: #### L 3600.4000, L501.6710, L101.9900, L3200.1275, L3100.3450 #### [facility] [address] [place], [address] NOTE Comment Normal . [facility] Comment on above: Result Comment: Prot ein electrophoresis scan will follow via computer, mail, or music director delivery. Performed By: #### L 3600.4000, L501.6710, L101.9900, L3200.1275, L3100.3450 #### [facility] [address] [place], [place], [address] NOTE: Comment Normal . [facility] Comment on above: Result Comment: The SPE pattern appears unremarkable. Evidence of monoclonal protein is not apparent. Performed By: #### L 3600.4000, L501.6710, L101.9900, L3200.1275, L3100.3450 #### [facility] [address] [place], [place], [address] Protein [Mass/Vol] 7.5 g/dL Normal 6.0-8.5 [facility] Comment on above: Performed By: #### L 3600.4000, L501.6710, L101.9900, L3200.1275, L3100.3450 #### [facility] [address] [place], [address] Abdomen Limitedon 11-16-2024 Abdomen Limited [facility] [address] [place], [place] [address] Abdomen Limited MR#: [id number] Acct: [id number] Name: OLAMIDE CAST Rep #: [id number] : 1975 F 49 From: Ashok Berger PCP: Dr. Peterson Rm DO Status: REG CLI Study: Abdomen Limited Date of Exam: 11/16/24 Exam# [id number] Ordering Dr: Peterson Rm DO PROCEDURE: ABDOMEN LIMITED REASON FOR EXAM: Right upper quadrant pain for 5 days. History of FLD. COMPARISON: None provided. FINDINGS: Liver: Hepatomegaly is seen, with the liver measured at 19.3 cm in length. Diffusely echogenic hepatic parenchyma is seen, with differential diagnosis including diffuse fatty infiltration of the liver and hepatocellular disease. No focal hepatic process is noted. A smooth hepatic surface is seen. No evidence of intrahepatic biliary ductal dilation. Hepatopetal flow is noted 4 the portal vein. Gallbladder: Surgically absent Common bile duct: Normal measuring 7.4 mm. Pancreas: Visualized portions are sonographically unremarkable. Visualized portions of the right kidney are unremarkable. The right kidney is measured at 11.5 x 6.0 x 5.8 cm. The cortex is measured at 13 mm in thickness. No right upper quadrant ascites. US/Abdomen Limited IMPRESSION: 1. Hepatomegaly is seen, with the liver measured at 19.3 cm in length. Diffusely echogenic hepatic parenchyma is seen, with differential diagnosis including diffuse fatty infiltration of the liver and hepatocellular disease. 2. Prior cholecystectomy. Reading Location: [address] CC: Dr. Peterson Rm DO Industrial Custodian: Signed Normal [facility] CRPon 11-15-2024 C-REACTIVE PROT 22.40 mg/L High 0.0-3.0 [facility] Comment on above: Order Comment: LAY Granados FORGOT TO DRAW SPEP, AND IMMUNOFIZATION. SO PT IS COMING BACK TODAY AFTER WORK RIGHT BEFORE CLOSING. Result Comment: C-Re active Protein (CRP) provides useful information for the diagnosis, therapy and monitoring of inflammatory processes and associated diseases. For the evaluation of Relative Risk for Cardiovascular Disease, a High Sensitivity CRP (HSCRP) should be ordered. Performed By: #### L 3600.4000, L501.6710, L101.9900, L3200.1275, L3100.3450 #### [facility] [address] [place], [address] Erythrocyte Sed Rateon 11-15 SED RATE 29 mm/hr Normal 0-30 [facility] Comment on above: Performed By: #### L 3600.4000, L501.6710, L101.9900, L3200.1275, L3100.3450 #### [facility] [address] [place], [address] CBC W/Diff, Automatedon 10-20 Absolute Lymph 3.11 X10 3/uL Normal 0.83-4.51 [facility] Comment on above: Performed By: #### L 500.4050, L100.0100 #### [facility] [address] [place], [address] Absolute Neut 8.7 X10 3/uL High 2.0-7.7 [facility] Comment on above: Performed By: #### L 500.4050, L100.0100 #### [facility] [address] [place], [address] Basophils/100 WBC (Bld) 0.6 % Normal 0-1 [facility] Comment on above: Performed By: #### L 500.4050, L100.0100 #### [facility] [address] [place], [address] Eosinophils/100 WBC (Bld) 1.0 % Normal 0-5 [facility] Comment on above: Performed By: #### L 500.4050, L100.0100 #### [facility] [address] [place], [address] Erythrocyte distribution width (RBC) [Ratio] 14.8 % High 11.6-14.6 [facility] Comment on above: Performed By: #### L 500.4050, L100.0100 #### [facility] [address] [place], [address] Hematocrit (Bld) [Volume fraction] 43.8 % Normal 37-47 [facility] Comment on above: Performed By: #### L 500.4050, L100.0100 #### [facility] [address] [place], [address] Hemoglobin (Bld) [Mass/Vol] 13.9 g/dL Normal 12.0-15.0 [facility] Comment on above: Performed By: #### L 500.4050, L100.0100 #### [facility] [address] [place], [address] IG% 0.300 Normal 0.0-0.9 [facility] Comment on above: Result Comment: IG% - Immature Granulocytes (promyelocytes, myelocytes and metamyelocytes) > 1% indicates that a LEFT SHIFT is Present. Performed By: #### L 500.4050, L100.0100 #### [facility] [address] [place], [address] Lymphocytes/100 WBC (Bld) 24.9 % Normal 19-41 [facility] Comment on above: Performed By: #### L 500.4050, L100.0100 #### [facility] [address] [place], [address] MCH (RBC) [Entitic mass] 26.9 pg Low 27.0-32.0 [facility] Comment on above: Performed By: #### L 500.4050, L100.0100 #### [facility] [address] [place], [address] MCHC (RBC) [Mass/Vol] 31.7 g/dL Low 32-36 [facility] Comment on above: Performed By: #### L 500.4050, L100.0100 #### [facility] [address] [place], [address] MCV (RBC) [Entitic vol] 84.9 fL Normal 81-99 [facility] Comment on above: Performed By: #### L 500.4050, L100.0100 #### [facility] [address] [place], [address] Monocytes/100 WBC (Bld) 3.5 % Normal 0-10 [facility] Comment on above: Performed By: #### L 500.4050, L100.0100 #### [facility] [address] [place], [address] Neutrophils/100 WBC (Bld) 69.7 % Normal 47-70 [facility] Comment on above: Performed By: #### L 500.4050, L100.0100 #### [facility] [address] [place], [address] Nucleated RBC (Bld) [#/Vol] 0 10*3/uL Normal 0-5 [facility] Comment on above: Performed By: #### L 500.4050, L100.0100 #### [facility] [address] [place], [address] Platelet mean volume (Bld) [Entitic vol] 9.6 fL Normal 6.2-12.0 [facility] Comment on above: Performed By: #### L 500.4050, L100.0100 #### [facility] [address] [place], [address] Platelets (Bld) [#/Vol] 364 10*3/uL Normal 150-450 [facility] Comment on above: Performed By: #### L 500.4050, L100.0100 #### [facility] [address] [place], [address] RBC (Bld) [#/Vol] 5.16 10*6/uL Normal 4.2-5.4 [facility] Comment on above: Performed By: #### L 500.4050, L100.0100 #### [facility] [address] [place], [address] RDW SD 46.4 fl High 35.1-43.9 [facility] Comment on above: Performed By: #### L 500.4050, L100.0100 #### [facility] [address] [place], [address] WBC (Bld) [#/Vol] 12.5 10*3/uL High 4.4-11.0 [facility] Comment on above: Performed By: #### L 500.4050, L100.0100 #### [facility] [address] [place], [address] Comprehensive Metabolic Prof ilon 11-14-2024 Albumin [Mass/Vol] 3.3 g/dL Normal 3.2-5.0 [facility] Comment on above: Performed By: #### L 500.4050, L100.0100 #### [facility] [address] [place], [address] Albumin/Globulin [Mass ratio] 0.6 {ratio} Low 0.9-2.4 [facility] Comment on above: Performed By: #### L 500.4050, L100.0100 #### [facility] [address] [place], [address] ALK P 160 U/L High 45-117 [facility] Comment on above: Performed By: #### L 500.4050, L100.0100 #### [facility] [address] [place], [address] ALT [Catalytic activity/Vol] 27 U/L Normal 13-56 [facility] Comment on above: Performed By: #### L 500.4050, L100.0100 #### [facility] [address] [place], [address] AST [Catalytic activity/Vol] 25 U/L Normal 15-37 [facility] Comment on above: Performed By: #### L 500.4050, L100.0100 #### [facility] [address] [place], [address] Bilirubin [Mass/Vol] 0.50 mg/dL Normal 0.20-1.00 [facility] Comment on above: Result Comment: For patients on eltrombopag therapy, use of Dimension [place] TBIL is not recommended. Performed By: #### L 500.4050, L100.0100 #### [facility] [address] [place], [address] BUN/CRE 11.6 RATIO Normal 10-20 [facility] Comment on above: Performed By: #### L 500.4050, L100.0100 #### [facility] [address] [place], [address] CA,Total 9.4 mg/dL Normal 8.5-10.1 [facility] Comment on above: Performed By: #### L 500.4050, L100.0100 #### [facility] [address] [place], [address] Chloride [Moles/Vol] 108 mmol/L High 98-107 [facility] Comment on above: Performed By: #### L 500.4050, L100.0100 #### [facility] [address] [place], [address] CO2 [Moles/Vol] 22.0 mmol/L Normal 21.0-32.0 [facility] Comment on above: Performed By: #### L 500.4050, L100.0100 #### [facility] [address] [place], [address] Creatinine [Mass/Vol] 0.69 mg/dL Normal 0.55-1.02 [facility] Comment on above: Result Comment: The validity of the calculated GFR GFRAA in patients over 70 years has not been determined. Clinical correlation is essential. Performed By: #### L 500.4050, L100.0100 #### [facility] [address] [place], [address] EST GFR - AA 116 mL/min Normal >60 [facility] Comment on above: Result Comment: Afri can Georgian GFR Calc Performed By: #### L 500.4050, L100.0100 #### [facility] [address] [place], [address] GAP 7 Normal 5-15 [facility] Comment on above: Performed By: #### L 500.4050, L100.0100 #### [facility] [address] [place], [address] GFR/1.73 sq M.predicted among non-blacks MDRD (S/P/Bld) [Vol rate/Area] 96 mL/min/{1.73_m2} Normal >60 [facility] Comment on above: Result Comment: Non- GFR Calc Performed By: #### L 500.4050, L100.0100 #### [facility] [address] [place], [address] Globulin (S) [Mass/Vol] 5.1 g/dL High 2.2-4.2 [facility] Comment on above: Performed By: #### L 500.4050, L100.0100 #### [facility] [address] [place], [address] Glucose [Mass/Vol] 87 mg/dL Normal 74-106 [facility] Comment on above: Performed By: #### L 500.4050, L100.0100 #### [facility] [address] [place], [address] Potassium [Moles/Vol] 4.0 mmol/L Normal 3.5-5.1 [facility] Comment on above: Performed By: #### L 500.4050, L100.0100 #### [facility] [address] [place], [address] Sodium [Moles/Vol] 137 mmol/L Normal 136-145 [facility] Comment on above: Performed By: #### L 500.4050, L100.0100 #### [facility] [address] [place], [address] T PROT 8.4 g/dL High 6.4-8.2 [facility] Comment on above: Performed By: #### L 500.4050, L100.0100 #### [facility] [address] [place], [address] Urea nitrogen [Mass/Vol] 8 mg/dL Normal 7-18 [facility] Comment on above: Performed By: #### L 500.4050, L100.0100 #### [facility] [address] [place], [address] Hemoglobin A1con 08-25-2024 HbA1c (Bld) [Mass fraction] 5.6 % Normal 3.8-5.6 [facility] Comment on above: Result Comment: Norm al < 5.7 % Prediabetic 5.7 - 6.4 % Diabetic >or= 6.5 % Please note range changes. Performed By: #### L 3600.4000, L501.6710, L101.9900, L3200.1275, L3100.3450 #### [facility] [address] [place], [address] SCRN MAMM (CAD)W/SHANIQUA BILATo n 08-08-2024 SCRN MAMM (CAD)W/SHANIQUA BILAT [facility] Imaging Services [address] [place] [address] SCRN MAMM (CAD)W/SHANIQUA BILAT MR#: [id number] Acct: [id number] Name: OLAMIDE CAST Rep #: [id number] : 1975 F 49 From: Bright ford MD PCP: Dr. Peterson Rm DO Status: REG CLI Study: SCRN MAMM (CAD)W/SHANIQUA BILAT Date of Exam: 07/20 11/11 Exam# [id number] Ordering Dr: Peterson Rm DO -[id number] MAMMOGRAPHY - BILATERAL SCREENING REASON FOR EXAM: Female, 49 years old. Routine annual screening examination. PERTINENT HISTORY: Grandmother with breast cancer. Aunt with breast cancer. TECHNIQUE: Digital bilateral breast shaniqua (3D mammographic acquisition) in the CC and MLO projections. 2-D mediolateral oblique (MLO) and craniocaudad (CC) views of both breasts were obtained. CAD: Full Field Digital Mammography with Computer Added Detection was performed. COMPARISON: Comparison is made with prior study August 05, 2023 and August 04, 2022. FINDINGS: Breast Composition: There are scattered areas of fibroglandular density. There are no dominant masses or suspicious calcifications. Stable bilateral axillary lymph nodes. No other significant abnormalities are identified. There has been no significant change since the prior study. BI/SCRN MAMM (CAD)W/SHANIQUA BILAT IMPRESSION: Stable bilateral screening mammogram. Yearly follow-up mammogram recommended. (A) ASSESSMENT CATEGORY: BIRADS Category 2: Benign. A letter regarding these results will be sent to the patient by the facility within 30 days. Approximately 10% of breast cancers are not detected by mammography. A normal mammogram should not delay biopsy of a clinically suspicious abnormality. [id number] Electronically Signed: Bright Quintanilla MD at 11:01 EDT Reading Location ID and State: [facility] / [place] , Service support , CC: Dr. Peterson Rm, DO Industrial Custodian: Signed Normal [facility] CBC W/Diff, Automatedon 05-19 Absolute Lymph 3.06 X10 3/uL Normal 0.83-4.51 [facility] Comment on above: Performed By: #### L 501.9985, L500.4100, L500.4050, L100.0100 #### [facility] [address] [place], [address] Absolute Neut 6.0 X10 3/uL Normal 2.0-7.7 [facility] Comment on above: Performed By: #### L 501.9985, L500.4100, L500.4050, L100.0100 #### [facility] [address] [place], [address] Basophils/100 WBC (Bld) 0.4 % Normal 0-1 [facility] Comment on above: Performed By: #### L 501.9985, L500.4100, L500.4050, L100.0100 #### [facility] [address] [place], [address] Eosinophils/100 WBC (Bld) 1.4 % Normal 0-5 [facility] Comment on above: Performed By: #### L 501.9985, L500.4100, L500.4050, L100.0100 #### [facility] [address] [place], [address] Erythrocyte distribution width (RBC) [Ratio] 14.6 % Normal 11.6-14.6 [facility] Comment on above: Performed By: #### L 501.9985, L500.4100, L500.4050, L100.0100 #### [facility] [address] [place], [address] Hematocrit (Bld) [Volume fraction] 40.0 % Normal 37-47 [facility] Comment on above: Performed By: #### L 501.9985, L500.4100, L500.4050, L100.0100 #### [facility] [address] [place], [address] Hemoglobin (Bld) [Mass/Vol] 12.6 g/dL Normal 12.0-15.0 [facility] Comment on above: Performed By: #### L 501.9985, L500.4100, L500.4050, L100.0100 #### [facility] [address] [place], [address] IG% 0.200 Normal 0.0-0.9 [facility] Comment on above: Result Comment: IG% - Immature Granulocytes (promyelocytes, myelocytes and metamyelocytes) > 1% indicates that a LEFT SHIFT is Present. Performed By: #### L 501.9985, L500.4100, L500.4050, L100.0100 #### [facility] [address] [place], [address] Lymphocytes/100 WBC (Bld) 31.6 % Normal 19-41 [facility] Comment on above: Performed By: #### L 501.9985, L500.4100, L500.4050, L100.0100 #### [facility] [address] [place], [address] MCH (RBC) [Entitic mass] 26.4 pg Low 27.0-32.0 [facility] Comment on above: Performed By: #### L 501.9985, L500.4100, L500.4050, L100.0100 #### [facility] [address] [place], [address] MCHC (RBC) [Mass/Vol] 31.5 g/dL Low 32-36 [facility] Comment on above: Performed By: #### L 501.9985, L500.4100, L500.4050, L100.0100 #### [facility] [address] [place], [address] MCV (RBC) [Entitic vol] 83.7 fL Normal 81-99 [facility] Comment on above: Performed By: #### L 501.9985, L500.4100, L500.4050, L100.0100 #### [facility] [address] [place], [address] Monocytes/100 WBC (Bld) 4.2 % Normal 0-10 [facility] Comment on above: Performed By: #### L 501.9985, L500.4100, L500.4050, L100.0100 #### [facility] [address] [place], [address] Neutrophils/100 WBC (Bld) 62.2 % Normal 47-70 [facility] Comment on above: Performed By: #### L 501.9985, L500.4100, L500.4050, L100.0100 #### [facility] [address] [place], [address] Nucleated RBC (Bld) [#/Vol] 0 10*3/uL Normal 0-5 [facility] Comment on above: Performed By: #### L 501.9985, L500.4100, L500.4050, L100.0100 #### [facility] [address] [place], [address] Platelet mean volume (Bld) [Entitic vol] 9.4 fL Normal 6.2-12.0 [facility] Comment on above: Performed By: #### L 501.9985, L500.4100, L500.4050, L100.0100 #### [facility] [address] [place], [address] Platelets (Bld) [#/Vol] 333 10*3/uL Normal 150-450 [facility] Comment on above: Performed By: #### L 501.9985, L500.4100, L500.4050, L100.0100 #### [facility] [address] [place], [address] RBC (Bld) [#/Vol] 4.78 10*6/uL Normal 4.2-5.4 [facility] Comment on above: Performed By: #### L 501.9985, L500.4100, L500.4050, L100.0100 #### [facility] [address] [place], [address] RDW SD 44.5 fl High 35.1-43.9 [facility] Comment on above: Performed By: #### L 501.9985, L500.4100, L500.4050, L100.0100 #### [facility] [address] [place], [address] WBC (Bld) [#/Vol] 9.7 10*3/uL Normal 4.4-11.0 [facility] Comment on above: Performed By: #### L 501.9985, L500.4100, L500.4050, L100.0100 #### [facility] [address] [place], [address] Comprehensive Metabolic Prof [facility] 06-02-2024 Albumin [Mass/Vol] 3.0 g/dL Low 3.2-5.0 [facility] Comment on above: Performed By: #### L 501.9985, L500.4100, L500.4050, L100.0100 #### [facility] [address] [place], [address] Albumin/Globulin [Mass ratio] 0.7 {ratio} Low 0.9-2.4 [facility] Comment on above: Performed By: #### L 501.9985, L500.4100, L500.4050, L100.0100 #### [facility] [address] [place], [address] ALK P 139 U/L High 45-117 [facility] Comment on above: Performed By: #### L 501.9985, L500.4100, L500.4050, L100.0100 #### [facility] [address] [place], [address] ALT [Catalytic activity/Vol] 34 U/L Normal 13-56 [facility] Comment on above: Performed By: #### L 501.9985, L500.4100, L500.4050, L100.0100 #### [facility] [address] [place], [address] AST [Catalytic activity/Vol] 18 U/L Normal 15-37 [facility] Comment on above: Performed By: #### L 501.9985, L500.4100, L500.4050, L100.0100 #### [facility] [address] [place], [address] Bilirubin [Mass/Vol] 0.60 mg/dL Normal 0.20-1.00 [facility] Comment on above: Result Comment: For patients on eltrombopag therapy, use of Dimension [place] TBIL is not recommended. Performed By: #### L 501.9985, L500.4100, L500.4050, L100.0100 #### [facility] [address] [place], [address] BUN/CRE 10.7 RATIO Normal 10-20 [facility] Comment on above: Performed By: #### L 501.9985, L500.4100, L500.4050, L100.0100 #### [facility] [address] [place], [address] CA,Total 8.8 mg/dL Normal 8.5-10.1 [facility] Comment on above: Performed By: #### L 501.9985, L500.4100, L500.4050, L100.0100 #### [facility] [address] [place], [address] Chloride [Moles/Vol] 105 mmol/L Normal 98-107 [facility] Comment on above: Performed By: #### L 501.9985, L500.4100, L500.4050, L100.0100 #### [facility] [address] [place], [address] CO2 [Moles/Vol] 23.0 mmol/L Normal 21.0-32.0 [facility] Comment on above: Performed By: #### L 501.9985, L500.4100, L500.4050, L100.0100 #### [facility] [address] [place], [address] Creatinine [Mass/Vol] 0.75 mg/dL Normal 0.55-1.02 [facility] Comment on above: Result Comment: The validity of the calculated GFR GFRAA in patients over 70 years has not been determined. Clinical correlation is essential. Performed By: #### L 501.9985, L500.4100, L500.4050, L100.0100 #### [facility] [address] [place], [address] EST GFR - AA 107 mL/min Normal >60 [facility] Comment on above: Result Comment: Afri can Georgian GFR Calc Performed By: #### L 501.9985, L500.4100, L500.4050, L100.0100 #### [facility] [address] [place], [address] GAP 10 Normal 5-15 [facility] Comment on above: Performed By: #### L 501.9985, L500.4100, L500.4050, L100.0100 #### [facility] [address] [place], [address] GFR/1.73 sq M.predicted among non-blacks MDRD (S/P/Bld) [Vol rate/Area] 88 mL/min/{1.73_m2} Normal >60 [facility] Comment on above: Result Comment: Non- GFR Calc Performed By: #### L 501.9985, L500.4100, L500.4050, L100.0100 #### [facility] [address] [place], [address] Globulin (S) [Mass/Vol] 4.5 g/dL High 2.2-4.2 [facility] Comment on above: Performed By: #### L 501.9985, L500.4100, L500.4050, L100.0100 #### [facility] [address] [place], [address] Glucose [Mass/Vol] 97 mg/dL Normal 74-106 [facility] Comment on above: Performed By: #### L 501.9985, L500.4100, L500.4050, L100.0100 #### [facility] [address] [place], [address] Potassium [Moles/Vol] 3.7 mmol/L Normal 3.5-5.1 [facility] Comment on above: Performed By: #### L 501.9985, L500.4100, L500.4050, L100.0100 #### [facility] [address] [place], [address] Sodium [Moles/Vol] 138 mmol/L Normal 136-145 [facility] Comment on above: Performed By: #### L 501.9985, L500.4100, L500.4050, L100.0100 #### [facility] [address] [place], [address] T PROT 7.5 g/dL Normal 6.4-8.2 [facility] Comment on above: Performed By: #### L 501.9985, L500.4100, L500.4050, L100.0100 #### [facility] [address] [place], [address] Urea nitrogen [Mass/Vol] 8 mg/dL Normal 7-18 [facility] Comment on above: Performed By: #### L 501.9985, L500.4100, L500.4050, L100.0100 #### [facility] [address] [place], [address] Hemoglobin A1con 06-02-2024 HbA1c (Bld) [Mass fraction] 5.4 % Normal 3.8-5.6 [facility] Comment on above: Result Comment: Norm al < 5.7 % Prediabetic 5.7 - 6.4 % Diabetic >or= 6.5 % Please note range changes. Performed By: #### L 3600.4000, L501.6710, L101.9900, L3200.1275, L3100.3450 #### [facility] [address] [place], [address] Lipid Profileon 06-02-2024 Cholesterol [Mass/Vol] 125 mg/dL Normal 200 [facility] Comment on above: Result Comment: <200 mg/dL Desirable 200-240 mg/dL Borderline >240 mg/dL High Risk Performed By: #### L 501.9985, L500.4100, L500.4050, L100.0100 #### [facility] [address] [place], [address] Cholesterol in HDL [Mass/Vol] 40 mg/dL Normal [facility] Comment on above: Result Comment: The drugs N-Acetylcysteine and Metamizole may falsely depress this assay. Reference Range HDL <40 mg/dL Low HDL Cholesterol HDL >or= 60 mg/dL High HDL Cholesterol Performed By: #### L 501.9985, L500.4100, L500.4050, L100.0100 #### [facility] [address] [place], [address] Cholesterol in LDL [Mass/Vol] 67 mg/dL Normal 0-130 [facility] Comment on above: Performed By: #### L 501.9985, L500.4100, L500.4050, L100.0100 #### [facility] [address] [place], [address] Cholesterol in VLDL [Mass/Vol] 18 mg/dL Normal 5-40 [facility] Comment on above: Performed By: #### L 501.9985, L500.4100, L500.4050, L100.0100 #### [facility] [address] [place], [address] Triglyceride [Mass/Vol] 91 mg/dL Normal [facility] Comment on above: Result Comment: The drugs N-Acetylcysteine and Metamizole may falsely depress this assay. Serum Triglycerides Reference Interval Normal <150 mg/dL Borderline high 150 - 199 mg/dL High 200 - 499 mg/dL Very High > or = 500 mg/dL Performed By: #### L 501.9985, L500.4100, L500.4050, L100.0100 #### [facility] [address] [place], [address] Basophil percentageOrdered B y: Peterson Rm on 11-30-2023 Bilirubin [Mass/Vol] 0.40 mg/dL 0.20-1.00 [facility] Comment on above: For patients on eltr ombopag therapy, use of Dimension [place] TBIL is not recommended. Chloride [Moles/Vol] 106 mmol/L 98-107 [facility] Cholesterol [Mass/Vol] 159 mg/dL <200 [facility] Comment on above: <200 mg/dL Desirable 200-240 mg/dL Borderline >240 mg/dL High Risk Glucose [Mass/Vol] 103 mg/dL 74-106 [facility] Comment on above: Fasting Glucose resu lt from 100 to 125 mg/dL suggests IMPAIRED HOMEOSTASIS per A.D.A. criteria. Potassium [Moles/Vol] 3.9 mmol/L 3.5-5.1 [facility] Protein [Mass/Vol] 7.8 g/dL 6.4-8.2 [facility] Sodium [Moles/Vol] 140 mmol/L 136-145 [facility] Triglyceride [Mass/Vol] 87 mg/dL <199 [facility] Comment on above: The drugs N-Acetylcy steine and Metamizole may falsely depress this assay.Serum Triglycerides Reference Interval Normal <150 mg/dL Borderline high 150 - 199 mg/dL High 200 - 499 mg/dL Very High > or = 500 mg/dL Laboratory - Chemistry and C hemistry - challengeOrdered By: Peterson Rm on 11-30-2023 Albumin/Globulin [Mass ratio] 0.7 {ratio} 0.9-2.4 [facility] ALP [Catalytic activity/Vol] 141 U/L 45-117 [facility] ALT [Catalytic activity/Vol] 32 U/L 13-56 [facility] Cholesterol in HDL [Mass/Vol] 40 mg/dL >40 [facility] Comment on above: The drugs N-Acetylcy steine and Metamizole may falsely depress this assay. Reference Range HDL <40 mg/dL Low HDL Cholesterol HDL >or= 60 mg/dL High HDL Cholesterol Cholesterol in LDL [Mass/Vol] 102 mg/dL 0-130 [facility] CO2 [Moles/Vol] 25.0 mmol/L 21.0-32.0 [facility] Globulin (S) [Mass/Vol] 4.6 g/dL 2.2-4.2 [facility] Urea nitrogen/Creatinine [Mass ratio] 16.2 mg/mg 10-20 [facility] No Panel InformationOrdered By: Peterson Rm on 11-30-2023 Estimated GFR (MDRD) Amer 119 mL/min >60 [facility] Comment on above: GFR Calc Estimated GFR (MDRD) Non-Af Amer 98 mL/min >60 [facility] Comment on above: Non- GFR Calc VLDL Cholesterol 17 mg/dL 5-40 [facility] Serum or plasma calcium christal urement (mass/volume)Ordered By: Peterson Rm on 11-30-2023 Calcium [Mass/Vol] 9.3 mg/dL 8.5-10.1 [facility] Serum or plasma creatinine m easurement (mass/volume)Ordered By: Peterson Rm on 11-30-2023 Creatinine [Mass/Vol] 0.68 mg/dL 0.55-1.02 [facility] Comment on above: The validity of the calculated GFR & GFRAA in patients over 70 years has not been determined. Clinical correlation is essential. Serum or plasma urea nitroge n measurement (mass/volume)Ordered By: Peterson Rm on 11-30-2023 Urea nitrogen [Mass/Vol] 11 mg/dL 7-18 [facility] Thin prep Papanicolaou smear with manual screeningOrdered By: Peterson Rm on 11-30-2023 Thin prep Papanicolaou smear with manual screening 3.2 g/dL 3.2-5.0 [facility] Thin prep Papanicolaou smear with manual screening 16 U/L 15-37 [facility] Thin prep Papanicolaou smear with manual screening 9 5-15 [facility] Whole blood hemoglobin A1c/t otal hemoglobin ratio (mass fraction)Ordered By: Peterson Rm on 11-30-2023 HbA1c (Bld) [Mass fraction] 6.3 % 3.8-5.6 [facility] Comment on above: Normal < 5.7 % Predi abetic 5.7 - 6.4 % Diabetic >or= 6.5 % Please note range changes. Office Visiton 08-14-2023 Follow-up visit [id number] Olamide Cast 1975 F Date Provider Department Center 08/14/2023 [id number] None Family History Problem Relation Age of Onset Obesity Father Hypertension Father Heart disease Maternal Grandfather Diabetes Father Cancer Maternal Grandmother Family Status - Relation Status Age at Father Maternal Grandfather Alive Maternal Grandmother Alive Mother Alive Sister Alive Level of Service:54284 DE OFFICE/OUTPATIENT ESTABLISHED LOW MDM 20-29 MIN Reason for Visit and Comments: Weight Loss [524400] - NSURG #5 [facility] Progress Noteon 08-14-2023 Progress Note HPI, PHYSICAL EXAMINATION & PLAN HPI: Patient [...] and does notdrink alcohol. Current Diet This patient?s current diet is: 80% meal plan Her [...] Will focus on the portion control Calorie 0311-7595 daily Will restart with meal preparation Discuss [...] grams [x] Patient advised to maintain a food/exercise/behav ior diary until next physician visit and to [...] the same day of the visit in discussing/counseli ng the patient regarding the diet and exercise [...] was performed.Clinical documentation is updated and completed. [facility] Progress Note [facility] NON-SURGICAL WEIGHT LOSS MANAGEMENT [...] BMI of Body mass index is 46.44 kg/m?. kg/m2. She is here for follow-up for non-surgical treatment of Obesity Patient has the following question(s): none Pre Program Weight Metrics ([facility]) Date of Initial Consultation:@FLOWL AST(8966)@ Initial Weight: @FLOWLAST([id number] )@ Initial BMI: @FLOWLAST([id number] )@ [place] Body Weight: @FLOWLAST([id number] )@ Excess Body Weight: @FLOWLAST([id number] )@ Body Fat Percentage: No flowsheet data found. [...] a medication for GERD? (not TUMS) (examples: Prilosec/omeprazole , Zantac/ranitidine, etc.) No Hyperlipidemia (high cholesterol) Do you currently have a diagnosis of high cholesterol? Yes Are you currently prescribed a medication for high cholesterol? (examples Lipitor/Atorvastati n, Pravastatin, Zetia, Tricor, etc.) Yes Have you [...] home O2 Completed by: Michelle Barajas LPN [facility] Absolute lymphocyte countOrd ered By: Peterson Rm on 07-13-2023 Lymphocytes Auto (Unsp spec) [#/Vol] 2.91 10*3/uL 0.83-4.51 [facility] Basophil percentageOrdered B y: Peterson Rm on 07-13-2023 Basophils/100 WBC (Bld) 0.4 % 0-1 [facility] Bilirubin [Mass/Vol] 0.40 mg/dL 0.20-1.00 [facility] Comment on above: For patients on eltr ombopag therapy, use of Dimension [place] TBIL is not recommended. Chloride [Moles/Vol] 106 mmol/L 98-107 [facility] Cholesterol [Mass/Vol] 149 mg/dL <200 [facility] Comment on above: <200 mg/dL Desirable 200-240 mg/dL Borderline >240 mg/dL High Risk Eosinophils/100 WBC (Bld) 1.6 % 0-5 [facility] Glucose [Mass/Vol] 107 mg/dL 74-106 [facility] Comment on above: Fasting Glucose resu lt from 100 to 125 mg/dL suggests IMPAIRED HOMEOSTASIS per A.D.A. criteria. Neutrophils (Bld) [#/Vol] 7.8 10*3/uL 2.0-7.7 [facility] Neutrophils/100 WBC (Bld) 68.9 % 47-70 [facility] Potassium [Moles/Vol] 3.6 mmol/L 3.5-5.1 [facility] Protein [Mass/Vol] 7.7 g/dL 6.4-8.2 [facility] Sodium [Moles/Vol] 137 mmol/L 136-145 [facility] Triglyceride [Mass/Vol] 118 mg/dL <199 [facility] Comment on above: The drugs N-Acetylcy steine and Metamizole may falsely depress this assay.Serum Triglycerides Reference Interval Normal <150 mg/dL Borderline high 150 - 199 mg/dL High 200 - 499 mg/dL Very High > or = 500 mg/dL WBC (Bld) [#/Vol] 11.4 10*3/uL 4.4-11.0 [facility] Blood erythrocytes count (nu mber/volume)Ordered By: Peterson Rm on 07-13-2023 RBC (Bld) [#/Vol] 4.72 10*6/uL 4.2-5.4 [facility] Blood hemoglobin measurement (mass/volume)Ordered By: Peterson Rm on 07-13-2023 Hemoglobin (Bld) [Mass/Vol] 12.7 g/dL 12.0-15.0 [facility] Blood lymphocytes/100 leukoc ytesOrdered By: Peterson Rm on 07-13-2023 Lymphocytes/100 WBC (Bld) 25.6 % 19-41 [facility] Blood monocytes/100 leukocyt esOrdered By: Peterson Rm on 07-13-2023 Monocytes/100 WBC (Bld) 3.3 % 0-10 [facility] Blood platelet mean volumeOr dered By: Peterson Rm on 07-13-2023 Platelet mean volume (Bld) [Entitic vol] 9.2 fL 6.2-12.0 [facility] Determination of erythrocyte mean corpuscular volume (MCV)Ordered By: Peterson Rm on 07-13-2023 MCV (RBC) [Entitic vol] 86.2 fL 81-99 [facility] Hematocrit Auto (Bld) [Volum e fraction]Ordered By: Peterson Rm on 07-13-2023 Hematocrit (Bld) [Volume fraction] 40.7 % 37-47 [facility] Laboratory - Chemistry and C hemistry - challengeOrdered By: Peterson Rm on 07-13-2023 ALP [Catalytic activity/Vol] 149 U/L 45-117 [facility] ALT [Catalytic activity/Vol] 31 U/L 13-56 [facility] CO2 [Moles/Vol] 23.0 mmol/L 21.0-32.0 [facility] Globulin (S) [Mass/Vol] 4.6 g/dL 2.2-4.2 [facility] Urea nitrogen/Creatinine [Mass ratio] 11.3 mg/mg 10-20 [facility] Laboratory - Hematology and Cell countsOrdered By: Peterson Rm on 07-13-2023 Erythrocyte distribution width (RBC) [Entitic vol] 45.5 fL 35.1-43.9 [facility] Erythrocyte distribution width (RBC) [Ratio] 14.4 % 11.6-14.6 [facility] Immature granulocytes/100 WBC (Bld) 0.200 % 0.0-0.9 [facility] Comment on above: IG% - Immature Granu locytes (promyelocytes, myelocytes and metamyelocytes) > 1% indicates that a LEFT SHIFT is Present. MCH (RBC) [Entitic mass] 26.9 pg 27.0-32.0 [facility] Nucleated RBC/100 WBC (Bld) [Ratio] 0 % 0-5 [facility] MCHC Auto (RBC) [Mass/Vol]Or dered By: Peterson Rm on 07-13-2023 MCHC (RBC) [Mass/Vol] 31.2 g/dL 32-36 [facility] No Panel InformationOrdered By: Peterson Rm on 07-13-2023 Estimated GFR (MDRD) Amer 114 mL/min >60 [facility] Comment on above: GFR Calc Estimated GFR (MDRD) Non-Af Amer 94 mL/min >60 [facility] Comment on above: Non- GFR Calc Platelets bldOrdered By: Amrita Rm on 07-13-2023 Platelets (Bld) [#/Vol] 349 10*3/uL 150-450 [facility] Serum or plasma albumin christal urement (mass/volume)Ordered By: Peterson Rm on 07-13-2023 Albumin [Mass/Vol] 3.1 g/dL 3.2-5.0 [facility] Serum or plasma albumin/glob ulin mass ratioOrdered By: Peterson Rm on 07-13-2023 Albumin/Globulin [Mass ratio] 0.7 {ratio} 0.9-2.4 [facility] Serum or plasma calcium christal urement (mass/volume)Ordered By: Peterson Rm on 07-13-2023 Calcium [Mass/Vol] 9.0 mg/dL 8.5-10.1 [facility] Serum or plasma cholesterol in HDL measurement (mass/volume)Ordered By: Peterson Rm on 07-13-2023 Cholesterol in HDL [Mass/Vol] 38 mg/dL >40 [facility] Comment on above: The drugs N-Acetylcy steine and Metamizole may falsely depress this assay. Reference Range HDL <40 mg/dL Low HDL Cholesterol HDL >or= 60 mg/dL High HDL Cholesterol Serum or plasma cholesterol in VLDL measurement (mass/volume)Ordered By: Peterson Rm on 07-13-2023 Cholesterol in VLDL [Mass/Vol] 24 mg/dL 5-40 [facility] Serum or plasma creatinine m easurement (mass/volume)Ordered By: Peterson Rm on 07-13-2023 Creatinine [Mass/Vol] 0.71 mg/dL 0.55-1.02 [facility] Comment on above: The validity of the calculated GFR & GFRAA in patients over 70 years has not been determined. Clinical correlation is essential. Serum or plasma low density lipoprotein (LDL) cholesterol measurement (mass/volume)Ordered By: Peterson Rm on 07-13-2023 Cholesterol in LDL [Mass/Vol] 87 mg/dL 0-130 [facility] Serum or plasma urea nitroge n measurement (mass/volume)Ordered By: Peterson Rm on 07-13-2023 Urea nitrogen [Mass/Vol] 8 mg/dL 7-18 [facility] Thin prep Papanicolaou smear with manual screeningOrdered By: Peterson Rm on 07-13-2023 Thin prep Papanicolaou smear with manual screening 15 U/L 15-37 [facility] Thin prep Papanicolaou smear with manual screening 8 5-15 [facility] Whole blood hemoglobin A1c/t otal hemoglobin ratio (mass fraction)Ordered By: Peterson Rm on 07-13-2023 HbA1c (Bld) [Mass fraction] 6.1 % 3.8-5.6 [facility] Comment on above: Normal < 5.7 % Predi abetic 5.7 - 6.4 % Diabetic >or= 6.5 % Please note range changes. CNOVon 05-28-2023 CNOV Office Visit (OBGYWM) ---- JAYDE CAST ([id number]) 1975 F Date Time Provider Department 05/28/23 8:40 AM MARSHA SUNG OBGYWM During your visit today, we recorded the following information about you: Blood pressure Weight Height 128/78 128.3 kg 1.651 m Marsha Sung MD 05/28/2023 8:54 AM Wei Donohue is a 48 year old who presents for an annual gynecologic exam without complaints. Menses: s/p endoemtrial ablation, no menses. No hot flashes or other concerns. 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 History Comments: Sexual Activity: Yes; Male; novasure [...] Ischemic Heart Disease Maternal Grandfather 53 of [place] Breast Cancer Maternal Aunt SOCIAL HISTORY Social [...] external genitalia normal, normal Bartholin's glands, urethra, [place]'s glands, no vulvar lesions, no cervical lesions, [...] or sooner as needed Marsha Sung MD Allergies As of Date: 05/28/2023 (No Known Allergies) Date Reviewed: 05/28/2023 Reviewed by: Olamide Cisneros LPN - Fully Assessed Reason for Visit: Yearly Exam [187] Primary Visit Diagnosis:Encounter for gynecological examination (general) (routine) without abnormal findings [Z01.419] Other Visit Diagnosis:Obesity, Class III, BMI >= 40 [E66.01] Prescriptions as of 05/28/2023 - metFORMIN (GLUCOPHAGE) 500 mg tablet Take 500 mg by mouth twice daily. - vitamin E acid succinate (VITAMIN E SUCCINATE) 268 mg (400 unit) tab Take 1 tablet by mouth once daily. - elderberry fruit (ELDERBERRY ORAL) Take by mouth as directed. - cholecalciferol, vitamin D3, (VITAMIN D3 ORAL) Take by mouth. - atorvastatin calcium (ATORVASTATIN ORAL) Take by mouth. - amLODIPine (NORVASC) 5 mg tablet Take 5 mg by mouth once daily. Problem List As Of Date 05/28/2023 Noted Resolved Obesity, Class III, BMI >= 40 [E66.01] 05/28/2023 Medications Discontinued During This Encounter Prescriptions - Bifidobacterium infantis (ALIGN ORAL) (Discontinued) Take by mouth. - FLUoxetine HCl (PROZAC) 40 mg capsule (Discontinued) Reported on 01/16/2023 Disposition: Return in 1 year (on 05/28/2024) for Annual Exam. Follow-up and Disposition History for Encounter Date Provider Department Center 05/28/2023 [id number] SUNG Carson Vázquez Encounter Number: [id number] (more content not included)... Normal [facility] Office Visiton 05-20-2023 Follow-up visit [id number] Olamide Cast 1975 F Date Provider Department Center 05/20/2023 [id number]-MPMYHOSIRIS VELASQUEZ [facility] None Family History Problem Relation Age of Onset Obesity Father Hypertension Father Heart disease Maternal Grandfather Diabetes Father Cancer Maternal Grandmother Family Status - Relation Status Age at Father Maternal Grandfather Alive Maternal Grandmother Alive Mother Alive Sister Alive Level of Service:21708 DE OFFICE/OUTPATIENT ESTABLISHED LOW MDM 20-29 MIN Reason for Visit and Comments: Weight Loss [349905] - NSURG #4 Normal [facility] Progress Noteon 05-20-2023 Progress Note HPI, PHYSICAL EXAMINATION & PLAN HPI: Patient [...] and does notdrink alcohol. Current Diet This patient?s current diet is: 80% meal plan Her [...] Will focus on the portion control Calorie 9251-9984 daily Will restart with meal preparation Discuss option for breakfast , lunch and dinner Portions Focus on the meal structure, composition and portion control DM Recent dx Started on metformin Continue current management, continue weight loss program stable [x] Protein goal of 1g protein per 1 kg of ideal body weight: 75 grams [x] Patient advised to maintain a food/exercise/behav ior diary until next physician visit and to [...] the same day of the visit in discussing/counseli ng the patient regarding the diet and exercise [...] was performed.Clinical documentation is updated and completed. [facility] Progress Note [facility] NON-SURGICAL WEIGHT LOSS MANAGEMENT [...] BMI of Body mass index is 47.49 kg/m?. kg/m2. She is here for follow-up for non-surgical treatment of Morbid Obesity Patient has the following question(s): none Pre Program Weight Metrics ([facility]) Date of Initial Consultation:@FLOWL AST(8961)@ Initial Weight: @FLOWLAST([id number] )@ Initial BMI: @FLOWLAST([id number] )@ [place] Body Weight: @FLOWLAST([id number] )@ Excess Body Weight: @FLOWLAST([id number] )@ Body Fat Percentage: No flowsheet data found. Subsequent Body Fat Percentage: No flowsheet data found. Pre Program Weight Metrics ([facility]) (Surgical Wt Loss Management- baseline) This Visit [...] a medication for GERD? (not TUMS) (examples: Prilosec/omeprazole , Zantac/ranitidine, etc.) No Hyperlipidemia (high cholesterol) Do you currently have a diagnosis of high cholesterol? Yes Are you currently prescribed a medication for high cholesterol? (examples Lipitor/Atorvastati n, Pravastatin, Zetia, Tricor, etc.) Yes Have you [...] home O2 Completed by: Michelle Barajas LPN [facility] Basophil percentageOrdered B y: Dr. Rm on 02-16-2023 Bilirubin [Mass/Vol] 0.40 mg/dL 0.20-1.00 [facility] Comment on above: For patients on eltr ombopag therapy, use of Dimension [place] TBIL is not recommended. Chloride [Moles/Vol] 105 mmol/L 98-107 [facility] Cholesterol [Mass/Vol] 135 mg/dL <200 [facility] Comment on above: <200 mg/dL Desirable 200-240 mg/dL Borderline >240 mg/dL High Risk Glucose [Mass/Vol] 88 mg/dL 74-106 [facility] Potassium [Moles/Vol] 3.8 mmol/L 3.5-5.1 [facility] Protein [Mass/Vol] 7.9 g/dL 6.4-8.2 [facility] Sodium [Moles/Vol] 140 mmol/L 136-145 [facility] Triglyceride [Mass/Vol] 118 mg/dL <199 [facility] Comment on above: The drugs N-Acetylcy steine and Metamizole may falsely depress this assay.Serum Triglycerides Reference Interval Normal <150 mg/dL Borderline high 150 - 199 mg/dL High 200 - 499 mg/dL Very High > or = 500 mg/dL Laboratory - Chemistry and C hemistry - challengeOrdered By: Dr. Rm on 02-16-2023 ALP [Catalytic activity/Vol] 154 U/L 45-117 [facility] ALT [Catalytic activity/Vol] 27 U/L 13-56 [facility] CO2 [Moles/Vol] 26.0 mmol/L 21.0-32.0 [facility] Globulin (S) [Mass/Vol] 4.7 g/dL 2.2-4.2 [facility] Urea nitrogen/Creatinine [Mass ratio] 13.3 mg/mg 10-20 [facility] No Panel InformationOrdered By: Dr. Rm on 02-16-2023 Estimated GFR (MDRD) Amer 120 mL/min >60 [facility] Comment on above: GFR Calc Estimated GFR (MDRD) Non-Af Amer 99 mL/min >60 [facility] Comment on above: Non- GFR Calc Serum or plasma albumin christal urement (mass/volume)Ordered By: Dr. Rm on 02-16-2023 Albumin [Mass/Vol] 3.2 g/dL 3.2-5.0 [facility] Serum or plasma albumin/glob ulin mass ratioOrdered By: Dr. Rm on 02-16-2023 Albumin/Globulin [Mass ratio] 0.7 {ratio} 0.9-2.4 [facility] Serum or plasma calcium christal urement (mass/volume)Ordered By: Dr. Rm on 02-16-2023 Calcium [Mass/Vol] 9.2 mg/dL 8.5-10.1 [facility] Serum or plasma cholesterol in HDL measurement (mass/volume)Ordered By: Dr. Rm on 02-16-2023 Cholesterol in HDL [Mass/Vol] 36 mg/dL >40 [facility] Comment on above: The drugs N-Acetylcy steine and Metamizole may falsely depress this assay. Reference Range HDL <40 mg/dL Low HDL Cholesterol HDL >or= 60 mg/dL High HDL Cholesterol Serum or plasma cholesterol in VLDL measurement (mass/volume)Ordered By: Dr. Rm on 02-16-2023 Cholesterol in VLDL [Mass/Vol] 24 mg/dL 5-40 [facility] Serum or plasma creatinine m easurement (mass/volume)Ordered By: Dr. Rm on 02-16-2023 Creatinine [Mass/Vol] 0.68 mg/dL 0.55-1.02 [facility] Comment on above: The validity of the calculated GFR & GFRAA in patients over 70 years has not been determined. Clinical correlation is essential. Serum or plasma low density lipoprotein (LDL) cholesterol measurement (mass/volume)Ordered By: Dr. Rm on 02-16-2023 Cholesterol in LDL [Mass/Vol] 75 mg/dL 0-130 [facility] Serum or plasma urea nitroge n measurement (mass/volume)Ordered By: Dr. Rm on 02-16-2023 Urea nitrogen [Mass/Vol] 9 mg/dL 7-18 [facility] Thin prep Papanicolaou smear with manual screeningOrdered By: Dr. Rm on 02-16-2023 Thin prep Papanicolaou smear with manual screening 14 U/L 15-37 [facility] Thin prep Papanicolaou smear with manual screening 9 5-15 [facility] Whole blood hemoglobin A1c/t otal hemoglobin ratio (mass fraction)Ordered By: Dr. Rm on 02-16-2023 HbA1c (Bld) [Mass fraction] 5.8 % 3.8-5.6 [facility] Comment on above: Normal < 5.7 % Predi abetic 5.7 - 6.4 % Diabetic >or= 6.5 % Please note range changes. Office Visiton 01-21-2023 Follow-up visit [id number] Olamide Cast 1975 F Date Provider Department Center 01/21/2023 [id number]-HKYSCOSIRIS CRESPO [facility] None Family History Problem Relation Age of Onset Obesity Father Hypertension Father Heart disease Maternal Grandfather Diabetes Father Cancer Maternal Grandmother Family Status - Relation Status Age at Father Maternal Grandfather Alive Maternal Grandmother Alive Mother Alive Sister Alive Level of Service:20189 DE OFFICE/OUTPATIENT ESTABLISHED LOW MDM 20-29 MIN Reason for Visit and Comments: Weight Loss [394754] - NSURG #3 Normal [facility] Progress Noteon 01-21-2023 Progress Note HPI, PHYSICAL EXAMINATION & PLAN HPI: Patient [...] and does notdrink alcohol. Current Diet This patient?s current diet is: 80% meal plan Her [...] Will focus on the portion control Calorie 9532-4354 daily Will start feedback system DM Recent dx Started on metformin Continue current management, continue weight loss program stable [x] Protein goal of 1g protein per 1 kg of ideal body weight: 75 grams [x] Patient advised to maintain a food/exercise/behav ior diary until next physician visit and to [...] the same day of the visit in discussing/counseli ng the patient regarding the diet and exercise [...] was performed.Clinical documentation is updated and completed. [facility] Progress Note [facility] NON-SURGICAL WEIGHT LOSS MANAGEMENT [...] BMI of Body mass index is 47.03 kg/m?. kg/m2. She is here for follow-up for non-surgical treatment of Obesity Patient has the following question(s): none Pre Program Weight Metrics ([facility]) Date of Initial Consultation:@FLOWL AST(8961)@ Initial Weight: @FLOWLAST([id number] )@ Initial BMI: @FLOWLAST([id number] )@ [place] Body Weight: @FLOWLAST([id number] )@ Excess Body Weight: @FLOWLAST([id number] )@ Body Fat Percentage: No flowsheet data found. [...] a medication for GERD? (not TUMS) (examples: Prilosec/omeprazole , Zantac/ranitidine, etc.) No Hyperlipidemia (high cholesterol) Do you currently have a diagnosis of high cholesterol? Yes Are you currently prescribed a medication for high cholesterol? 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 LMP: 04/28/2018, Ablation Age at Menarche: Age at First : Age at 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 History Comments: Sexual Activity: Yes; Male; novasure Contraception: Tubal Ligation PAST MEDICAL HISTORY Diagnosis Date Anxiety Heart murmur Hypertension PAST SURGICAL HISTORY Procedure Laterality Date DELIVERY ONLY x 2 CHOLECYSTECTOMY CYST/MOLE REMOVAL 09/2021 ENDOMETRIAL ABLTJ THERMAL W/O HYSTEROSCOPIC GUID 2015 novasure approx 2014 LIGATE FALLOPIAN TUBE FAMILY HISTORY Problem Relation Age of Onset other (back pain) Mother Hypertension Father Clotting Disorder Sister factor V Factor 5 Leiden Sister Breast Cancer Maternal Grandmother Ischemic Heart Disease Maternal Grandfather 53 of [place] Breast Cancer Maternal Aunt Social History Tobacco [...] not taking: Reported on 01/16/2023) No current facility-administer ed medications for this visit. Allergies As of [...] epi. Procedure Summary: Patient tolerated procedure well. ASSES (more content not included)... Normal [facility] Office Visiton 12-12-2022 Follow-up visit [id number] Olamide Cast 1975 F Date Provider Department Center 12/12/2022 [id number]-WNZBHOSIRIS VELASQUEZ [facility] None Family History Problem Relation Age of Onset Obesity Father Hypertension Father Heart disease Maternal Grandfather Diabetes Father Cancer Maternal Grandmother Family Status - Relation Status Age at Father Maternal Grandfather Alive Maternal Grandmother Alive Mother Alive Sister Alive Level of Service:90924 DE OFFICE/OUTPATIENT ESTABLISHED LOW MDM 20-29 MIN Reason for Visit and Comments: Weight Loss [[id number]] - NSURG #2 [facility] Progress Noteon 12-12-2022 Progress Note [facility] NON-SURGICAL WEIGHT LOSS MANAGEMENT PROGRAM ROOMING NOTE: FOLLOW UP VISIT Patient: Olamide Cast Date of : 1975 Service Date: 12/12/2022 Patient History/Assessment Summary: The patient is a pleasant 47 y.o. year old female, who stands Height: 5' 5.5 (166.4 cm) tall with a weight of Weight: 296 lb 12.8 oz (135 kg) pounds, resulting in a BMI of Body mass index is 48.64 kg/m?. kg/m2. She is here for follow-up for non-surgical treatment of Morbid Obesity Patient has the following question(s): none Pre Program Weight Metrics ([facility]) Date of Initial Consultation:@FLOWL AST(8961)@ Initial Weight: @FLOWLAST([id number] )@ Initial BMI: @FLOWLAST([id number] )@ [place] Body Weight: @FLOWLAST([id number] )@ Excess Body Weight: @FLOWLAST([id number] )@ Body Fat Percentage: No flowsheet data found. Subsequent Body Fat Percentage: No flowsheet data found. Pre Program Weight Metrics ([facility]) (Surgical Wt Loss Management- baseline) This Visit Non-Surgical Subsequent Eval Date: 12/12/22 Height: 5' 5.5 (166.4 cm) Weight: 296 lb 12.8 oz (135 kg) BMI: 48.63 Weight Change: -11 lbs Total Weight Change: -11 lbs % EBWL: 6% Subsequent Body Fat %: 58.36 Body Fat % Change: -2.17 Follow Up Weight Metrics Last Three Weights Including Today's Weight: Wt Readings from Last 3 Encounters: 12/12/22 296 lb 12.8 oz (135 kg) [...] a medication for GERD? (not TUMS) (examples: Prilosec/omeprazole , Zantac/ranitidine, etc.) No Hyperlipidemia (high cholesterol) Do you currently have a diagnosis of high cholesterol? Yes Are you currently prescribed a medication for high cholesterol? (examples Lipitor/Atorvastati n, Pravastatin, Zetia, Tricor, etc.) Yes Have you [...] sheet comorbids) Falls Risk Assessment Patient does take medications which affect BP or mental [...] is not on home O2 Completed by: Grecia Gonsales MA [facility] Progress Note HPI, PHYSICAL EXAMINATION & PLAN HPI: Patient here today for follow up for non-surgical weight loss management Weight trend since last visit: lost 9 lbs over 1 m stable This patient's excess weight is causing the following co-morbid conditions at this time:DM Physical Examination: BP 137/86 Pulse 88 Resp 16 Ht 5' 5.5 (1.664 m) Wt 296 lb 12.8 oz (135 kg) BMI 48.64 kg/m? General: This patient is calm and pleasant [...] and does notdrink alcohol. Current Diet This patient?s current diet is: 80% meal plan Her [...] Will focus on the portion control Calorie 1362-4023 daily Will start feedback system DM Recent dx Started on metformin Discuss GLP 1 agonist Will read about the medications Continue current management, continue weight loss program stable [x] Protein goal of 1g protein per 1 kg of ideal body weight: 75 grams [x] Patient advised to maintain a food/exercise/behav ior diary until next physician visit and to [...] the same day of the visit in discussing/counseli ng the patient regarding the diet and exercise [...] was performed.Clinical documentation is updated and completed. Normal [facility] Basophil percentageOrdered B y: Dr. Rm on 11-24-2022 Bilirubin [Mass/Vol] 0.40 mg/dL 0.20-1.00 [facility] Comment on above: For patients on eltr ombopag therapy, use of Dimension [place] TBIL is not recommended. Chloride [Moles/Vol] 107 mmol/L 98-107 [facility] Cholesterol [Mass/Vol] 132 mg/dL <200 [facility] Comment on above: <200 mg/dL Desirable 200-240 mg/dL Borderline >240 mg/dL High Risk Glucose [Mass/Vol] 120 mg/dL 74-106 [facility] Comment on above: Fasting Glucose resu lt from 100 to 125 mg/dL suggests IMPAIRED HOMEOSTASIS per A.D.A. criteria. Potassium [Moles/Vol] 4.0 mmol/L 3.5-5.1 [facility] Protein [Mass/Vol] 7.8 g/dL 6.4-8.2 [facility] Sodium [Moles/Vol] 141 mmol/L 136-145 [facility] Triglyceride [Mass/Vol] 113 mg/dL <199 [facility] Comment on above: The drugs N-Acetylcy steine and Metamizole may falsely depress this assay.Serum Triglycerides Reference Interval Normal <150 mg/dL Borderline high 150 - 199 mg/dL High 200 - 499 mg/dL Very High > or = 500 mg/dL Laboratory - Chemistry and C hemistry - challengeOrdered By: Dr. Rm on 11-24-2022 ALP [Catalytic activity/Vol] 139 U/L 45-117 [facility] ALT [Catalytic activity/Vol] 34 U/L 13-56 [facility] CO2 [Moles/Vol] 26.0 mmol/L 21.0-32.0 [facility] Globulin (S) [Mass/Vol] 4.6 g/dL 2.2-4.2 [facility] Urea nitrogen/Creatinine [Mass ratio] 13.1 mg/mg 10-20 [facility] No Panel InformationOrdered By: Dr. Rm on 11-24-2022 Estimated GFR (MDRD) Amer 118 mL/min >60 [facility] Comment on above: GFR Calc Estimated GFR (MDRD) Non-Af Amer 98 mL/min >60 [facility] Comment on above: Non- GFR Calc Vitamin D 25-Hydroxy 61.4 ng/mL [facility] Comment on above: Vitamin D 25(OH) Sta tus Range Deficiency <20 ng/mL (50nmol/L) Insufficiency 20 - 30 ng/mL (50 - 75 nmol/L) Sufficiency 30 - 100 ng/mL (75 - 250 nmol/L) Toxicity >100 ng/mL (>250 nmol/L) Serum or plasma albumin christal urement (mass/volume)Ordered By: Dr. Rm on 11-24-2022 Albumin [Mass/Vol] 3.2 g/dL 3.2-5.0 [facility] Serum or plasma albumin/glob ulin mass ratioOrdered By: Dr. Rm on 11-24-2022 Albumin/Globulin [Mass ratio] 0.7 {ratio} 0.9-2.4 [facility] Serum or plasma calcium christal urement (mass/volume)Ordered By: Dr. Rm on 11-24-2022 Calcium [Mass/Vol] 9.0 mg/dL 8.5-10.1 [facility] Serum or plasma cholesterol in HDL measurement (mass/volume)Ordered By: Dr. Rm on 11-24-2022 Cholesterol in HDL [Mass/Vol] 34 mg/dL >40 [facility] Comment on above: The drugs N-Acetylcy steine and Metamizole may falsely depress this assay. Reference Range HDL <40 mg/dL Low HDL Cholesterol HDL >or= 60 mg/dL High HDL Cholesterol Serum or plasma cholesterol in VLDL measurement (mass/volume)Ordered By: Dr. Rm on 11-24-2022 Cholesterol in VLDL [Mass/Vol] 23 mg/dL 5-40 [facility] Serum or plasma creatinine m easurement (mass/volume)Ordered By: Dr. Rm on 11-24-2022 Creatinine [Mass/Vol] 0.69 mg/dL 0.55-1.02 [facility] Comment on above: The validity of the calculated GFR & GFRAA in patients over 70 years has not been determined. Clinical correlation is essential. Serum or plasma low density lipoprotein (LDL) cholesterol measurement (mass/volume)Ordered By: Dr. Rm on 11-24-2022 Cholesterol in LDL [Mass/Vol] 75 mg/dL 0-130 [facility] Serum or plasma urea nitroge n measurement (mass/volume)Ordered By: Dr. Rm on 11-24-2022 Urea nitrogen [Mass/Vol] 9 mg/dL 7-18 [facility] Thin prep Papanicolaou smear with manual screeningOrdered By: Dr. Rm on 11-24-2022 Thin prep Papanicolaou smear with manual screening 23 U/L 15-37 [facility] Thin prep Papanicolaou smear with manual screening 8 5-15 [facility] Whole blood hemoglobin A1c/t otal hemoglobin ratio (mass fraction)Ordered By: Dr. Rm on 11-24-2022 HbA1c (Bld) [Mass fraction] 6.5 % 3.8-5.6 [facility] Comment on above: Normal < 5.7 % Predi abetic 5.7 - 6.4 % Diabetic >or= 6.5 % Please note range changes. Office Visiton 10-29-2022 Follow-up visit [id number] Olamide Cast 1975 F Date Provider Department Center 10/29/2022 OSIRIS GAONA [facility] None Family History Problem Relation Age of Onset Obesity Father Hypertension Father Heart disease Maternal Grandfather Diabetes Father Cancer Maternal Grandmother Family Status - Relation Status Age at Father Maternal Grandfather Alive Maternal Grandmother Alive Mother Alive Sister Alive Level of Service:40600 DE OFFICE/OUTPATIENT NEW MODERATE MDM 45-59 MINUTES Reason for Visit and Comments: Weight Loss [701429] - [facility] Progress Noteon 10-29-2022 Progress Note [facility] NON-SURGICAL WEIGHT LOSS MANAGEMENT PROGRAM ROOMING NOTE - INITIAL CONSULTATION Patient: Olamide Cast Date of : 1975 Service Date: 10/29/2022 Patient is here today to discuss non-surgical weight loss management. This patient is alone for the evaluation today Weight Metrics: Non-Surgical Initial Eval Consult Date: 10/29/22 Initial Height: 5' 5.5 (166.4 cm) Initial Weight: 307 lb 12.8 oz (140 kg) [place] Body Weight: 137 lb (62.1 kg) Initial BMI: 50.44 Initial Body Fat %: 60.53 EBW: 170 lb (Flow Sheet: Surgical Wt Loss Management: Baseline) Diabetes Do you currently have diabetes? No Are you currently prescribed insulin? No Are you currently prescribed an oral medication for diabetes? No GERD (Gastroesophageal Reflux Disease) Do you currently have GERD? No Do you get heartburn type symptoms more than twice per week? No Are you currently on a medication for GERD? (not TUMS) (examples: Prilosec/omeprazole , Zantac/ranitidine, etc.) No Hyperlipidemia (high cholesterol) Do you currently have a diagnosis of high cholesterol? Yes Are you currently prescribed a medication for high cholesterol? (examples Lipitor/Atorvastati n, Pravastatin, Zetia, Tricor, etc.) Yes Have you [...] have chosen not to treat? No Comorbids Summary (flow sheet comorbids) Falls Risk Assessment Patient does take medications which affect BP or mental status Patient does not have newly prescribed or changed dosage of medications within past 30 days which affect BP or mental status Patient has not fallen in the past 2 months Patient does notdemonstrate unsteady gait Patient uses the following ambulatory assistive devices: none Patient states the presence of the following traits which increases risk of fall: none Patient is not on home O2 Completed by: Grecia Gonsales MA [facility] Basophil percentageOrdered B y: Dr. Rm on 08-08-2022 Bilirubin [Mass/Vol] 0.50 mg/dL 0.20-1.00 [facility] Comment on above: For patients on eltr ombopag therapy, use of Dimension [place] TBIL is not recommended. Chloride [Moles/Vol] 105 mmol/L 98-107 [facility] Cholesterol [Mass/Vol] 151 mg/dL <200 [facility] Comment on above: <200 mg/dL Desirable 200-240 mg/dL Borderline >240 mg/dL High Risk Glucose [Mass/Vol] 114 mg/dL 74-106 [facility] Comment on above: Fasting Glucose resu lt from 100 to 125 mg/dL suggests IMPAIRED HOMEOSTASIS per A.D.A. criteria. Potassium [Moles/Vol] 3.8 mmol/L 3.5-5.1 [facility] Protein [Mass/Vol] 8.2 g/dL 6.4-8.2 [facility] Sodium [Moles/Vol] 137 mmol/L 136-145 [facility] Triglyceride [Mass/Vol] 90 mg/dL <199 [facility] Comment on above: The drugs N-Acetylcy steine and Metamizole may falsely depress this assay.Serum Triglycerides Reference Interval Normal <150 mg/dL Borderline high 150 - 199 mg/dL High 200 - 499 mg/dL Very High > or = 500 mg/dL Laboratory - Chemistry and C hemistry - challengeOrdered By: Dr. Rm on 08-08-2022 ALP [Catalytic activity/Vol] 148 U/L 45-117 [facility] ALT [Catalytic activity/Vol] 37 U/L 13-56 [facility] CO2 [Moles/Vol] 24.0 mmol/L 21.0-32.0 [facility] Globulin (S) [Mass/Vol] 4.8 g/dL 2.2-4.2 [facility] Urea nitrogen/Creatinine [Mass ratio] 10.4 mg/mg 10-20 [facility] No Panel InformationOrdered By: Dr. Rm on 08-08-2022 Estimated GFR (MDRD) Amer 120 mL/min >60 [facility] Comment on above: GFR Calc Estimated GFR (MDRD) Non-Af Amer 100 mL/min >60 [facility] Comment on above: Non- GFR Calc Vitamin D 25-Hydroxy 61.0 ng/mL [facility] Comment on above: Vitamin D 25(OH) Sta tus Range Deficiency <20 ng/mL (50nmol/L) Insufficiency 20 - 30 ng/mL (50 - 75 nmol/L) Sufficiency 30 - 100 ng/mL (75 - 250 nmol/L) Toxicity >100 ng/mL (>250 nmol/L) Serum or plasma albumin christal urement (mass/volume)Ordered By: Dr. Rm on 08-08-2022 Albumin [Mass/Vol] 3.4 g/dL 3.2-5.0 [facility] Serum or plasma albumin/glob ulin mass ratioOrdered By: Dr. Rm on 08-08-2022 Albumin/Globulin [Mass ratio] 0.7 {ratio} 0.9-2.4 [facility] Serum or plasma calcium christal urement (mass/volume)Ordered By: Dr. Rm on 08-08-2022 Calcium [Mass/Vol] 9.1 mg/dL 8.5-10.1 [facility] Serum or plasma cholesterol in HDL measurement (mass/volume)Ordered By: Dr. Rm on 08-08-2022 Cholesterol in HDL [Mass/Vol] 42 mg/dL >40 [facility] Comment on above: The drugs N-Acetylcy steine and Metamizole may falsely depress this assay. Reference Range HDL <40 mg/dL Low HDL Cholesterol HDL >or= 60 mg/dL High HDL Cholesterol Serum or plasma cholesterol in VLDL measurement (mass/volume)Ordered By: Dr. Rm on 08-08-2022 Cholesterol in VLDL [Mass/Vol] 18 mg/dL 5-40 [facility] Serum or plasma creatinine m easurement (mass/volume)Ordered By: Dr. Rm on 08-08-2022 Creatinine [Mass/Vol] 0.68 mg/dL 0.55-1.02 [facility] Comment on above: The validity of the calculated GFR & GFRAA in patients over 70 years has not been determined. Clinical correlation is essential. Serum or plasma low density lipoprotein (LDL) cholesterol measurement (mass/volume)Ordered By: Dr. Rm on 08-08-2022 Cholesterol in LDL [Mass/Vol] 91 mg/dL 0-130 [facility] Serum or plasma urea nitroge n measurement (mass/volume)Ordered By: Dr. Rm on 08-08-2022 Urea nitrogen [Mass/Vol] 7 mg/dL 7-18 [facility] Thin prep Papanicolaou smear with manual screeningOrdered By: Dr. Rm on 08-08-2022 Thin prep Papanicolaou smear with manual screening 21 U/L 15-37 [facility] Thin prep Papanicolaou smear with manual screening 8 5-15 [facility] Whole blood hemoglobin A1c/t otal hemoglobin ratio (mass fraction)Ordered By: Dr. Rm on 08-08-2022 HbA1c (Bld) [Mass fraction] 6.2 % 3.8-5.6 [facility] Comment on above: Normal < 5.7 % Predi abetic 5.7 - 6.4 % Diabetic >or= 6.5 % Please note range changes. Absolute lymphocyte counton 07-08-2022 Lymphocytes Auto (Unsp spec) [#/Vol] 2.61 10*3/uL 0.83-4.51 [facility] Work Phone: [phone] Basophil percentageon 2021 Basophil percentage 0 SEEN /hpf 0-5 [facility] Work Phone: [phone] Basophils/100 WBC (Bld) 0.4 % 0-1 [facility] Work Phone: [phone] Bilirubin [Mass/Vol] 0.40 mg/dL 0.20-1.00 [facility] Work Phone: [phone] Comment on above: For patients on eltr ombopag therapy, use of Dimension [place] TBIL is not recommended. Chloride [Moles/Vol] 109 mmol/L 98-107 [facility] Work Phone: Eosinophils/100 WBC (Bld) 1.0 % 0-5 [facility] Work Phone: Glucose [Mass/Vol] 122 mg/dL 74-106 [facility] Work Phone: Comment on above: Fasting Glucose resu lt from 100 to 125 mg/dL suggests IMPAIRED HOMEOSTASIS per A.D.A. criteria. Neutrophils (Bld) [#/Vol] 6.5 10*3/uL 2.0-7.7 [facility] Work Phone: Neutrophils/100 WBC (Bld) 66.9 % 47-70 [facility] Work Phone: Potassium [Moles/Vol] 3.6 mmol/L 3.5-5.1 [facility] Work Phone: [phone] Protein [Mass/Vol] 7.7 g/dL 6.4-8.2 [facility] Work Phone: [phone] Sodium [Moles/Vol] 143 mmol/L 136-145 [facility] Work Phone: WBC (Bld) [#/Vol] 9.7 10*3/uL 4.4-11.0 [facility] Work Phone: Bilirubin Test strip Ql (U)o n 07-08-2022 Bilirubin Ql (U) Negative Negative [facility] Work Phone: Blood erythrocytes count (nu mber/volume)on 07-08-2022 RBC (Bld) [#/Vol] 4.65 10*6/uL 4.2-5.4 [facility] Work Phone: Blood hemoglobin measurement (mass/volume)on 07-08-2022 Hemoglobin (Bld) [Mass/Vol] 12.5 g/dL 12.0-15.0 [facility] Work Phone: Blood lymphocytes/100 leukoc yteson 07-08-2022 Lymphocytes/100 WBC (Bld) 27.0 % 19-41 [facility] Work Phone: Blood monocytes/100 leukocyt eson 07-08-2022 Monocytes/100 WBC (Bld) 4.2 % 0-10 [facility] Work Phone: Blood platelet mean volumeon 07-08-2022 Platelet mean volume (Bld) [Entitic vol] 8.9 fL 6.2-12.0 [facility] Work Phone: Determination of erythrocyte mean corpuscular volume (MCV)on 07-08-2022 MCV (RBC) [Entitic vol] 84.3 fL 81-99 [facility] Work Phone: Direct bilirubinon 2 Bilirubin.direct [Mass/Vol] 0.12 mg/dL 0.00-0.30 [facility] Work Phone: Hematocrit Auto (Bld) [Volum e fraction]on 07-08-2022 Hematocrit (Bld) [Volume fraction] 39.2 % 37-47 [facility] Work Phone: Ketones Test strip Ql (U)on 07-08-2022 Ketones Ql (U) Negative Negative [facility] Work Phone: Laboratory - Chemistry and C hemistry - challengeon 07-08-2022 HCG ( test) Ql (U) Negative [facility] Work Phone: Comment on above: Very dilute urine sp ecimens, as indicated by a low specificgravity, may not contain customer relations representative levels of hCG. If is still suspected, a first morning urinespecimen should be collected 48 hours later and tested. ALP [Catalytic activity/Vol] 131 U/L 45-117 [facility] Work Phone: ALT [Catalytic activity/Vol] 42 U/L 13-56 [facility] Work Phone: CO2 [Moles/Vol] 27.0 mmol/L 21.0-32.0 [facility] Work Phone: Globulin (S) [Mass/Vol] 4.6 g/dL 2.2-4.2 [facility] Work Phone: Lipase [Catalytic activity/Vol] 94 U/L 73-393 [facility] Work Phone: Urea nitrogen/Creatinine [Mass ratio] 10.2 mg/mg - [facility] Work Phone: Laboratory - Hematology and Cell countson 07-08-2022 Erythrocyte distribution width (RBC) [Entitic vol] 44.3 fL 35.1-43.9 [facility] Work Phone: Erythrocyte distribution width (RBC) [Ratio] 14.6 % 11.6-14.6 [facility] Work Phone: Immature granulocytes/100 WBC (Bld) 0.500 % 0.0-0.9 [facility] Work Phone: Comment on above: IG% - Immature Granu locytes (promyelocytes, myelocytes and metamyelocytes) > 1% indicates that a LEFT SHIFT is Present. MCH (RBC) [Entitic mass] 26.9 pg 27.0-32.0 [facility] Work Phone: Nucleated RBC/100 WBC (Bld) [Ratio] 0 % 0-5 [facility] Work Phone: MCHC Auto (RBC) [Mass/Vol]on 07-08-2022 MCHC (RBC) [Mass/Vol] 31.9 g/dL 32-36 [facility] Work Phone: Mucus LM Ql (Urine sed)on Mucus Ql (Urine sed) 0 SEEN /hpf [facility] Work Phone: Nitrite Test strip Ql (U)on 07-08-2022 Nitrite Ql (U) Negative Negative [facility] Work Phone: No Panel Informationon 07-08 Estimated Creatinine Clearance Calc 91.67 ml/min [facility] Work Phone: Estimated GFR (MDRD) Amer 118 mL/min >60 [facility] Work Phone: Comment on above: GFR Calc Estimated GFR (MDRD) Non-Af Amer 98 mL/min >60 [facility] Work Phone: Comment on above: Non- GFR Calc Troponin I High Sensitivity 3 pg/mL 3.0-54.0 [facility] Work Phone: Comment on above: Please Note: New Regine t Units and Gender Specific Reference Ranges. For more information see Policy Stat Procedure [place] High Sensitivity Troponin (TNIH) and attachments. Platelets bldon 07-08-2022 Platelets (Bld) [#/Vol] 336 10*3/uL 150-450 [facility] Work Phone: Protein Test strip Ql (U)on 07-08-2022 Protein Ql (U) Negative Negative [facility] Work Phone: Serum or plasma albumin christal urement (mass/volume)on 07-08-2022 Albumin [Mass/Vol] 3.1 g/dL 3.2-5.0 [facility] Work Phone: Serum or plasma calcium christal urement (mass/volume)on 07-08-2022 Calcium [Mass/Vol] 9.1 mg/dL 8.5-10.1 [facility] Work Phone: Serum or plasma creatinine m easurement (mass/volume)on 07-08-2022 Creatinine [Mass/Vol] 0.69 mg/dL 0.55-1.02 [facility] Work Phone: Comment on above: The validity of the calculated GFR & GFRAA in patients over 70 years has not been determined. Clinical correlation is essential. Serum or plasma urea nitroge n measurement (mass/volume)on 07-08-2022 Urea nitrogen [Mass/Vol] 7 mg/dL 7-18 [facility] Work Phone: Squamous epithelial cells de tection in urine sediment by light microscopyon 07-08-2022 Epithelial cells.squamous LM Ql (Urine sed) 0-5 SEEN /hpf 5-10 [facility] Work Phone: Thin prep Papanicolaou smear with manual screeningon 07-08-2022 Thin prep Papanicolaou smear with manual screening 26 U/L 15-37 [facility] Work Phone: Thin prep Papanicolaou smear with manual screening 7 5-15 [facility] Work Phone: Urine blood detectionon 06-20 RBC Ql (U) Negative Negative [facility] Work Phone: RBC Ql (U) 0 SEEN /hpf 0-5 [facility] Work Phone: Urine clarityon 07-08-2022 Clarity (U) Clear Clear [facility] Work Phone: Urine color determinationon 07-08-2022 Color (U) Yellow Yellow [facility] Work Phone: Urine glucose detectionon Glucose Ql (U) Normal mg/dl Normal [facility] Work Phone: Urine leukocyte esterase det ection by dipstickon 07-08-2022 Leukocyte esterase Test strip Ql (U) Negative Negative [facility] Work Phone: Urine pHon 07-08-2022 pH (U) 7.0 [pH] 5.0 - 8.0 [facility] Work Phone: Urine sediment bacteria coun t by microscopy (number/high power field)on 07-08-2022 Bacteria LM.HPF (Urine sed) [#/Area] 0 /[HPF] None Seen [facility] Work Phone: Urine specific gravity measu rementon 07-08-2022 Specific gravity (U) [Rel density] 1.005 1.002-1.030 [facility] Work Phone: Urobilinogen Auto test strip Ql (U)on 07-08-2022 Urobilinogen Ql (U) Normal mg/dl Normal [facility] Work Phone: Vital Signs Date Time Vital Sign Value Performing Clinician Faci lity 09-07-2023 09:56-0500 Body height 165.[address] Peterson Rm Work Phone: [facility] 09-07-2023 09:56-0500 Body mass index (BMI) [Ratio] 47 kg/m2 Dr. Peterson Rm Work Phone: [facility] 09-07-2023 09:56-0500 Body temperature 98.2 [degF] Dr. Peterson Rm Work Phone: [facility] 09-07-2023 09:56-0500 Body weight 128.[address] Peterson Rm Work Phone: [facility] 09-07-2023 09:56-0500 Diastolic blood pressure 110 mm[Hg] Dr. Peterson Rm Work Phone: [facility] 09-07-2023 09:56-0500 Heart rate 82 /min Dr. Peterson Rm Work Phone: [facility] 09-07-2023 09:56-0500 Respiratory rate 16 /min Dr. Peterson Rm Work Phone: [facility] 09-07-2023 09:56-0500 SaO2% (BldA) [Mass fraction] 99 % Dr. Peterson Rm Work Phone: [facility] 09-07-2023 09:56-0500 Systolic blood pressure 145 mm[Hg] Dr. Peterson Rm Work Phone: [facility] 08-14-2023 08:19-0400 Body height 166.4 cm Osiris Velasquez MD Work Phone: [facility] 08-14-2023 08:19-0400 Body mass index (BMI) [Ratio] 46.44 kg/m2 Osiris Velasquez MD Work Phone: [facility] 08-14-2023 08:19-0400 Body weight 128.55 kg Osiris Velasquez MD Work Phone: [facility] 08-14-2023 08:19-0400 Diastolic blood pressure 84 mm[Hg] Osiris Velasquez MD Work Phone: [facility] 08-14-2023 08:19-0400 Heart rate 80 /min Osiris Velasquez MD Work Phone: [facility] 08-14-2023 08:19-0400 Systolic blood pressure 123 mm[Hg] Osiris Velasquez MD Work Phone: [facility] 07-07-2023 13:02-0400 Body temperature 98.4 [degF] Dr. Peterson Rm Work Phone: [facility] 07-07-2023 13:02-0400 Body weight 131.[address] Peterson mR Work Phone: [facility] 07-07-2023 13:02-0400 Diastolic blood pressure 93 mm[Hg] Dr. Peterson Rm Work Phone: [facility] 07-07-2023 13:02-0400 Heart rate 85 /min Dr. Peterson Rm Work Phone: [facility] 07-07-2023 13:02-0400 Respiratory rate 16 /min Dr. Peterson Rm Work Phone: [facility] 07-07-2023 13:02-0400 SaO2% (BldA) [Mass fraction] 97 % Dr. Peterson Rm Work Phone: [facility] 07-07-2023 13:02-0400 Systolic blood pressure 149 mm[Hg] Dr. Peterson Rm Work Phone: [facility] 05-28-2023 08:21-0400 Body height 165.1 cm Marsha Sung MD Work Phone: [facility] 05-28-2023 08:21-0400 Body weight 128.28 kg Marsha Sung MD Work Phone: [facility] 05-28-2023 08:21-0400 Diastolic blood pressure 78 mm[Hg] Marsha Sung MD Work Phone: [facility] 05-28-2023 08:21-0400 Systolic blood pressure 128 mm[Hg] Marsha Sung MD Work Phone: [facility] 05-20-2023 08:03-0400 Body height 166.4 cm Osiris Velasquez MD Work Phone: [facility] 05-20-2023 08:03-0400 Body mass index (BMI) [Ratio] 47.49 kg/m2 Osiris Velasquez MD Work Phone: [facility] 05-20-2023 08:03-0400 Body weight 131.45 kg Osiris Velasquez MD Work Phone: [facility] 05-20-2023 08:03-0400 Diastolic blood pressure 71 mm[Hg] Osiris Velasquez MD Work Phone: [facility] 05-20-2023 08:03-0400 Heart rate 76 /min Osiris Velasquez MD Work Phone: [facility] 05-20-2023 08:03-0400 Systolic blood pressure 104 mm[Hg] Osiris Velasquez MD Work Phone: [facility] 01-21-2023 07:38-0400 Body height 166.4 cm Osiris Velasquez MD Work Phone: [facility] 01-21-2023 07:38-0400 Body mass index (BMI) [Ratio] 47.03 kg/m2 Osiris Velasquez MD Work Phone: [facility] 01-21-2023 07:38-0400 Body weight 130.18 kg Osiris Velasquez MD Work Phone: [facility] 01-21-2023 07:38-0400 Diastolic blood pressure 82 mm[Hg] Osiris Velasquez MD Work Phone: [facility] 01-21-2023 07:38-0400 Heart rate 85 /min Osiris Velasquez MD Work Phone: [facility] 01-21-2023 07:38-0400 Systolic blood pressure 126 mm[Hg] Osiris Velasquez MD Work Phone: [facility] 01-16-2023 14:20-0400 Body weight 134.72 kg Marsha Sung MD Work Phone: [facility] 01-16-2023 14:20-0400 Diastolic blood pressure 88 mm[Hg] Marsha Sung MD Work Phone: [facility] 01-16-2023 14:20-0400 Systolic blood pressure 132 mm[Hg] Marsha Sung MD Work Phone: [facility] 12-12-2022 07:38-0500 Body height 166.4 cm Osiris Velasquez MD Work Phone: [facility] 12-12-2022 07:38-0500 Body mass index (BMI) [Ratio] 48.64 kg/m2 Osiris Velasquez MD Work Phone: [facility] 12-12-2022 07:38-0500 Body weight 134.63 kg Osiris Velasquez MD Work Phone: [facility] 12-12-2022 07:38-0500 Diastolic blood pressure 86 mm[Hg] Osiris Velasquze MD Work Phone: [facility] 12-12-2022 07:38-0500 Heart rate 88 /min Osiris Velasquez MD Work Phone: [facility] 12-12-2022 07:38-0500 Respiratory rate 16 /min Osiris Velasquez MD Work Phone: [facility] 12-12-2022 07:38-0500 Systolic blood pressure 137 mm[Hg] Osiris Velasquez MD Work Phone: [facility] 10-29-2022 07:39-0500 Body height 166.4 cm Osiris Velasquez MD Work Phone: [facility] 10-29-2022 07:39-0500 Body mass index (BMI) [Ratio] 50.44 kg/m2 Osiris Velasquez MD Work Phone: [facility] 10-29-2022 07:39-0500 Body weight 139.62 kg Osiris Velasquez MD Work Phone: [facility] 10-29-2022 07:39-0500 Diastolic blood pressure 71 mm[Hg] Osiris Velasquez MD Work Phone: [facility] 10-29-2022 07:39-0500 Heart rate 86 /min Osiris Velasquez MD Work Phone: [facility] 10-29-2022 07:39-0500 Respiratory rate 16 /min Osiris Velasquez MD Work Phone: [facility] 10-29-2022 07:39-0500 Systolic blood pressure 119 mm[Hg] Osiris Velasquez MD Work Phone: [facility] 10-13-2022 08:45-0500 Body height 165.[address] Peterson Rm Work Phone: [facility] 10-13-2022 08:45-0500 Body mass index (BMI) [Ratio] 50.7 kg/m2 Dr. Peterson Rm Work Phone: [facility] 10-13-2022 08:45-0500 Body temperature 97.7 [degF] Dr. Peterson Rm Work Phone: [facility] 10-13-2022 08:45-0500 Body weight 138.[address] Peterson Rm Work Phone: [facility] 10-13-2022 08:45-0500 Diastolic blood pressure 92 mm[Hg] Dr. Peterson Rm Work Phone: [facility] 10-13-2022 08:45-0500 Heart rate 93 /min Dr. Peterson Rm Work Phone: [facility] 10-13-2022 08:45-0500 Respiratory rate 16 /min Dr. Peterson Rm Work Phone: [facility] 10-13-2022 08:45-0500 SaO2% (BldA) [Mass fraction] 98 % Dr. Peterson Rm Work Phone: [facility] 10-13-2022 08:45-0500 Systolic blood pressure 142 mm[Hg] Dr. Peterson Rm Work Phone: [facility] 07-08-2022 13:06-0400 Diastolic blood pressure 86 mm[Hg] [facility] Work Phone: 07-08-2022 13:06-0400 Heart rate 80 /min [facility] Work Phone: 07-08-2022 13:06-0400 Respiratory rate 16 /min [facility] Work Phone: 07-08-2022 13:06-0400 SaO2% (BldA) [Mass fraction] 96 % [facility] Work Phone: 07-08-2022 13:06-0400 Systolic blood pressure 129 mm[Hg] [facility] Work Phone: 07-08-2022 07:55-0400 Body height 165.1 cm [facility] Work Phone: 07-08-2022 07:55-0400 Body mass index (BMI) [Ratio] 49.1 kg/m2 [facility] Work Phone: 07-08-2022 07:55-0400 Body temperature 98.2 [degF] [facility] Work Phone: 07-08-2022 07:55-0400 Body weight 133.8 kg [facility] Work Phone: 07-05-2022 08:43-0400 Diastolic blood pressure 75 mm[Hg] [facility] Work Phone: 07-05-2022 08:43-0400 Heart rate 84 /min [facility] Work Phone: 07-05-2022 08:43-0400 Respiratory rate 18 /min [facility] Work Phone: 07-05-2022 08:43-0400 SaO2% (BldA) [Mass fraction] 97 % [facility] Work Phone: 07-05-2022 08:43-0400 Systolic blood pressure 111 mm[Hg] [facility] Work Phone: 07-05-2022 08:02-0400 Body height 167.64 cm [facility] Work Phone: 07-05-2022 08:02-0400 Body mass index (BMI) [Ratio] 48.2 kg/m2 [facility] Work Phone: 07-05-2022 08:02-0400 Body temperature 97.8 [degF] [facility] Work Phone: 07-05-2022 08:02-0400 Body weight 135.62 kg [facility] Work Phone: 02-27-2022 07:51-0400 Body height 167.64 cm [facility] Work Phone: 02-27-2022 07:51-0400 Body weight 140.43 kg [facility] Work Phone: 01-22-2022 14:06-0400 Body weight 138.52 kg [facility] Work Phone: 01-17-2022 00:10-0400 Body weight 140.16 kg [facility] Work Phone: 01-06-2022 19:20-0400 Body weight 140.16 kg [facility] Work Phone: Encounters Encounter Date Encounter Type Care Provider Facility Start: 04-05-2025 ambulatory Peterson Rm Facility: [facility] Start: 03-31-2025 ambulatory Peterson [facility] Facility: [facility] Start: 03-15-2025 End: 03-15-[address] Peterson Rm DO Work Phone: [facility] Work Phone: Start: 03-15-2025 End: 03-15-[address] Peterson Rm DO -Laboratory [place] Work Phone: Start: 03-15-2025 End: 03-15-2025 ambulatory Peterson Rm Facility:[facility] Start: 11-16-2024 End: 11-16-2024 ambulatory Peterson CrockerJag Facility:[facility] Start: 11-15-2024 End: 11-15-2024 ambulatory Peterson [facility] Facility:[facility] Start: 11-14-2024 End: 11-14-2024 ambulatory Peterson CrockerJag Facility:[facility] Start: 08-25-2024 End: 08-25-2024 ambulatory Peterson Jag Facility:[facility] Start: 08-08-2024 End: 08-08-2024 ambulatory [facility] Facility:[facility] Start: 06-28-2024 Encounter for genera l adult medical examination without abnormal findings Peterson Rm [facility] Start: 06-02-2024 End: 06-02-2024 [facility]ulatory [facility] Start: 05-18-2024 Encounter for genera l adult medical examination without abnormal findings Peterson Coyman [facility] Start: 05-18-2024 ambulatory Peterson Jag Facility: [facility] Start: 11-30-2023 End: 11-30-2023 ambulatory [facility] Work Phone: Start: 11-30-2023 End: 11-30-2023 Patient encounter [facility] Start: 09-07-2023 End: 09-07-2023 Emergency department patient visit Dr. Peterson Rm Work Phone: [facility]-Emergency Department Work Phone: Start: 08-14-2023 End: 08-14-2023 ambulatory [facility] Start: 08-14-2023 End: 08-14-2023 Office outpatient visit 15 minutes Osiris Velasquez MD Work Phone: [facility] Comment on above: Type 2 diabetes kamini itus without complication, without long- term current use of insulin ([facility]/HCC) ([facility]) (Primary Dx); BMI 45.0-49.9, adult ([facility]); Class 3 severe obesity with serious comorbidity and body mass index (BMI) of 45.0 to 49.9 in adult, unspecified obesity type ([facility]) Start: 08-05-2023 End: 08-05-[address] Peterson Rm Work Phone: [facility] Work Phone: Start: 08-05-2023 End: 08-05-[address] Peterson mR Work Phone: [facility]-Outpatient Breast Imaging Work Phone: Start: 07-13-2023 End: 07-13-[address] Peterson Rm Work Phone[facility] Work [facility]: Start: 07-07-2023 End: 07-07-[address] Peterson Rm Work Phone: [facility] Work Phone: Start: 05-28-2023 End: 05-28-2023 ambulatory MARSHA SUNG Facility:[facility] Start: 05-28-2023 End: 05-28-2023 Patient encounter procedure Marsha Sung MD Work Phone: OB/Gynecology Comment on above: Encounter for gyneco logical examination (general) (routine) without abnormal findings (Primary Dx); Obesity, Class III, BMI >= 40 Start: 05-28-2023 End: 05-28-2023 Patient encounter status Marsha Sung MD Work Phone: [facility] Work Phone: Start: 05-20-2023 End: 05-20-20[facility] Start: 05-20-2023 End: 05-20-2023 Office outpatient visit 15 minutes Osiris Velasquez MD Work Phone: [facility] Comment on above: Type 2 diabetes kamini itus without complication, without long- term current use of insulin ([facility]/HCC) (HCC) (Primary Dx); BMI 45.0-49.9, adult ([facility]); Class 3 severe obesity with serious comorbidity and body mass index (BMI) of 45.0 to 49.9 in adult, unspecified obesity type (HCC) Start: 02-19-2023 ambulatory Marsha armas MD Work Phone: OB/Gynecology Comment on above: Insert Start: 02-16-2023 End: 02-16-2023 ambulatory [facility] Work Phone: Start: 02-16-2023 End: 02-16-2023 Patient encounter procedure [facility]il[facility] Start: 01-21-2023 End: 01-21-2023 ambulatory [facility] Start: 01-21-2023 End: 01-21-2023 Office outpatient visit 15 minutes Osiris Velasquez MD Work Phone: [facility] Comment on above: Type 2 diabetes kamini itus without complication, without long- term current use of insulin (CMS/HCC) (HCC) (Primary Dx); BMI 45.0-49.9, adult (HCC); Class 3 severe obesity with serious comorbidity and body mass index (BMI) of 45.0 to 49.9 in adult, unspecified obesity type (HCC) Start: 01-16-2023 End: 01-17-2023 ambulatory MARSHA SUNG Facility:[facility] Start: 01-16-2023 End: 01-16-2023 Patient encounter procedure Marsha Sung MD Work Phone: OB/Gynecology Comment on above: Abscess of vulva (Pr imary Dx) Start: 12-12-2022 End: 12-12-2022 ambulatory [facility] Start: 12-12-2022 End: 12-12-2022 Office outpatient visit 15 minutes Osiris Velasquez MD Work Phone: [facility] Comment on above: Type 2 diabetes kamini itus without complication, without long- term current use of insulin (CMS/HCC) (HCC) (Primary Dx); BMI 45.0-49.9, adult (CMS/HCC) (HCC); Class 3 severe obesity with serious comorbidity and body mass index (BMI) of 45.0 to 49.9 in adult, unspecified obesity type (HCC) Start: 11-24-2022 End: 11-24-[address] Peterson Rm Work Phone: [facility] Work Phone: Start: 11-24-2022 End: 11-24-[address] Peterson Rm Work Phone: [facility] Start: 10-29-2022 End: 10-29-2022 ambulatory [facility] Start: 10-29-2022 End: 10-29-2022 Office outpatient new 45 minutes Osiris Velasquez MD Work Phone: [facility] Comment on above: Dyslipidemia (Primar y Dx); BMI 50.0-59.9, adult (CMS/HCC) (HCC); Class 3 severe obesity with serious comorbidity and body mass index (BMI) of 50.0 to 59.9 in adult, unspecified obesity type (HCC) Start: 10-13-2022 End: 10-13-[address] Peterson Rm Work Phone: [facility] Start: 09-24-2022 Non-patient / Non-visit Dr. Mike Rm Work Phone: [facility] Start: 09-24-2022 End: 09-24-[address] Peterson Rm Work Phone: [facility] Work Phone: Start: 09-24-2022 End: 09-24-[address] [facility] Start: 09-23-2022 End: 09-23-[address] Peterson Rm Work Phone: [facility] Work Phone: Start: 09-23-2022 End: 09-23-[address] Peterson R[facility] Start: 08-08-2022 End: 08-08-2022 ambulatory [facility] Work Phone: Start: 08-08-2022 End: 08-08-2022 Patient encounter procedure [facility]-Laboratory,Fu ture Start: 08-04-2022 End: 08-04-2022 Patient encounter procedure [facility]-Outpatient Breast Imaging Start: 07-08-2022 End: 07-08-2022 Emergency department patient visit [facility]-Emergency Department Start: 07-05-2022 End: 07-05-2022 Emergency department patient visit [facility]-Emergency Department Start: 05-15-2022 End: 05-15-2022 Patient encounter procedure [facility]-Ultrasound, [facility] Start: 04-18-2022 End: 04-18-2022 Patient encounter procedure [facility]-Ultrasound, [facility] Start: 02-27-2022 End: 03-18-2022 Discharged Recurring [facility]Nut[facility]al Services Start: 01-22-2022 End: 02-15-2022 Discharged Recurring [facility] Start: 01-06-2022 End: 01-16-2022 Discharged Recurring [facility] Procedures Date Procedure Procedure Detail Performing Clinician Start: 08-05-2023 End: 08-05-[address] Peterson Rm Work Phone: Start: 08-04-2022 End: 08-04-2022 Screening mammography Start: 07-08-2022 Computed tomography of abdomen and pelvis with intravenous contrast Start: 07-05-2022 Diagnostic radiograp hy of abdomen Start: 05-15-2022 Ultrasound elastography Start: 04-18-2022 Ultrasonography of abdomen Plan of Treatment Date Care Activity Detail Author Start: 2026 Zoster Vaccines (1 of 2) Zoster Vaccines (1 of 2) [facility] Start: 10-21-2024 HPV TESTING HPV TESTING [facility] Start: 10-21-2024 PAP TESTING PAP TESTING [facility] Start: 08-05-2024 Screening for malignant neoplasm of breast Mammogram [facility] Start: 09-30-2023 End: 09-30-2023 Patient encounter procedure 09/30/2023 8:00 AM EST Office Visit [facility] [address] [place] [address] Osiris Velasquez MD [address] [place] [address] [facility] Start: 09-07-2023 [facility] Start: 08-04-2023 Mammography MAMMOGRAM [facility] Start: 08-04-2023 Screening for malignant neoplasm of breast Mammogram [facility] Start: 07-08-2023 End: 07-08-2023 Patient encounter procedure 07/08/2023 8:20 AM EDT Office Visit [facility] [address] [place] [address] Osiris Velasquez MD [address] [place], [place] [address] [facility] Start: 06-19-2023 Influenza vaccination [facility] Start: 02-27-2023 End: 02-27-2023 Patient encounter procedure 02/27/2023 Office Visit Weight Management Osiris Velasquez MD [address] [place], [place] [address] [facility] Start: 01-21-2023 End: 01-21-2023 Patient encounter procedure 01/21/2023 Office Visit Weight Management Osiris Velasquez MD [address] [place], [place] [id number] [facility] Start: 12-12-2022 End: 12-12-2022 Patient encounter procedure 12/12/2022 Office Visit Weight Management Osiris Velasquez MD [address] [place] [address] [facility] Start: 11-28-2022 End: 11-28-2022 Patient encounter procedure 11/28/2022 Office Visit Weight Management Osiris Velasquez MD [address] [place] [address] [facility] Start: 10-19-2022 DEPRESSION ASSESSMENT DEPRESSION ASSESSMENT [facility] Start: 12-20-2021 COVID-19 VACCINE (3 - Booster for Moderna series) COVID-19 VACCINE (3 - Booster for Moderna series) [facility] Start: 12-20-2021 COVID-19 VACCINE (3 - Moderna series) COVID-19 VACCINE (3 - Moderna series) [facility] Start: 2021 COLOGUARD (FIT-DNA) COLOGUARD (FIT-DNA) [facility] Start: 2021 Colonoscopy COLONOSCOPY [facility] Start: 2021 COLORECTAL CANCER SCREENING COLORECTAL CANCER SCREENING [facility] Start: [address] COLONOGRAPHY [facility] Start: 2021 DIABETES SCREEN DIABETES SCREEN [facility] Start: 2021 FECAL OCCULT BLOOD FECAL OCCULT BLOOD [facility] Start: 2021 LIPID SCREEN LIPID SCREEN [facility] Start: 2021 SIGMOIDOSCOPY SIGMOIDOSCOPY [facility] Start: 2016 Screening for malignant neoplasm of breast Mammogram [facility] Start: 2006 Screening for malignant neoplasm of cervix [facility] Start: 1997 Screening for malignant neoplasm of cervix Pap Smear [facility] Start: 1995 DTaP/Tdap/Td Vaccines (1 - Tdap) DTaP/Tdap/Td Vaccines (1 - Tdap) [facility] Start: 1995 Urine microalbumin profile DTAP,TDAP,TD (1 - Tdap) [facility] Start: 1995 Urine screening for protein Diabetes: Urine Protein Screening [facility] Start: 1994 Diabetes mellitus screening Diabetes Screening [facility] Start: 1994 HEPATITIS C SCREENING HEPATITIS C SCREENING [facility] Start: 1994 Hepatitis C screening Hepatitis C Screening [facility] Start: 1994 HIV SCREENING HIV SCREENING [facility] Start: 1988 Depression Screening Depression Screening [facility] Start: 1986 Diabetic foot examination Diabetes: Foot Exam [facility] Start: 1986 Glaucoma screening Diabetes: Retinopathy Screening [facility] Start: 1986 Preventive dental service Diabetes: Dental Exam [facility] Start: 1982 Pneumococcal Vaccine: Pediatrics (0 to 5 Years) and At-Risk Patients (6 to 64 Years) (1 - PCV) Pneumococcal Vaccine: Pediatrics (0 to 5 Years) and At-Risk Patients (6 to 64 Years) (1 - PCV) [facility] Start: 1977 MMR Vaccines (1 of 1 - Standard series) MMR Vaccines (1 of 1 - Standard series) [facility] Start: 1976 Hemoglobin A1c measurement Diabetes: Hemoglobin A1C [facility] Start: 1976 HEPATITIS B (1 of 3 - 3-dose series) HEPATITIS B (1 of 3 - 3-dose series) [facility] Start: 1976 Hepatitis B Vaccines (1 of 3 - 3-dose series) Hepatitis B Vaccines (1 of 3 - 3-dose series) [facility] Start: 1976 HIV screening HIV Screening [facility] Start: 1976 Lipid panel Lipid Panel [facility] Start: 1976 Screening for malignant neoplasm of colon [facility] Patient Education [facility] Work Phone: Patient referral [facility] Work Phone: [facility] Immunizations Immunization Date Immunization Notes Care Provider Fa [facility] 07-30-2022 influenza virus vaccine, unspecified formulation Osiris Velasquez MD Work Phone: [facility] 08-31-2018 influenza, injectabl e, quadrivalent, preservative free Marsha Sung MD Work Phone: [facility] Work Phone: Payers Date Payer Category Payer Self-pay [id number] 2013 Unknown [id number] 2010 Unknown [id number] Self-pay SELF PAY INSURANCE [id number] Unknown [id number] 2.16.8 [id number] Unknown [id number] 2.16.8 [id number] Unknown [id number] 2.16.8 [id number] Unknown [id number] 2.16.8 [id number] Unknown [id number] 2.16.8 [id number] Unknown [id number] 2.16.8 [id number] Unknown [id number] 2.16.8 [id number] Unknown [id number] 2.16.8 [id number] Unknown [id number] 2.16.8 [id number] Unknown [id number] 2.16.8 [id number] Social History Date Type Detail Facility Start: 08-28-2020 End: 09-07-2023 Tobacco smoking status NHIS Unknown if ever smoked [facility] Start: 1975 Sex Assigned At Female [facility] Start: 01-16-2023 End: 09-07-2023 Tobacco smoking status NHIS Never smoked tobacco [facility] Start: 01-16-2023 End: 05-28-2023 Tobacco use and exposure Smokeless tobacco non-user [facility] Start: 12-12-2022 End: 01-16-2023 Alcohol intake Ex-drinker (finding) [facility] Start: 1975 Sex Assigned At Not on file [facility] Start: 10-19-2022 End: 05-20-2023 Exposure to SARS-CoV-2 (event) Not sure [facility] Start: 12-12-2022 End: 05-28-2023 History of Social function [facility] Start: 12-12-2022 End: 05-28-2023 Tobacco use panel [facility] National Score (1-100), lower number is lower risk 51 [facility] NEGATED: Highlighted rowStart: NINF History of tobacco use Passive smoker [facility] Work Phone: Mental Status Date Assessment Result Facility 09-07-2023 Cognitive function Level Of Cons ciousness Awake;Alert;Appropriate;Follow s Commands [facility] Work Phone: Clinical Notes 10-29-2022 to [...] Path) Date of Initial Consultation:@FLOWLAST(8961)@ Initial Weight: @FLOWLAST([id number])@ Initial BMI: @FLOWLAST([id number])@ [place] Body Weight: @FLOWLAST([id number])@ Excess Body Weight: @FLOWLAST([id number])@ Body Fat Percentage: No flowsheet data found. [...] Will focus on the portion control Calorie 7127-7368 daily Will restart with meal preparation Discuss [...] completed. documented in this encounter [facility] 05-28-2023 Note HNO ID: [id number] Author: Marsha Sung MD Service: ? Author [...] L2 SAB0 IAB0 Ectopic0 Multiple0 Live Births2 [employer] History LMP: 04/28/2018, Ablation Age at Menarche: Age at First : Age at 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 History Comments: Sexual Activity: Yes; Male; novasure [...] Ischemic Heart Disease Maternal Grandfather 53 of [place] Breast Cancer Maternal Aunt SOCIAL HISTORY Social [...] external genitalia normal, normal Bartholin's glands, urethra, [place]'s glands, no vulvar lesions, no cervical lesions, [...] or sooner as needed Marsha Sung MD [facility] 05-28-2023 History of Presen t illness Narrative [...] L2 SAB0 IAB0 Ectopic0 Multiple0 Live Births2 [employer] History LMP: 04/28/2018, Ablation Age at Menarche: Age at First : Age at 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 History Comments: Sexual Activity: Yes; Male; novasure [...] Ischemic Heart Disease Maternal Grandfather 53 of [place] Breast Cancer Maternal Aunt SOCIAL HISTORY Social [...] external genitalia normal, normal Bartholin's glands, urethra, [place]'s glands, no vulvar lesions, no cervical lesions, [...] Marsha Sung MD documented in this encounter [facility] 05-20-2023 History of Presen t illness Narrative BARIATRIC [...] Path) Date of Initial Consultation:@FLOWLAST(8961)@ Initial Weight: @FLOWLAST([id number])@ Initial BMI: @FLOWLAST([id number])@ [place] Body Weight: @FLOWLAST([id number])@ Excess Body Weight: @FLOWLAST([id number])@ Body Fat Percentage: No flowsheet data found. [...] Will focus on the portion control Calorie 8261-3728 daily Will restart with meal preparation Discuss [...] updated and completed. documented in this encounter [facility] 02-19-2023 Miscellaneous Notes Please see pt's mychart message and further advise. Olamide Cisneros LPN documented in this encounter [facility] 01-21-2023 History of Presen t illness Narrative [facility] CARE CENTER NON-SURGICAL WEIGHT LOSS MANAGEMENT PROGRAM [...] Path) Date of Initial Consultation:@FLOWLAST(8961)@ Initial Weight: @FLOWLAST([id number])@ Initial BMI: @FLOWLAST([id number])@ [place] Body Weight: @FLOWLAST([id number])@ Excess Body Weight: @FLOWLAST([id number])@ Body Fat Percentage: No flowsheet data found. [...] Will focus on the portion control Calorie 4991-8629 daily Will start feedback system DM Recent [...] updated and completed. documented in this encounter [facility] 01-16-2023 Note HNO ID: [id number] Author: Marsha Sung MD Service: ? Author [...] L2 SAB0 IAB0 Ectopic0 Multiple0 Live Births2 [employer] History LMP: 04/28/2018, Ablation Age at Menarche: Age at First : Age at 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 History Comments: Sexual Activity: Yes; Male; novasure [...] Ischemic Heart Disease Maternal Grandfather 53 of [place] Breast Cancer Maternal Aunt Social History Tobacco [...] bactrim wound care reviewed Marsha Sung MD [facility] 01-16-2023 History of Presen t illness Narrative [...] L2 SAB0 IAB0 Ectopic0 Multiple0 Live Births2 [employer] History LMP: 04/28/2018, Ablation Age at Menarche: Age at First : Age at 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 History Comments: Sexual Activity: Yes; Male; novasure [...] Ischemic Heart Disease Maternal Grandfather 53 of [place] Breast Cancer Maternal Aunt Social History Tobacco [...] Marsha Sung MD documented in this encounter [facility] 12-12-2022 History of Presen t illness Narrative [facility] NON-SURGICAL WEIGHT LOSS MANAGEMENT PROGRAM ROOMING NOTE: FOLLOW UP VISIT Patient: Olamide Cast Date of : 1975 Service Date: 12/12/2022 Patient History/Assessment Summary: The patient is a pleasant 47 y.o. year old female, who stands Height: 5' 5.5 (166.4 cm) tall with a weight of Weight: 296 lb 12.8 oz (135 kg) pounds, resulting in a BMI of Body mass index is 48.64 kg/m . kg/m2. She is here for follow-up for non-surgical treatment of Morbid Obesity Patient has the following question(s): none Pre Program Weight Metrics (CARE [facility]) Date of Initial Consultation:@FLOWLAST([id number])@ Initial Weight: @FLOWLAST([id number])@ Initial BMI: @FLOWLAST([id number])@ [place] Body Weight: @FLOWLAST([id number])@ Excess Body Weight: @FLOWLAST([id number])@ Body Fat Percentage: No flowsheet data found. Subsequent Body Fat Percentage: No flowsheet data found. Pre Program Weight Metrics (Epic) (Surgical Wt Loss Management- baseline) This Visit Non-Surgical Subsequent Eval Date: 12/12/22 Height: 5' 5.5 (166.4 cm) Weight: 296 lb 12.8 oz (135 kg) BMI: 48.63 Weight Change: -11 lbs Total Weight Change: -11 lbs % EBWL: 6% Subsequent Body Fat %: 58.36 Body Fat % Change: -2.17 Follow Up Weight Metrics Last Three Weights Including Today's Weight: Wt Readings from Last 3 Encounters: 12/12/22 296 lb 12.8 oz (135 kg) [...] sheet comorbids) Falls Risk Assessment Patient does take medications which affect BP or mental [...] is not on home O2 Completed by: Grecia Gonsales MA HPI, PHYSICAL EXAMINATION & PLAN HPI: Patient here today for follow up for non-surgical weight loss management Weight trend since last visit: lost 9 lbs over 1 m stable This patient's excess weight is causing the following co-morbid conditions at this time:DM Physical Examination: BP 137/86 Pulse 88 Resp 16 Ht 5' 5.5 (1.664 m) Wt 296 lb 12.8 oz (135 kg) BMI 48.64 kg/m General: This patient is calm and pleasant [...] Will focus on the portion control Calorie [id number] daily Will start feedback system DM Recent dx Started on metformin Discuss GLP 1 agonist Will read about the medications Continue current management, continue weight loss program [...] completed. documented in this encounter [facility] 10-29-2022 Note [facility] Lozano NON-SURGICAL WEIGHT LOSS MANAGEMENT PROGRAM PROGRESS NOTE [...] the Patient, which is located in the Qm Consultant Tab. History: Past Medical History: Diagnosis Date Anxiety Depression TRISTAN (dyspnea on exertion) Hyperlipidemia Joint pain Pre-diabetes Sleep apnea ON BIPAP Past Surgical History: Procedure Laterality Date SECTION (HISTORICAL) 2002 CARSON SECTION (HISTORICAL) 2000 CARSON CHOLECYSTECTOMY 2000 CARSON TUBAL LIGATION 2003 CARSON Family History Problem Relation Name Age of [...] (140 kg) BMI 50.44 kg/m? Weight Metrics: [place] Body Weight: [place] Body Weight: 137 lb (62.1 kg) Excess Body Weight: [place] BMI: 30 General: This patient is alert [...] Move Struggler [] Self-Conscious Hider [] Inexperienced [place] Tassell [] Bgt-dy-Wkbhdsn Doer [] Set-Routine Repeater [] Ppupo-lbc-Lgyoe Sufferer [] Jm-ajgs-sz-Exercise Protester [] Emotional Cable Mock Up Assembler [] Zgr-Kpvb-Bnqbru Sufferer [] Persistent Procrastinator [] Can?t-Say-No Pleaser [...] list 2. Discus (more content not included)... [facility] 10-29-2022 History of Presen t illness Narrative [facility] NON-SURGICAL WEIGHT LOSS MANAGEMENT PROGRAM ROOMING NOTE - INITIAL CONSULTATION Patient: Olamide Cast Date of : 1975 Service Date: 10/29/2022 Patient is here today to discuss non-surgical weight loss management. This patient is alone for the evaluation today Weight Metrics: Non-Surgical Initial Eval Consult Date: 10/29/22 Initial Height: 5' 5.5 (166.4 cm) Initial Weight: 307 lb 12.8 oz (140 kg) [place] Body Weight: 137 lb (62.1 kg) Initial BMI: 50.44 Initial Body Fat %: 60.53 EBW: 170 lb (Flow Sheet: Surgical Wt Loss Management: Baseline) Diabetes Do you currently have diabetes? No [...] have chosen not to treat? No Comorbids Summary (flow sheet comorbids) Falls Risk Assessment Patient does take medications which affect BP or mental status Patient does not have newly prescribed or changed dosage of medications within past 30 days which affect BP or mental status Patient has not fallen in the past 2 months Patient does notdemonstrate unsteady gait Patient uses the following ambulatory assistive devices: none Patient states the presence of the following traits which increases risk of fall: none Patient is not on home O2 Completed by: Grecia Gonsales MA [facility] CENTER NON-SURGICAL WEIGHT LOSS MANAGEMENT PROGRAM PROGRESS NOTE INITIAL EVALUATION Patient: Olamide Cast Service Date: 10/29/22 Date of : 1975 Patient History/Assessment Summary: The patient is a pleasant 47 y.o. year old female, who stands Height: 5' 5.5 (166.4 cm) tall with a weight of Weight: (!) 307 lb 12.8 oz (140 kg) pounds, resulting in a BMI of Body mass index is 50.44 kg/m . kg/m2. She has been overweight for 10+ years, and has tried and failed multiple previous diet attempts and is now seeking non-surgical treatment of her obese. This patient is unaccompanied for the evaluation today. PLAN ROS: I have reviewed New Patient Assessment Form with the Patient, which is located in the Qm Consultant Tab. History: Past Medical History: Diagnosis Date Anxiety Depression TRISTAN (dyspnea on exertion) Hyperlipidemia Joint pain Pre-diabetes Sleep apnea ON BIPAP Past Surgical History: Procedure Laterality Date SECTION (HISTORICAL) 2002 CARSON SECTION (HISTORICAL) 2000 CARSON CHOLECYSTECTOMY 2000 CARSON TUBAL LIGATION 2003 CARSON Family History Problem Relation Name Age of [...] lb 12.8 oz (140 kg) BMI 50.44 kg/m Weight Metrics: [place] Body Weight: [place] Body Weight: 137 lb (62.1 kg) Excess Body Weight: [place] BMI: 30 General: This patient is alert and oriented X3 General: This patient is obese, and is in no apparent distress. Psychological: Patient is awake, alert and oriented to person, place and time Patient's mood is Euthymic Current Diet This patient s current diet is:high in simple carbohydrates and [...] Move Struggler [] Self-Conscious Hider [] Inexperienced [place] Tassell [] Uho-ke-Dlwbuue Doer [] Set-Routine Repeater [] Gndyx-qfi-Gajnf Sufferer [] Cd-yxlc-hy-Exercise Protester [] Emotional Cable Mock Up Assembler [] Rrh-Ynji-Ypdtzr Sufferer [] Persistent Procrastinator [] Can t-Say-No Pleaser [] Fast Pacer [] Pessimistic Thinker [...] composition,meal structure, meal preps, shopping list 2. Discussion on elements of behavioral strategies such self-monitoring, controlling and modifying the stimuli that activate eating;slowing down the eating process;goal-setting on the process,behavioral vane and reinforcement,cognitive restructuring, problem-solving,assertiveness training. 3. Physical activity - build fitness to aerobic physical activity 150-300 min/wk and strength training 2-3 times per wk. 4.dyslipidemia Is associated with obesity and weight loss is discussed as a treatment option for dyslipidemia 5. Weight loss medications and their role in weight loss journey discussed The patient was seen and a full chart review was performed.Clinical documentation is updated and completed. documented in this encounter [facility] Evaluation note No assessment inform ation available [facility] Work Phone: Evaluation note Diagnosis Onset Date Acute left otitis media acut e [facility] Work Phone: Evaluation note* Diagnosis Abscess of vulva- Primary Other abscess of vulva [facility] Diagnosis Type 2 diabetes mellitus without complication, without long-term current use of insulin (CMS/HCC) ([facility])- Primary BMI 45.0-49.9, adult ([facility]) Class 3 severe obesity with serious comorbidity and body mass index (BMI) of 45.0 to 49.9 in adult, unspecified obesity type (HCC) [facility] Diagnosis Type 2 diabetes mellitus without complication, without long-term current use of insulin (CMS/HCC) ([facility])- Primary BMI 45.0-49.9, adult (HCC) Class 3 severe obesity with serious comorbidity and body mass index (BMI) of 45.0 to 49.9 in adult, unspecified obesity type (HCC) [facility] Diagnosis Type 2 diabetes mellitus without complication, without long-term current use of insulin (CMS/HCC) ([facility])- Primary BMI 45.0-49.9, adult (HCC) Class 3 severe obesity with serious comorbidity and body mass index (BMI) of 45.0 to 49.9 in adult, unspecified obesity type (HCC) documented in this encounter [facility] note* Diagnosis Encounter for gynecological examination (general) (routine) without abnormal findings- Primary Obesity, Class III, BMI >= 40 Morbid obesity [facility] Diagnosis Onset Date Resolution Status Reticular vein acute [facility] Work Phone: Evaluation note* Diagnosis Dyslipidemia- Primary Other and unspecified hyperlipidemia BMI 50.0-59.9, adult (CMS/HCC) (HCC) Class 3 severe obesity with serious comorbidity and body mass index (BMI) of 50.0 to 59.9 in adult, unspecified obesity type (HCC) documented in this encounter [facility] note* Diagnosis Type 2 diabetes mellitus without complication, without long-term current use of insulin (CMS/HCC) (HCC)- Primary BMI 45.0-49.9, adult (CMS/HCC) (HCC) Class 3 severe obesity with serious comorbidity and body mass index (BMI) of 45.0 to 49.9 in adult, unspecified obesity type (HCC) [facility] Additional Instructions Thank you for trusting us with your care today! Please take Tylenol (2 pills, 650 mg), ibuprofen (2 pills, 400 mg) every 6 hours as needed for pain and fever control. Please take Reglan as needed for headache treatment. Please return to the emergency department if your symptoms change or worsen. Specifically develop loss of vision, if you lose consciousness, develop seizures, develop focal loss of sensation or movement in your extremities. Please follow with your primary care physician for further outpatient evaluation and management.[facility] Work Phone: Reason for referral (narrative)No reason for referral information availableWooMcCullough-[facility] Work Phone: Chief Complaint and Reason for Visit Chief Complaint OBESITY Chief Complaint OBESITY OBESITY OBESITY Chief Complaint OBESITY FATTY LIVER FATTY LIVER Chief Complaint FATTY LIVER FATTY LIVER abd pain Chief Complaint FATTY LIVER FATTY LIVER abd pain ABD PAIN Chief Complaint FATTY LIVER FATTY LIVER abd pain ABD PAIN SCREENING Chief Complaint abd pain ABD PAIN SCREENING BILAT LOWER EXT CALF PAIN Metabolic syndrome Chief Complaint BILAT LOWER EXT CALF PAIN Metabolic syndrome BILATERL EAR PAIN Reason for Visit Acute left otitis me janey Chief Complaint Varicose veins SCREENING Reason for Visit Reticular vein Chief Complaint Varicose veins SCREENING novoa Reason for Visit Reticular vein Chief Complaint novoa Chief Complaint Admit Date FASTING March 15, 2025 7:13a m Family History No Family History Records Found Relationship Condition Age at Onset Recorded Date/T eva father Hypertension Unknown Coronary artery disease Unknown Advance Directives No Advanced Directives Records Found Advance Directive Response Recorded Date/ Time Advance Directives No September 1:00pm Living Will No August 17 7:23pm Power of Photographer'S Assistant No August 17, 2015 7:23pm Advance Directive Response Recorded Date/ Time Name of Medical Power of Photographer'S Assistant sasha holleymarissajanusz berger July 05, 2022 8:41am Advance Directives No September 1:00pm Living Will Yes July 05, 2022 8:41am Power of Photographer'S Assistant Yes June 8:41am Advance Directive Response Recorded Date/ Time Name of Medical Power of Photographer'S Assistant sasha segunsendyjanusz berger July 05, 2022 8:41am Advance Directives No September 1:00pm Living Will No July 08, 2022 8:03am Power of Photographer'S Assistant No June 8:03am Advance Directive Response Recorded Date/ Time Name of Medical Power of Photographer'S Assistant sasha segunantonia ab July 05, 2022 7:41am Advance Directives No September 12:00pm Living Will No July 08, 2022 7:03am Power of Photographer'S Assistant No June 7:03am Advance Directive Response Recorded Date/ Time Advance Directives No September 12:00pm Living Will No July 08, 2022 7:03am Power of Photographer'S Assistant No June 7:03am Advance Directive Response Recorded Date/ Time Advance Directives No September 1:00pm Living Will No July 08, 2022 8:03am Power of Photographer'S Assistant No June 8:03am Advance Directive Response Recorded Date/ Time Name of Medical Power of Photographer'S Assistant JAVON ALAS HOLLEY GONZALEZ September 07, 2023 10:02am Advance Directives No September 12:00pm Living Will Yes September 07, 10:02am Power of Photographer'S Assistant Yes September 07, 2023 10:02am Advance Directive Response Recorded Date/ Time Advance Directives No September 1:00pm Summary Purpose Additional Source Comments Goals (unrecognized section and content) Goals may be documented in a n alternate sectionGoals may be documented in an alternate sectionGoals may be documented in an alternate sectionGoals may be documented in an alternate sectionGoals may be documented in an alternate sectionGoals may be documented in an alternate sectionGoals may be documented in an alternate sectionGoals may be documented in an alternate sectionGoals may be documented in an alternate sectionGoals may be documented in an alternate sectionGoals may be documented in an alternate sectionGoals may be documented in an alternate sectionGoals may be documented in an alternate sectionGoals may be documented in an alternate section Care Teams (unrecognized sec tion and content) Team Status: Active Member Role Status Dates Dr. Peterson Rm DO Family Provider Active Dr. Peterson Rm DO Primary Care Provider Active Team Status: Active Member Role Status Dates Dr. Peterson Rm DO Primary Care Provider Active Dr. Edwar Shea MD Attending Provider Active Team Status: Inactive Member Role Status Dates Dr. Peterson Rm DO Primary Care Provider, Referrin g Provider Active Celestino POLANCO, PA Attending Provider Active Team Status: Inactive Member Role Status Dates Dr. Peterson Rm DO Primary Care Provider, Attendin g Provider Active Team Status: Inactive Member Role Status Dates Dr. Peterson Rm DO Primary Care Prov ider, Attending Provider, Referring Provider Active Real Time Analyst Relationship Specialty Start Date End Date Peterson Rm DO [address] [place] [address] PCP - General Family Medicine 07/06/18 Real Time Analyst Relationship Specialty Start Date End Date Peterson Rm [address] [place] [id number] PCP - General 06/09/22 Real Time Analyst Relationship Specialty Start Date End Date Peterson Rm DO [address] [place], [place] [id number] PCP - General Family Medicine 07/06/18 Real Time Analyst Relationship Specialty Start Date End Date Peterson Rm [address] [place] [address] PCP - General 06/09/22 Real Time Analyst Relationship Specialty Start Date End Date Peterson Rm [address] [place] [address] PCP - General 06/09/22 Real Time Analyst Relationship Specialty Start Date End Date JagPeterson fergusonDO [address] [place] [address] PCP - General Family Medicine 07/06/18 Team Status: Inactive Member Role Status Dates Dr. Peterson Rm DO Primary Care Provider, Referrin g Provider Active SHERRI Singh Attending Provider Active Team Status: Inactive Member Role Status Dates Dr. Peterson Rm DO Primary Care Provider Active Dr. Lm Patel , DO Emergency Provider Active Team Status: Inactive Member Role Status Dates Dr. Peterson Rm DO Primary Care Provider Active Dr. Lm Patel DO Attending Provider, Emergency P andrea Active Real Time Analyst Relationship Specialty Start Date End Date Peterson Rm Johan [address] [place] [address] PCP - General 06/09/22 Team Status: Active Member Role Status Dates Dr. Peterson Rm DO Primary Care Provider Active Team Status: Inactive Member Role Status Dates Dr. Peterson Rm DO Primary Care Provider Active Start: March 15, 2025 End: March 15, 2025 Dr. Peterson Rm DO Attending Provider Active Start: March 15, 2025 End: March 15, 2025 Dr. Peterson Rm DO Referring Provider Active Start: March 15, 2025 End: March 15, 2025 Source Comments (unrecognize d section and content) In the event this informatio n is protected by the Federal Confidentiality of Alcohol and Drug Abuse Patient Records regulations: The Federal rules restrict any use of the information to criminally investigate or prosecute any alcohol or drug abuse patient.[facility] the event this information is protected by the Federal Confidentiality of Alcohol and Drug Abuse Patient Records regulations: The Federal rules restrict any use of the information to criminally investigate or prosecute any alcohol or drug abuse patient.[facility] the event this information is protected by the Federal Confidentiality of Alcohol and Drug Abuse Patient Records regulations: The Federal rules restrict any use of the information to criminally investigate or prosecute any alcohol or drug abuse patient.[facility] Reason for Visit (unrecogniz ed section and content) Reason Comments Vaginal Problem Noticed a painful bu mp in the vaginal area today Reason Comments Weight Loss NSURG #3 Reason Comments Weight Loss NSURG #4 Reason Comments Yearly Exam Reason Comments Weight Loss NSURG #5 Reason Comments Weight Loss NSURG NEW Reason Comments Weight Loss NSURG #2 INFORMATION SOURCE (unrecogn ized section and content) DATE CREATED AUTHOR 05/29/2023 [facility] DATE CREATED AUTHOR AUTHOR'S ORGANIZ ATION 08/18/2023 [facility] DATE CREATED AUTHOR AUTHOR'S ORGANIZ ATION 04/08/2025 [facility] FOR RECORDS PERTAINING TO PATIENTS WHO ARE [...] BE BASED ON THE PRIMARY CLINICAL RECORDS. [facility]. provides no warranty or guarantee of the accuracy or completeness of information in this document.
[2025-04-12 10:51] LABS: Erythrocyte Sedimentation Rate 44 mm/hr (0-30)
[2025-04-12 10:58] LABS: Hemoglobin A1c 5.7 % (<=5.6)
[2025-04-12 11:25] LABS: AST(SGOT) 19 U/L (<=31); Alanine Aminotransfer ALT/SGPT 25 U/L (<=34); Albumin, Serum 3.7 g/dL (3.5-5.0); Alkaline Phosphatase 177 U/L (35-104); Bilirubin, Direct 0.19 mg/dL (0.00-0.30); Globulin 3.9 g/dL (2.2-4.2); Protein, Total 7.6 g/dL (5.9-8.4); Total Bilirubin 0.51 mg/dL (0.00-1.30)
[2025-04-12 11:30] LABS: Vitamin D,25 Hydroxy 71.7 ng/mL (30-100)
== END | disposition home or self-care (01) ==
LOC: MTLAB 07:05
PROVIDERS: PCP Family Medicine; Referring Provider Family Medicine; Visit Provider Family Medicine
DX: R79.82 Elevated C-reactive protein (CRP) (principal); E11.9 Type 2 diabetes mellitus without complications; R74.8 Abnormal levels of other serum enzymes; K76.0 Fatty (change of) liver, not elsewhere classified
CPT/HCPCS: 36415; 80076; 82306; 83036; 85652; 86140

== ENCOUNTER → 2025-04-14 | Outpatient (CLI) | payer BC, SELFPAY ==
[2025-04-14 13:28] LABS: Alkaline Phosphatase 180 U/L (35-104)
[2025-04-14 13:35] LABS: Rheumatoid Factor < 10.0 IU/mL (<15)
[2025-04-17 14:08] LABS: ANTINUCLEAR ANTIBODIES DIRECT Negative (Negative)
[2025-04-18 08:08] LABS: CCP IgG Antibodies 5 units (0-19); Endomysial Antibody IgA Negative (Negative); Immunoglobulin A 521 mg/dL (87-352); Thyroglobulin Antibody < 1.0 IU/mL (0.0-0.9); Thyroid Peroxidase AB < 9 IU/mL (0-34); t-Transglutaminase IgA 4 U/mL (0-3)
== END | disposition home or self-care (01) ==
LOC: BFHLAB 10:24
PROVIDERS: PCP Family Medicine; Visit Provider Family Medicine
DX: R74.8 Abnormal levels of other serum enzymes (principal); E11.9 Type 2 diabetes mellitus without complications; R79.82 Elevated C-reactive protein (CRP); L30.9 Dermatitis, unspecified; K76.0 Fatty (change of) liver, not elsewhere classified
CPT/HCPCS: 36415; 82784; 83516; 84075; 84443; 86038; 86200; 86255; 86376; 86431; 86800

== ENCOUNTER → 2025-08-09 | Outpatient (CLI) | payer BC, SELFPAY ==
--- NOTE | 2025-08-09 07:10 | BI_ITS ---
EXAM: SCRN MAMM (CAD)W/SHANIQUA BILAT DATE: 08/09/2025 CLINICAL HISTORY: F, Age 50 y/o , SCREENING Grandmother with breast cancer. Aunt with breast cancer. TECHNIQUE: Procedure Code: [id number] Modality: MG Procedure: SCRN MAMM (CAD)W/SHANIQUA BILAT COMPARISON: Prior exam(s) dated August 08, 2024.. FINDINGS: TISSUE DENSITY: There are scattered areas of fibroglandular density. Bilateral Breast Mammographic Findings: No significant masses, calcifications or other abnormalities are identified. Stable fat containing bilateral axillary lymph nodes. No suspicious masses, areas of developing architectural distortion, or suspicious calcifications. There has been no significant interval change. BI/SCRN MAMM (CAD)W/SHANIQUA BILAT IMPRESSION: Stable bilateral screening mammogram. OVERALL FINAL ASSESSMENT BI-RADS 2: BENIGN RECOMMENDATION: Routine annual follow-up in 1 Year Additional Recommendation none A letter with findings and recommendations will be mailed to the patient. Reading Location: [place] [id number]
--- OUTSIDE RECORDS SUMMARY | 2025-08-09 07:12 | XMS RPT_ITS | CCD ---
Author Organization [facility] Care Team Providers Care Lung Splitter Name Role Phone Dr. Peterson Rm Primary Care Provider [phone] Dr. Edwar Shea Attending Provider [phone] Peterson Rm Referring Provider [phone] SHERRI Bobby Attending Provider Peterson Rm DO Primary Care Provider Peterson Rm Primary Care Provider [phone] Peterson Rm Primary Care Provider Dr. Peterson Rm Primary Care Provider Dr. Peterson Rm Referring Provider [phone] SHERRI Sanchez Attending Provider [phone] OSIRIS VELASQUEZ Attending Unavailable PETERSON RM Primary Care Unavailable OSIRIS VELASQUEZ Attending Unavailable PETERSON RM Primary Care Unavailable OSIRIS VELASQUEZ Attending Unavailable PETERSON RM Primary Care Unavailable OSIRIS VELASQUEZ Attending Unavailable PETERSON RM Primary Care Unavailable OSIRIS VELASQUEZ Attending Unavailable Dr. Peterson Rm Primary Care Provider [phone] Dr. Peterson Rm Referring Provider SHERRI Sanchez Attending Provider [phone] Peterson Rm DO Primary Care Provider Dr. Peterson Rm DO Attending Provider [phone] Dr. Peterson Rm DO Referring Provider [phone] Peterson Rm DO Primary Care Provider MARSHA SUNG Attending Unavailable PETERSON RM Primary Care Unavailable Peterson Rm Primary Care Unavailable JagPeterson apple Attending Unavailable JagPeterson apple Referring Unavailable JagPeterson apple Attending Unavailable Peterson Rm Primary Care Unavailable JagPeterson apple Referring Unavailable Jag, Peterson Primary Care Unavailable JagPeterson apple Attending Unavailable Jga, Peterson Referring Unavailable Jag, Peterson Primary Care Unavailable Jag, Peterson Attending Unavailable Jag, Peterson Referring Unavailable Jag, Peterson Primary Care Unavailable Jag, Peterson Attending Unavailable Jag, Peterson Referring Unavailable Jag, Peterson Attending Unavailable Jag, Peterson Primary Care Unavailable Jag, Peterson Attending Unavailable Jag, Peterson Primary Care Unavailable Marsha Sung Attending Unavailable Marsha Sung Referring Unavailable Peterson Rm Primary Care Unavailable JagPeterson apple Primary Care Unavailable JagPeterson apple Attending Unavailable JagPeterson apple Primary Care Unavailable JagPeterson apple Attending Unavailable JagPeterson apple Referring Unavailable Allergies Allergy Classification Reported Allergen(s) Allergy Type Date of Onset Reaction(s) Facility (7 sources) Adhesive Tape; Translations: [adhesive tape] Allergy to substance 07-07-2023 [facility] (2 sources) Adhesive agent; Translations: [ADHESIVE] Drug Allergy 07-07-2023 [facility] Medications Current Medications Medication Drug Class(es) Dates [...] alvino cium (ATORVASTATIN ORAL) Take by mouth. Active atorvastatin alvino cium (ATORVASTATIN ORAL) Take by mouth. 0 Active Comment on above: Take by mouth. cholecalciferol 0.05 mg oral tablet (20 sources) Vitamin D Start: 2 take 1 tablet by mouth once daily Cholecalciferol (Vitamin D3) (Vitamin D3) 50 mcg (2,000 unit) Tablet Active 50 ug PO DAILY July 05, 2022 12:00am cholecalciferol (D3-5) 5,000 Units tablet Take by mouth. 0 Active cholecalciferol, vitamin D3, (VITAMIN D3 ORAL) (4 sources) cholecalciferol, vitamin D3, (VITAMIN D3 ORAL) Take by mouth. Active cholecalciferol, vitamin D3, (VITAMIN D3 ORAL) Take by mouth. 0 Active Comment on above: Take by mouth. ELDERBERRY FRUIT (4 sources) elderberry fruit (ELDERBERRY ORAL) Take by mouth as directed. Active elderberry fruit (ELDERBERRY ORAL) Take by mouth as directed. 0 Active Comment on above: Take by mouth as dir ected. Elderberry preparation (8 sources) ELDERBERRY PO Ta ke by mouth. 0 Active metFORMIN hydrochloride 500 mg oral tablet (16 sources) Biguanide Start: take 1 tablet by mouth twice daily metFORMIN (GLUCOPHAGE) 500 mg tablet Take 500 mg by mouth twice daily. 12/29/2022 Active metFORMIN (Gluco phage) 500 MG tablet Take by mouth 2 times daily (with meals). 0 Active Comment on above: Take 500 mg by mouth twice daily. metoclopramide 5 mg oral tablet (5 sources) Dopamine-2 Receptor Antagonist Start: take 1 tablet by mouth every eight hours as needed for headache Metoclopramide Hcl (Reglan) 5 mg tablet Active 5 mg PO EVERY 8 HOURS NEEDED as needed for headache 15 5 0 September 07, 2023 11:14am MOUNJARO 12.5 mg/0.5 mL pen injector (1 source) MOUNJARO 12.5 mg /0.5 mL pen injector Active sulfamethoxazole 800 mg / trimethoprim 160 mg oral tablet (1 source) Dihydrofolate Reductase Inhibitor Antibacterial, Sulfonamide Antimicrobial Start: End: sulfamethoxazole-tri methoprim (BACTRIM DS) 800-160 mg per tablet Take 1 tablet by mouth twice daily for 5 days. FOR 3 DAYS. 10 tablet 0 01/16/2023 01/21/2023 Active Comment on above: Take 1 tablet by crystal twice daily for 5 days. FOR 3 DAYS. Vitamin E (20 sources) Start: 022 take 45 mg by mouth once daily Vitamin E Active 45 MG PO DAILY July 04, 2022 11:00pm Start: 07-05-2022 take 45 mg by mouth once daily Vitamin E Active 45 MG PO DAILY July 05, 2022 12:00am take 1 tablet by crystal th once daily vitamin E acid succinate (VITAMIN E SUCCINATE) 268 mg (400 unit) tab Take 1 tablet by mouth once daily. Active Comment on above: Take 1 tablet by crystal th once daily. Vitamin E 400 unit Tablet (3 sources) Start: 07-05-2022 Vitamin E 400 unit Tablet Active 45 mg PO DAILY July 05, 2022 12:00am Completed/Discontinued Medications Medication Drug Class(es) Dates Sig (Normalized) Sig (Original) amoxicillin 875 mg / clavulanate 125 mg oral tablet (8 sources) Penicillin-class Antibacterial Start: 10-13-2022 End: 10-23-2022 Amoxicillin-Pot Clavulanate 875-125 mg tablet Discontinued 1 {tbl} PO Q12H 20 10 October 13, 2022 1:00am October 22, 2022 1:00am October 23, 2022 1:04am Acute sinusitis, unspecified Start: 10-13-2022 End: 10-23-2022 take 1 tablet by mouth every twelve hours Amoxicillin-Pot Clavulanate Discontinued 1 TABLET PO Q12H 20 October 13, 2022 12:00am October 23, 2022 12:04am Bifidobacterium Infantis (3 sources) End: 05-28-2023 Bifidobacterium infantis (AL IGN ORAL) Take by mouth. 0 05/28/2023 Discontinued Bifidobacterium infantis (ALIGN ORAL) Take by mouth. 0 Active Comment on above: Take by mouth. famotidine 40 mg oral tablet (12 sources) Histamine-2 Receptor Antagonist Start: 2 End: 3 take 1 tablet by mouth once daily Famotidine (Pepcid) 40 mg tablet Discontinued 40 mg PO DAILY 14 0 July 08, 2022 12:00am July 07, 2023 [...] once daily. LORazepam 1 mg oral tablet (16 sources) Benzodiazepine Start: 5 End: 0 take 1 tablet by mouth three times daily as needed for anxiety Lorazepam 1 MG tablet Discontinued 1 mg PO THREE TIMES A DAY as needed for Anxiety 10 0 September 22, 2015 4:23am August 16, 2020 2:51pm Problems Active Problems Problem Classification Problem Date Documented Date Episodic/Chronic Diabetes mellitus without complication (16 sources) Type 2 diabetes mellitus without complication; Translations: [Type 2 diabetes mellitus without complications] Onset: 01-21-2023 Chronic Diseases of white blood cells (1 source) Elevated white blood cell count, unspecified; Translations: [Elevated white blood cell count, unspecified] Onset: 12-01-2024 Chronic Disorders of lipid metabolism (10 sources) Hyperlipidemia; Translations: [Hyperlipidemia, unspecified] Onset: 06-30-2022 08-02-2022 Chronic Essential hypertension (1 source) Essential (primary) hypertension; Translations: [Essential (primary) hypertension] Onset: 07-14-2025 Chronic Headache; including migraine (5 sources) Acute headache; Translations: [Acute headache] 09-07-2023 Episodic Immunizations and screening for infectious disease (2 sources) Patient encounter status; Translations: [Encounter for screening for human papillomavirus (HPV)] Onset: 06-06-2025 06-06-2025 Episodic Inflammatory diseases of female pelvic organs (1 source) Abscess of vulva; Translations: [Abscess of vulva] Episodic Other diseases of veins and lymphatics (6 sources) Venous varices; Translations: [Varicose veins of other specified sites] 07-10-2023 Episodic Comment on above: Left lateral thigh Other diseases of veins and lymphatics (2 sources) Varicose veins of other specified sites; Translations: [Asymptomatic varicose veins] 07-07-2023 Episodic Other liver diseases (1 source) Fatty (change of) liver, not elsewhere classified; Translations: [Fatty (change of) liver, not elsewhere classified] Onset: 07-14-2025 Chronic Other nutritional; endocrine; and metabolic disorders (11 sources) Body mass index 40+ - severely [...] to excess calories (HCC)] Onset: 01-21-2023 Chronic Other screening for suspected conditions (not mental disorders or infectious disease) (6 sources) Cancer cervix screening status; Translations: [Encounter for screening for malignant neoplasm of cervix] Onset: 08-29-2024 06-06-2025 Episodic Otitis media and related conditions (9 sources) Acute left otitis media; Translations: [Otitis media, unspecified, left ear] 10-13-2022 Episodic Residual codes; unclassified (8 sources) Sleep apnea; Translations: [Sleep apnea, unspecified] Onset: 06-30-2022 08-02-2022 Chronic Past or Other Problems Problem Classification Problem Date Documented Da te Episodic/Chronic Abdominal pain (13 sources) Epigastric pain; Translations: [Epigastric pain] Onset: 12-04-2024 07-16-2022 Episodic Diabetes mellitus without complication (8 sources) Prediabetes; Translations: [Prediabetes] Onset: 06-30-2022 08-02-2022 Episodic Other liver diseases (1 source) Abnormal levels of other serum enzymes; Translations: [Abnormal levels of other serum enzymes] Onset: 04-18-2025 Episodic Other lower respiratory disease (8 sources) Dyspnea on exertion; Translations: [Other forms of dyspnea] Onset: 06-30-2022 08-02-2022 Episodic Other nutritional; endocrine; and metabolic disorders (2 sources) Weight loss; Translations: [Weight Loss] Onset: 02-24-2023 Episodic Results Test Name Value Interpretation Reference Range Facility [facility] 06-11-2025 CNCO Letter Text Letter Text Normal [facility] CNOVon 06-06-2025 CNOV Office Visit (OBGYWM) MICHAEL CAST ([id number]) 1975 F Date Time Provider Department 06/06/25 9:00 AM MARSHA SUNG OBGYWM During your visit today, we recorded the following information about you: Blood pressure Weight Height 124/88 124.7 kg 1.67 m Marsha Sung MD 06/06/2025 9:30 AM Signed Michael is a 50 year old who presents for an annual gynecologic exam without complaints. s/p tubal and ablation. No bleeding or spotting. No hot flahses or vaginal dryness Still get period: No LMP: none since ablation Menopause symptoms: None Time with current partner: 27 years Contraception frequency: Always HPV vaccine: Unsure; HPV:negative Last pap smear: 2019 History of abnormal pap: No Bothersome pelvic pain: Yes Last mammogram: 2023normal OB History Gravida2 Para2 Term2 Preterm0 AB0 Living2 SAB0 IAB0 Ectopic0 Multiple0 Live Births2 Insurance Solicitor History LMP: 04/28/2018, Ablation Age at Menarche: Age at First : Age at Menopause: Insurance Solicitor History Comments: Sexual Activity: Yes; Male; novasure [...] Ischemic Heart Disease Maternal Grandfather 53 of [place] Breast Cancer Maternal Aunt SOCIAL HISTORY Social History Tobacco Use Smoking status: Never Passive exposure: Never Smokeless tobacco: Never Vaping Use Vaping status: Never Used Substance Use Topics Alcohol use: Not Currently Drug use: Never REVIEW OF SYSTEMS Abdomen: No abdominal pain, nausea, vomiting, diarrhea, or constipation. No bloating, early satiety, indigestion, or increased flatulence. Bladder: No dysuria, gross hematuria, urinary frequency, urinary urgency, or incontinence. Breast: No breast lumps, nipple d/c, overlying skin changes, redness or skin retraction. Allergies and current medication updated:Yes SENSITIVE EXAM: The sensitive examination was discussed with the Patient or Patient's Authorized Firing Pin Gauger. As applicable, any other physician, advance practice provider, medical student, or other health professional student that will be observing or involved in the sensitive examination for educational or training purposes was discussed with the Patient or Authorized Firing Pin Gauger. The Patient or Authorized Firing Pin Gauger has agreed to proceed with the sensitive examination. (Sensitive examination includes inspection and/or palpation of the breasts, pelvis, prostate and anorectal regions). EXAM: BP 124/88 Ht 5' 5.75" (1.67m) Wt 275 lb (124.7kg) LMP 04/28/2018 BMI 44.73 kg/(m2). GENERAL: pleasant, female in no apparent [...] external genitalia normal, normal Bartholin's glands, urethra, Marenisco's glands, no vulvar lesions, no cervical lesions, good vaginal support, physiologic discharge present, normal appearing perineal body and perianal region, few vulvar inclusion cysts BIMANUAL: uterus normal size, shape and consistency, no adnexal masses, and non-tender RECTOVAGINAL: deferred. NEURO: alert and oriented x3,exam grossly non-focal EXTREMITIES: normal ASSESSMENT/PLAN: 1) Health maintenance: Pap done with HPV. Mammogram up to date . 2) Contraception: tubal sterilization. Contraceptive options reviewed and information provided. 3) STD screening: Declined STI check. 4) Follow up one year or sooner as needed Marsha Sung MD Allergies As of Date: 06/06/2025 Noted Allergy Reaction ADHESIVE 07/07/2023 4 - Hives Date Reviewed: 06/06/2025 Reviewed by: Marsha Sung MD - Fully Assessed Reason for Visit: Yearly Exam [187] Primary Visit Diagnosis:Encounter for gynecological examination (general) (routine) without abnormal findings [Z01.419] Other Visit Diagnoses:Screening for cervical cancer [Z12.4] Encounter for screening for human papillomavirus (HPV) [Z11.51] Order(s):PAP TEST [[id number]] Order #: [id number] Prescriptions as of 06/06/2025 - MOUNJARO 12.5 mg/0.5 mL pen in (more content not included)... Normal [facility] HIGH RISK HUMAN PAPILLOMA SOLIS (HPV), PCR FOR DETECTION AND GENOTYPINGon 06-06-2025 HPV 16 Ag Ql (Unsp spec) Not detected Normal Not detec luis miguel [facility] Comment on above: Order Comment: Speci men Type: FLUID SPECIMEN Ordering Facility: [facility] Address: [address] [place] [address] Performed By: #### H PVHRT #### [facility] CLIA [id number] [address] [place] [address] [place] HPV 18 Ag Ql (Unsp spec) Not detected Normal Not detec luis miguel [facility] Comment on above: Order Comment: Speci men Type: FLUID SPECIMEN Ordering Facility: [facility] Address: [address] [place] [address] Performed By: #### H PVHRT #### [facility] CLIA [id number] [address] [place] [address] [place] HPV 31+33+35+39+45+51+52+56+ 58+59+66+68 DNA NATHANAEL+probe Ql (Cvx) Not detected Normal Not detected [facility] Comment on above: Order Comment: Speci men Type: FLUID SPECIMEN Ordering Facility: [facility] Address: [address] [place] [address] Result Comment: High Risk HPV Other Type includes HPV types 31, 33, 35, 39, 45, 51, 52, 56, 58, 59, 66 and 68. Performed By: #### H PVHRT #### [facility] CLIA [id number] [address] [place] [address] [place] PAP TESTon 06-06-2025 ADEQUACY Normal [facility] Comment on above: Order Comment: Speci men Type: FLUID SPECIMEN Ordering Facility: [facility] Address: [address] [place] [address] Result Comment: Sati sfactory for interpretation. Transformation zone present Performed By: #### L [id number] #### [facility] CLIA [id number] [address] [place] [address] [place] CASE REPORT Normal [facility] Comment on above: Order Comment: Speci men Type: FLUID SPECIMEN Ordering Facility: [facility] Address: [address] [place] [address] Result Comment: Gyne cologic Cytology Report Case: [id number] Authorizing Provider: Marsha Sung MD Collected: 06/06/2025 09:41 AM Ordering Location: OB/Gynecology Received: 06/06/2025 11:44 AM First Screen: [place], [place], [place], ASCP Specimen: Pap Test, ThinPrep, Cervix Performed By: #### L [id number] #### [facility] CLIA [id number] [address] [place] [address] [place] CLINICAL HISTORY, CYTOLOGY, PROCESSOR GRAIN No Menses, Other (Specify) Normal [facility] Comment on above: Order Comment: Speci men Type: FLUID SPECIMEN Ordering Facility: [facility] Address: [address] [place] [address] Performed By: #### L [id number] #### [facility] CLIA [id number] [address] [place] [address] [place] FINAL PERFORMING LAB Normal [facility] Comment on above: Order Comment: Speci men Type: FLUID SPECIMEN Ordering Facility: [facility] Address: [address] [place] [address] Result Comment: Tech nical component, reference investigator screening performed at: [facility], [address] [place] [address] [place] [address] CLIA: [id number] Diagnostic interpretation performed at: [facility], [address] [place], [place] [id number] CLIA# [id number] Multi Site Leasing Consultant: Santhosh Caruso MD Performed By: #### L [id number] #### [facility] CLIA [id number] [address] [place] [address] [place] INTERPRETATION, CYTOLOGY, PROCESSOR GRAIN Normal [facility] Comment on above: Order Comment: Speci men Type: FLUID SPECIMEN Ordering Facility: [facility] Address: [address] [place] [address] Result Comment: Nega tive for intraepithelial lesion or malignancy. at 1000 EDT Performed By: #### L [id number] #### [facility] CLIA [id number] [address] [place] [address] [place] PAP DISCLAIMER COMMENT The Pap Smear is a screening test for cervical cancer. False negative results occur with all screening tests, emphasizing the need for rescreening at recommended intervals, and clinical correlation. Normal [facility] Comment on above: Order Comment: Speci men Type: FLUID SPECIMEN Ordering Facility: [facility] Address: [address] [place] [address] Performed By: #### L [id number] #### [facility] CLIA [id number] [address] [place] [address] [place] PAP PROCESS CONTROL TECHNICIAN COMMENT This specimen has been analyzed by the FDA-approved Greenphire System, which uses digital imaging and an enhanced artificial intelligence image analysis algorithm to identify navarro of interest on the microscopic slide, to assist the metal spraying machine operator and pathologist in evaluating cells on ThinPrep Pap tests. Following analysis, navarro of interest on the microscopic slide selected by the algorithm are reviewed by a metal spraying machine operator. If a sample requires hierarchical review, the pathologist will review the same navarro of interest selected by the algorithm prior to final interpretation. Normal [facility] Comment on above: Order Comment: Speci men Type: FLUID SPECIMEN Ordering Facility: [facility] Address: [address] [place] [address] Performed By: #### L [id number] #### [facility] CLIA [id number] [address] [place] [address] [id number] 04-23-2025 [facility] Misc. COMMENT Normal . [facility] Comment on above: Order Comment: ADD O N TO BW DONE 04/14*SEE MENU FOR SEND OUT INSTRUC.MISSED TEST-DR ORDERED ALK PHOS FRACTIONATIONS-PER ALICIA THISIS THE CORRECT TEST TO ORDERSER OR LITH HEP*LOOK IN MENU FOR SENDOUT INSTRUC.MISSED TEST-DR ORDERED ALK PHOS FRACTIONATIONS-PER ALICIA THISIS THE CORRECT TEST TO [id number] PHOS ISOENZYMES Result Comment: Test Ordered: [id number] Alk Phos Isoenzymes Alkaline Phosphatase 186 [H ] IU/L CB Reference Range: 44-121 Liver Fraction %: 72 % BN Reference Range: Not Estab. Liver Fraction IU/L: 134 [H ] IU/L CB Reference Range: 23-85 Bone Fraction %: 27 % BN Reference Range: Not Estab. Bone Fraction IU/L: 50 IU/L CB Reference Range: 18-57 Intestinal Frac.%: 1 % BN Reference Range: Not Estab. IntestinalFrac.IU/L: 2 IU/L CB Reference Range: 0-14 Performed at: [facility] [id number] Dry Cure Worker: Mark Balderrama PhD, Phone: [phone] Performed at: [facility] [address] [id number] Dry Cure Worker: Becca Acharya MD, Phone: [phone] Performed By: #### L 101.9900, L3600.4000, L501.0286, L3200.1275, L3100.3450 #### [facility] [address] [place], [address] CCP IgG Antibodieson 025 CCP IgG Ab. 5 units Normal 0-19 [facility] Comment on above: Order Comment: ADD O N TO BW DONE 04/14MISSED TEST-DR ORDERED ALK PHOS FRACTIONATIONS-PER ALICIA THISIS THE CORRECT TEST TO ORDER Result Comment: Nega tive <20 Weak positive 20 - 39 Moderate positive 40 - 59 Strong positive >59 Performed By: #### L 101.9900, L3600.4000, L501.6710, L3200.1275, L3100.3450 #### [facility] [address] [place], [address] Celiac Disease Profileon ENDOMYSIAL IGA Negative Normal Negative [facility] Comment on above: Order Comment: ADD O N TO BW DONE 04/14MISSED TEST-DR ORDERED ALK PHOS FRACTIONATIONS-PER [facility] THIS THE CORRECT TEST TO ORDER Performed By: #### L 101.9900, L3600.4000, L501.6710, L3200.1275, L3100.3450 #### [facility] [address] [place], [address] IMMUNOGLOB A QN 521 mg/dL High 87-352 [facility] Comment on above: Order Comment: ADD O N TO BW DONE 04/14MISSED TEST-DR ORDERED ALK PHOS FRACTIONATIONS-PER ALICIA THIS THE CORRECT TEST TO ORDER Performed By: #### L 101.9900, L3600.4000, L501.6710, L3200.1275, L3100.3450 #### [facility] [address] [place], [address] tTG IGA 4 U/mL Abnormal 0-3 [facility] Comment on above: Order Comment: ADD O N TO BW DONE 04/14MISSED TEST-DR ORDERED ALK PHOS FRACTIONATIONS-PER ALICIA THIS THE CORRECT TEST TO ORDER Result Comment: Nega tive 0 - 3 Weak Positive 4 - 10 Positive >10 Tissue Transglutaminase (tTG) has been identified as the endomysial antigen. Studies have demonstr- ated that endomysial IgA antibodies have over 99% specificity for gluten sensitive enteropathy. Performed By: #### L 101.9900, L3600.4000, L501.6710, L3200.1275, L3100.3450 #### [facility] [address] [place], [address] Thyroid Antibodieson 025 TG AB < 1.0 Normal 0.0-0.9 [facility] Comment on above: Order Comment: ADD O N TO BW DONE 04/14MISSED TEST- ORDERED ALK PHOS FRACTIONATIONS-PER ALICIA THISIS THE CORRECT TEST TO ORDER Result Comment: Thyr oglobulin Antibody measured by Jovanny Salvatore Methodology It should be noted that the presence of thyroglobulin antibodies may not be pathogenic nor diagnostic, especially at very low levels. The assay hydraulic jack mechanic has found that four percent of individuals without evidence of thyroid disease or autoimmunity will have positive TgAb levels up to 4 IU/mL. Performed at: [address] [id number] Dry Cure Worker: Mark Balderrama PhD, Phone: [phone] Performed By: #### L 101.9900, L3600.4000, L501.6710, L3200.1275, L3100.3450 #### [facility] [address] [place], [place], [id number] THYR PEROX AB < 9 Normal 0-34 [facility] Comment on above: Order Comment: ADD O N TO BW DONE 04/14MISSED TEST- ORDERED ALK PHOS FRACTIONATIONS-PER ALICIA THISIS THE CORRECT TEST TO ORDER Performed By: #### L 101.9900, L3600.4000, L501.6710, L3200.1275, L3100.3450 #### [facility] [address] [place], [place], [id number] ANTINUCLEAR ANTIBODIES DIRE Ton 04-17-2025 GEORGE,DIRECT Negative Normal Negative [facility] Comment on above: Result Comment: Perf ormed at: - [facility] [address] [id number] Dry Cure Worker: Mark Balderrama PhD, Phone: [phone] Performed By: #### L 101.9900, L3600.4000, L501.6710, L3200.1275, L3100.3450 #### [facility] [address] [place], [place], [id number] Alkaline Phosphataseon 04-14 ALK PHOS 180 U/L High 35-104 [facility] Comment on above: Performed By: #### L 101.9900, L3600.4000, L501.6710, L3200.1275, L3100.3450 #### [facility] [address] [place], [place], [id number] Rheumatoid Factoron 04-14-20 25 RHEUMATOID FAC < 10.0 Normal <15 [facility] Comment on above: Performed By: #### L 101.9900, L3600.4000, L501.6710, L3200.1275, L3100.3450 #### [facility] [address] [place], [place], [id number] Serum or plasma IgA measurem ent (mass/volume)Ordered By: Peterson Rm on 04-14-2025 IgA [Mass/Vol] 521 mg/dL High 87-352 [facility] Serum or plasma alkaline enedelia sphatase measurementOrdered By: Peterson Rm on 04-14-2025 ALP [Catalytic activity/Vol] 180 U/L High 35-104 [facility] Serum or plasma cyclic citru llinated peptide IgG antibody assay (units/volume)Ordered By: Peterson Rm on 04-14-2025 Cyclic citrullinated peptide IgG Qn 5 units 0-19 [facility] Comment on above: Negative <20 Weak po sitive 20 - 39 Moderate positive 40 - 59 Strong positive >59 Serum or plasma thyroperoxid ase antibody assay (units/volume)Ordered By: Peterson Rm on 04-14-2025 TPO Ab Qn [IU]/mL 0-34 [facility] Serum rheumatoid factor dete ctionOrdered By: Peterson Rm on 04-14-2025 Rheumatoid factor Ql (S) < 10.0 IU/mL <15 [facility] Serum tissue transglutaminas e (tTG) IgA antibody assay (units/volume)Ordered By: Peterson mR on 04-14-2025 tTG IgA Qn (S) 4 U/mL High 0-3 [facility] Comment on above: Negative 0 - 3 Weak Positive 4 - 10 Positive >10 Tissue Transglutaminase (tTG) has been identified as the endomysial antigen. Studies have demonstr- ated that endomysial IgA antibodies have over 99% specificity for gluten sensitive enteropathy. TSH DL <= 0.005 mIU/L QnOrde red By: Peterson Rm on 04-14-2025 TSH Qn 2.160 uIU/mL 0.300-4.200 [facility] Thyroid Stim Hormone (TSH)on 04-14-2025 TSH 2.160 uIU/mL Normal 0.300-4.200 [facility] Comment on above: Performed By: #### L 101.9900, L3600.4000, L501.6710, L3200.1275, L3100.3450 #### [facility] [address] [place], [address] Bilirubin directOrdered By: Peterson Rm on 04-12-2025 Bilirubin.direct [Mass/Vol] 0.19 mg/dL 0.00-0.30 [facility] Bilirubin, totalOrdered By: Peterson Rm on 04-12-2025 Bilirubin [Mass/Vol] 0.51 mg/dL 0.00-1.30 [facility] CRPon 04-12-2025 C-REACTIVE PROT 27.10 mg/L High 0.0-3.0 [facility] Comment on above: Performed By: #### L 101.9900, L3600.4000, L501.6710, L3200.1275, L3100.3450 #### [facility] [address] [place], [address] Erythrocyte Sed Rateon 04-12 SED RATE 44 mm/hr High 0-30 [facility] Comment on above: Performed By: #### L 101.9900, L3600.4000, L501.6710, L3200.1275, L3100.3450 #### [facility] [address] [place], [address] Erythrocyte sedimentation ra teOrdered By: Peterson Rm on 04-12-2025 ESR (Bld) [Velocity] 44 mm/h High 0-30 [facility] Hemoglobin A1con 04-12-2025 HbA1c (Bld) [Mass fraction] 5.7 % Normal <=5.6 [facility] Comment on above: Result Comment: Norm al < 5.7 % Prediabetic 5.7 - 6.4 % Diabetic >or= 6.5 % Please note range changes. Performed By: #### L 101.9900, L3600.4000, L501.6710, L3200.1275, L3100.3450 #### [facility] [address] [place], [address] Hemoglobin A1c percentageOrd ered By: Peterson Rm on 04-12-2025 HbA1c (Bld) [Mass fraction] 5.7 % <5.7 [facility] Comment on above: Normal < 5.7 % Predi abetic 5.7 - 6.4 % Diabetic >or= 6.5 % Please note range changes. Laboratory - Chemistry and C hemistry - challengeOrdered By: Peterson Rm on 04-12-2025 AST [Catalytic activity/Vol] 19 U/L <32 [facility] Liver Profileon 04-12-2025 Albumin [Mass/Vol] 3.7 g/dL Normal 3.5-5.0 [facility] Comment on above: Performed By: #### L 101.9900, L3600.4000, L501.6710, L3200.1275, L3100.3450 #### [facility] [address] [place], [address] ALK PHOS 177 U/L High 35-104 [facility] Comment on above: Performed By: #### L 101.9900, L3600.4000, L501.6710, L3200.1275, L3100.3450 #### [facility] [address] [place], [address] ALT [Catalytic activity/Vol] 25 U/L Normal <=34 [facility] Comment on above: Performed By: #### L 101.9900, L3600.4000, L501.6710, L3200.1275, L3100.3450 #### [facility] [address] [place], [address] AST [Catalytic activity/Vol] 19 U/L Normal <=31 [facility] Comment on above: Performed By: #### L 101.9900, L3600.4000, L501.6710, L3200.1275, L3100.3450 #### [facility] [address] [place], [address] Bilirubin [Mass/Vol] 0.51 mg/dL Normal 0.00-1.30 [facility] Comment on above: Performed By: #### L 101.9900, L3600.4000, L501.6710, L3200.1275, L3100.3450 #### [facility] [address] [place], [address] Bilirubin.direct [Mass/Vol] 0.19 mg/dL Normal 0.00-0.30 [facility] Comment on above: Performed By: #### L 101.9900, L3600.4000, L501.6710, L3200.1275, L3100.3450 #### [facility] [address] [place], [address] Globulin (S) [Mass/Vol] 3.9 g/dL Normal 2.2-4.2 [facility] Comment on above: Performed By: #### L 101.9900, L3600.4000, L501.6710, L3200.1275, L3100.3450 #### [facility] [address] [place], [address] T PROT 7.6 g/dL Normal 5.9-8.4 [facility] Comment on above: Performed By: #### L 101.9900, L3600.4000, L501.6710, L3200.1275, L3100.3450 #### [facility] [address] [place], [address] Serum globulin measurementOr dered By: Peterson Rm on 04-12-2025 Globulin (S) [Mass/Vol] 3.9 g/dL 2.2-4.2 [facility] Serum or plasma C reactive p rotein measurement (mass/volume)Ordered By: Peterson Rm on 04-12-2025 CRP [Mass/Vol] 27.10 mg/L High 0.0-3.0 [facility] Serum or plasma alanine pena otransferase (ALT) measurementOrdered By: Peterson Rm on 04-12-2025 ALT [Catalytic activity/Vol] 25 U/L <35 [facility] Serum or plasma albumin christal urement (mass/volume)Ordered By: Peterson Rm on 04-12-2025 Albumin [Mass/Vol] 3.7 g/dL 3.5-5.0 [facility] Serum or plasma alkaline enedelia sphatase measurementOrdered By: Peterson Rm on 04-12-2025 ALP [Catalytic activity/Vol] 177 U/L High 35-104 [facility] Total proteinOrdered By: Amrita Rm on 04-12-2025 Protein [Mass/Vol] 7.6 g/dL 5.9-8.4 [facility] Vitamin D,25 Hydroxyon 04-12 Vitamin D 25-OH 71.7 ng/mL Normal 30-100 [facility] Comment on above: Result Comment: Jenn min D Status Deficiency: <20 ng/mL (50nmol/L) Insufficiency: 20-30 ng/mL (50-75 nmol/L) Sufficiency: 30-100 ng/mL (75-250 nmol/L) Toxicity: >100 ng/mL (>250 nmol/L) Performed By: #### L 101.9900, L3600.4000, L501.6710, L3200.1275, L3100.3450 #### [facility] [address] [place], [place], [id number] Absolute lymphocyte countOrd ered By: Peterson Rm on 03-15-2025 Lymphocytes Auto (Unsp spec) [#/Vol] 2.76 10*3/uL 0.83-4.51 [facility] Absolute neutrophil countOrd ered By: Peterson Rm on 03-15-2025 Neutrophils (Bld) [#/Vol] 7.4 10*3/uL 2.0-7.7 [facility] Anion gap in Serum or Plasma Ordered By: Peterson Rm on 03-15-2025 Anion gap [Moles/Vol] 13 mmol/L 5-15 [facility] Automated lymphocyte count a s percentage of total leukocytesOrdered By: Peterson Rm on 03-15-2025 Lymphocytes/100 WBC Auto (Unsp spec) 25.6 % 19- [facility] BUN/creatinine ratioOrdered By: Peterson Rm on 03-15-2025 Urea nitrogen/Creatinine [Mass ratio] 11.3 mg/mg 10- [facility] Basophil percentageOrdered B y: Peterson Rm on 03-15-2025 Basophils/100 WBC (Bld) 0.6 % 0-1 [facility] Bilirubin, totalOrdered By: Peterson Rm on 03-15-2025 Bilirubin [Mass/Vol] 0.44 mg/dL 0.00-1.30 [facility] CBC W/Diff, Automatedon 02-17 Absolute Lymph 2.76 X10 3/uL Normal 0.83-4.51 [facility] Comment on above: Performed By: #### L 101.9900, L3600.4000, L501.6710, L3200.1275, L3100.3450 #### [facility] [address] [place], [place], [id number] Absolute Neut 7.4 X10 3/uL Normal 2.0-7.7 [facility] Comment on above: Performed By: #### L 101.9900, L3600.4000, L501.6710, L3200.1275, L3100.3450 #### [facility] [address] [place], [address] Basophils/100 WBC (Bld) 0.6 % Normal 0-1 [facility] Comment on above: Performed By: #### L 101.9900, L3600.4000, L501.6710, L3200.1275, L3100.3450 #### [facility] [address] [place], [address] Eosinophils/100 WBC (Bld) 1.1 % Normal 0-5 [facility] Comment on above: Performed By: #### L 101.9900, L3600.4000, L501.6710, L3200.1275, L3100.3450 #### [facility] [address] [place], [address] Erythrocyte distribution width (RBC) [Ratio] 14.8 % High 11.6-14.6 [facility] Comment on above: Performed By: #### L 101.9900, L3600.4000, L501.6710, L3200.1275, L3100.3450 #### [facility] [address] [place], [address] Hematocrit (Bld) [Volume fraction] 42.4 % Normal 37-47 [facility] Comment on above: Performed By: #### L 101.9900, L3600.4000, L501.6710, L3200.1275, L3100.3450 #### [facility] [address] [place], [address] Hemoglobin (Bld) [Mass/Vol] 13.6 g/dL Normal 12.0-15.0 [facility] Comment on above: Performed By: #### L 101.9900, L3600.4000, L501.6710, L3200.1275, L3100.3450 #### [facility] [address] [place], [address] IG% 0.300 Normal 0.0-0.9 [facility] Comment on above: Result Comment: IG% - Immature Granulocytes (promyelocytes, myelocytes and metamyelocytes) > 1% indicates that a LEFT SHIFT is Present. Performed By: #### L 101.9900, L3600.4000, L501.6710, L3200.1275, L3100.3450 #### [facility] [address] [place], [address] Lymphocytes/100 WBC (Bld) 25.6 % Normal 19-41 [facility] Comment on above: Performed By: #### L 101.9900, L3600.4000, L501.6710, L3200.1275, L3100.3450 #### [facility] [address] [place], [address] MCH (RBC) [Entitic mass] 26.9 pg Low 27.0-32.0 [facility] Comment on above: Performed By: #### L 101.9900, L3600.4000, L501.6710, L3200.1275, L3100.3450 #### [facility] [address] [place], [address] MCHC (RBC) [Mass/Vol] 32.1 g/dL Normal 32-36 [facility] Comment on above: Performed By: #### L 101.9900, L3600.4000, L501.6710, L3200.1275, L3100.3450 #### [facility] [address] [place], [address] MCV (RBC) [Entitic vol] 83.8 fL Normal 81-99 [facility] Comment on above: Performed By: #### L 101.9900, L3600.4000, L501.6710, L3200.1275, L3100.3450 #### [facility] [address] [place], [address] Monocytes/100 WBC (Bld) 4.1 % Normal 0-10 [facility] Comment on above: Performed By: #### L 101.9900, L3600.4000, L501.6710, L3200.1275, L3100.3450 #### [facility] [address] [place], [address] Neutrophils/100 WBC (Bld) 68.3 % Normal 47-70 [facility] Comment on above: Performed By: #### L 101.9900, L3600.4000, L501.6710, L3200.1275, L3100.3450 #### [facility] [address] [place], [address] Nucleated RBC (Bld) [#/Vol] 0 10*3/uL Normal 0-5 [facility] Comment on above: Performed By: #### L 101.9900, L3600.4000, L501.6710, L3200.1275, L3100.3450 #### [facility] [address] [place], [address] Platelet mean volume (Bld) [Entitic vol] 9.5 fL Normal 6.2-12.0 [facility] Comment on above: Performed By: #### L 101.9900, L3600.4000, L501.6710, L3200.1275, L3100.3450 #### [facility] [address] [place], [address] Platelets (Bld) [#/Vol] 396 10*3/uL Normal 150-450 [facility] Comment on above: Performed By: #### L 101.9900, L3600.4000, L501.6710, L3200.1275, L3100.3450 #### [facility] [address] [place], [address] RBC (Bld) [#/Vol] 5.06 10*6/uL Normal 4.2-5.4 [facility] Comment on above: Performed By: #### L 101.9900, L3600.4000, L501.6710, L3200.1275, L3100.3450 #### [facility] [address] [place], [address] RDW SD 45.1 fl High 35.1-43.9 [facility] Comment on above: Performed By: #### L 101.9900, L3600.4000, L501.6710, L3200.1275, L3100.3450 #### [facility] [address] [place], [address] WBC (Bld) [#/Vol] 10.8 10*3/uL Normal 4.4-11.0 [facility] Comment on above: Performed By: #### L 101.9900, L3600.4000, L501.6710, L3200.1275, L3100.3450 #### [facility] [address] [place], [address] CRPon 03-15-2025 C-REACTIVE PROT 27.80 mg/L High 0.0-3.0 [facility] Comment on above: Performed By: #### L 101.9900, L3600.4000, L501.6710, L3200.1275, L3100.3450 #### [facility] [address] [place], [address] Calculated very low density lipoprotein (VLDL) cholesterol measurementOrdered By: Peterson Rm on 03-15-2025 Calculated very low density lipoprotein (VLDL) cholesterol measurement 14 mg/dL 5-40 [facility] Carbon dioxide, total [Moles /volume] in Central venous bloodOrdered By: Peterson Rm on 03-15-2025 CO2 [Moles/Vol] 21.6 mmol/L 21.0-32.0 [facility] Chloride assayOrdered By: Mike Rm on 03-15-2025 Chloride [Moles/Vol] 104 mmol/L 98-108 [facility] Comprehensive Metabolic Prof ilon 03-15-2025 Albumin [Mass/Vol] 3.8 g/dL Normal 3.5-5.0 [facility] Comment on above: Performed By: #### L 101.9900, L3600.4000, L501.6710, L3200.1275, L3100.3450 #### [facility] [address] [place], [address] Albumin/Globulin [Mass ratio] 1.0 {ratio} Normal 0.9-2.4 [facility] Comment on above: Performed By: #### L 101.9900, L3600.4000, L501.6710, L3200.1275, L3100.3450 #### [facility] [address] [place], [address] ALK PHOS 178 U/L High 35-104 [facility] Comment on above: Performed By: #### L 101.9900, L3600.4000, L501.6710, L3200.1275, L3100.3450 #### [facility] [address] [place], [address] ALT [Catalytic activity/Vol] 26 U/L Normal <=34 [facility] Comment on above: Performed By: #### L 101.9900, L3600.4000, L501.6710, L3200.1275, L3100.3450 #### [facility] [address] [place], [address] AST [Catalytic activity/Vol] 20 U/L Normal <=31 [facility] Comment on above: Performed By: #### L 101.9900, L3600.4000, L501.6710, L3200.1275, L3100.3450 #### [facility] [address] [place], [address] Bilirubin [Mass/Vol] 0.44 mg/dL Normal 0.00-1.30 [facility] Comment on above: Performed By: #### L 101.9900, L3600.4000, L501.6710, L3200.1275, L3100.3450 #### [facility] [address] [place], [address] BUN/CRE 11.3 RATIO Normal 10-20 [facility] Comment on above: Performed By: #### L 101.9900, L3600.4000, L501.6710, L3200.1275, L3100.3450 #### [facility] [address] [place], [address] Calcium [Mass/Vol] 9.1 mg/dL Normal 7.6-11.0 [facility] Comment on above: Performed By: #### L 101.9900, L3600.4000, L501.6710, L3200.1275, L3100.3450 #### [facility] [address] [place], [address] Chloride [Moles/Vol] 104 mmol/L Normal 98-108 [facility] Comment on above: Performed By: #### L 101.9900, L3600.4000, L501.6710, L3200.1275, L3100.3450 #### [facility] [address] [place], [address] CO2 [Moles/Vol] 21.6 mmol/L Normal 21.0-32.0 [facility] Comment on above: Performed By: #### L 101.9900, L3600.4000, L501.6710, L3200.1275, L3100.3450 #### [facility] [address] [place], [address] Creatinine [Mass/Vol] 0.72 mg/dL Normal 0.70-1.20 [facility] Comment on above: Performed By: #### L 101.9900, L3600.4000, L501.6710, L3200.1275, L3100.3450 #### [facility] [address] [place], [address] GAP 13 Normal 5-15 [facility] Comment on above: Performed By: #### L 101.9900, L3600.4000, L501.6710, L3200.1275, L3100.3450 #### [facility] [address] [place], [address] GFR/1.73 sq M.predicted among non-blacks MDRD (S/P/Bld) [Vol rate/Area] 104 mL/min/{1.73_m2} Normal >60 [facility] Comment on above: Result Comment: mL/m in/1.73m2 CKD-EPI Creatinine Equation (2020) Performed By: #### L 101.9900, L3600.4000, L501.6710, L3200.1275, L3100.3450 #### [facility] [address] [place], [address] Globulin (S) [Mass/Vol] 4.0 g/dL Normal 2.2-4.2 [facility] Comment on above: Performed By: #### L 101.9900, L3600.4000, L501.6710, L3200.1275, L3100.3450 #### [facility] [address] [place], [address] Glucose [Mass/Vol] 103 mg/dL High 70-99 [facility] Comment on above: Performed By: #### L 101.9900, L3600.4000, L501.6710, L3200.1275, L3100.3450 #### [facility] [address] [place], [address] Potassium [Moles/Vol] 3.8 mmol/L Normal 3.3-5.1 [facility] Comment on above: Performed By: #### L 101.9900, L3600.4000, L501.6710, L3200.1275, L3100.3450 #### [facility] [address] [place], [address] Sodium [Moles/Vol] 139 mmol/L Normal 133-145 [facility] Comment on above: Performed By: #### L 101.9900, L3600.4000, L501.6710, L3200.1275, L3100.3450 #### [facility] [address] [place], [address] T PROT 7.8 g/dL Normal 5.9-8.4 [facility] Comment on above: Performed By: #### L 101.9900, L3600.4000, L501.6710, L3200.1275, L3100.3450 #### [facility] [address] [place], [address] Urea nitrogen [Mass/Vol] 8 mg/dL Normal 4-19 [facility] Comment on above: Performed By: #### L 101.9900, L3600.4000, L501.6710, L3200.1275, L3100.3450 #### [facility] [address] [place], [address] Eosinophil percentageOrdered By: Peterson Rm on 03-15-2025 Eosinophils/100 WBC (Bld) 1.1 % 0-5 [facility] Erythrocyte distribution wid th ratioOrdered By: Peterson mR on 03-15-2025 Erythrocyte distribution width (RBC) [Ratio] 14.8 % High 11.6-14.6 [facility] Erythrocyte distribution wid th standard deviationOrdered By: Peterson Rm on 03-15-2025 Erythrocyte distribution width (RBC) [Ratio] 45.1 fl High 35.1-43.9 [facility] Glomerular filtration rate ( GFR) estimation/1.73 sq m using serum, plasma, or whole bOrdered By: Peterson Rm on 03-15-2025 GFR/1.73 sq M.predicted among non-blacks MDRD (S/P/Bld) [Vol rate/Area] 104 mL/min/{1.73_m2} >60 [facility] Comment on above: mL/min/1.73m2 CKD-EP I Creatinine Equation (2020) Hematocrit Auto (Bld) [Volum e fraction]Ordered By: Peterson Rm on 03-15-2025 Hematocrit (Bld) [Volume fraction] 42.4 % 37-47 [facility] Hemoglobin A1con 03-15-2025 HbA1c (Bld) [Mass fraction] 5.8 % High <=5.6 [facility] Comment on above: Result Comment: Norm al < 5.7 % Prediabetic 5.7 - 6.4 % Diabetic >or= 6.5 % Please note range changes. Performed By: #### L 101.9900, L3600.4000, L501.6710, L3200.1275, L3100.3450 #### [facility] [address] [facility] [place], [place], [id number] Hemoglobin A1c percentageOrd ered By: Peterson Rm on 03-15-2025 HbA1c (Bld) [Mass fraction] 5.8 % High <5.7 [facility] Comment on above: Normal < 5.7 % Predi abetic 5.7 - 6.4 % Diabetic >or= 6.5 % Please note range changes. Hemoglobin measurementOrdere d By: Peterson Rm on 03-15-2025 Hemoglobin (Bld) [Mass/Vol] 13.6 g/dL 12.0-15.0 [facility] Immature granulocytes/100 WB C Auto (Bld)Ordered By: Peterson Rm on 03-15-2025 Immature granulocytes/100 WBC (Bld) 0.300 % 0.0-0.9 [facility] Comment on above: IG% - Immature Granu locytes (promyelocytes, myelocytes and metamyelocytes) > 1% indicates that a LEFT SHIFT is Present. LDL calc ser/plasOrdered By: Peterson Rm on 03-15-2025 Cholesterol in LDL [Mass/Vol] 93 mg/dL [facility] Comment on above: Dkiqgofvde=378-443 m g/dL & Higher Kymc=420 mg/dL or greater Laboratory - Chemistry and C hemistry - challengeOrdered By: Peterson Rm on 03-15-2025 AST [Catalytic activity/Vol] 20 U/L <32 [facility] Lipid Profileon 03-15-2025 CHOL:HDL 3.91 Normal [facility] Comment on above: Performed By: #### L 101.9900, L3600.4000, L501.6710, L3200.1275, L3100.3450 #### [facility] [address] [place], [address] Cholesterol [Mass/Vol] 145 mg/dL Normal <=200 [facility] Comment on above: Result Comment: Chol esterol level, Desirable <200 mg/dL Borderline high cholesterol 200-239 mg/dL High cholesterol >=240 mg/dL Recommendations of the NCEP Adult Treatment Panel for the following risk-cutoff thresholds for the [place] population. Performed By: #### L 101.9900, L3600.4000, L501.6710, L3200.1275, L3100.3450 #### [facility] [address] [place], [address] Cholesterol in HDL [Mass/Vol] 37 mg/dL Low [facility] Comment on above: Result Comment: Susana onal Cholesterol Education Program (NCEP) guidelines: <40 mg/dL: Low HDL-cholesterol (major risk factor for CHD) >= 60 mg/dL: High HDL-cholesterol (negative risk factor for CHD) HDL-cholesterol is affected by a number of factors, e.g. smoking, exercise, hormones, sex and age. Performed By: #### L 101.9900, L3600.4000, L501.6710, L3200.1275, L3100.3450 #### [facility] [address] [place], [place], [address] Cholesterol in LDL [Mass/Vol] 93 mg/dL Normal [facility] Comment on above: Result Comment: Bord koaaor=657-564 mg/dL Higher Vpdk=380 mg/dL or greater Performed By: #### L 101.9900, L3600.4000, L501.6710, L3200.1275, L3100.3450 #### [facility] [address] [place], [address] Cholesterol in VLDL [Mass/Vol] 14 mg/dL Normal 5-40 [facility] Comment on above: Performed By: #### L 101.9900, L3600.4000, L501.6710, L3200.1275, L3100.3450 #### [facility] [address] [place], [address] Triglyceride [Mass/Vol] 72 mg/dL Normal [facility] Comment on above: Result Comment: The drugs N-Acetylcysteine and Metamizole may falsely depress this assay. Normal range: <150 mg/dL Borderline High: 150-199 mg/dL High: 200-499 mg/dL Very High: >500 mg/dL Performed By: #### L 101.9900, L3600.4000, L501.6710, L3200.1275, L3100.3450 #### [facility] [address] [place], [address] MCV (mean corpuscular volume ) determinationOrdered By: Peterson Rm on 03-15-2025 MCV (RBC) [Entitic vol] 83.8 fL 81-99 [facility] Mean corpuscular hemoglobin (MCH) determinationOrdered By: Peterson mR on 03-15-2025 MCH (RBC) [Entitic mass] 26.9 pg Low 27.0-32.0 [facility] Mean corpuscular hemoglobin concentration (MCHC) determinationOrdered By: Peterson Rm on 03-15-2025 MCHC (RBC) [Mass/Vol] 32.1 g/dL 32-36 [facility] Mean platelet volume determi nationOrdered By: Peterson Rm on 03-15-2025 Platelet mean volume (Bld) [Entitic vol] 9.5 fL 6.2-12.0 [facility] Microalb:Creat Ratio,Random URon 03-15-2025 Creatinine [Mass/Vol] 116.00 mg/dL Normal 28.00-217.00 [facility] Comment on above: Performed By: #### L 101.9900, L3600.4000, L501.6710, L3200.1275, L3100.3450 #### [facility] [address] [place], [address] MALB:CREAT UNABLE TO CALCULATE Normal [facility] Comment on above: Performed By: #### L 101.9900, L3600.4000, L501.6710, L3200.1275, L3100.3450 #### [facility] [address] [place], [address] MICROALBUMIN,UR < 12.0 Normal NO RANGE EST. [facility] Comment on above: Performed By: #### L 101.9900, L3600.4000, L501.6710, L3200.1275, L3100.3450 #### [facility] [address] [place], [address] Microalbumin/creat ratio urO rdered By: Peterson Rm on 03-15-2025 Urine microalbumin/creatinine ratio measurement UNABLE TO CALCULATE mg/g CRE [facility] Monocyte percentageOrdered B y: Peterson Rm on 03-15-2025 Monocytes/100 WBC (Bld) 4.1 % 0-10 [facility] Neutrophil percentageOrdered By: Peterson Rm on 03-15-2025 Neutrophils/100 WBC (Bld) 68.3 % 47-70 [facility] Nucleated red blood cell per centageOrdered By: Peterson Rm on 03-15-2025 Nucleated RBC/100 WBC (Bld) [Ratio] 0 % 0-5 [facility] Platelet countOrdered By: Mike Rm on 03-15-2025 Platelets (Bld) [#/Vol] 396 10*3/uL 150-450 [facility] Potassium measurement (mass/ volume)Ordered By: Peterson Rm on 03-15-2025 Potassium (Unsp spec) [Mass/Vol] 3.8 mmol/L 3.3-5.1 [facility] RBC Auto (Bld) [#/Vol]Ordere d By: Peterson Rm on 03-15-2025 RBC (Bld) [#/Vol] 5.06 10*6/uL 4.2-5.4 [facility] Random urine creatinine christal urement (mass/volume)Ordered By: Peterson Rm on 03-15-2025 Creatinine Unsp time (U) [Mass/Vol] 116.00 mg/dL 28.00-217.00 [facility] Screening total cholesterol/ high density lipoprotein (HDL) cholesterol ratioOrdered By: Peterson Rm on 03-15-2025 Cholesterol.total/Choles terol in HDL [Mass ratio] 3.91 {ratio} [facility] Serum creatinine measurement (mass/volume)Ordered By: Peterson Rm on 03-15-2025 Creatinine [Mass/Vol] 0.72 mg/dL 0.70-1.20 [facility] Serum globulin measurementOr dered By: Peterson Rm on 03-15-2025 Globulin (S) [Mass/Vol] 4.0 g/dL 2.2-4.2 [facility] Serum glucose measurement (m ass/volume)Ordered By: Peterson Rm on 03-15-2025 Glucose [Mass/Vol] 103 mg/dL High 70-99 [facility] Serum or plasma C reactive p rotein measurement (mass/volume)Ordered By: Peterson Rm on 03-15-2025 CRP [Mass/Vol] 27.80 mg/L High 0.0-3.0 [facility] Serum or plasma alanine pena otransferase (ALT) measurementOrdered By: Peterson Rm on 03-15-2025 ALT [Catalytic activity/Vol] 26 U/L <35 [facility] Serum or plasma albumin christal urement (mass/volume)Ordered By: Peterson Rm on 03-15-2025 Albumin [Mass/Vol] 3.8 g/dL 3.5-5.0 [facility] Serum or plasma albumin/glob ulin mass ratioOrdered By: Peterson Rm on 03-15-2025 Albumin/Globulin [Mass ratio] 1.0 {ratio} 0.9-2.4 [facility] Serum or plasma alkaline enedelia sphatase measurementOrdered By: Peterson Rm on 03-15-2025 ALP [Catalytic activity/Vol] 178 U/L High 35-104 [facility] Serum or plasma calcium christal urement (mass/volume)Ordered By: Peterson Rm on 03-15-2025 Calcium [Mass/Vol] 9.1 mg/dL 7.6-11.0 [facility] Serum or plasma cholesterol in HDL measurement (mass/volume)Ordered By: Peterson Rm on 03-15-2025 Cholesterol in HDL [Mass/Vol] 37 mg/dL Low >40 [facility] Comment on above: National Cholesterol Education Program (NCEP) guidelines:<40 mg/dL: Low HDL-cholesterol (major risk factor for CHD)>= 60 mg/dL: High HDL-cholesterol (negative risk factor for CHD)HDL-cholesterol is affected by a number of factors, e.g. smoking, exercise, hormones, sex and age. Serum or plasma cholesterol measurement (mass/volume)Ordered By: Peterson Rm on 03-15-2025 Cholesterol [Mass/Vol] 145 mg/dL <201 [facility] Comment on above: Cholesterol level, D esirable <200 mg/dLBorderline high cholesterol 200-239 mg/dLHigh cholesterol >=240 mg/dLRecommendations of the NCEP Adult Treatment Panel for the following risk-cutoff thresholds for the [place] population. Serum or plasma urea nitroge n measurement (mass/volume)Ordered By: Peterson Rm on 03-15-2025 Urea nitrogen [Mass/Vol] 8 mg/dL 4-19 [facility] Sodium levelOrdered By: Peterson Rm on 03-15-2025 Sodium [Moles/Vol] 139 mmol/L 133-145 [facility] Total proteinOrdered By: Amrita Rm on 03-15-2025 Protein [Mass/Vol] 7.8 g/dL 5.9-8.4 [facility] Triglycerides measurementOrd ered By: Peterson Rm on 03-15-2025 Triglyceride [Mass/Vol] 72 mg/dL <199 [facility] Comment on above: The drugs N-Acetylcy steine and Metamizole may falsely depress this assay. Normal range: <150 mg/dLBorderline High: 150-199 mg/dLHigh: 200-499 mg/dLVery High: >500 mg/dL Urine albumin measurement wi th detection limit of 20 mg/L or less (mass/volume)Ordered By: Peterson Rm on 03-15-2025 Albumin DL <= 20 mg/L (U) [Mass/Vol] < 12.0 mg/L NO RANGE EST. [facility] White blood cell (WBC) count Ordered By: Peterson Rm on 03-15-2025 WBC (Bld) [#/Vol] 10.8 10*3/uL 4.4-11.0 [facility] Protein Electro.Ur-Randomon 12-04-2024 M-SPIKE,U Normal [facility] Comment on above: Result Comment: NOT OBSERVED Performed By: #### L 101.9900, L3600.4000, L501.6710, L3200.1275, L3100.3450 #### [facility] [address] [place], [address] Immunofixation, Serumon 10-21 MICHAEL RESULT,S Comment Normal . [facility] Comment on above: Result Comment: No m onoclonality detected. Performed By: #### L 101.9900, L3600.4000, L501.6710, L3200.1275, L3100.3450 #### [facility] [address] [place], [address] IMMUNOGLOB A QN 535 mg/dL High 87-352 [facility] Comment on above: Performed By: #### L 101.9900, L3600.4000, L501.6710, L3200.1275, L3100.3450 #### [facility] [address] [place], [address] IMMUNOGLOB G QN 1428 mg/dL Normal 586-1602 [facility] Comment on above: Performed By: #### L 101.9900, L3600.4000, L501.6710, L3200.1275, L3100.3450 #### [facility] [address] [place], [address] IMMUNOGLOB M QN 194 mg/dL Normal 26-217 [facility] Comment on above: Result Comment: Perf ormed at: - [facility] [id number] [employer] Cure Worker: Mark Balderrama PhD, Phone: [phone] Performed By: #### L 101.9900, L3600.4000, L501.6710, L3200.1275, L3100.3450 #### [facility] [address] [place], [address] Protein Electroph, Son 11-18 Albumin [Mass/Vol] 3.6 g/dL Normal 2.9-4.4 [facility] Comment on above: Performed By: #### L 101.9900, L3600.4000, L501.6710, L3200.1275, L3100.3450 #### [facility] [address] [place], [place], [id number] [phone] Albumin/Globulin [Mass ratio] 0.9 {ratio} Normal 0.7-1.7 [facility] Comment on above: Performed By: #### L 101.9900, L3600.4000, L501.6710, L3200.1275, L3100.3450 #### [facility] [address] [place], [address] ALPHA-1 GLOBUL 0.3 g/dL Normal 0.0-0.4 [facility] Comment on above: Performed By: #### L 101.9900, L3600.4000, L501.6710, L3200.1275, L3100.3450 #### [facility] [address] [place], [address] ALPHA-2 GLOBUL 1.0 g/dL Normal 0.4-1.0 [facility] Comment on above: Performed By: #### L 101.9900, L3600.4000, L501.6710, L3200.1275, L3100.3450 #### [facility] [address] [place], [address] BETA GLOBULIN 1.2 g/dL Normal 0.7-1.3 [facility] Comment on above: Performed By: #### L 101.9900, L3600.4000, L501.6710, L3200.1275, L3100.3450 #### [facility] [address] [place], [address] GAMMA GLOBULIN 1.4 g/dL Normal 0.4-1.8 [facility] Comment on above: Performed By: #### L 101.9900, L3600.4000, L501.6710, L3200.1275, L3100.3450 #### [facility] [address] [place], [address] Globulin (S) [Mass/Vol] 3.9 g/dL Normal 2.2-3.9 [facility] Comment on above: Performed By: #### L 101.9900, L3600.4000, L501.6710, L3200.1275, L3100.3450 #### [facility] [address] [place], [address] INTERPRETATION Comment Normal . [facility] Comment on above: Result Comment: Prot ein electrophoresis scan will follow via computer, mail, or yardage control operator forming delivery. Performed By: #### L 101.9900, L3600.4000, L501.6710, L3200.1275, L3100.3450 #### [facility] [address] [place], [address] M-SPIKE Not Observed Normal Not Observed [facility] Comment on above: Performed By: #### L 101.9900, L3600.4000, L501.6710, L3200.1275, L3100.3450 #### [facility] [address] [place], [address] NOTE Comment Normal . [facility] Comment on above: Result Comment: Prot ein electrophoresis scan will follow via computer, mail, or yardage control operator forming delivery. Performed By: #### L 101.9900, L3600.4000, L501.6710, L3200.1275, L3100.3450 #### [facility] [address] [place], [address] NOTE: Comment Normal . [facility] Comment on above: Result Comment: The SPE pattern appears unremarkable. Evidence of monoclonal protein is not apparent. Performed By: #### L 101.9900, L3600.4000, L501.6710, L3200.1275, L3100.3450 #### [facility] [address] [place], [address] Protein [Mass/Vol] 7.5 g/dL Normal 6.0-8.5 [facility] Comment on above: Performed By: #### L 101.9900, L3600.4000, L501.6710, L3200.1275, L3100.3450 #### [facility] [address] [place], [address] Abdomen Limitedon 11-16-2024 Abdomen Limited [facility] [address] [place] [address] Abdomen Limited MR#: [id number] Acct: [id number] Name: SARY CAST Rep #: [id number] : 1975 F 49 From: Ashok Berger PCP: Dr. Peterson Rm DO Status: REG CLI Study: Abdomen Limited Date of Exam: 11/16/24 Exam# [id number] Ordering Dr: Peterson Rm DO PROCEDURE: ABDOMEN [...] hepatocellular disease. 2. Prior cholecystectomy. Reading Location: [address] CC: Dr. Peterson Rm, Legal Counsel: Signed Normal [facility] CRPon 11-15-2024 C-REACTIVE PROT 22.40 mg/L High 0.0-3.0 [facility] Comment on above: Order Comment: LAY Roberta FORGOT TO DRAW SPEP, AND IMMUNOFIZATION. SO PT IS COMING BACK TODAY AFTER WORK RIGHT BEFORE CLOSING. Result Comment: C-Re active Protein (CRP) provides useful information for the diagnosis, therapy and monitoring of inflammatory processes and associated diseases. For the evaluation of Relative Risk for Cardiovascular Disease, a High Sensitivity CRP (HSCRP) should be ordered. Performed By: #### L 101.9900, L3600.4000, L501.6710, L3200.1275, L3100.3450 #### [facility] [address] [place], [address] Erythrocyte Sed Rateon 11-15 SED RATE 29 mm/hr Normal 0-30 [facility] Comment on above: Performed By: #### L 101.9900, L3600.4000, L501.6710, L3200.1275, L3100.3450 #### [facility] [address] [place], [address] CBC W/Diff, Automatedon 10-20 Absolute Lymph 3.11 X10 3/uL Normal 0.83-4.51 [facility] Comment on above: Performed By: #### L 500.4050, L100.0100 #### [facility] [address] [place], [address] Absolute Neut 8.7 X10 3/uL High 2.0-7.7 [facility] Comment on above: Performed By: #### L 500.4050, L100.0100 #### [facility] [address] [place], [address] Basophils/100 WBC (Bld) 0.6 % Normal 0-1 [facility] Comment on above: Performed By: #### L 500.4050, L100.0100 #### [facility] [address] [place], [address] Eosinophils/100 WBC (Bld) 1.0 % Normal 0-5 [facility] Comment on above: Performed By: #### L 500.4050, L100.0100 #### [facility] [address] [place], [address] Erythrocyte distribution width (RBC) [Ratio] 14.8 % High 11.6-14.6 [facility] Comment on above: Performed By: #### L 500.4050, L100.0100 #### [facility] [address] [place], [address] Hematocrit (Bld) [Volume fraction] 43.8 % Normal 37-47 [facility] Comment on above: Performed By: #### L 500.4050, L100.0100 #### [facility] [address] [place], [address] Hemoglobin (Bld) [Mass/Vol] 13.9 g/dL Normal 12.0-15.0 [facility] Comment on above: Performed By: #### L 500.4050, L100.0100 #### [facility] [address] [place], [address] IG% 0.300 Normal 0.0-0.9 [facility] Comment on above: Result Comment: IG% - Immature Granulocytes (promyelocytes, myelocytes and metamyelocytes) > 1% indicates that a LEFT SHIFT is Present. Performed By: #### L 500.4050, L100.0100 #### [facility] [address] [place], [address] Lymphocytes/100 WBC (Bld) 24.9 % Normal 19-41 [facility] Comment on above: Performed By: #### L 500.4050, L100.0100 #### [facility] [address] [place], [address] MCH (RBC) [Entitic mass] 26.9 pg Low 27.0-32.0 [facility] Comment on above: Performed By: #### L 500.4050, L100.0100 #### [facility] [address] [place], [address] MCHC (RBC) [Mass/Vol] 31.7 g/dL Low 32-36 [facility] Comment on above: Performed By: #### L 500.4050, L100.0100 #### [facility] [address] [place], [address] MCV (RBC) [Entitic vol] 84.9 fL Normal 81-99 [facility] Comment on above: Performed By: #### L 500.4050, L100.0100 #### [facility] [address] [place], [address] Monocytes/100 WBC (Bld) 3.5 % Normal 0-10 [facility] Comment on above: Performed By: #### L 500.4050, L100.0100 #### [facility] [address] [place], [address] Neutrophils/100 WBC (Bld) 69.7 % Normal 47-70 [facility] Comment on above: Performed By: #### L 500.4050, L100.0100 #### [facility] [address] [place], [address] Nucleated RBC (Bld) [#/Vol] 0 10*3/uL Normal 0-5 [facility] Comment on above: Performed By: #### L 500.4050, L100.0100 #### [facility] [address] [place], [address] Platelet mean volume (Bld) [Entitic vol] 9.6 fL Normal 6.2-12.0 [facility] Comment on above: Performed By: #### L 500.4050, L100.0100 #### [facility] [address] [place], [address] Platelets (Bld) [#/Vol] 364 10*3/uL Normal 150-450 [facility] Comment on above: Performed By: #### L 500.4050, L100.0100 #### [facility] [address] [place], [address] RBC (Bld) [#/Vol] 5.16 10*6/uL Normal 4.2-5.4 [facility] Comment on above: Performed By: #### L 500.4050, L100.0100 #### [facility] [address] [place], [address] RDW SD 46.4 fl High 35.1-43.9 [facility] Comment on above: Performed By: #### L 500.4050, L100.0100 #### [facility] [address] [place], [address] WBC (Bld) [#/Vol] 12.5 10*3/uL High 4.4-11.0 [facility] Comment on above: Performed By: #### L 500.4050, L100.0100 #### [facility] [address] [place], [address] Comprehensive Metabolic Prof ilon 11-14-2024 Albumin [Mass/Vol] 3.3 g/dL Normal 3.2-5.0 [facility] Comment on above: Performed By: #### L 500.4050, L100.0100 #### [facility] [address] [place], [address] Albumin/Globulin [Mass ratio] 0.6 {ratio} Low 0.9-2.4 [facility] Comment on above: Performed By: #### L 500.4050, L100.0100 #### [facility] [address] [place], [address] ALK P 160 U/L High 45-117 [facility] Comment on above: Performed By: #### L 500.4050, L100.0100 #### [facility] [address] [place], [address] ALT [Catalytic activity/Vol] 27 U/L Normal 13-56 [facility] Comment on above: Performed By: #### L 500.4050, L100.0100 #### [facility] [address] [place], [address] AST [Catalytic activity/Vol] 25 U/L Normal 15-37 [facility] Comment on above: Performed By: #### L 500.4050, L100.0100 #### [facility] [address] [place], [address] Bilirubin [Mass/Vol] 0.50 mg/dL Normal 0.20-1.00 [facility] Comment on above: Result Comment: For patients on eltrombopag therapy, use of Dimension [place] TBIL is not recommended. Performed By: #### L 500.4050, L100.0100 #### [facility] [address] [place], [address] BUN/CRE 11.6 RATIO Normal 10-20 [facility] Comment on above: Performed By: #### L 500.4050, L100.0100 #### [facility] [address] [place], [address] CA,Total 9.4 mg/dL Normal 8.5-10.1 [facility] Comment on above: Performed By: #### L 500.4050, L100.0100 #### [facility] [address] [place], [address] Chloride [Moles/Vol] 108 mmol/L High 98-107 [facility] Comment on above: Performed By: #### L 500.4050, L100.0100 #### [facility] [address] [place], [address] CO2 [Moles/Vol] 22.0 mmol/L Normal 21.0-32.0 [facility] Comment on above: Performed By: #### L 500.4050, L100.0100 #### [facility] [address] [place], [address] Creatinine [Mass/Vol] 0.69 mg/dL Normal 0.55-1.02 [facility] Comment on above: Result Comment: The validity of the calculated GFR GFRAA in patients over 70 years has not been determined. Clinical correlation is essential. Performed By: #### L 500.4050, L100.0100 #### [facility] [address] [place], [address] EST GFR - AA 116 mL/min Normal >60 [facility] Comment on above: Result Comment: Afri can [place] GFR Calc Performed By: #### L 500.4050, L100.0100 #### [facility] [address] [place], [address] GAP 7 Normal 5-15 [facility] Comment on above: Performed By: #### L 500.4050, L100.0100 #### [facility] [address] [place], [address] GFR/1.73 sq M.predicted among non-blacks MDRD (S/P/Bld) [Vol rate/Area] 96 mL/min/{1.73_m2} Normal >60 [facility] Comment on above: Result Comment: Non- GFR Calc Performed By: #### L 500.4050, L100.0100 #### [facility] [address] [place], [address] Globulin (S) [Mass/Vol] 5.1 g/dL High 2.2-4.2 [facility] Comment on above: Performed By: #### L 500.4050, L100.0100 #### [facility] [address] [place], [address] Glucose [Mass/Vol] 87 mg/dL Normal 74-106 [facility] Comment on above: Performed By: #### L 500.4050, L100.0100 #### [facility] [address] [place], [address] Potassium [Moles/Vol] 4.0 mmol/L Normal 3.5-5.1 [facility] Comment on above: Performed By: #### L 500.4050, L100.0100 #### [facility] [address] [place], [address] Sodium [Moles/Vol] 137 mmol/L Normal 136-145 [facility] Comment on above: Performed By: #### L 500.4050, L100.0100 #### [facility] [address] [place], [address] T PROT 8.4 g/dL High 6.4-8.2 [facility] Comment on above: Performed By: #### L 500.4050, L100.0100 #### [facility] [address] [place], [address] Urea nitrogen [Mass/Vol] 8 mg/dL Normal 7-18 [facility] Comment on above: Performed By: #### L 500.4050, L100.0100 #### [facility] [address] [place], [address] Hemoglobin A1con 08-25-2024 HbA1c (Bld) [Mass fraction] 5.6 % Normal 3.8-5.6 [facility] Comment on above: Result Comment: Norm al < 5.7 % Prediabetic 5.7 - 6.4 % Diabetic >or= 6.5 % Please note range changes. Performed By: #### L 501.9985 #### [facility] [address] [place], [address] SCRN MAMM (CAD)W/SHANIQUA BILATo n 08-08-2024 SCRN MAMM (CAD)W/SHANIQUA BILAT [facility] [facility] [address] [place] [address] SCRN MAMM (CAD)W/SHANIQUA BILAT MR#: [id number] Acct: [id number] Name: SARY CAST Rep #: [id number] : 1975 F 49 From: Bright ford MD PCP: Dr. Peterson Rm DO Status: REG CLI Study: SCRN MAMM (CAD)W/SHANIQUA BILAT Date of Exam: 07/20 11/11 Exam# [id number] Ordering Dr: Peterson Rm DO [id number] MAMMOGRAPHY - BILATERAL SCREENING REASON FOR EXAM: [...] delay biopsy of a clinically suspicious abnormality. [id number] Electronically Signed: Bright Quintanilla MD at 11:01 EDT , CC: Dr. Peterson Rm, Legal Counsel: Signed Normal [facility] Basophil percentageOrdered B y: Peterson Rm on 11-30-2023 Bilirubin [Mass/Vol] 0.40 mg/dL 0.20-1.00 [facility] Comment on above: For patients on eltr ombopag therapy, use of Dimension [place] TBIL is not recommended. Chloride [Moles/Vol] 106 mmol/L 98-107 [facility] Cholesterol [Mass/Vol] 159 mg/dL <200 [facility] Comment on above: <200 mg/dL Desirable 200-240 mg/dL Borderline >240 mg/dL High Risk Glucose [Mass/Vol] 103 mg/dL 74-106 [facility] Comment on above: Fasting Glucose resu lt from 100 to 125 mg/dL suggests IMPAIRED HOMEOSTASIS per A.D.A. criteria. Potassium [Moles/Vol] 3.9 mmol/L 3.5-5.1 [facility] Protein [Mass/Vol] 7.8 g/dL 6.4-8.2 [facility] Sodium [Moles/Vol] 140 mmol/L 136-145 [facility] Triglyceride [Mass/Vol] 87 mg/dL <199 [facility] Comment on above: The drugs N-Acetylcy steine and Metamizole may falsely depress this assay.Serum Triglycerides Reference Interval Normal <150 mg/dL Borderline high 150 - 199 mg/dL High 200 - 499 mg/dL Very High > or = 500 mg/dL Laboratory - Chemistry and C hemistry - challengeOrdered By: Peterson Rm on 11-30-2023 Albumin/Globulin [Mass ratio] 0.7 {ratio} 0.9-2.4 [facility] ALP [Catalytic activity/Vol] 141 U/L 45-117 [facility] ALT [Catalytic activity/Vol] 32 U/L 13-56 [facility] Cholesterol in HDL [Mass/Vol] 40 mg/dL >40 [facility] Comment on above: The drugs N-Acetylcy steine and Metamizole may falsely depress this assay. Reference Range HDL <40 mg/dL Low HDL Cholesterol HDL >or= 60 mg/dL High HDL Cholesterol Cholesterol in LDL [Mass/Vol] 102 mg/dL 0-130 [facility] CO2 [Moles/Vol] 25.0 mmol/L 21.0-32.0 [facility] Globulin (S) [Mass/Vol] 4.6 g/dL 2.2-4.2 [facility] Urea nitrogen/Creatinine [Mass ratio] 16.2 mg/mg 10-20 [facility] No Panel InformationOrdered By: Peterson Rm on 11-30-2023 Estimated GFR (MDRD) Amer 119 mL/min >60 [facility] Comment on above: GFR Calc Estimated GFR (MDRD) Non-Af Amer 98 mL/min >60 [facility] Comment on above: Non- GFR Calc VLDL Cholesterol 17 mg/dL 5-40 [facility] Serum or plasma calcium christal urement (mass/volume)Ordered By: Peterson Rm on 11-30-2023 Calcium [Mass/Vol] 9.3 mg/dL 8.5-10.1 [facility] Serum or plasma creatinine m easurement (mass/volume)Ordered By: Peterson Rm on 11-30-2023 Creatinine [Mass/Vol] 0.68 mg/dL 0.55-1.02 [facility] Comment on above: The validity of the calculated GFR & GFRAA in patients over 70 years has not been determined. Clinical correlation is essential. Serum or plasma urea nitroge n measurement (mass/volume)Ordered By: Peterson Rm on 11-30-2023 Urea nitrogen [Mass/Vol] 11 mg/dL 7-18 [facility] Thin prep Papanicolaou smear with manual screeningOrdered By: Peterson Rm on 11-30-2023 Thin prep Papanicolaou smear with manual screening 3.2 g/dL 3.2-5.0 [facility] Thin prep Papanicolaou smear with manual screening 16 U/L 15-37 [facility] Thin prep Papanicolaou smear with manual screening 9 5-15 [facility] Whole blood hemoglobin A1c/t otal hemoglobin ratio (mass fraction)Ordered By: Peterson Rm on 11-30-2023 HbA1c (Bld) [Mass fraction] 6.3 % 3.8-5.6 [facility] Comment on above: Normal < 5.7 % Predi abetic 5.7 - 6.4 % Diabetic >or= 6.5 % Please note range changes. Office Visiton 08-14-2023 Follow-up visit [id number] Sary Cast 1975 F Date Provider Department Center 08/14/2023 [id number][facility] None Family History Problem Relation Age of Onset Obesity Father Hypertension Father Heart disease Maternal Grandfather Diabetes Father Cancer Maternal Grandmother Family Status - Relation Status Age at Father Maternal Grandfather Alive Maternal Grandmother Alive Mother Alive Sister Alive Level of Service:02932 [place] OFFICE/OUTPATIENT ESTABLISHED LOW MDM 20-29 MIN Reason for Visit and Comments: Weight Loss [976820] - NSURG #5 [facility] Progress Noteon 08-14-2023 Progress Note HPI, PHYSICAL EXAMINATION & PLAN HPI: Patient here today for follow up for non-surgical weight loss management Weight trend since last visit: lost 4 lbs over 3 m stable This patient's excess weight is causing the following co-morbid conditions at this time:DM Physical Examination: Blood pressure 126/82, pulse 85, height 5' 5.5" (1.664 m), weight 287 lb (130 kg). [...] Will focus on the portion control Calorie 2680-7359 daily Will restart with meal preparation Discuss [...] grams [x] Patient advised to maintain a food/exercise/behavi or diary until next physician visit and to [...] the same day of the visit in discussing/counselin g the patient regarding the diet and exercise [...] was performed.Clinical documentation is updated and completed. [facility] Progress Note [facility] NON-SURGICAL WEIGHT LOSS MANAGEMENT PROGRAM ROOMING NOTE: FOLLOW UP VISIT Patient: Sary Cast Date of : 1975 Service Date: 08/14/2023 Patient History/Assessment Summary: The patient is a pleasant 48 y.o. year old female, who stands Height: 5' 5.5" (166.4 cm) tall with a weight of Weight: 283 lb 6.4 oz (129 kg) pounds, resulting in a BMI of Body mass index is 46.44 kg/m?. kg/m2. She is here for follow-up for non-surgical treatment of Obesity Patient has the following question(s): none Pre Program Weight Metrics (CARE Path) Date of Initial Consultation:@FLOWLA ST(8961)@ Initial Weight: @FLOWLAST([id number]) @ Initial BMI: @FLOWLAST([id number]) @ [place] Body Weight: @FLOWLAST([id number]) @ Excess Body Weight: @FLOWLAST([id number]) @ Body Fat Percentage: No flowsheet data found. Subsequent Body Fat Percentage: No flowsheet data found. Pre Program Weight Metrics (Epic) (Surgical Wt Loss Management- baseline) This Visit Non-Surgical Subsequent Eval Date: 08/14/23 Height: 5' 5.5" (166.4 cm) Weight: 283 lb 6.4 oz [...] prescribed a medication for high cholesterol? (examples Lipitor/Atorvastatin , Pravastatin, Zetia, Tricor, etc.) Yes Have you [...] home O2 Completed by: Michelle Barajas LPN [facility] Absolute lymphocyte countOrd ered By: Peterson Jag on 07-13-2023 Lymphocytes Auto (Unsp spec) [#/Vol] 2.91 10*3/uL 0.83-4.51 [facility] Basophil percentageOrdered B y: Peterson Rm on 07-13-2023 Basophils/100 WBC (Bld) 0.4 % 0-1 [facility] Bilirubin [Mass/Vol] 0.40 mg/dL 0.20-1.00 [facility] Comment on above: For patients on eltr ombopag therapy, use of Dimension [place] TBIL is not recommended. Chloride [Moles/Vol] 106 mmol/L 98-107 [facility] Cholesterol [Mass/Vol] 149 mg/dL <200 [facility] Comment on above: <200 mg/dL Desirable 200-240 mg/dL Borderline >240 mg/dL High Risk Eosinophils/100 WBC (Bld) 1.6 % 0-5 [facility] Glucose [Mass/Vol] 107 mg/dL 74-106 [facility] Comment on above: Fasting Glucose resu lt from 100 to 125 mg/dL suggests IMPAIRED HOMEOSTASIS per A.D.A. criteria. Neutrophils (Bld) [#/Vol] 7.8 10*3/uL 2.0-7.7 [facility] Neutrophils/100 WBC (Bld) 68.9 % 47-70 [facility] Potassium [Moles/Vol] 3.6 mmol/L 3.5-5.1 [facility] Protein [Mass/Vol] 7.7 g/dL 6.4-8.2 [facility] Sodium [Moles/Vol] 137 mmol/L 136-145 [facility] Triglyceride [Mass/Vol] 118 mg/dL <199 [facility] Comment on above: The drugs N-Acetylcy steine and Metamizole may falsely depress this assay.Serum Triglycerides Reference Interval Normal <150 mg/dL Borderline high 150 - 199 mg/dL High 200 - 499 mg/dL Very High > or = 500 mg/dL WBC (Bld) [#/Vol] 11.4 10*3/uL 4.4-11.0 [facility] Blood erythrocytes count (nu mber/volume)Ordered By: Peterson Rm on 07-13-2023 RBC (Bld) [#/Vol] 4.72 10*6/uL 4.2-5.4 [facility] Blood hemoglobin measurement (mass/volume)Ordered By: Peterson Rm on 07-13-2023 Hemoglobin (Bld) [Mass/Vol] 12.7 g/dL 12.0-15.0 [facility] Blood lymphocytes/100 leukoc ytesOrdered By: Peterson Rm on 07-13-2023 Lymphocytes/100 WBC (Bld) 25.6 % 19-41 [facility] Blood monocytes/100 leukocyt esOrdered By: Peterson Rm on 07-13-2023 Monocytes/100 WBC (Bld) 3.3 % 0-10 [facility] Blood platelet mean volumeOr dered By: Peterson Rm on 07-13-2023 Platelet mean volume (Bld) [Entitic vol] 9.2 fL 6.2-12.0 [facility] Determination of erythrocyte mean corpuscular volume (MCV)Ordered By: Peterson Rm on 07-13-2023 MCV (RBC) [Entitic vol] 86.2 fL 81-99 [facility] Hematocrit Auto (Bld) [Volum e fraction]Ordered By: Peterson Rm on 07-13-2023 Hematocrit (Bld) [Volume fraction] 40.7 % 37-47 [facility] Laboratory - Chemistry and C hemistry - challengeOrdered By: Peterson Rm on 07-13-2023 ALP [Catalytic activity/Vol] 149 U/L 45-117 [facility] ALT [Catalytic activity/Vol] 31 U/L 13-56 [facility] CO2 [Moles/Vol] 23.0 mmol/L 21.0-32.0 [facility] Globulin (S) [Mass/Vol] 4.6 g/dL 2.2-4.2 [facility] Urea nitrogen/Creatinine [Mass ratio] 11.3 mg/mg 10-20 [facility] Laboratory - Hematology and Cell countsOrdered By: Peterson Rm on 07-13-2023 Erythrocyte distribution width (RBC) [Entitic vol] 45.5 fL 35.1-43.9 [facility] Erythrocyte distribution width (RBC) [Ratio] 14.4 % 11.6-14.6 [facility] Immature granulocytes/100 WBC (Bld) 0.200 % 0.0-0.9 [facility] Comment on above: IG% - Immature Granu locytes (promyelocytes, myelocytes and metamyelocytes) > 1% indicates that a LEFT SHIFT is Present. MCH (RBC) [Entitic mass] 26.9 pg 27.0-32.0 [facility] Nucleated RBC/100 WBC (Bld) [Ratio] 0 % 0-5 [facility] MCHC Auto (RBC) [Mass/Vol]Or dered By: Peterson mR on 07-13-2023 MCHC (RBC) [Mass/Vol] 31.2 g/dL 32-36 [facility] No Panel InformationOrdered By: Peterson Rm on 07-13-2023 Estimated GFR (MDRD) Amer 114 mL/min >60 [facility] Comment on above: GFR Calc Estimated GFR (MDRD) Non-Af Amer 94 mL/min >60 [facility] Comment on above: Non- GFR Calc Platelets bldOrdered By: Amrita Rm on 07-13-2023 Platelets (Bld) [#/Vol] 349 10*3/uL 150-450 [facility] Serum or plasma albumin christal urement (mass/volume)Ordered By: Peterson Rm on 07-13-2023 Albumin [Mass/Vol] 3.1 g/dL 3.2-5.0 [facility] Serum or plasma albumin/glob ulin mass ratioOrdered By: Peterson Rm on 07-13-2023 Albumin/Globulin [Mass ratio] 0.7 {ratio} 0.9-2.4 [facility] Serum or plasma calcium christal urement (mass/volume)Ordered By: Peterson Rm on 07-13-2023 Calcium [Mass/Vol] 9.0 mg/dL 8.5-10.1 [facility] Serum or plasma cholesterol in HDL measurement (mass/volume)Ordered By: Peterson Rm on 07-13-2023 Cholesterol in HDL [Mass/Vol] 38 mg/dL >40 [facility] Comment on above: The drugs N-Acetylcy steine and Metamizole may falsely depress this assay. Reference Range HDL <40 mg/dL Low HDL Cholesterol HDL >or= 60 mg/dL High HDL Cholesterol Serum or plasma cholesterol in VLDL measurement (mass/volume)Ordered By: Peterson Rm on 07-13-2023 Cholesterol in VLDL [Mass/Vol] 24 mg/dL 5-40 [facility] Serum or plasma creatinine m easurement (mass/volume)Ordered By: Peterson Rm on 07-13-2023 Creatinine [Mass/Vol] 0.71 mg/dL 0.55-1.02 [facility] Comment on above: The validity of the calculated GFR & GFRAA in patients over 70 years has not been determined. Clinical correlation is essential. Serum or plasma low density lipoprotein (LDL) cholesterol measurement (mass/volume)Ordered By: Peterson Rm on 07-13-2023 Cholesterol in LDL [Mass/Vol] 87 mg/dL 0-130 [facility] Serum or plasma urea nitroge n measurement (mass/volume)Ordered By: Peterson Rm on 07-13-2023 Urea nitrogen [Mass/Vol] 8 mg/dL 7-18 [facility] Thin prep Papanicolaou smear with manual screeningOrdered By: Peterson Rm on 07-13-2023 Thin prep Papanicolaou smear with manual screening 15 U/L 15-37 [facility] Thin prep Papanicolaou smear with manual screening 8 5-15 [facility] Whole blood hemoglobin A1c/t otal hemoglobin ratio (mass fraction)Ordered By: Peterson Rm on 07-13-2023 HbA1c (Bld) [Mass fraction] 6.1 % 3.8-5.6 [facility] Comment on above: Normal < 5.7 % Predi abetic 5.7 - 6.4 % Diabetic >or= 6.5 % Please note range changes. Office Visiton 05-20-2023 Follow-up visit [id number] Sary Cast 1975 F Date Provider Department Center 05/20/2023 [facility] None Family History Problem Relation Age of Onset Obesity Father Hypertension Father Heart disease Maternal Grandfather Diabetes Father Cancer Maternal Grandmother Family Status - Relation Status Age at Father Maternal Grandfather Alive Maternal Grandmother Alive Mother Alive Sister Alive Level of Service:35995 [place] OFFICE/OUTPATIENT ESTABLISHED LOW MDM 20-29 MIN Reason for Visit and Comments: Weight Loss [126437] - NSURG #4 [facility] Progress Noteon 05-20-2023 Progress Note HPI, PHYSICAL EXAMINATION & PLAN HPI: Patient here today for follow up for non-surgical weight loss management Weight trend since last visit: lost 2 lbs over 4 m stable This patient's excess weight is causing the following co-morbid conditions at this time:DM Physical Examination: Blood pressure 126/82, pulse 85, height 5' 5.5" (1.664 m), weight 287 lb (130 kg). [...] Will focus on the portion control Calorie 8235-4028 daily Will restart with meal preparation Discuss option for breakfast , lunch and dinner Portions Focus on the meal structure, composition and portion control DM Recent dx Started on metformin Continue current management, continue weight loss program stable [x] Protein goal of 1g protein per 1 kg of ideal body weight: 75 grams [x] Patient advised to maintain a food/exercise/behavi or diary until next physician visit and to [...] the same day of the visit in discussing/counselin g the patient regarding the diet and exercise [...] was performed.Clinical documentation is updated and completed. [facility] Progress Note [facility] NON-SURGICAL WEIGHT LOSS MANAGEMENT PROGRAM ROOMING NOTE: FOLLOW UP VISIT Patient: Sary Cast Date of : 1975 Service Date: 05/20/2023 Patient History/Assessment Summary: The patient is a pleasant 48 y.o. year old female, who stands Height: 5' 5.5" (166.4 cm) tall with a weight of Weight: 289 lb 12.8 oz (131 kg) pounds, resulting in a BMI of Body mass index is 47.49 kg/m?. kg/m2. She is here for follow-up for non-surgical treatment of Morbid Obesity Patient has the following question(s): none Pre Program Weight Metrics ([facility]ARE [facility]) Date of Initial Consultation:@FLOWLA ST(8961)@ Initial Weight: @FLOWLAST([id number]) @ Initial BMI: @FLOWLAST([id number]) @ [place] Body Weight: @FLOWLAST([id number]) @ Excess Body Weight: @FLOWLAST([id number]) @ Body Fat Percentage: No flowsheet data found. Subsequent Body Fat Percentage: No flowsheet data found. Pre Program Weight Metrics (Epic) (Surgical Wt Loss Management- baseline) This Visit Non-Surgical Subsequent Eval Date: 05/20/23 Height: 5' 5.5" (166.4 cm) Weight: 289 lb 12.8 oz [...] prescribed a medication for high cholesterol? (examples Lipitor/Atorvastatin , Pravastatin, Zetia, Tricor, etc.) Yes Have you [...] home O2 Completed by: Michelle Barajas LPN [facility] Basophil percentageOrdered B y: Dr. Rm on 02-16-2023 Bilirubin [Mass/Vol] 0.40 mg/dL 0.20-1.00 [facility] Comment on above: For patients on eltr ombopag therapy, use of Dimension [place] TBIL is not recommended. Chloride [Moles/Vol] 105 mmol/L 98-107 [facility] Cholesterol [Mass/Vol] 135 mg/dL <200 [facility] Comment on above: <200 mg/dL Desirable 200-240 mg/dL Borderline >240 mg/dL High Risk Glucose [Mass/Vol] 88 mg/dL 74-106 [facility] Potassium [Moles/Vol] 3.8 mmol/L 3.5-5.1 [facility] Protein [Mass/Vol] 7.9 g/dL 6.4-8.2 [facility] Sodium [Moles/Vol] 140 mmol/L 136-145 [facility] Triglyceride [Mass/Vol] 118 mg/dL <199 W [...] 02-16-2023 ALP [Catalytic activity/Vol] 154 U/L 45-117 [facility] ALT [Catalytic activity/Vol] 27 U/L 13-56 [facility] CO2 [Moles/Vol] 26.0 mmol/L 21.0-32.0 [facility] Globulin (S) [Mass/Vol] 4.7 g/dL 2.2-4.2 [facility] Urea nitrogen/Creatinine [Mass ratio] 13.3 mg/mg 10-20 [facility] No Panel InformationOrdered By: Dr. Rm on 02-16-2023 Estimated GFR (MDRD) Amer 120 mL/min >60 [facility] Comment on above: GFR Calc Estimated GFR (MDRD) Non-Af Amer 99 mL/min >60 [facility] Comment on above: Non- GFR Calc Serum or plasma albumin christal urement (mass/volume)Ordered By: Dr. Rm on 02-16-2023 Albumin [Mass/Vol] 3.2 g/dL 3.2-5.0 [facility] Serum or plasma albumin/glob ulin mass ratioOrdered By: Dr. Rm on 02-16-2023 Albumin/Globulin [Mass ratio] 0.7 {ratio} 0.9-2.4 [facility] Serum or plasma calcium christal urement (mass/volume)Ordered By: Dr. Rm on 02-16-2023 Calcium [Mass/Vol] 9.2 mg/dL 8.5-10.1 [facility] Serum or plasma cholesterol in HDL measurement (mass/volume)Ordered By: Dr. Rm on 02-16-2023 Cholesterol in HDL [Mass/Vol] 36 mg/dL >40 [facility] Comment on above: The drugs N-Acetylcy steine and Metamizole may falsely depress this assay. Reference Range HDL <40 mg/dL Low HDL Cholesterol HDL >or= 60 mg/dL High HDL Cholesterol Serum or plasma cholesterol in VLDL measurement (mass/volume)Ordered By: Dr. Rm on 02-16-2023 Cholesterol in VLDL [Mass/Vol] 24 mg/dL 5-40 [facility] Serum or plasma creatinine m easurement (mass/volume)Ordered By: Dr. Rm on 02-16-2023 Creatinine [Mass/Vol] 0.68 mg/dL 0.55-1.02 [facility] Comment on above: The validity of the calculated GFR & GFRAA in patients over 70 years has not been determined. Clinical correlation is essential. Serum or plasma low density lipoprotein (LDL) cholesterol measurement (mass/volume)Ordered By: Dr. Rm on 02-16-2023 Cholesterol in LDL [Mass/Vol] 75 mg/dL 0-130 [facility] Serum or plasma urea nitroge n measurement (mass/volume)Ordered By: Dr. Rm on 02-16-2023 Urea nitrogen [Mass/Vol] 9 mg/dL 7-18 [facility] Thin prep Papanicolaou smear with manual screeningOrdered By: Dr. Rm on 02-16-2023 Thin prep Papanicolaou smear with manual screening 14 U/L 15-37 [facility] Thin prep Papanicolaou smear with manual screening 9 5-15 [facility] Whole blood hemoglobin A1c/t otal hemoglobin ratio (mass fraction)Ordered By: Dr. Rm on 02-16-2023 HbA1c (Bld) [Mass fraction] 5.8 % 3.8-5.6 [facility] Comment on above: Normal < 5.7 % Predi abetic 5.7 - 6.4 % Diabetic >or= 6.5 % Please note range changes. Office Visiton 01-21-2023 Follow-up visit [id number] Sary Cast 1975 F Date Provider Department Center 01/21/2023 [id number][facility] None Family History Problem Relation Age of Onset Obesity Father Hypertension Father Heart disease Maternal Grandfather Diabetes Father Cancer Maternal Grandmother Family Status - Relation Status Age at Father Maternal Grandfather Alive Maternal Grandmother Alive Mother Alive Sister Alive Level of Service:79600 [place] OFFICE/OUTPATIENT ESTABLISHED LOW MDM 20-29 MIN Reason for Visit and Comments: Weight Loss [[id number]] - NSURG #3 [facility] Progress Noteon 01-21-2023 Progress Note HPI, PHYSICAL EXAMINATION & PLAN HPI: Patient here today for follow up for non-surgical weight loss management Weight trend since last visit: lost 9 lbs over 1 m stable This patient's excess weight is causing the following co-morbid conditions at this time:DM Physical Examination: Blood pressure 126/82, pulse 85, height 5' 5.5" (1.664 m), weight 287 lb (130 kg). [...] Will focus on the portion control Calorie 8625-9909 daily Will start feedback system DM Recent dx Started on metformin Continue current management, continue weight loss program stable [x] Protein goal of 1g protein per 1 kg of ideal body weight: 75 grams [x] Patient advised to maintain a food/exercise/behavi or diary until next physician visit and to [...] the same day of the visit in discussing/counselin g the patient regarding the diet and exercise [...] was performed.Clinical documentation is updated and completed. [facility] Progress Note [facility] NON-SURGICAL WEIGHT LOSS MANAGEMENT PROGRAM ROOMING NOTE: FOLLOW UP VISIT Patient: Sary Cast Date of : 1975 Service Date: 01/21/2023 Patient History/Assessment Summary: The patient is a pleasant 47 y.o. year old female, who stands Height: 5' 5.5" (166.4 cm) tall with a weight of Weight: 287 lb (130 kg) pounds, resulting in a BMI of Body mass index is 47.03 kg/m?. kg/m2. She is here for follow-up for non-surgical treatment of Obesity Patient has the following question(s): none Pre Program Weight Metrics (CARE Path) Date of Initial Consultation:@FLOWLA ST(8961)@ Initial Weight: @FLOWLAST([id number]) @ Initial BMI: @FLOWLAST([id number]) @ [place] Body Weight: @FLOWLAST([id number]) @ Excess Body Weight: @FLOWLAST([id number]) @ Body Fat Percentage: No flowsheet data found. Subsequent Body Fat Percentage: No flowsheet data found. Pre Program Weight Metrics (Epic) (Surgical Wt Loss Management- baseline) This Visit Non-Surgical Subsequent Eval Date: 01/20/23 Height: 5' 5.5" (166.4 cm) Weight: 287 lb (130 kg) [...] prescribed a medication for high cholesterol? (examples Lipitor/Atorvastatin , Pravastatin, Zetia, Tricor, etc.) Yes Have you [...] home O2 Completed by: Michelle Barajas LPN [facility] Office Visiton 12-12-2022 Follow-up visit [id number] Sary Cast 1975 F Date Provider Department Center 12/12/2022 40133[facility] None Family History Problem Relation Age of Onset Obesity Father Hypertension Father Heart disease Maternal Grandfather Diabetes Father Cancer Maternal Grandmother Family Status - Relation Status Age at Father Maternal Grandfather Alive Maternal Grandmother Alive Mother Alive Sister Alive Level of Service:29281 [place] OFFICE/OUTPATIENT ESTABLISHED LOW MDM 20-29 MIN Reason for Visit and Comments: Weight Loss [908183] - NSURG #2 [facility] Progress Noteon 12-12-2022 Progress Note [facility] NON-SURGICAL WEIGHT LOSS MANAGEMENT PROGRAM ROOMING NOTE: FOLLOW UP VISIT Patient: Sary Cast Date of : 1975 Service Date: 12/12/2022 Patient History/Assessment Summary: The patient is a pleasant 47 y.o. year old female, who stands Height: 5' 5.5" (166.4 cm) tall with a weight of Weight: 296 lb 12.8 oz (135 kg) pounds, resulting in a BMI of Body mass index is 48.64 kg/m?. kg/m2. She is here for follow-up for non-surgical treatment of Morbid Obesity Patient has the following question(s): none Pre Program Weight Metrics (CARE Path) Date of Initial Consultation:@FLOWLA ST(8961)@ Initial Weight: @FLOWLAST([id number]) @ Initial BMI: @FLOWLAST([id number]) @ [place] Body Weight: @FLOWLAST([id number]) @ Excess Body Weight: @FLOWLAST([id number]) @ Body Fat Percentage: No flowsheet data found. Subsequent Body Fat Percentage: No flowsheet data found. Pre Program Weight Metrics (Epic) (Surgical Wt Loss Management- baseline) This Visit Non-Surgical Subsequent Eval Date: 12/12/22 Height: 5' 5.5" (166.4 cm) Weight: 296 lb 12.8 oz [...] prescribed a medication for high cholesterol? (examples Lipitor/Atorvastatin , Pravastatin, Zetia, Tricor, etc.) Yes Have you [...] home O2 Completed by: Grecia Gonsales MA [facility] Progress Note HPI, PHYSICAL EXAMINATION & PLAN HPI: Patient here today for follow up for non-surgical weight loss management Weight trend since last visit: lost 9 lbs over 1 m stable This patient's excess weight is causing the following co-morbid conditions at this time:DM Physical Examination: BP 137/86 Pulse 88 Resp 16 Ht 5' 5.5" (1.664 m) Wt 296 lb 12.8 oz [...] Will focus on the portion control Calorie 1029-6461 daily Will start feedback system DM Recent dx Started on metformin Discuss GLP 1 agonist Will read about the medications Continue current management, continue weight loss program stable [x] Protein goal of 1g protein per 1 kg of ideal body weight: 75 grams [x] Patient advised to maintain a food/exercise/behavi or diary until next physician visit and to [...] the same day of the visit in discussing/counselin g the patient regarding the diet and exercise [...] was performed.Clinical documentation is updated and completed. [facility] Basophil percentageOrdered B y: Dr. Rm on 11-24-2022 Bilirubin [Mass/Vol] 0.40 mg/dL 0.20-1.00 [facility] Comment on above: For patients on eltr ombopag therapy, use of Dimension [place] TBIL is not recommended. Chloride [Moles/Vol] 107 mmol/L 98-107 [facility] Cholesterol [Mass/Vol] 132 mg/dL <200 [facility] Comment on above: <200 mg/dL Desirable 200-240 mg/dL Borderline >240 mg/dL High Risk Glucose [Mass/Vol] 120 mg/dL 74-106 [facility] Comment on above: Fasting Glucose resu lt from 100 to 125 mg/dL suggests IMPAIRED HOMEOSTASIS per A.D.A. criteria. Potassium [Moles/Vol] 4.0 mmol/L 3.5-5.1 [facility] Protein [Mass/Vol] 7.8 g/dL 6.4-8.2 [facility] Sodium [Moles/Vol] 141 mmol/L 136-145 [facility] Triglyceride [Mass/Vol] 113 mg/dL <199 [facility] Comment on above: The drugs N-Acetylcy steine and Metamizole may falsely depress this assay.Serum Triglycerides Reference Interval Normal <150 mg/dL Borderline high 150 - 199 mg/dL High 200 - 499 mg/dL Very High > or = 500 mg/dL Laboratory - Chemistry and C hemistry - challengeOrdered By: Dr. Rm on 11-24-2022 ALP [Catalytic activity/Vol] 139 U/L 45-117 [facility] ALT [Catalytic activity/Vol] 34 U/L 13-56 [facility] CO2 [Moles/Vol] 26.0 mmol/L 21.0-32.0 [facility] Globulin (S) [Mass/Vol] 4.6 g/dL 2.2-4.2 [facility] Urea nitrogen/Creatinine [Mass ratio] 13.1 mg/mg 10-20 [facility] No Panel InformationOrdered By: Dr. Rm on 11-24-2022 Estimated GFR (MDRD) Amer 118 mL/min >60 [facility] Comment on above: GFR Calc Estimated GFR (MDRD) Non-Af Amer 98 mL/min >60 [facility] Comment on above: Non- GFR Calc Vitamin D 25-Hydroxy 61.4 ng/mL [facility] Comment on above: Vitamin D 25(OH) Sta tus Range Deficiency <20 ng/mL (50nmol/L) Insufficiency 20 - 30 ng/mL (50 - 75 nmol/L) Sufficiency 30 - 100 ng/mL (75 - 250 nmol/L) Toxicity >100 ng/mL (>250 nmol/L) Serum or plasma albumin christal urement (mass/volume)Ordered By: Dr. Rm on 11-24-2022 Albumin [Mass/Vol] 3.2 g/dL 3.2-5.0 [facility] Serum or plasma albumin/glob ulin mass ratioOrdered By: Dr. Rm on 11-24-2022 Albumin/Globulin [Mass ratio] 0.7 {ratio} 0.9-2.4 [facility] Serum or plasma calcium christal urement (mass/volume)Ordered By: Dr. Rm on 11-24-2022 Calcium [Mass/Vol] 9.0 mg/dL 8.5-10.1 [facility] Serum or plasma cholesterol in HDL measurement (mass/volume)Ordered By: Dr. Rm on 11-24-2022 Cholesterol in HDL [Mass/Vol] 34 mg/dL >40 [facility] Comment on above: The drugs N-Acetylcy steine and Metamizole may falsely depress this assay. Reference Range HDL <40 mg/dL Low HDL Cholesterol HDL >or= 60 mg/dL High HDL Cholesterol Serum or plasma cholesterol in VLDL measurement (mass/volume)Ordered By: Dr. Rm on 11-24-2022 Cholesterol in VLDL [Mass/Vol] 23 mg/dL 5-40 [facility] Serum or plasma creatinine m easurement (mass/volume)Ordered By: Dr. Rm on 11-24-2022 Creatinine [Mass/Vol] 0.69 mg/dL 0.55-1.02 [facility] Comment on above: The validity of the calculated GFR & GFRAA in patients over 70 years has not been determined. Clinical correlation is essential. Serum or plasma low density lipoprotein (LDL) cholesterol measurement (mass/volume)Ordered By: Dr. Rm on 11-24-2022 Cholesterol in LDL [Mass/Vol] 75 mg/dL 0-130 [facility] Serum or plasma urea nitroge n measurement (mass/volume)Ordered By: Dr. Rm on 11-24-2022 Urea nitrogen [Mass/Vol] 9 mg/dL 7-18 [facility] Thin prep Papanicolaou smear with manual screeningOrdered By: Dr. Rm on 11-24-2022 Thin prep Papanicolaou smear with manual screening 23 U/L 15-37 [facility] Thin prep Papanicolaou smear with manual screening 8 5-15 [facility] Whole blood hemoglobin A1c/t otal hemoglobin ratio (mass fraction)Ordered By: Dr. Rm on 11-24-2022 HbA1c (Bld) [Mass fraction] 6.5 % 3.8-5.6 [facility] Comment on above: Normal < 5.7 % Predi abetic 5.7 - 6.4 % Diabetic >or= 6.5 % Please note range changes. Office Visiton 10-29-2022 Follow-up visit [id number] Sary Cast 1975 F Date Provider Department Center 10/29/2022 [id number] None Family History Problem Relation Age of Onset Obesity Father Hypertension Father Heart disease Maternal Grandfather Diabetes Father Cancer Maternal Grandmother Family Status - Relation Status Age at Father Maternal Grandfather Alive Maternal Grandmother Alive Mother Alive Sister Alive Level of Service:00487 [place] OFFICE/OUTPATIENT NEW MODERATE MDM 45-59 MINUTES Reason for Visit and Comments: Weight Loss [[id number]] - NSURG [facility] Progress Noteon 10-29-2022 Progress Note [facility] NON-SURGICAL WEIGHT LOSS MANAGEMENT PROGRAM ROOMING NOTE - INITIAL CONSULTATION Patient: Sary Cast Date of : 1975 Service Date: 10/29/2022 Patient is here today to discuss non-surgical weight loss management. This patient is alone for the evaluation today Weight Metrics: Non-Surgical Initial Eval Consult Date: 10/29/22 Initial Height: 5' 5.5" (166.4 cm) Initial Weight: 307 lb 12.8 oz (140 kg) [place] Body Weight: 137 lb (62.1 kg) Initial [...] prescribed a medication for high cholesterol? (examples Lipitor/Atorvastatin , Pravastatin, Zetia, Tricor, etc.) Yes Have you [...] home O2 Completed by: Grecia Gonsales MA [facility] Basophil percentageOrdered B y: Dr. Rm on 08-08-2022 Bilirubin [Mass/Vol] 0.50 mg/dL 0.20-1.00 [facility] Comment on above: For patients on eltr ombopag therapy, use of Dimension [place] TBIL is not recommended. Chloride [Moles/Vol] 105 mmol/L 98-107 [facility] Cholesterol [Mass/Vol] 151 mg/dL <200 [facility] Comment on above: <200 mg/dL Desirable 200-240 mg/dL Borderline >240 mg/dL High Risk Glucose [Mass/Vol] 114 mg/dL 74-106 [facility] Comment on above: Fasting Glucose resu lt from 100 to 125 mg/dL suggests IMPAIRED HOMEOSTASIS per A.D.A. criteria. Potassium [Moles/Vol] 3.8 mmol/L 3.5-5.1 [facility] Protein [Mass/Vol] 8.2 g/dL 6.4-8.2 [facility] Sodium [Moles/Vol] 137 mmol/L 136-145 [facility] Triglyceride [Mass/Vol] 90 mg/dL <199 [facility] Comment on above: The drugs N-Acetylcy steine and Metamizole may falsely depress this assay.Serum Triglycerides Reference Interval Normal <150 mg/dL Borderline high 150 - 199 mg/dL High 200 - 499 mg/dL Very High > or = 500 mg/dL Laboratory - Chemistry and C hemistry - challengeOrdered By: Dr. Rm on 08-08-2022 ALP [Catalytic activity/Vol] 148 U/L 45-117 [facility] ALT [Catalytic activity/Vol] 37 U/L 13-56 [facility] CO2 [Moles/Vol] 24.0 mmol/L 21.0-32.0 [facility] Globulin (S) [Mass/Vol] 4.8 g/dL 2.2-4.2 [facility] Urea nitrogen/Creatinine [Mass ratio] 10.4 mg/mg 10-20 [facility] No Panel InformationOrdered By: Dr. Rm on 08-08-2022 Estimated GFR (MDRD) Amer 120 mL/min >60 [facility] Comment on above: GFR Calc Estimated GFR (MDRD) Non-Af Amer 100 mL/min >60 [facility] Comment on above: Non- GFR Calc Vitamin D 25-Hydroxy 61.0 ng/mL [facility] Comment on above: Vitamin D 25(OH) Sta tus Range Deficiency <20 ng/mL (50nmol/L) Insufficiency 20 - 30 ng/mL (50 - 75 nmol/L) Sufficiency 30 - 100 ng/mL (75 - 250 nmol/L) Toxicity >100 ng/mL (>250 nmol/L) Serum or plasma albumin christal urement (mass/volume)Ordered By: Dr. Rm on 08-08-2022 Albumin [Mass/Vol] 3.4 g/dL 3.2-5.0 [facility] Serum or plasma albumin/glob ulin mass ratioOrdered By: Dr. Rm on 08-08-2022 Albumin/Globulin [Mass ratio] 0.7 {ratio} 0.9-2.4 [facility] Serum or plasma calcium christal urement (mass/volume)Ordered By: Dr. Rm on 08-08-2022 Calcium [Mass/Vol] 9.1 mg/dL 8.5-10.1 [facility] Serum or plasma cholesterol in HDL measurement (mass/volume)Ordered By: Dr. Rm on 08-08-2022 Cholesterol in HDL [Mass/Vol] 42 mg/dL >40 [facility] Comment on above: The drugs N-Acetylcy steine and Metamizole may falsely depress this assay. Reference Range HDL <40 mg/dL Low HDL Cholesterol HDL >or= 60 mg/dL High HDL Cholesterol Serum or plasma cholesterol in VLDL measurement (mass/volume)Ordered By: Dr. Rm on 08-08-2022 Cholesterol in VLDL [Mass/Vol] 18 mg/dL 5-40 [facility] Serum or plasma creatinine m easurement (mass/volume)Ordered By: Dr. Rm on 08-08-2022 Creatinine [Mass/Vol] 0.68 mg/dL 0.55-1.02 [facility] Comment on above: The validity of the calculated GFR & GFRAA in patients over 70 years has not been determined. Clinical correlation is essential. Serum or plasma low density lipoprotein (LDL) cholesterol measurement (mass/volume)Ordered By: Dr. Rm on 08-08-2022 Cholesterol in LDL [Mass/Vol] 91 mg/dL 0-130 [facility] Serum or plasma urea nitroge n measurement (mass/volume)Ordered By: Dr. Rm on 08-08-2022 Urea nitrogen [Mass/Vol] 7 mg/dL 7-18 [facility] Thin prep Papanicolaou smear with manual screeningOrdered By: Dr. Rm on 08-08-2022 Thin prep Papanicolaou smear with manual screening 21 U/L 15-37 [facility] Thin prep Papanicolaou smear with manual screening 8 5-15 [facility] Whole blood hemoglobin A1c/t otal hemoglobin ratio (mass fraction)Ordered By: Dr. Rm on 08-08-2022 HbA1c (Bld) [Mass fraction] 6.2 % 3.8-5.6 [facility] Comment on above: Normal < 5.7 % Predi abetic 5.7 - 6.4 % Diabetic >or= 6.5 % Please note range changes. Absolute lymphocyte counton 07-08-2022 Lymphocytes Auto (Unsp spec) [#/Vol] 2.61 10*3/uL 0.83-4.51 [facility] Work Phone: Basophil percentageon 2021 Basophil percentage 0 SEEN /hpf 0-5 [facility] Work Phone: Basophils/100 WBC (Bld) 0.4 % 0-1 [facility] Work Phone: Bilirubin [Mass/Vol] 0.40 mg/dL 0.20-1.00 [facility] Work Phone: Comment on above: For patients on eltr ombopag therapy, use of Dimension [place] TBIL is not recommended. Chloride [Moles/Vol] 109 mmol/L 98-107 [facility] Work Phone: Eosinophils/100 WBC (Bld) 1.0 % 0-5 [facility] Work Phone: Glucose [Mass/Vol] 122 mg/dL 74-106 [facility] Work Phone: Comment on above: Fasting Glucose resu lt from 100 to 125 mg/dL suggests IMPAIRED HOMEOSTASIS per A.D.A. criteria. Neutrophils (Bld) [#/Vol] 6.5 10*3/uL 2.0-7.7 [facility] Work Phone: [phone] Neutrophils/100 WBC (Bld) 66.9 % 47-70 [facility] Work Phone: Potassium [Moles/Vol] 3.6 mmol/L 3.5-5.1 [facility] Work Phone: Protein [Mass/Vol] 7.7 g/dL 6.4-8.2 [facility] Work Phone: Sodium [Moles/Vol] 143 mmol/L 136-145 [facility] Work Phone: WBC (Bld) [#/Vol] 9.7 10*3/uL 4.4-11.0 [facility] Work Phone: Bilirubin Test strip Ql (U)o n 07-08-2022 Bilirubin Ql (U) Negative Negative [facility] Work Phone: Blood erythrocytes count (nu mber/volume)on 07-08-2022 RBC (Bld) [#/Vol] 4.65 10*6/uL 4.2-5.4 [facility] Work [facility]: Blood hemoglobin measurement (mass/volume)on 07-08-2022 Hemoglobin (Bld) [Mass/Vol] 12.5 g/dL 12.0-15.0 [facility] Work Phone: Blood lymphocytes/100 leukoc yteson 07-08-2022 Lymphocytes/100 WBC (Bld) 27.0 % 19-41 [facility] Work Phone: Blood monocytes/100 leukocyt eson 07-08-2022 Monocytes/100 WBC (Bld) 4.2 % 0-10 [facility] Work Phone: Blood platelet mean volumeon 07-08-2022 Platelet mean volume (Bld) [Entitic vol] 8.9 fL 6.2-12.0 [facility] Work Phone: Determination of erythrocyte mean corpuscular volume (MCV)on 07-08-2022 MCV (RBC) [Entitic vol] 84.3 fL 81-99 [facility] Work Phone: Direct bilirubinon 2 Bilirubin.direct [Mass/Vol] 0.12 mg/dL 0.00-0.30 [facility] Work Phone: Hematocrit Auto (Bld) [Volum e fraction]on 07-08-2022 Hematocrit (Bld) [Volume fraction] 39.2 % 37-47 [facility] Work Phone: Ketones Test strip Ql (U)on 07-08-2022 Ketones Ql (U) Negative Negative [facility] Work Phone: Laboratory - Chemistry and C hemistry - challengeon 07-08-2022 HCG ( test) Ql (U) Negative [facility] Work Phone: Comment on above: Very dilute urine sp ecimens, as indicated by a low specificgravity, may not contain physician relations representative levels of hCG. If is still suspected, a first morning urinespecimen should be collected 48 hours later and tested. ALP [Catalytic activity/Vol] 131 U/L 45-117 [facility] Work Phone: ALT [Catalytic activity/Vol] 42 U/L 13-56 [facility] Work Phone: CO2 [Moles/Vol] 27.0 mmol/L 21.0-32.0 [facility] Work Phone: Globulin (S) [Mass/Vol] 4.6 g/dL 2.2-4.2 [facility] Work Phone: Lipase [Catalytic activity/Vol] 94 U/L 73-393 [facility] Work Phone: Urea nitrogen/Creatinine [Mass ratio] 10.2 mg/mg 10-20 [facility] Work Phone: Laboratory - Hematology and Cell countson 07-08-2022 Erythrocyte distribution width (RBC) [Entitic vol] 44.3 fL 35.1-43.9 [facility] Work Phone: Erythrocyte distribution width (RBC) [Ratio] 14.6 % 11.6-14.6 [facility] Work Phone: Immature granulocytes/100 WBC (Bld) 0.500 % 0.0-0.9 [facility] Work Phone: Comment on above: IG% - Immature Granu locytes (promyelocytes, myelocytes and metamyelocytes) > 1% indicates that a LEFT SHIFT is Present. MCH (RBC) [Entitic mass] 26.9 pg 27.0-32.0 [facility] Work Phone: Nucleated RBC/100 WBC (Bld) [Ratio] 0 % 0-5 [facility] Work Phone: MCHC Auto (RBC) [Mass/Vol]on 07-08-2022 MCHC (RBC) [Mass/Vol] 31.9 g/dL 32-36 [facility] Work Phone: Mucus LM Ql (Urine sed)on Mucus Ql (Urine sed) 0 SEEN /hpf [facility] Work Phone: Nitrite Test strip Ql (U)on 07-08-2022 Nitrite Ql (U) Negative Negative [facility] Work Phone: No Panel Informationon 07-08 Estimated Creatinine Clearance Calc 91.67 ml/min [facility] Work Phone: Estimated GFR (MDRD) Amer 118 mL/min >60 [facility] Work Phone: Comment on above: GFR Calc Estimated GFR (MDRD) Non-Af Amer 98 mL/min >60 [facility] Work Phone: Comment on above: Non- GFR Calc Troponin I High Sensitivity 3 pg/mL 3.0-54.0 [facility] Work Phone: Comment on above: Please Note: [place] t Units and Gender Specific Reference Ranges. For more information see Policy Stat Procedure [place] High Sensitivity Troponin (TNIH) and attachments. Platelets bldon 07-08-2022 Platelets (Bld) [#/Vol] 336 10*3/uL 150-450 [facility] Work Phone: Protein Test strip Ql (U)on 07-08-2022 Protein Ql (U) Negative Negative [facility] Work Phone: Serum or plasma albumin christal urement (mass/volume)on 07-08-2022 Albumin [Mass/Vol] 3.1 g/dL 3.2-5.0 [facility] Work Phone: Serum or plasma calcium christal urement (mass/volume)on 07-08-2022 Calcium [Mass/Vol] 9.1 mg/dL 8.5-10.1 [facility] Work Phone: Serum or plasma creatinine m easurement (mass/volume)on 07-08-2022 Creatinine [Mass/Vol] 0.69 mg/dL 0.55-1.02 [facility] Work Phone: Comment on above: The validity of the calculated GFR & GFRAA in patients over 70 years has not been determined. Clinical correlation is essential. Serum or plasma urea nitroge n measurement (mass/volume)on 07-08-2022 Urea nitrogen [Mass/Vol] 7 mg/dL 7-18 [facility] Work Phone: Squamous epithelial cells de tection in urine sediment by light microscopyon 07-08-2022 Epithelial cells.squamous LM Ql (Urine sed) 0-5 SEEN /hpf 5-10 [facility] Work Phone: Thin prep Papanicolaou smear with manual screeningon 07-08-2022 Thin prep Papanicolaou smear with manual screening 26 U/L 15-37 [facility] Work Phone: Thin prep Papanicolaou smear with manual screening 7 5-15 [facility] Work Phone: Urine blood detectionon 06-20 RBC Ql (U) Negative Negative [facility] Work Phone: RBC Ql (U) 0 SEEN /hpf 0-5 [facility] Work Phone: Urine clarityon 07-08-2022 Clarity (U) Clear Clear [facility] Work Phone: Urine color determinationon 07-08-2022 Color (U) Yellow Yellow [facility] Work Phone: Urine glucose detectionon Glucose Ql (U) Normal mg/dl Normal [facility] Work Phone: Urine leukocyte esterase det ection by dipstickon 07-08-2022 Leukocyte esterase Test strip Ql (U) Negative Negative [facility] Work Phone: Urine pHon 07-08-2022 pH (U) 7.0 [pH] 5.0 - 8.0 [facility] Work Phone: Urine sediment bacteria coun t by microscopy (number/high power field)on 07-08-2022 Bacteria LM.HPF (Urine sed) [#/Area] 0 /[HPF] None Seen [facility] Work Phone: Urine specific gravity measu rementon 07-08-2022 Specific gravity (U) [Rel density] 1.005 1.002-1.030 [facility] Work Phone: Urobilinogen Auto test strip Ql (U)on 07-08-2022 Urobilinogen Ql (U) Normal mg/dl Normal [facility] Work Phone: Vital Signs Date Time Vital Sign Value Performing Clinician Shanice leary 06-06-2025 08:51-0400 Body height 167 cm Marsha Sung MD Work Phone: [facility] 06-06-2025 08:51-0400 Body mass index (BMI) [Ratio] 44.72 kg/m2 Marsha Sung MD Work Phone: [facility] 06-06-2025 08:51-0400 Body weight 124.74 kg Marsha Sung MD Work Phone: [facility] 06-06-2025 08:51-0400 Diastolic blood pressure 88 mm[Hg] Marsha Sung MD Work Phone: [facility] 06-06-2025 08:51-0400 Systolic blood pressure 124 mm[Hg] Marsha Sung MD Work Phone: [facility] 09-07-2023 09:56-0500 Body height 165.[address] Peterson Rm Work Phone: [facility] 09-07-2023 09:56-0500 Body mass index (BMI) [Ratio] 47 kg/m2 Dr. Peterson Rm Work Phone: [facility] 09-07-2023 09:56-0500 Body temperature 98.2 [degF] Dr. Peterson Rm Work Phone: [facility] 09-07-2023 09:56-0500 Body weight 128.[address] Peterson Rm Work Phone: [facility] 09-07-2023 09:56-0500 Diastolic blood pressure 110 mm[Hg] Dr. Peterson Rm Work Phone: [facility] 09-07-2023 09:56-0500 Heart rate 82 /min Dr. Peterson Rm Work Phone: [facility] 09-07-2023 09:56-0500 Respiratory rate 16 /min Dr. Peterson Rm Work Phone: [facility] 09-07-2023 09:56-0500 SaO2% (BldA) [Mass fraction] 99 % Dr. Peterson Rm Work Phone: [facility] 09-07-2023 09:56-0500 Systolic blood pressure 145 mm[Hg] Dr. Peterson Rm Work Phone: [facility] 08-14-2023 08:19-0400 Body height 166.4 cm Osiris Velasquez MD Work Phone: [facility] 08-14-2023 08:19-0400 Body mass index (BMI) [Ratio] 46.44 kg/m2 Osiris Velasquez MD Work Phone: [facility] 08-14-2023 08:19-0400 Body weight 128.55 kg Osiris Velasquez MD Work Phone: [facility] 08-14-2023 08:19-0400 Diastolic blood pressure 84 mm[Hg] Osiris Velasquez MD Work Phone: [facility] 08-14-2023 08:19-0400 Heart rate 80 /min Osiris Velasquez MD Work Phone: [facility] 08-14-2023 08:19-0400 Systolic blood pressure 123 mm[Hg] Osiris Velasquez MD Work Phone: [facility] 07-07-2023 13:02-0400 Body temperature 98.4 [degF] Dr. Peterson Rm Work Phone: [facility] 07-07-2023 13:02-0400 Body weight 131.[address] Peterson Rm Work Phone: [facility] 07-07-2023 13:02-0400 Diastolic blood pressure 93 mm[Hg] Dr. Peterson Rm Work Phone: [facility] 07-07-2023 13:02-0400 Heart rate 85 /min Dr. Peterson Rm Work Phone: [facility] 07-07-2023 13:02-0400 Respiratory rate 16 /min Dr. Peterson Rm Work Phone: [facility] 07-07-2023 13:02-0400 SaO2% (BldA) [Mass fraction] 97 % Dr. Peterson Rm Work Phone: [facility] 07-07-2023 13:02-0400 Systolic blood pressure 149 mm[Hg] Dr. Peterson Rm Work Phone: [facility] 05-28-2023 08:21-0400 Body height 165.1 cm Marsha Sung MD Work Phone: [facility] 05-28-2023 08:21-0400 Body weight 128.28 kg Marsha Sung MD Work Phone: [facility] 05-28-2023 08:21-0400 Diastolic blood pressure 78 mm[Hg] Marsha Sung MD Work Phone: [facility] 05-28-2023 08:21-0400 Systolic blood pressure 128 mm[Hg] Marsha Sung MD Work Phone: [facility] 05-20-2023 08:03-0400 Body height 166.4 cm Osiris Velasquez MD Work Phone: [facility] [email or web address] 05-20-2023 08:03-0400 Body mass index (BMI) [Ratio] 47.49 kg/m2 Osiris Velasquez MD Work Phone: [facility] [email or web address] 05-20-2023 08:03-0400 Body weight 131.45 kg Osiris Velasquez MD Work Phone: [facility] [email or web address] 05-20-2023 08:03-0400 Diastolic blood pressure 71 mm[Hg] Osiris Velasquez MD Work Phone: [facility] [email or web address] 05-20-2023 08:03-0400 Heart rate 76 /min Osiris Velasquez MD Work Phone: [facility] [email or web address] 05-20-2023 08:03-0400 Systolic blood pressure 104 mm[Hg] Osiris Velasquez MD Work Phone: [facility] [email or web address] 01-21-2023 07:38-0400 Body height 166.4 cm Osiris Velasquez MD Work Phone: [facility] [email or web address] 01-21-2023 07:38-0400 Body mass index (BMI) [Ratio] 47.03 kg/m2 Osiris Velasquez MD Work Phone: [facility] [email or web address] 01-21-2023 07:38-0400 Body weight 130.18 kg Osiris Velasquez MD Work Phone: [facility] [email or web address] 01-21-2023 07:38-0400 Diastolic blood pressure 82 mm[Hg] Osiris Velasquez MD Work Phone: [facility] [email or web address] 01-21-2023 07:38-0400 Heart rate 85 /min Osiris Velasquez MD Work Phone: [facility] 01-21-2023 07:38-0400 Systolic blood pressure 126 mm[Hg] Osiris Velasquez MD Work Phone: [facility] 01-16-2023 14:20-0400 Body weight 134.72 kg Marsha Sung MD Work Phone: [facility] 01-16-2023 14:20-0400 Diastolic blood pressure 88 mm[Hg] Marsha Sung MD Work Phone: [facility] 01-16-2023 14:20-0400 Systolic blood pressure 132 mm[Hg] Marsha Sung MD Work Phone: [facility] 12-12-2022 07:38-0500 Body height 166.4 cm Osiris Velasquez MD Work Phone: [facility] 12-12-2022 07:38-0500 Body mass index (BMI) [Ratio] 48.64 kg/m2 Osiris Velasquez MD Work Phone: [facility] 12-12-2022 07:38-0500 Body weight 134.63 kg Osiris Velasquez MD Work Phone: [facility] 12-12-2022 07:38-0500 Diastolic blood pressure 86 mm[Hg] Osiris Velasquez MD Work Phone: [facility] 12-12-2022 07:38-0500 Heart rate 88 /min Osiris Velasquez MD Work Phone: [facility] 12-12-2022 07:38-0500 Respiratory rate 16 /min Osiris Velasquez MD Work Phone: [facility] 12-12-2022 07:38-0500 Systolic blood pressure 137 mm[Hg] Osiris Velasquez MD Work Phone: [facility] 10-29-2022 07:39-0500 Body height 166.4 cm Osiris Velasquez MD Work Phone: [facility] 10-29-2022 07:39-0500 Body mass index (BMI) [Ratio] 50.44 kg/m2 Osiris Velasquez MD Work Phone: [facility] 10-29-2022 07:39-0500 Body weight 139.62 kg Osiris Velasquez MD Work Phone: [facility] 10-29-2022 07:39-0500 Diastolic blood pressure 71 mm[Hg] Osiris Velasquez MD Work Phone: [facility] 10-29-2022 07:39-0500 Heart rate 86 /min Osiris Velasquez MD Work Phone: [facility] 10-29-2022 07:39-0500 Respiratory rate 16 /min Osiris Velasquez MD Work Phone: [facility] 10-29-2022 07:39-0500 Systolic blood pressure 119 mm[Hg] Osiris Velasquez MD Work Phone: [facility] 10-13-2022 08:45-0500 Body height 165.[address] Peterson Rm Work Phone: [facility] 10-13-2022 08:45-0500 Body mass index (BMI) [Ratio] 50.7 kg/m2 Dr. Peterson Rm Work Phone: [facility] 10-13-2022 08:45-0500 Body temperature 97.7 [degF] Dr. Peterson Rm Work Phone: [facility] 10-13-2022 08:45-0500 Body weight 138.[address] Peterson Rm Work Phone: [facility] 10-13-2022 08:45-0500 Diastolic blood pressure 92 mm[Hg] Dr. Peterson Rm Work Phone: [facility] 10-13-2022 08:45-0500 Heart rate 93 /min Dr. Peterson Rm Work Phone: [facility] 10-13-2022 08:45-0500 Respiratory rate 16 /min Dr. Peterson Rm Work Phone: [facility] 10-13-2022 08:45-0500 SaO2% (BldA) [Mass fraction] 98 % Dr. Peterson Rm Work Phone: [facility] 10-13-2022 08:45-0500 Systolic blood pressure 142 mm[Hg] Dr. Peterson Rm Work Phone: [facility] 07-08-2022 13:06-0400 Diastolic blood pressure 86 mm[Hg] [facility] Work Phone: 07-08-2022 13:06-0400 Heart rate 80 /min [facility] Work Phone: 07-08-2022 13:06-0400 Respiratory rate 16 /min [facility] Work Phone: 07-08-2022 13:06-0400 SaO2% (BldA) [Mass fraction] 96 % [facility] Work Phone: 07-08-2022 13:06-0400 Systolic blood pressure 129 mm[Hg] [facility] Work Phone: 07-08-2022 07:55-0400 Body height 165.1 cm [facility] Work Phone: 07-08-2022 07:55-0400 Body mass index (BMI) [Ratio] 49.1 kg/m2 [facility] Work Phone: 07-08-2022 07:55-0400 Body temperature 98.2 [degF] [facility] Work Phone: 07-08-2022 07:55-0400 Body weight 133.8 kg [facility] Work Phone: 07-05-2022 08:43-0400 Diastolic blood pressure 75 mm[Hg] [facility] Work Phone: 07-05-2022 08:43-0400 Heart rate 84 /min [facility] Work Phone: 07-05-2022 08:43-0400 Respiratory rate 18 /min [facility] Work Phone: 07-05-2022 08:43-0400 SaO2% (BldA) [Mass fraction] 97 % [facility] Work Phone: 07-05-2022 08:43-0400 Systolic blood pressure 111 mm[Hg] [facility] Work Phone: 07-05-2022 08:02-0400 Body height 167.64 cm [facility] Work Phone: 07-05-2022 08:02-0400 Body mass index (BMI) [Ratio] 48.2 kg/m2 [facility] Work Phone: 07-05-2022 08:02-0400 Body temperature 97.8 [degF] [facility] Work Phone: 07-05-2022 08:02-0400 Body weight 135.62 kg [facility] Work Phone: 02-27-2022 07:51-0400 Body height 167.64 cm [facility] Work Phone: 02-27-2022 07:51-0400 Body weight 140.43 kg [facility] Work Phone: 01-22-2022 14:06-0400 Body weight 138.52 kg [facility] Work Phone: 01-17-2022 00:10-0400 Body weight 140.16 kg [facility] Work Phone: 01-06-2022 19:20-0400 Body weight 140.16 kg [facility] Work Phone: Encounters Encounter Date Encounter Type Care Provider Facility Start: 08-09-2025 ambulatory Marsha Gonzalez y:[facility] Start: 07-14-2025 ambulatory Peterson CrockerJag Facility: [facility] Start: 06-06-2025 End: 06-06-2025 Patient encounter procedure Marsha Sung MD Work Phone: OB/Gynecology Comment on above: Encounter for gyneco logical examination (general) (routine) without abnormal findings (Primary Dx); Screening for cervical cancer; Encounter for screening for human papillomavirus (HPV) Start: 06-06-2025 End: 06-06-2025 Patient encounter status Marsha Sung MD Work Phone: [facility] Start: 06-06-2025 End: 06-06-2025 ambulatory MARSHA SUNG Facility:[facility] Start: 06-06-2025 Encounter for gynecological examination (general) (routine) without abnormal findings MARSHA SUNG [facility] Start: 04-14-2025 End: 04-14-[address] Peterson Rm DO Work Phone: -[facility] Maximiliano Zaidi [facility] Start: 04-14-2025 End: 04-14-[address] Peterson Baldwin [facility] Start: 04-14-2025 End: 04-14-2025 ambulatory Peterson Rm Facility:[facility] Start: 04-12-2025 End: 04-12-[address] Peterson Rm DO Work Phone: -[facility] Start: 04-12-2025 End: 04-12-[address] Peterson Rm DO -[facility] Work Phone: Start: 04-12-2025 End: 04-12-2025 ambulatory Peterson Rm Facility:[facility] Start: 03-15-2025 End: 03-15-[address] Peterson Rm DO Work Phone: [facility] Work Phone: Start: 03-15-2025 End: 03-15-[address] [facility] Work Phone: Start: 03-15-2025 End: 03-15-2025 ambulatory Peterson Rm Facility:[facility] Start: 11-16-2024 End: 11-16-2024 ambulatory Peterson CrockerJag Facility:[facility] Start: 11-15-2024 End: 11-15-2024 ambulatory [facility] Facility:[facility] Start: 11-14-2024 End: 11-14-2024 ambulatory [facility] Facility:[facility] Start: 08-25-2024 End: 08-25-2024 ambulatory [facility] Facility:[facility] Start: 08-08-2024 End: 08-08-2024 ambulatory [facility] Facility:[facility] Start: 11-30-2023 End: 11-30-2023 ambulatory [facility] Work Phone: Start: 11-30-2023 End: 11-30-2023 Patient encounter procedure [facility] Work Phone: Start: 09-07-2023 End: 09-07-2023 Emergency department patient visit Dr. Peterson Rm Work Phone: [facility]-Emergency Department Work Phone: Start: 08-14-2023 End: 08-14-2023 ambulatory [facility] Start: 08-14-2023 End: 08-14-2023 Office outpatient visit 15 minutes Osiris Velasquez MD Work Phone: [facility] Comment on above: Type 2 diabetes kamini itus without complication, without long- term current use of insulin ([facility] ([facility]) (Primary Dx); BMI 45.0-49.9, adult ([facility]); Class 3 severe obesity with serious comorbidity and body mass index (BMI) of 45.0 to 49.9 in adult, unspecified obesity type ([facility]) Start: 08-05-2023 End: 08-05-[address] Peterson Rm Work Phone: [facility] Work Phone: Start: 08-05-2023 End: 08-05-[address] Peterson Rm Work Phone: [facility]-Outpatient Breast Imaging Work Phone: Start: 07-13-2023 End: 07-13-[address] [facility] Start: 07-07-2023 End: 07-07-[address] Peterson Rm Work Phone: [facility] Work Phone: Start: 05-28-2023 End: 05-28-2023 Patient encounter procedure Marsha Sung MD Work Phone: OB/Gynecology Comment on above: Encounter for gyneco logical examination (general) (routine) without abnormal findings (Primary Dx); Obesity, Class III, BMI >= 40 Start: 05-28-2023 End: 05-28-2023 Patient encounter status Marsha Sung MD Work Phone: [facility] Work Phone: Start: 05-20-2023 End: 05-20-2023 ambulatory [facility] Start: 05-20-2023 End: 05-20-2023 Office outpatient visit 15 minutes Osiris Velasquez MD Work Phone: [facility] Comment on above: Type 2 diabetes kamini itus without complication, without long- term current use of insulin ([facility]/HCC) (HCC) (Primary Dx); BMI 45.0-49.9, adult ([facility]); Class 3 severe obesity with serious comorbidity and body mass index (BMI) of 45.0 to 49.9 in adult, unspecified obesity type ([facility]) Start: 02-19-2023 ambulatory Marsha armas MD Work Phone: OB/Gynecology Comment on above: Insert Start: 02-16-2023 End: 02-16-2023 ambulatory [facility] Work Phone: Start: 02-16-2023 End: 02-16-2023 Patient encounter procedure [facility] Maximiliano Dyan [facility] Start: 01-21-2023 End: 01-21-2023 ambulatory [facility] Start: 01-21-2023 End: 01-21-2023 Office outpatient visit 15 minutes Osiris Velasquez MD Work Phone: [facility] Comment on above: Type 2 diabetes kamini itus without complication, without long- term current use of insulin (CMS/HCC) (HCC) (Primary Dx); BMI 45.0-49.9, adult (HCC); Class 3 severe obesity with serious comorbidity and body mass index (BMI) of 45.0 to 49.9 in adult, unspecified obesity type (HCC) Start: 01-16-2023 End: 01-16-2023 Patient encounter procedure Marsha Sung MD Work Phone: OB/Gynecology Comment on above: Abscess of vulva (Pr imary Dx) Start: 12-12-2022 End: 12-12-2022 ambulatory [facility] Start: 12-12-2022 End: 12-12-2022 Office outpatient visit 15 minutes Osiris Velasquez MD Work Phone: [facility] Comment on above: Type 2 diabetes kamini itus without complication, without long- term current use of insulin (CMS/HCC) (HCC) (Primary Dx); BMI 45.0-49.9, adult (CMS/HCC) (HCC); Class 3 severe obesity with serious comorbidity and body mass index (BMI) of 45.0 to 49.9 in adult, unspecified obesity type (HCC) Start: 11-24-2022 End: 11-24-[address] Peterson Rm Work Phone: [facility] Work Phone: Start: 11-24-2022 End: 11-24-[address] [facility] Start: 10-29-2022 End: 10-29-2022 ambulatory [facility] Start: 10-29-2022 End: 10-29-2022 Office outpatient new 45 minutes Osiris Velasquez MD Work Phone: [facility] Comment on above: Dyslipidemia (Primar y Dx); BMI 50.0-59.9, adult (CMS/HCC) (HCC); Class 3 severe obesity with serious comorbidity and body mass index (BMI) of 50.0 to 59.9 in adult, unspecified obesity type (HCC) Start: 10-13-2022 End: 10-13-[address] Peterson Rm Work Phone: [facility] Start: 09-24-2022 Non-patient / Non-visit Dr. Mike Rm Work Phone: [facility] Start: 09-24-2022 End: 09-24-[address] Peterson Rm Work Phone: [facility] Work Phone: Start: 09-24-2022 End: 09-24-[address] Peterson Rm Work Phone: [facility] Start: 09-23-2022 End: 09-23-[address] Peterson Rm Work Phone: [facility] Work Phone: Start: 09-23-2022 End: 09-23-[address] Peterson Rm Work Phone: [facility] Start: 08-08-2022 End: 08-08-2022 ambulatory [facility] Work Phone: Start: 08-08-2022 End: 08-08-2022 Patient encounter procedure [facility]-Laboratory,[facility] lenorae Start: 08-04-2022 End: 08-04-2022 Patient encounter procedure [facility]-Outpatient Breast Imaging Start: 07-08-2022 End: 07-08-2022 Emergency department patient visit [facility]-Emergency Department Start: 07-05-2022 End: 07-05-2022 Emergency department patient visit [facility]-Emergency Department Start: 05-15-2022 End: 05-15-2022 Patient encounter procedure [facility]Ultrasound, [facility] Start: 04-18-2022 End: 04-18-2022 Patient encounter procedure [facility], [facility] Start: 02-27-2022 End: 03-18-2022 Discharged Recurring [facility]-Nutritional Services Start: 01-22-2022 End: 02-15-2022 [facility] Start: 01-06-2022 End: 01-16-2022 Discharged Recurring [facility] Procedures Date Procedure Procedure Detail Performing Clinician Start: 04-14-[address] Amrita Rm DO Work Phone: Comment on above: Performed at: [employer] [address] [id number] Director: Mark Balderrama PhD, Phone: [phone] Start: 04-14-[address] IgA level [address] Peterson Rm DO Work Phone: Start: 04-14-[address] Peterson Rm DO Work Phone: Comment on above: Thyroglobulin Antibo dy measured by [employer] should be noted that the presence of thyroglobulinantibodies may not be pathogenic nor diagnostic, especiallyat very low levels. The assay hydraulic jack mechanic has found thatfour percent of individuals without evidence of thyroiddisease or autoimmunity will have positive TgAb levels upto 4 IU/mL.Performed at: [employer] [address] [id number] Director: Mark Balderrama PhD, Phone: [phone] Start: 04-12-2025 Vitamin D, 25-hydrox y measurement Dr. Peterson Rm DO Work Phone: Comment on above: Vitamin D StatusDefi ciency: <20 ng/mL (50nmol/L)Insufficiency: 20-30 ng/mL (50-75 nmol/L)Sufficiency: 30-100 ng/mL (75-250 nmol/L)Toxicity: >100 ng/mL (>250 nmol/L) Start: 08-05-2023 End: 08-05-[address] Peterson Rm Work Phone: Start: 08-04-2022 End: 08-04-2022 Screening mammography Start: 07-08-2022 Computed tomography of abdomen and pelvis with intravenous contrast Start: 07-05-2022 Diagnostic radiograp hy of abdomen Start: 05-15-2022 Ultrasound elastography Start: 04-18-2022 Ultrasonography of abdomen Plan of Treatment Date Care Activity Detail Author Start: 07-17-2033 Urine microalbumin profile DTa P,Tdap,Td Vaccine (2 - Td or Tdap) [facility] Start: 06-08-2026 End: 06-08-2026 Patient encounter procedure 06/08/2026 8:40 AM EDT Office Visit OB/Gynecology [address] [place], [place] [id number] Marsha Sung MD [address] [place], [place] [id number] Annual OB/Gynecology Comment on above: Annual Start: 2026 Zoster Vaccines (1 of 2) Zoste r Vaccines (1 of 2) [facility] Start: 08-08-2025 Screening for malign ant neoplasm of breast Mammogram Screening [facility] Start: 06-19-2025 Influenza vaccination Influenza Vacc ine (#1) [facility] Start: 04-17-2025 Procedure [facility] Start: 04-14-2025 Celiac disease screen [facility] Start: 04-14-2025 [facility] Start: 10-21-2024 HPV TESTING HPV TESTING [facility] Start: 10-21-2024 PAP TESTING PAP TESTING [facility] Start: 10-21-2024 Screening for malign ant neoplasm of cervix Cervical Cancer Screening [facility] Start: 08-05-2024 Screening for malign ant neoplasm of breast Mammogram [facility] Start: 09-30-2023 End: 09-30-2023 Patient encounter procedure 09/30/2023 8:00 AM EST Office Visit [facility] [place] [phone] Osiris Velasquez MD [address] [place], [place] [id number] [facility] Start: 09-07-2023 [facility] Start: 08-04-2023 Mammography MAMMOGRAM [facility] Start: 08-04-2023 Screening for malign ant neoplasm of breast Mammogram [facility] Start: 07-08-2023 End: 07-08-2023 Patient encounter procedure 07/08/2023 8:20 AM EDT Office Visit [facility] [address] [place] [phone] Osiris Velasquez MD [address] [place], [place] [id number] [facility] Start: 06-19-2023 Influenza vaccination [facility] Start: 02-27-2023 End: 02-27-2023 Patient encounter procedure 02/27/2023 Office Visit Weight Management Osiris Velasquez MD [address] [place], [place] [phone] [facility] Start: 01-21-2023 End: 01-21-2023 Patient encounter procedure 01/21/2023 Office Visit Weight Management Osiris Velasquez MD [address] [place], [place] [phone] [facility] Start: 12-12-2022 End: 12-12-2022 Patient encounter procedure 12/12/2022 Office Visit Weight Management Osiris Velasquez MD [address] [place], [place] [phone] [facility] Start: 11-28-2022 End: 11-28-2022 Patient encounter procedure 11/28/2022 Office Visit Weight Management Osiris Velasquez MD [address] [place], [place] [id number] (work) [facility] Start: 10-19-2022 DEPRESSION ASSESSMENT DEPRESSION ASS ESSMENT [facility] Start: 12-20-2021 COVID-19 VACCINE (3 - Booster for Moderna series) COVID-19 VACCINE (3 - Booster for Moderna series) [facility] Start: 12-20-2021 COVID-19 VACCINE (3 - Moderna series) COVID-19 VACCINE (3 - Moderna series) [facility] Start: 2021 COLOGUARD (FIT-DNA) COLOGUARD (FIT-D NA) [facility] Start: 2021 Colonoscopy COLONOSCOPY [facility] Start: 2021 COLORECTAL CANCER SCREENING COLORECTAL CANCER SCREENING [facility] Start: [address] COLONOGRAPHY [facility] Start: 2021 DIABETES SCREEN DIABETES SCREEN [facility] Start: 2021 Diabetes Screening Diabetes Screenin g [facility] Start: 2021 FECAL OCCULT BLOOD FECAL OCCULT BLOO D [facility] Start: 2021 Lipid panel Lipid Screening [facility] Start: 2021 LIPID SCREEN LIPID SCREEN [facility] Start: 2021 Screening for malign ant neoplasm of colon [facility] Start: 2021 SIGMOIDOSCOPY SIGMOIDOSCOPY [facility] Start: 2016 Screening for malign ant neoplasm of breast Mammogram [facility] Start: 2006 Screening for malign ant neoplasm of cervix [facility] Start: 1997 Screening for malign ant neoplasm of cervix Pap Smear [facility] Start: 1995 DTaP/Tdap/Td Vaccine s (1 - Tdap) DTaP/Tdap/Td Vaccines (1 - Tdap) [facility] Start: 1995 Hepatitis B Vaccine (1 of 3 - 19+ 3-dose series) Hepatitis B Vaccine (1 of 3 - 19+ 3-dose series) [facility] Start: 1995 Urine microalbumin profile DTAP,TDAP ,TD (1 - Tdap) [facility] Start: 1995 Urine screening for protein Diabetes: Urine Protein Screening [facility] Start: 1994 Anxiety Screening Anxiety Screening [facility] Start: 1994 Depression Screening Depression Scre ing [facility] Start: 1994 Diabetes mellitus screening Diabetes Screening [facility] Start: 1994 HEPATITIS C SCREENING [facility]ITIS C [facility] Start: 1994 Hepatitis C screening Hepatitis C [facility] Start: 1994 HIV SCREENING HIV SCREENING [facility] Start: 1994 HIV screening HIV Screening [facility] Start: 1988 Depression Screening Depression Scre [facility] Start: 1986 Diabetic foot examination Diabetes: Foot Exam [facility] Start: 1986 Glaucoma screening Diabetes: R etinopathy Screening [facility] Start: 1986 Preventive dental service Diabetes: Dental Exam [facility] Start: 1982 Pneumococcal Vaccine : Pediatrics (0 to 5 Years) and At-Risk Patients (6 to 64 Years) (1 - PCV) Pneumococcal Vaccine: Pediatrics (0 to 5 Years) and At-Risk Patients (6 to 64 Years) (1 - PCV) [facility] Start: 1977 MMR Vaccines (1 of 1 - Standard series) MMR Vaccines (1 of 1 - Standard series) [facility] Start: 1976 Hemoglobin A1c measurement Janey betes: Hemoglobin A1C [facility] Start: 1976 HEPATITIS B (1 of 3 - 3-dose series) HEPATITIS B (1 of 3 - 3-dose series) [facility] Start: 1976 Hepatitis B Vaccines (1 of 3 - 3-dose series) Hepatitis B Vaccines (1 of 3 - 3-dose series) [facility] Start: 1976 HIV screening HIV Screening [facility] Start: 1976 Lipid panel Lipid Panel [facility] Start: 1976 Screening for malign ant neoplasm of colon [facility] Cyclic citrullinated peptide IgG Ab [Units/volume] in Serum or Plasma [facility] IgA [Mass/volume] in Serum or Plasma [facility] PAP TEST PAP TEST Lab [facility] Encounter for gynecological examination (general) (routine) without abnormal findings Screening for cervical cancer Encounter for screening for human papillomavirus (HPV) 06/06/2025 9:41 AM EDT [facility] Work Phone: Patient Education [facility] Work Phone: Patient referral [facility] Work Phone: Thyroglobulin antibo dy measurement [facility] Thyroperoxidase Ab [Units/volume] in Serum or Plasma [facility] Tissue transglutamin ase IgA Ab [Units/volume] in Serum [facility] Immunizations Immunization Date Immunization Notes Care Provider [facility] 07-27-2024 influenza virus vaccine, unspecified formulation Marsha Sung MD Work Phone: [facility] 07-25-2024 influenza, seasonal, injectable, preservative free Marsha Sung MD Work Phone: [facility] 07-17-2023 influenza, injectabl e, quadrivalent, preservative free Marsha Sung MD Work Phone: [facility] 07-17-2023 tetanus toxoid, redu narendra diphtheria toxoid, and acellular pertussis vaccine, adsorbed Marsha Sung MD Work Phone: [facility] 07-30-2022 influenza, injectabl e, quadrivalent, preservative free Marsha Sung MD Work Phone: [facility] 07-30-2022 influenza virus vaccine, unspecified formulation Osiris Velasquez MD Work Phone: [facility] 08-01-2019 influenza, injectabl e, quadrivalent, preservative free Marsha Sung MD Work Phone: [facility] 08-31-2018 influenza, injectabl e, quadrivalent, preservative free Marsha Sung MD Work Phone: [facility] Work Phone: Payers Date Payer Category Payer Self-pay [id number] 2013 [facility] BLUE CARD PPO OOS [id number] 2013 Unknown [id number] 2010 Unknown [id number] Self-pay [id number] Unknown [id number] Unknown [id number] Unknown [id number] Unknown [id number] Unknown [id number] Unknown [id number] Unknown [id number] Unknown [id number] Unknown [id number] Unknown [id number] Social History Date Type Detail Facility Start: 08-28-2020 End: 09-07-2023 Tobacco smoking status FLIS Unknown if ever smoked [facility] Start: 1975 Sex Assigned At Female [facility] Start: 01-16-2023 End: 05-28-2023 Tobacco smoking status NHIS Never smoked tobacco [facility] Start: 01-16-2023 End: 05-28-2023 Tobacco use and exposure Smokeless tobacco non-user [facility] Start: 01-16-2023 End: 06-06-2025 Alcohol intake Ex-drinker (finding) [facility] Start: 1975 Sex Assigned At Not on file S [facility] Start: 10-19-2022 End: 05-20-2023 Exposure to SARS-CoV-2 (event) Not sure [facility] Start: 12-12-2022 End: 05-28-2023 History of Social function [facility] Start: 12-12-2022 End: 05-28-2023 Tobacco use panel [facility] Start: 09-19-2012 National Score (1-100), lower number is lower risk 51 [facility] How often to you hav e a drink containing alcohol? Never [facility] NEGATED: Highlighted rowStart: NINF History of tobacco use Passive smoker [facility] Work Phone: Functional Status Date Assessment Result Facility 06-06-2025 Total score [AUDIT-C] 0 06/06/20 25 8:51 AM EDT Marcella Escobar MA [facility] 08-18-2014 Are you deaf, or do you have serious difficulty hearing No 08/18/2014 7:00 PM MARCELLAT Swathi Francois LPN No [facility] 08-18-2014 Are you blind, or do you have serious difficulty seeing, even when wearing glasses No 08/18/2014 7:00 PM MARCELLAT Swathi Francois LPN No [facility] 08-18-2014 Do you have serious difficulty walking or climbing stairs No 08/18/2014 7:00 PM Swathi Rosas LPN No [facility] 08-18-2014 Do you have difficul ty dressing or bathing No 08/18/2014 7:00 PM EDT Swathi Francois LPN No [facility] 08-18-2014 Because of a physica l, mental, or emotional condition, do you have difficulty doing errands alone such as visiting a physician's office or shopping No 08/18/2014 7:00 PM EDT Swathi Francois LPN No [facility] Mental Status Date Assessment Result Facility 09-07-2023 Cognitive function Level Of Cons ciousness Awake;Alert;Appropriate;Fol lows Commands [facility] Work Phone: 08-18-2014 Because of a physica l, mental, or emotional condition, do you have serious difficulty concentrating, remembering, or making decisions No 08/18/2014 7:00 PM EDT Swathi Francois LPN No [facility] Clinical Notes 10-29-2022 to 06-06-2025 Marsha Sung MD - 06/06/2025 8:45 AM Chichi Barajas LPN - 08/14/2023 8:40 AM MARCELLATOsiris Velasquez MD - 08/14/2023 8:40 AM Marsha Gonzalez MD - 05/28/2023 8:20 AM EDT Note Date & Type Note Facility 06-06-2025 Note HNO ID: [id number] Author: MARSHA SUNG MD Service: ? Author Type: Physician Type: Progress Notes Filed: 06/06/2025 09:30 Note Text: Michael is a 50 year old who presents for an annual gynecologic exam without complaints. s/p tubal and ablation. No bleeding or spotting. No hot flahses or vaginal dryness Still get period: No LMP: none since ablation Menopause symptoms: None Time with current partner: 27 years Contraception frequency: Always HPV vaccine: Unsure; HPV:negative Last pap smear: 2019 History of abnormal pap: No Bothersome pelvic pain: Yes Last mammogram: 2023normal OB History Gravida2 Para2 Term2 Preterm0 AB0 Living2 SAB0 IAB0 Ectopic0 Multiple0 Live Births2 Insurance Solicitor History LMP: 04/28/2018, Ablation Age at Menarche: Age at First : Age at Menopause: Insurance Solicitor History Comments: Sexual Activity: Yes; Male; novasure [...] Ischemic Heart Disease Maternal Grandfather 53 of [place] Breast Cancer Maternal Aunt SOCIAL HISTORY Social History Tobacco Use Smoking status: Never Passive exposure: Never Smokeless tobacco: Never Vaping Use Vaping status: Never Used Substance Use Topics Alcohol use: Not Currently Drug use: Never REVIEW OF SYSTEMS Abdomen: No abdominal pain, nausea, vomiting, diarrhea, or constipation. No bloating, early satiety, indigestion, or increased flatulence. Bladder: No dysuria, gross hematuria, urinary frequency, urinary urgency, or incontinence. Breast: No breast lumps, nipple d/c, overlying skin changes, redness or skin retraction. Allergies and current medication updated:Yes SENSITIVE EXAM: The sensitive examination was discussed with the Patient or Patient's Authorized Firing Pin Gauger. As applicable, any other physician, advance practice provider, medical student, or other health professional student that will be observing or involved in the sensitive examination for educational or training purposes was discussed with the Patient or Authorized Firing Pin Gauger. The Patient or Authorized Firing Pin Gauger has agreed to proceed with the sensitive examination. (Sensitive examination includes inspection and/or palpation of the breasts, pelvis, prostate and anorectal regions). EXAM: BP 124/88 Ht 5' 5.75" (1.67m) Wt 275 lb (124.7kg) LMP 04/28/2018 BMI 44.73 kg/(m2). GENERAL: pleasant, female in no apparent [...] external genitalia normal, normal Bartholin's glands, urethra, Marenisco's glands, no vulvar lesions, no cervical lesions, good vaginal support, physiologic discharge present, normal appearing perineal body and perianal region, few vulvar inclusion cysts BIMANUAL: uterus normal size, shape and consistency, no adnexal masses, and non-tender RECTOVAGINAL: deferred. NEURO: alert and oriented x3,exam grossly non-focal EXTREMITIES: normal ASSESSMENT/PLAN: 1) Health maintenance: Pap done with HPV. Mammogram up to date . 2) Contraception: tubal sterilization. Contraceptive options reviewed and information provided. 3) STD screening: Declined STI check. 4) Follow up one year or sooner as needed Marsha Sung MD [facility] 06-06-2025 History of Presen t illness Narrative Michael is a 50 year old who presents for an annual gynecologic exam without complaints. s/p tubal and ablation. No bleeding or spotting. No hot flahses or vaginal dryness Still get period: No LMP: none since ablation Menopause symptoms: None Time with current partner: 27 years Contraception frequency: Always HPV vaccine: Unsure; HPV:negative Last pap smear: 2019 History of abnormal pap: No Bothersome pelvic pain: Yes Last mammogram: 2023normal OB History Gravida2 Para2 Term2 Preterm0 AB0 Living2 SAB0 IAB0 Ectopic0 Multiple0 Live Births2 Insurance Solicitor History LMP: 04/28/2018, Ablation Age at Menarche: Age at First : Age at Menopause: Insurance Solicitor History Comments: Sexual Activity: Yes; Male; novasure [...] Ischemic Heart Disease Maternal Grandfather 53 of [place] Breast Cancer Maternal Aunt SOCIAL HISTORY Social History Tobacco Use Smoking status: Never Passive exposure: Never Smokeless tobacco: Never Vaping Use Vaping status: Never Used Substance Use Topics Alcohol use: Not Currently Drug use: Never REVIEW OF SYSTEMS Abdomen: No abdominal pain, nausea, vomiting, diarrhea, or constipation. No bloating, early satiety, indigestion, or increased flatulence. Bladder: No dysuria, gross hematuria, urinary frequency, urinary urgency, or incontinence. Breast: No breast lumps, nipple d/c, overlying skin changes, redness or skin retraction. Allergies and current medication updated:Yes SENSITIVE EXAM: The sensitive examination was discussed with the Patient or Patient's Authorized Firing Pin Gauger. As applicable, any other physician, advance practice provider, medical student, or other health professional student that will be observing or involved in the sensitive examination for educational or training purposes was discussed with the Patient or Authorized Firing Pin Gauger. The Patient or Authorized Firing Pin Gauger has agreed to proceed with the sensitive examination. (Sensitive examination includes inspection and/or palpation of the breasts, pelvis, prostate and anorectal regions). EXAM: BP 124/88 Ht 5' 5.75" (1.67m) Wt 275 lb (124.7kg) LMP 04/28/2018 BMI 44.73 kg/(m^2). GENERAL: pleasant, female in no apparent [...] external genitalia normal, normal Bartholin's glands, urethra, Marenisco's glands, no vulvar lesions, no cervical lesions, good vaginal support, physiologic discharge present, normal appearing perineal body and perianal region, few vulvar inclusion cysts BIMANUAL: uterus normal size, shape and consistency, no adnexal masses, and non-tender RECTOVAGINAL: deferred. NEURO: alert and oriented x3,exam grossly non-focal EXTREMITIES: normal ASSESSMENT/PLAN: 1) Health maintenance: Pap done with HPV. Mammogram up to date . 2) Contraception: tubal sterilization. Contraceptive options reviewed and information provided. 3) STD screening: Declined STI check. 4) Follow up one year or sooner as needed Marsha Sung MD documented in this encounter [facility] 08-14-2023 History of Presen t illness Narrative [facility] NON-SURGICAL WEIGHT LOSS MANAGEMENT PROGRAM ROOMING NOTE: FOLLOW UP VISIT Patient: Sary Cast Date of : 1975 Service Date: 08/14/2023 Patient History/Assessment Summary: The patient is a pleasant 48 y.o. year old female, who stands Height: 5' 5.5" (166.4 cm) tall with a weight of Weight: 283 lb 6.4 oz (129 kg) pounds, resulting in a BMI of Body mass index is 46.44 kg/m . kg/m2. She is here for follow-up for non-surgical treatment of Obesity Patient has the following question(s): none Pre Program Weight Metrics (CARE Path) Date of Initial Consultation:@FLOWLAST(8961)@ Initial Weight: @FLOWLAST([id number])@ Initial BMI: @FLOWLAST([id number])@ [place] Body Weight: @FLOWLAST([id number])@ Excess Body Weight: @FLOWLAST([id number])@ Body Fat Percentage: No flowsheet data found. Subsequent Body Fat Percentage: No flowsheet data found. Pre Program Weight Metrics (Epic) (Surgical Wt Loss Management- baseline) This Visit Non-Surgical Subsequent Eval Date: 08/14/23 Height: 5' 5.5" (166.4 cm) Weight: 283 lb 6.4 oz [...] Blood pressure 126/82, pulse 85, height 5' 5.5" (1.664 m), weight 287 lb (130 kg). [...] Will focus on the portion control Calorie 3187-4606 daily Will restart with meal preparation Discuss [...] updated and completed. documented in this encounter [facility] [email or web address] 05-28-2023 History of Presen t illness Narrative Michael is a 48 year old who presents for an annual gynecologic exam without complaints. Menses: s/p endoemtrial ablation, no menses. No hot flashes or other concerns. Contraception: tubal sterilization HPV vaccine: No Last Pap: 10/25/2019 normal HPV: 10/25/2019 negative History of abnormal pap: No Last mammogram: 2021normal OB History T2 L2 SAB0 IAB0 Ectopic0 Multiple0 Live Births2 Insurance Solicitor History LMP: 04/28/2018, Ablation Age at Menarche: Age at First : Age at Menopause: Insurance Solicitor History Comments: Sexual Activity: Yes; Male; novasure [...] Ischemic Heart Disease Maternal Grandfather 53 of [place] Breast Cancer Maternal Aunt SOCIAL HISTORY Social [...] and current medication updated:Yes EXAM: Ht 5' 5" (1.65m) Wt 282 lb 12.8 oz (128.3kg) [...] external genitalia normal, normal Bartholin's glands, urethra, Marenisco's glands, no vulvar lesions, no cervical lesions, [...] Marsha Sung MD documented in this encounter [facility] 05-20-2023 History of Presen t illness Narrative [facility] NON-SURGICAL WEIGHT LOSS MANAGEMENT PROGRAM ROOMING NOTE: FOLLOW UP VISIT Patient: Sary Cast Date of : 1975 Service Date: 05/20/2023 Patient History/Assessment Summary: The patient is a pleasant 48 y.o. year old female, who stands Height: 5' 5.5" (166.4 cm) tall with a weight of Weight: 289 lb 12.8 oz (131 kg) pounds, resulting in a BMI of Body mass index is 47.49 kg/m . kg/m2. She is here for follow-up for non-surgical treatment of Morbid Obesity Patient has the following question(s): none Pre Program Weight Metrics (CARE Path) Date of Initial Consultation:@FLOWLAST(8961)@ Initial Weight: @FLOWLAST([id number])@ Initial BMI: @FLOWLAST([id number])@ [place] Body Weight: @FLOWLAST([id number])@ Excess Body Weight: @FLOWLAST([id number])@ Body Fat Percentage: No flowsheet data found. Subsequent Body Fat Percentage: No flowsheet data found. Pre Program Weight Metrics (Epic) (Surgical Wt Loss Management- baseline) This Visit Non-Surgical Subsequent Eval Date: 05/20/23 Height: 5' 5.5" (166.4 cm) Weight: 289 lb 12.8 oz [...] Blood pressure 126/82, pulse 85, height 5' 5.5" (1.664 m), weight 287 lb (130 kg). [...] Will focus on the portion control Calorie 3630-4787 daily Will restart with meal preparation Discuss [...] updated and completed. documented in this encounter [facility] 02-19-2023 Miscellaneous Notes Please see pt's mychart message and further advise. Sary Cisneros LPN documented in this encounter [facility] 01-21-2023 History of Presen t illness Narrative [facility] NON-SURGICAL WEIGHT LOSS MANAGEMENT PROGRAM ROOMING NOTE: FOLLOW UP VISIT Patient: Sary Cast Date of : 1975 Service Date: 01/21/2023 Patient History/Assessment Summary: The patient is a pleasant 47 y.o. year old female, who stands Height: 5' 5.5" (166.4 cm) tall with a weight of Weight: 287 lb (130 kg) pounds, resulting in a BMI of Body mass index is 47.03 kg/m . kg/m2. She is here for follow-up for non-surgical treatment of Obesity Patient has the following question(s): none Pre Program Weight Metrics (CARE Path) Date of Initial Consultation:@FLOWLAST(8961)@ Initial Weight: @FLOWLAST([id number])@ Initial BMI: @FLOWLAST([id number])@ [place] Body Weight: @FLOWLAST([id number])@ Excess Body Weight: @FLOWLAST([id number])@ Body Fat Percentage: No flowsheet data found. Subsequent Body Fat Percentage: No flowsheet data found. Pre Program Weight Metrics (Epic) (Surgical Wt Loss Management- baseline) This Visit Non-Surgical Subsequent Eval Date: 01/20/23 Height: 5' 5.5" (166.4 cm) Weight: 287 lb (130 kg) [...] Blood pressure 126/82, pulse 85, height 5' 5.5" (1.664 m), weight 287 lb (130 kg). [...] Will focus on the portion control Calorie 2686-1111 daily Will start feedback system DM Recent [...] updated and completed. documented in this encounter [facility] 01-16-2023 History of Presen t illness Narrative Michael Cast is a 47 year old female [...] L2 SAB0 IAB0 Ectopic0 Multiple0 Live Births2 Insurance Solicitor History LMP: 04/28/2018, Ablation Age at Menarche: Age at First : Age at Menopause: Insurance Solicitor History Comments: Sexual Activity: Yes; Male; novasure [...] Ischemic Heart Disease Maternal Grandfather 53 of [place] Breast Cancer Maternal Aunt Social History Tobacco [...] Level: 4 - Moderate Marsha Sung MD Michael Cast is a 47 year old female [...] Marsha Sung MD documented in this encounter [facility] 12-12-2022 History of Presen t illness Narrative [facility] NON-SURGICAL WEIGHT LOSS MANAGEMENT PROGRAM ROOMING NOTE: FOLLOW UP VISIT Patient: Sary Cast Date of : 1975 Service Date: 12/12/2022 Patient History/Assessment Summary: The patient is a pleasant 47 y.o. year old female, who stands Height: 5' 5.5" (166.4 cm) tall with a weight of Weight: 296 lb 12.8 oz (135 kg) pounds, resulting in a BMI of Body mass index is 48.64 kg/m . kg/m2. She is here for follow-up for non-surgical treatment of Morbid Obesity Patient has the following question(s): none Pre Program Weight Metrics (CARE Path) Date of Initial Consultation:@FLOWLAST(8961)@ Initial Weight: @FLOWLAST([id number])@ Initial BMI: @FLOWLAST([id number])@ [place] Body Weight: @FLOWLAST([id number])@ Excess Body Weight: @FLOWLAST([id number])@ Body Fat Percentage: No flowsheet data found. Subsequent Body Fat Percentage: No flowsheet data found. Pre Program Weight Metrics (Epic) (Surgical Wt Loss Management- baseline) This Visit Non-Surgical Subsequent Eval Date: 12/12/22 Height: 5' 5.5" (166.4 cm) Weight: 296 lb 12.8 oz [...] 137/86 Pulse 88 Resp 16 Ht 5' 5.5" (1.664 m) Wt 296 lb 12.8 oz [...] Will focus on the portion control Calorie 9204-4280 daily Will start feedback system DM Recent [...] updated and completed. documented in this encounter [facility] 10-29-2022 Note [facility] NON-S[facility] WEIGHT LOSS MANAGEMENT PROGRAM PROGRESS NOTE INITIAL EVALUATION Patient: Sary Cast Service Date: 10/29/22 Date of : 1975 Patient History/Assessment Summary: The patient is a pleasant 47 y.o. year old female, who stands Height: 5' 5.5" (166.4 cm) tall with a weight of [...] the Patient, which is located in the Tapping Machine Operator Automatic Tab. History: Past Medical History: Diagnosis Date [...] 119/71 Pulse 86 Resp 16 Ht 5' 5.5" (1.664 m) Wt (!) 307 lb 12.8 oz (140 kg) BMI 50.44 kg/m? Weight Metrics: [place] Body Weight: [place] Body Weight: 137 lb (62.1 kg) Excess Body Weight: [place] BMI: 30 General: This patient is alert [...] Move Struggler [] Self-Conscious Hider [] Inexperienced Carson [] Hqe-vi-Eoysenf Doer [] Set-Routine Repeater [] Tvumb-lxu-Khpfd Sufferer [] Zu-mtqf-bp-Exercise Protester [] Emotional Shift Superintendent Caustic Cresylate [] Dto-Rdyr-Rwpwos Sufferer [] Persistent Procrastinator [] Can?t-Say-No Pleaser [...] list 2. Discus (more content not included)... [facility] 10-29-2022 History of Presen t illness Narrative [facility] NON-SURGICAL WEIGHT LOSS MANAGEMENT PROGRAM ROOMING NOTE - INITIAL CONSULTATION Patient: Sary Cast Date of : 1975 Service Date: 10/29/2022 Patient is here today to discuss non-surgical weight loss management. This patient is alone for the evaluation today Weight Metrics: Non-Surgical Initial Eval Consult Date: 10/29/22 Initial Height: 5' 5.5" (166.4 cm) Initial Weight: 307 lb 12.8 oz (140 kg) [place] Body Weight: 137 lb (62.1 kg) Initial [...] home O2 Completed by: Grecia Gonsales MA [facility] NON-SURGICAL WEIGHT LOSS MANAGEMENT PROGRAM PROGRESS NOTE INITIAL EVALUATION Patient: Sary Cast Service Date: 10/29/22 Date of : 1975 Patient History/Assessment Summary: The patient is a pleasant 47 y.o. year old female, who stands Height: 5' 5.5" (166.4 cm) tall with a weight of [...] the Patient, which is located in the Tapping Machine Operator Automatic Tab. History: Past Medical History: Diagnosis Date [...] 119/71 Pulse 86 Resp 16 Ht 5' 5.5" (1.664 m) Wt (!) 307 lb 12.8 oz (140 kg) BMI 50.44 kg/m Weight Metrics: [place] Body Weight: [place] Body Weight: 137 lb (62.1 kg) Excess Body Weight: [place] BMI: 30 General: This patient is alert [...] Move Struggler [] Self-Conscious Hider [] Inexperienced Carson [] Nbw-pk-Xttrhkp Doer [] Set-Routine Repeater [] Nlgtv-her-Oppte Sufferer [] Xy-dwcl-hb-Exercise Protester [] Emotional Shift Superintendent Caustic Cresylate [] Jdd-Rvrt-Hsagbl Sufferer [] Persistent Procrastinator [] Can t-Say-No [...] updated and completed. documented in this encounter [facility] Evaluation note No assessment inform ation available [facility] Work Phone: Evaluation note Diagnosis Onset Date Acute left otitis media acut e [facility] Work Phone: Evaluation note* Diagnosis Abscess of vulva- Primary Other abscess of vulva [facility] Type 2 diabetes mellitus without complication, without long-term current use of insulin ([facility] ([facility])- Primary BMI 45.0-49.9, adult ([facility]) Class 3 severe obesity with serious comorbidity and body mass index (BMI) of 45.0 to 49.9 in adult, unspecified obesity type (HCC) documented in this encounter [facility] note* Diagnosis Type 2 diabetes mellitus without complication, without long-term current use of insulin (CMS/HCC) (HCC)- Primary BMI 45.0-49.9, adult (HCC) Class 3 severe obesity with serious comorbidity and body mass index (BMI) of 45.0 to 49.9 in adult, unspecified obesity type (HCC) documented in this encounter [facility] note* Diagnosis Type 2 diabetes mellitus without complication, without long-term current use of insulin (CMS/HCC) (HCC)- Primary BMI 45.0-49.9, adult (HCC) Class 3 severe obesity with serious comorbidity and body mass index (BMI) of 45.0 to 49.9 in adult, unspecified obesity type (HCC) documented in this encounter [facility] note* Diagnosis Encounter for gynecological examination (general) (routine) without abnormal findings- Primary Obesity, Class III, BMI >= 40 Morbid obesity documented in this encounter [facility] note* Diagnosis Onset Date Resolution Status Reticular vein acute [facility] Work Phone: Evaluation note* Diagnosis Dyslipidemia- Primary Other and unspecified hyperlipidemia BMI 50.0-59.9, adult (CMS/HCC) (HCC) Class 3 severe obesity with serious comorbidity and body mass index (BMI) of 50.0 to 59.9 in adult, unspecified obesity type (HCC) documented in this encounter [facility] note* Diagnosis Type 2 diabetes mellitus without complication, without long-term current use of insulin (CMS/HCC) (HCC)- Primary BMI 45.0-49.9, adult (CMS/HCC) (HCC) Class 3 severe obesity with serious comorbidity and body mass index (BMI) of 45.0 to 49.9 in adult, unspecified obesity type (HCC) documented in this encounter [facility] note* Diagnosis Encounter for gynecological examination (general) (routine) without abnormal findings- Primary Screening for cervical cancer Screening for malignant neoplasm of the cervix Encounter for screening for human papillomavirus (HPV) Special screening examination for human papillomavirus (HPV) documented in this encounter [facility] Discharge instructions Additional Instructions Thank you for [...] care physician for further outpatient evaluation and management.[facility] Work Phone: Reason for referral (narrative)No reason for referral information availableWReg[facility] Work Phone: Chief Complaint and Reason for [...] Will No August 17 7:23pm Power of [employer] Internship No August 17, 2015 7:23pm Advance Directive Response Recorded Date/ Time Name of Medical Power of Music 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 Internship sasha berger July 05, 2022 8:41am Advance Directives No September 1:00pm Living Will Yes July 05, 2022 8:41am Power of Music [employer] Internship Yes June 8:41am Advance Directive Response Recorded Date/ Time Name of Medical Power of Music [employer] Internship sasha berger July 05, 2022 8:41am Advance Directives No September 1:00pm Living Will No July 08, 2022 8:03am Power of Music [employer] Internship No June 8:03am Advance Directive Response Recorded Date/ Time Name of Medical Power of Music [employer] Internship sasha berger July 05, 2022 7:41am Advance Directives No September 12:00pm Living Will No July 08, 2022 7:03am Power of Music [employer] Internship No June 7:03am Advance Directive Response Recorded Date/ Time Advance Directives No September 12:00pm Living Will No July 08, 2022 7:03am Power of Music [employer] Internship No June 7:03am Advance Directive Response Recorded Date/ Time Advance Directives No September 1:00pm Living Will No July 08, 2022 8:03am Power of Music [employer] Internship No June 8:03am Advance Directive Response Recorded Date/ Time Name of Medical Power of Music Industry Internship JAVON "GISELLE GONZALEZ September 07, 2023 10:02am Advance Directives No September 12:00pm Living Will Yes September 07, 2 023 10:02am Power of Music [employer] Internship Yes September 07, 2023 10:02am Advance Directive [...] Member Role Status Dates Dr. Peterson Rm , DO Family Provider Active Dr. Peterson Rm , DO Primary Care Provider Active Team Status: Active Member Role Status Dates Dr. Peterson Rm , DO Primary Care Provider Active Dr. Edwar Shea MD Attending Provider Active Team Status: Inactive Member Role Status Dates Dr. Peterson Rm , DO Primary Care Provider, Referrin g Provider Active Celestino POLANCO PA Attending Provider Active Team Status: Inactive Member Role Status Dates Dr. Peterson Rm DO Primary Care Provider, Arnel g Provider Active Team Status: Inactive Member Role Status Dates Dr. Peterson Rm DO Primary Care Prov ider, Attending Provider, Referring Provider Active Lung Splitter Relationship Specialty Start Date End Date Peterson Rm DO [address] [place], [place] [id number] PCP - General Family Medicine 07/06/18 Lung Splitter Relationship Specialty Start Date End Date Peterson Rm [address] [place] [place] [phone] PCP - General 06/09/22 Lung Splitter Relationship Specialty Start Date End Date Peterson Rm DO [address] [place], [place] [phone] PCP - General Family Medicine 07/06/18 Lung Splitter Relationship Specialty Start Date End Date Jag, Peterson Prado [address] [place] [phone] PCP - General 06/09/22 Lung Splitter Relationship Specialty Start Date End Date Jag, Peterson Prado [address] [place] [phone] PCP - General 06/09/22 Lung Splitter Relationship Specialty Start Date End Date Peterson Rm DO [address] [place], [place] [phone] PCP - General Family Medicine 07/06/18 Team Status: Inactive Member Role Status Dates Dr. Peterson Rm DO Primary Care Provider, Referlorrie fairchild Provider Active SHERRI Singh Attending Provider Active Team Status: Inactive Member Role Status Dates Dr. Peterson Rm DO Primary Care Provider Active Dr. Lm Patel DO Emergency Provider Active Team Status: Inactive Member Role Status Dates Dr. Peterson Rm DO Primary Care Provider Active Dr. Lm Patel DO Attending Provider, Emergency P andrea Active Lung Splitter Relationship Specialty Start Date End Date JagPeterson Johan [address] [place] [phone] PCP - General 06/09/22 Team Status: [...] March 15, 2025 End: March 15, 2025 Team Status: Active Member Role/Relationship Status Dates Dr. Peterson Rm DO Primary Care Provider Active Team Status: Inactive Member Role/Relationship Status Dates Dr. Peterson Rm DO Primary Care Provider Active Start: March 15, 2025 End: March 15, 2025 Dr. Peterson Rm DO Attending Provider Active Start: March 15, 2025 End: March 15, 2025 Dr. Peterson Rm DO Referring Provider Active Start: March 15, 2025 End: March 15, 2025 Team Status: Inactive Member Role/Relationship Status Dates Dr. Peterson Rm DO Primary Care Provider Active Start: April 12, 2025 End: April 12, 2025 Dr. Peterson Rm DO Attending Provider Active Start: April 12, 2025 End: April 12, 2025 Dr. Peterson Rm DO Referring Provider Active Start: April 12, 2025 End: April 12, 2025 Team Status: Active Member Role/Relationship Status Dates Dr. Peterson Rm DO Primary Care Provider Active Start: April 14, 2025 Dr. Peterson Rm DO Attending Provider Active Start: April 14, 2025 Team Status: Inactive Member Role/Relationship Status Dates Dr. Peterson Rm DO Primary Care Provider Active Start: April 14, 2025 End: April 14, 2025 Dr. Peterson Rm DO Attending Provider Active Start: April 14, 2025 End: April 14, 2025 Lung Splitter Relationship Specialty Start Date End Date Peterson Rm DO [address] [place] [address] PCP - General Family Medicine 07/06/18 Source Comments (unrecognize d section and content) In the event this informatio n is protected by the Federal Confidentiality of Alcohol and Drug Abuse Patient Records regulations: The Federal rules restrict any use of the information to criminally investigate or prosecute any alcohol or drug abuse patient.[facility] the event this information is protected by the Federal Confidentiality of Alcohol and Drug Abuse Patient Records regulations: The Federal rules restrict any use of the information to criminally investigate or prosecute any alcohol or drug abuse patient.[facility] the event this information is protected by the Federal Confidentiality of Alcohol and Drug Abuse Patient Records regulations: The Federal rules restrict any use of the information to criminally investigate or prosecute any alcohol or drug abuse patient.[facility] the event this information is protected by the Federal Confidentiality of Alcohol and Drug Abuse Patient Records regulations: The Federal rules restrict any use of the information to criminally investigate or prosecute any alcohol or drug abuse patient.[facility] Reason for Visit (unrecogniz ed section [...] ized section and content) DATE CREATED AUTHOR 08/18/2023 [employer] [place] DATE CREATED AUTHOR AUTHOR'S ORGANIZ ATION 06/11/[address] [facility] DATE CREATED AUTHOR AUTHOR'S ORGANIZ ATION 07/28/2025 [facility] FOR RECORDS PERTAINING TO PATIENTS WHO [...] BE BASED ON THE PRIMARY CLINICAL RECORDS. [employer] [facility]. provides no warranty or guarantee of the accuracy or completeness of information in this document.
== END | disposition home or self-care (01) ==
LOC: OPBI 07:09
PROVIDERS: PCP Family Medicine; Referring Provider Obstetrics & Gynecology; Visit Provider Obstetrics & Gynecology
DX: Z12.31 Encounter for screening mammogram for malignant neoplasm of breast (principal)
CPT/HCPCS: 77063; 77067

== ENCOUNTER → 2025-09-12 | Outpatient (CLI) | payer BC, SELFPAY ==
--- OUTSIDE RECORDS SUMMARY | 2025-09-12 07:22 | XMS RPT_ITS | CCD ---
Author Organization [facility] Care Team Providers Care Digital Archivist Name Role Phone Dr. Peterson Rm Primary Care Provider Dr. Edwar Shea Attending Provider [phone] Peterson Rm Referring Provider SHERRI Bobby Attending Provider [phone] Peterson Rm DO A Primary Care Provider Peterson Rm A Primary Care Provider Peterson Rm A Primary Care Provider Dr. Peterson Rm Primary Care Provider Dr. Peterson Rm Referring Provider SHERRI Sanchez Attending Provider [phone] OSIRIS VELASQUEZ Attending Unavailable PETERSON RM Primary Care Unavailable OSIRIS VELASQUEZ Attending Unavailable PETERSON RM Primary Care Unavailable OSIRIS VELASQUEZ Attending Unavailable PETERSON RM Primary Care Unavailable OSIRIS VELASQUEZ Attending Unavailable PETERSON RM Primary Care Unavailable OSIRIS VELASQUEZ Attending Unavailable Dr. Peterson Rm Primary Care Provider [phone] Dr. Peterson Rm Referring Provider SHERRI Sanchez Attending Provider [phone] Peterson Rm DO Primary Care Provider Dr. Peterson Rm DO Attending Provider [phone] Dr. Peterson Rm DO Referring Provider Peterson Rm DO Primary Care Provider MARSHA SUNG Attending Unavailable PETERSON RM Primary Care Unavailable Marsha Sung Attending Unavailable Marsha Sung Referring Unavailable Peterson Rm Primary Care Unavailable Jag, Peterson Primary Care Unavailable Jag, Peterson Attending Unavailable Jag, Peterson Referring Unavailable Jag, Peterson Primary Care Unavailable Jag, Peterson Attending Unavailable Jag, Peterson Referring Unavailable Jag, Peterson Attending Unavailable Jag, Pteerson Primary Care Unavailable Jag, Peterson Referring Unavailable Jag, Peterson Attending Unavailable Jag, Peterson Primary Care Unavailable Jag, Peterson Attending Unavailable Jag, Peterson Referring Unavailable Jag, Peterson Primary Care Unavailable Jag, Peterson Primary Care Unavailable Jag, Peterson Attending Unavailable Jag, Peterson Primary Care Unavailable Jag, Peterson Attending Unavailable Jag, Peterson Referring Unavailable Jag, Peterson Primary Care Unavailable Jag, Peterson Attending Unavailable Allergies Allergy Classification Reported Allergen(s) Allergy Type Date of Onset Reaction(s) Facility (7 sources) Adhesive Tape; Translations: [adhesive tape] Allergy to substance 07-07-2023 [facility] (2 sources) Adhesive agent; Translations: [ADHESIVE] Drug Allergy 07-07-2023 [facility] Medications Current Medications Medication Drug Class(es) [...] oral tablet (20 sources) Vitamin D Start: take 1 tablet [...] mg oral tablet (16 sources) Biguanide Start: 3 take 1 tablet by mouth twice daily metFORMIN (GLUCOPHAGE) 500 mg tablet Take 500 mg by mouth twice daily. 12/29/2022 Active metFORMIN (Gluco phage) 500 MG tablet Take by mouth 2 times daily (with meals). 0 Active Comment on above: Take 500 mg by mouth twice daily. metoclopramide 5 mg oral tablet (5 sources) Dopamine-2 Receptor Antagonist Start: 023 take [...] Inhibitor Antibacterial, Sulfonamide Antimicrobial Start: 023 End: 023 sulfamethoxazole-tri methoprim (BACTRIM DS) 800-160 mg per tablet Take 1 tablet by mouth twice daily for 5 days. FOR 3 DAYS. 10 tablet 0 01/16/2023 01/21/2023 Active Comment on above: Take [address] [facility] twice daily for 5 days. FOR 3 [...] Discontinued 1 {tbl} PO Q12H 20 10 0 October 13, 2022 1:00am October 22, 2022 [...] conditions (not mental disorders or infectious disease) (5 sources) Cancer cervix screening status; Translations: [Encounter for screening for malignant neoplasm of cervix] Onset: 04-17-2025 06-06-2025 Episodic Otitis media and related conditions [...] Test Name Value Interpretation Reference Range Facility SCRN MAMM (CAD)W/SHANIQUA BILATo n 08-09-2025 SCRN MAMM (CAD)W/SHANIQUA BILAT [facility] Imaging Services [address] [place], [place] [address] SCRN MAMM (CAD)W/SHANIQUA BILAT MR#: [id number] Acct: [id number] Name: SARY CAST Rep #: [id number] : 1975 F 50 From: [place] MD PCP: Dr. Peterson Rm DO Status: REG CLI Study: SCRN MAMM (CAD)W/SHANIQUA BILAT Date of Exam: 07/20 12/13 Exam# [id number] Ordering Dr: Marsha Sung MD EXAM: SCRN MAMM (CAD)W/SHANIQUA BILAT DATE: 08/09/2025 CLINICAL HISTORY: F, Age 50 y/o , SCREENING Grandmother with breast cancer. Aunt with breast cancer. TECHNIQUE: Procedure Code: [id number] Modality: MG Procedure: SCRN MAMM (CAD)W/SHANIQUA BILAT COMPARISON: Prior exam(s) dated August 08, 2024.. FINDINGS: TISSUE DENSITY: There are scattered areas of fibroglandular density. Bilateral Breast Mammographic Findings: No significant masses, calcifications or other abnormalities are identified. Stable fat containing bilateral axillary lymph nodes. No suspicious masses, areas of developing architectural distortion, or suspicious calcifications. There has been no significant interval change. BI/SCRN MAMM (CAD)W/SHANIQUA BILAT IMPRESSION: Stable bilateral screening mammogram. OVERALL FINAL ASSESSMENT BI-RADS 2: BENIGN RECOMMENDATION: Routine annual follow-up in 1 Year Additional Recommendation none A letter with findings and recommendations will be mailed to the patient. Reading Location: [facility]--1 CC: Dr. Peterson Rm DO; Dr. 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 As applicable, any other physician, advance practice provider, medical student, or other health professional student that will be observing or involved in the sensitive examination for educational or training purposes was discussed with the Patient or Authorized Oracle Application Architect. The Patient or Authorized Oracle Application Architect has agreed to proceed with the sensitive [...] external genitalia normal, normal Bartholin's glands, urethra, [place]'s glands, no vulvar lesions, no cervical lesions, [...] for human papillomavirus (HPV) [Z11.51] Order(s):PAP TEST [RQS0878] Order #: [id number] Prescriptions as of 06/06/2025 - MOUNJARO 12.5 mg/0.5 mL pen in (more content not included)... Normal [facility] HIGH RISK HUMAN PAPILLOMA SOLIS (HPV), PCR FOR DETECTION AND GENOTYPINGon 06-06-2025 HPV 16 Ag Ql (Unsp spec) Not detected Normal Not detec luis miguel [facility] Comment on above: Order Comment: Speci men Type: FLUID SPECIMEN Ordering Facility: [facility] Address: [address] [place] [address] Performed By: #### H PVHRT #### [facility] CLIA [id number] [address] [place] [address] [place] HPV 18 Ag Ql (Unsp spec) Not detected Normal Not detec luis miguel [facility] Comment on above: Order Comment: Speci men Type: FLUID SPECIMEN Ordering Facility: [facility] Address: [address] [place] [address] Performed By: #### H PVHRT #### [facility] CLIA [id number] [address] [place] [address] [place] HPV 31+33+35+39+45+51+52+56+ 58+59+66+68 DNA NATHANAEL+probe Ql (Cvx) Not detected Normal Not detected [facility] Comment on above: Order Comment: Speci men Type: FLUID SPECIMEN Ordering Facility: [facility] Address: [address] [place] [address] Result Comment: High Risk HPV Other Type includes HPV types 31, 33, 35, 39, 45, 51, 52, 56, 58, 59, 66 and 68. Performed By: #### H PVHRT #### [facility] CLIA [id number] [address] [place] [address] [place] PAP TESTon 06-06-2025 ADEQUACY Normal [facility] Comment on above: Order Comment: Speci men Type: FLUID SPECIMEN Ordering Facility: [facility] Address: [address] [place] [address] Result Comment: Sati sfactory for interpretation. Transformation zone present Performed By: #### L [id number] #### [facility] CLIA [id number] [address] [place] [address] [place] CASE REPORT Normal [facility] Comment on above: Order Comment: Speci men Type: FLUID SPECIMEN Ordering Facility: [facility] Address: [address] [place] [address] Result Comment: Gyne cologic Cytology Report Case: [id number] Authorizing Provider: Marsha Sung MD Collected: 06/06/2025 09:41 AM Ordering Location: OB/Gynecology Received: 06/06/2025 11:44 AM First Screen: Lamont Spencer, CT, ASCP Specimen: Pap Test, ThinPrep, Cervix Performed By: #### L [id number] #### [facility] CLIA [id number] [address] [place], [place] [id number] [place] CLINICAL HISTORY, CYTOLOGY, CHIP FRIER No Menses, Other (Specify) Normal [facility] Comment on above: Order Comment: Speci men Type: FLUID SPECIMEN Ordering Facility: [facility] Address: [address] [place] [address] Performed By: #### L [id number] #### [facility] CLIA [id number] [address] [place], [place] [id number] [place] FINAL PERFORMING LAB Normal [facility] Comment on above: Order Comment: Speci men Type: FLUID SPECIMEN Ordering Facility: [facility] Address: [address] [place], [place] [id number] Result Comment: Tech nical component, manager process improvement screening performed at: [facility], [address] [place], [place] [id number] CLIA: [id number] Diagnostic interpretation performed at: [facility], [address] [place] [address] CLIA# [id number] Motion Picture Cameraman: Santhosh Caruso MD Performed By: #### L [id number] #### [facility] CLIA [id number] [address] [place], [place] [address] [place] INTERPRETATION, CYTOLOGY, CHIP FRIER Normal [facility] Comment on above: Order Comment: Speci men Type: FLUID SPECIMEN Ordering Facility: [facility] Address: [address] [place] [address] Result Comment: Nega tive for intraepithelial lesion or malignancy. at 1000 EDT Performed By: #### L [id number] #### [facility] CLIA [id number] [address] [place] [address] [place] PAP DISCLAIMER COMMENT The Pap Smear is a screening test for cervical cancer. False negative results occur with all screening tests, emphasizing the need for rescreening at recommended intervals, and clinical correlation. Normal [facility] Comment on above: Order Comment: Speci men Type: FLUID SPECIMEN Ordering Facility: [facility] Address: [address] [place] [address] Performed By: #### L [id number] #### [facility] CLIA [id number] [address] [place] [address] [place] PAP BODY MAN COMMENT This specimen has been analyzed by the FDA-approved DeYapa System, which uses digital imaging and an enhanced artificial intelligence image analysis algorithm to identify navarro of interest on the microscopic slide, to assist the hotel front desk agent and pathologist in evaluating cells on ThinPrep Pap tests. Following analysis, navarro of interest on the microscopic slide selected by the algorithm are reviewed by a hotel front desk agent. If a sample requires hierarchical review, the pathologist will review the same navarro of interest selected by the algorithm prior to final interpretation. Normal [facility] Comment on above: Order Comment: Speci men Type: FLUID SPECIMEN Ordering Facility: [facility] Address: [address] [place] [address] Performed By: #### L [id number] #### [facility] CLIA [id number] [address] [place] [address] [place] [facility] [id number] 04-23-2025 [facility] Misc. COMMENT Normal . [facility] Comment on above: Order Comment: ADD O N TO BW DONE 04/14*SEE MENU FOR SEND OUT INSTRUC.MISSED TEST-DR ORDERED ALK PHOS FRACTIONATIONS-PER ALICIA THISIS THE CORRECT TEST TO ORDERSER OR LITH HEP*LOOK IN MENU FOR SENDOUT INSTRUC.MISSED TEST-DR ORDERED ALK PHOS FRACTIONATIONS-PER ALICIA THISIS THE CORRECT TEST TO [id number] PHOS ISOENZYMES Result Comment: Test Ordered: 121024 Alk Phos Isoenzymes Alkaline Phosphatase 186 [H [...] IU/L CB Reference Range: 0-14 Performed at: - [facility] [id number] Manager Mac: Mark Balderrama PhD, Phone: [phone] Performed at: - [facility] [id number] Manager Mac: Becca Acharya MD, Phone: [phone] Performed By: #### L 501.7130, L501.7685, L506.1001, L500.3400, L101.9900 #### [facility] [place], [address] CCP IgG Antibodieson 025 CCP IgG Ab. 5 units Normal 0-19 [facility] Comment on above: Order Comment: ADD O N TO BW DONE 04/14MISSED TEST-DR ORDERED ALK PHOS FRACTIONATIONS-PER ALICIA THISIS THE CORRECT TEST TO ORDER Result Comment: Nega tive <20 Weak positive 20 - 39 Moderate positive 40 - 59 Strong positive >59 Performed By: #### L 501.6710, L501.9985, L506.1001, L500.3400, L101.9900 #### [facility] [address] [place], [address] Celiac Disease Profileon ENDOMYSIAL IGA Negative Normal Negative [facility] Comment on above: Order Comment: ADD O N TO BW DONE 04/14MISSED TEST-DR ORDERED ALK PHOS FRACTIONATIONS-PER [facility] THISIS THE CORRECT TEST TO ORDER Performed By: #### L 501.6710, L501.9985, L506.1001, L500.3400, L101.9900 #### [facility] [address] [place], [address] IMMUNOGLOB A QN 521 mg/dL High 87-352 [facility] Comment on above: Order Comment: ADD O N TO BW DONE 04/14MISSED TEST-DR ORDERED ALK PHOS FRACTIONATIONS-PER [facility] THISIS THE CORRECT TEST TO ORDER Performed By: #### L 501.6710, L501.9985, L506.1001, L500.3400, L101.9900 #### [facility] [address] [place], [address] tTG IGA 4 U/mL Abnormal 0-3 [facility] Comment on above: Order Comment: ADD O N TO BW DONE 04/14MISSED TEST-DR ORDERED ALK PHOS FRACTIONATIONS-PER [facility] THIS THE CORRECT TEST TO ORDER Result Comment: Nega tive 0 - 3 Weak Positive 4 - 10 Positive >10 Tissue Transglutaminase (tTG) has been identified as the endomysial antigen. Studies have demonstr- ated that endomysial IgA antibodies have over 99% specificity for gluten sensitive enteropathy. Performed By: #### L 501.6710, L501.9985, L506.1001, L500.3400, L101.9900 #### [facility] [address] [place], [address] Thyroid Antibodieson 025 TG AB < 1.0 Normal 0.0-0.9 [facility] Comment on above: Order Comment: ADD O N TO BW DONE 04/14MISSED TEST- ORDERED ALK PHOS FRACTIONATIONS-PER ALICIA THISIS THE CORRECT TEST TO ORDER Result Comment: Thyr oglobulin Antibody measured by [employer] Methodology It should be noted that the presence of thyroglobulin antibodies may not be pathogenic nor diagnostic, especially at very low levels. The assay machine spring former has found that four percent of individuals without evidence of thyroid disease or autoimmunity will have positive TgAb levels up to 4 IU/mL. Performed at: [facility] [id number] Manager Mac: Mark Balderrama PhD, Phone: [phone] Performed By: #### L 501.6710, L501.9985, L506.1001, L500.3400, L101.9900 #### [facility] [address] [place], [address] THYR PEROX AB < 9 Normal 0-34 [facility] Comment on above: Order Comment: ADD O N TO BW DONE 04/14MISSED TEST-DR ORDERED ALK PHOS FRACTIONATIONS-PER AILCIA THISIS THE CORRECT TEST TO ORDER Performed By: #### L 501.6710, L501.9985, L506.1001, L500.3400, L101.9900 #### [facility] [address] [place], [address] ANTINUCLEAR ANTIBODIES DIRE Ton 04-17-2025 GEORGE,DIRECT Negative Normal Negative [facility] Comment on above: Result Comment: Perf ormed at: [facility] [id number] Manager Mac: Mark Balderrama PhD, Phone: [phone] Performed By: #### L 500.4050, L100.0100 #### [facility] [address] [place], [address] Alkaline Phosphataseon 04-14 ALK PHOS 180 U/L High 35-104 [facility] Comment on above: Performed By: #### L 500.4050, L100.0100 #### [facility] [address] [place], [address] Rheumatoid Factoron 04-14-20 25 RHEUMATOID FAC < 10.0 Normal <15 [facility] Comment on above: Performed By: #### L 500.4050, L100.0100 #### [facility] [address] [place], [address] Serum or plasma IgA measurem ent (mass/volume)Ordered By: Peterson Rm on 04-14-2025 IgA [Mass/Vol] 521 mg/dL High 87-352 [facility] Serum or plasma alkaline enedelia sphatase measurementOrdered By: Peterson Rm on 04-14-2025 ALP [Catalytic activity/Vol] 180 U/L High 35-104 [facility] Serum or plasma cyclic citru llinated peptide IgG antibody assay (units/volume)Ordered By: Peterson Rm on 04-14-2025 Cyclic citrullinated peptide IgG Qn 5 units 0-19 [facility] Comment on above: Negative <20 Weak po sitive 20 - 39 Moderate positive 40 - 59 Strong positive >59 Serum or plasma thyroperoxid ase antibody assay (units/volume)Ordered By: Peterson Rm on 04-14-2025 TPO Ab Qn [IU]/mL 0-34 [facility] Serum rheumatoid factor dete ctionOrdered By: Peterson Rm on 04-14-2025 Rheumatoid factor Ql (S) < 10.0 IU/mL <15 [facility] Serum tissue transglutaminas e (tTG) IgA antibody assay (units/volume)Ordered By: Peterson Rm on 04-14-2025 tTG IgA Qn (S) 4 U/mL High 0-3 [facility] Comment on above: Negative 0 - 3 Weak Positive 4 - 10 Positive >10 Tissue Transglutaminase (tTG) has been identified as the endomysial antigen. Studies have demonstr- ated that endomysial IgA antibodies have over 99% specificity for gluten sensitive enteropathy. TSH DL <= 0.005 mIU/L QnOrde red By: Peterson Rm on 04-14-2025 TSH Qn 2.160 uIU/mL 0.300-4.200 [facility] Thyroid Stim Hormone (TSH)on 04-14-2025 TSH 2.160 uIU/mL Normal 0.300-4.200 [facility] Comment on above: Performed By: #### L 500.4050, L100.0100 #### [facility] [address] [place], [address] Bilirubin directOrdered By: Peterson Rm on 04-12-2025 Bilirubin.direct [Mass/Vol] 0.19 mg/dL 0.00-0.30 [facility] Bilirubin, totalOrdered By: Peterson Rm on 04-12-2025 Bilirubin [Mass/Vol] 0.51 mg/dL 0.00-1.30 [facility] CRPon 04-12-2025 C-REACTIVE PROT 27.10 mg/L High 0.0-3.0 [facility] Comment on above: Performed By: #### L 501.6710, L501.9985, L506.1001, L500.3400, L101.9900 #### [facility] [address] [place], [address] Erythrocyte Sed Rateon 04-12 SED RATE 44 mm/hr High 0-30 [facility] Comment on above: Performed By: #### L 501.6710, L501.9985, L506.1001, L500.3400, L101.9900 #### [facility] [address] [place], [address] Erythrocyte sedimentation ra teOrdered By: Peterson mR on 04-12-2025 ESR (Bld) [Velocity] 44 mm/h High 0-30 [facility] Hemoglobin A1con 04-12-2025 HbA1c (Bld) [Mass fraction] 5.7 % Normal <=5.6 [facility] Comment on above: Result Comment: Norm al < 5.7 % Prediabetic 5.7 - 6.4 % Diabetic >or= 6.5 % Please note range changes. Performed By: #### L 501.6710, L501.9985, L506.1001, L500.3400, L101.9900 #### [facility] [address] [place], [address] Hemoglobin A1c percentageOrd ered By: Peterson Rm on 04-12-2025 HbA1c (Bld) [Mass fraction] 5.7 % <5.7 [facility] Comment on above: Normal < 5.7 % Predi abetic 5.7 - 6.4 % Diabetic >or= 6.5 % Please note range changes. Laboratory - Chemistry and C hemistry - challengeOrdered By: Peterson Rm on 04-12-2025 AST [Catalytic activity/Vol] 19 U/L <32 [facility] Liver Profileon 04-12-2025 Albumin [Mass/Vol] 3.7 g/dL Normal 3.5-5.0 [facility] Comment on above: Performed By: #### L 501.6710, L501.9985, L506.1001, L500.3400, L101.9900 #### [facility] [address] [place], [address] ALK PHOS 177 U/L High 35-104 [facility] Comment on above: Performed By: #### L 501.6710, L501.9985, L506.1001, L500.3400, L101.9900 #### [facility] [address] [place], [address] ALT [Catalytic activity/Vol] 25 U/L Normal <=34 [facility] Comment on above: Performed By: #### L 501.6710, L501.9985, L506.1001, L500.3400, L101.9900 #### [facility] [address] [place], [address] AST [Catalytic activity/Vol] 19 U/L Normal <=31 [facility] Comment on above: Performed By: #### L 501.6710, L501.9985, L506.1001, L500.3400, L101.9900 #### [facility] [address] [place], [address] Bilirubin [Mass/Vol] 0.51 mg/dL Normal 0.00-1.30 [facility] Comment on above: Performed By: #### L 501.6710, L501.9985, L506.1001, L500.3400, L101.9900 #### [facility] [address] [place], [address] Bilirubin.direct [Mass/Vol] 0.19 mg/dL Normal 0.00-0.30 [facility] Comment on above: Performed By: #### L 501.6710, L501.9985, L506.1001, L500.3400, L101.9900 #### [facility] [address] [place], [address] Globulin (S) [Mass/Vol] 3.9 g/dL Normal 2.2-4.2 [facility] Comment on above: Performed By: #### L 501.6710, L501.9985, L506.1001, L500.3400, L101.9900 #### [facility] [address] [place], [address] T PROT 7.6 g/dL Normal 5.9-8.4 [facility] Comment on above: Performed By: #### L 501.6710, L501.9985, L506.1001, L500.3400, L101.9900 #### [facility] [address] [place], [place], [address] Serum globulin measurementOr dered By: Peterson Rm on 04-12-2025 Globulin (S) [Mass/Vol] 3.9 g/dL 2.2-4.2 [facility] Serum or plasma C reactive p rotein measurement (mass/volume)Ordered By: Peterson Rm on 04-12-2025 CRP [Mass/Vol] 27.10 mg/L High 0.0-3.0 [facility] Serum or plasma alanine pena otransferase (ALT) measurementOrdered By: Peterson Rm on 04-12-2025 ALT [Catalytic activity/Vol] 25 U/L <35 [facility] Serum or plasma albumin christal urement (mass/volume)Ordered By: Peterson Rm on 04-12-2025 Albumin [Mass/Vol] 3.7 g/dL 3.5-5.0 [facility] Serum or plasma alkaline enedelia sphatase measurementOrdered By: Peterson Rm on 04-12-2025 ALP [Catalytic activity/Vol] 177 U/L High 35-104 [facility] Total proteinOrdered By: Amrita Rm on 04-12-2025 Protein [Mass/Vol] 7.6 g/dL 5.9-8.4 [facility] Vitamin D,25 Hydroxyon 04-12 Vitamin D 25-OH 71.7 ng/mL Normal 30-100 [facility] Comment on above: Result Comment: Jenn min D Status Deficiency: <20 ng/mL (50nmol/L) Insufficiency: 20-30 ng/mL (50-75 nmol/L) Sufficiency: 30-100 ng/mL (75-250 nmol/L) Toxicity: >100 ng/mL (>250 nmol/L) Performed By: #### L 501.6710, L501.9985, L506.1001, L500.3400, L101.9900 #### [facility] [address] [place], [address] Absolute lymphocyte countOrd ered By: Peterson Rm on 03-15-2025 Lymphocytes Auto (Unsp spec) [#/Vol] 2.76 10*3/uL 0.83-4.51 [facility] Absolute neutrophil countOrd ered By: Peterson Rm on 03-15-2025 Neutrophils (Bld) [#/Vol] 7.4 10*3/uL 2.0-7.7 [facility] Anion gap in Serum or Plasma Ordered By: Peterson Rm on 03-15-2025 Anion gap [Moles/Vol] 13 mmol/L 5- [facility] Automated lymphocyte count a s percentage of total leukocytesOrdered By: Peterson Rm on 03-15-2025 Lymphocytes/100 WBC Auto (Unsp spec) 25.6 % - [facility] BUN/creatinine ratioOrdered By: Peterson Rm on 03-15-2025 Urea nitrogen/Creatinine [Mass ratio] 11.3 mg/mg 10- [facility] Basophil percentageOrdered B y: Peterson Rm on 03-15-2025 Basophils/100 WBC (Bld) 0.6 % 0-1 [facility] Bilirubin, totalOrdered By: Peterson Rm on 03-15-2025 Bilirubin [Mass/Vol] 0.44 mg/dL 0.00-1.30 [facility] CBC W/Diff, Automatedon 02-17 Absolute Lymph 2.76 X10 3/uL Normal 0.83-4.51 [facility] Comment on above: Performed By: #### L 500.4050, L100.0100 #### [facility] [address] [place], [address] Absolute Neut 7.4 X10 3/uL Normal 2.0-7.7 [facility] Comment on above: Performed By: #### L 500.4050, L100.0100 #### [facility] [address] [place], [address] Basophils/100 WBC (Bld) 0.6 % Normal 0-1 [facility] Comment on above: Performed By: #### L 500.4050, L100.0100 #### [facility] [address] [place], [address] Eosinophils/100 WBC (Bld) 1.1 % Normal 0-5 [facility] Comment on above: Performed By: #### L 500.4050, L100.0100 #### [facility] [address] [place], [address] Erythrocyte distribution width (RBC) [Ratio] 14.8 % High 11.6-14.6 [facility] Comment on above: Performed By: #### L 500.4050, L100.0100 #### [facility] [address] [place], [address] Hematocrit (Bld) [Volume fraction] 42.4 % Normal 37-47 [facility] Comment on above: Performed By: #### L 500.4050, L100.0100 #### [facility] [address] [place], [address] Hemoglobin (Bld) [Mass/Vol] 13.6 g/dL Normal 12.0-15.0 [facility] Comment on above: Performed By: #### L 500.4050, L100.0100 #### [facility] [address], [address] IG% 0.300 Normal 0.0-0.9 [facility] Comment on above: Result Comment: IG% - Immature Granulocytes (promyelocytes, myelocytes and metamyelocytes) > 1% indicates that a LEFT SHIFT is Present. Performed By: #### L 500.4050, L100.0100 #### [facility] [address] [place], [address] Lymphocytes/100 WBC (Bld) 25.6 % Normal 19-41 [facility] Comment on above: Performed By: #### L 500.4050, L100.0100 #### [facility] [address] [place], [address] MCH (RBC) [Entitic mass] 26.9 pg Low 27.0-32.0 [facility] Comment on above: Performed By: #### L 500.4050, L100.0100 #### [facility] [address] [place], [address] MCHC (RBC) [Mass/Vol] 32.1 g/dL Normal 32-36 [facility] Comment on above: Performed By: #### L 500.4050, L100.0100 #### [facility] [address] [place], [address] MCV (RBC) [Entitic vol] 83.8 fL Normal 81-99 [facility] Comment on above: Performed By: #### L 500.4050, L100.0100 #### [facility] [address] [place], [address] Monocytes/100 WBC (Bld) 4.1 % Normal 0-10 [facility] Comment on above: Performed By: #### L 500.4050, L100.0100 #### [facility] [address] [place], [address] Neutrophils/100 WBC (Bld) 68.3 % Normal 47-70 [facility] Comment on above: Performed By: #### L 500.4050, L100.0100 #### [facility] [address] [place], [address] Nucleated RBC (Bld) [#/Vol] 0 10*3/uL Normal 0-5 [facility] Comment on above: Performed By: #### L 500.4050, L100.0100 #### [facility] [address] [place], [address] Platelet mean volume (Bld) [Entitic vol] 9.5 fL Normal 6.2-12.0 [facility] Comment on above: Performed By: #### L 500.4050, L100.0100 #### [facility] [address] [place], [address] Platelets (Bld) [#/Vol] 396 10*3/uL Normal 150-450 [facility] Comment on above: Performed By: #### L 500.4050, L100.0100 #### [facility] [address] [place], [address] RBC (Bld) [#/Vol] 5.06 10*6/uL Normal 4.2-5.4 [facility] Comment on above: Performed By: #### L 500.4050, L100.0100 #### [facility] [address] [place], [address] RDW SD 45.1 fl High 35.1-43.9 [facility] Comment on above: Performed By: #### L 500.4050, L100.0100 #### [facility] [address] [place], [address] WBC (Bld) [#/Vol] 10.8 10*3/uL Normal 4.4-11.0 [facility] Comment on above: Performed By: #### L 500.4050, L100.0100 #### [facility] [address] [place], [address] CRPon 03-15-2025 C-REACTIVE PROT 27.80 mg/L High 0.0-3.0 [facility] Comment on above: Performed By: #### L 500.4050, L100.0100 #### [facility] [address] [place], [address] Calculated very low density lipoprotein (VLDL) cholesterol measurementOrdered By: Peterson Rm on 03-15-2025 Calculated very low density lipoprotein (VLDL) cholesterol measurement 14 mg/dL 5-40 [facility] Carbon dioxide, total [Moles /volume] in Central venous bloodOrdered By: Peterson Rm on 03-15-2025 CO2 [Moles/Vol] 21.6 mmol/L 21.0-32.0 [facility] Chloride assayOrdered By: Mike Rm on 03-15-2025 Chloride [Moles/Vol] 104 mmol/L 98-108 [facility] Comprehensive Metabolic Prof ilon 03-15-2025 Albumin [Mass/Vol] 3.8 g/dL Normal 3.5-5.0 [facility] Comment on above: Performed By: #### L 500.4050, L100.0100 #### [facility] [address] [place], [address] Albumin/Globulin [Mass ratio] 1.0 {ratio} Normal 0.9-2.4 [facility] Comment on above: Performed By: #### L 500.4050, L100.0100 #### [facility] [address] [place], [address] ALK PHOS 178 U/L High 35-104 [facility] Comment on above: Performed By: #### L 500.4050, L100.0100 #### [facility] [address] [place], [address] ALT [Catalytic activity/Vol] 26 U/L Normal <=34 [facility] Comment on above: Performed By: #### L 500.4050, L100.0100 #### [facility] [address] [place], [address] AST [Catalytic activity/Vol] 20 U/L Normal <=31 [facility] Comment on above: Performed By: #### L 500.4050, L100.0100 #### [facility] [address] [place], [address] Bilirubin [Mass/Vol] 0.44 mg/dL Normal 0.00-1.30 [facility] Comment on above: Performed By: #### L 500.4050, L100.0100 #### [facility] [address] [place], [address] BUN/CRE 11.3 RATIO Normal 10-20 [facility] Comment on above: Performed By: #### L 500.4050, L100.0100 #### [facility] [address] [place], [address] Calcium [Mass/Vol] 9.1 mg/dL Normal 7.6-11.0 [facility] Comment on above: Performed By: #### L 500.4050, L100.0100 #### [facility] [address] [place], [address] Chloride [Moles/Vol] 104 mmol/L Normal 98-108 [facility] Comment on above: Performed By: #### L 500.4050, L100.0100 #### [facility] [address] [place], [address] CO2 [Moles/Vol] 21.6 mmol/L Normal 21.0-32.0 [facility] Comment on above: Performed By: #### L 500.4050, L100.0100 #### [facility] [address] [place], [address] Creatinine [Mass/Vol] 0.72 mg/dL Normal 0.70-1.20 [facility] Comment on above: Performed By: #### L 500.4050, L100.0100 #### [facility] [address] [place], [address] GAP 13 Normal 5-15 [facility] Comment on above: Performed By: #### L 500.4050, L100.0100 #### [facility] [address] [place], [address] GFR/1.73 sq M.predicted among non-blacks MDRD (S/P/Bld) [Vol rate/Area] 104 mL/min/{1.73_m2} Normal >60 [facility] Comment on above: Result Comment: mL/m in/1.73m2 CKD-EPI Creatinine Equation (2020) Performed By: #### L 500.4050, L100.0100 #### [facility] [address] [place], [address] Globulin (S) [Mass/Vol] 4.0 g/dL Normal 2.2-4.2 [facility] Comment on above: Performed By: #### L 500.4050, L100.0100 #### [facility] [address] [place], [address] Glucose [Mass/Vol] 103 mg/dL High 70-99 [facility] Comment on above: Performed By: #### L 500.4050, L100.0100 #### [facility] [address] [place], [address] Potassium [Moles/Vol] 3.8 mmol/L Normal 3.3-5.1 [facility] Comment on above: Performed By: #### L 500.4050, L100.0100 #### [facility] [address] [place], [address] Sodium [Moles/Vol] 139 mmol/L Normal 133-145 [facility] Comment on above: Performed By: #### L 500.4050, L100.0100 #### [facility] [address] [place], [address] T PROT 7.8 g/dL Normal 5.9-8.4 [facility] Comment on above: Performed By: #### L 500.4050, L100.0100 #### [facility] [address] [place], [address] Urea nitrogen [Mass/Vol] 8 mg/dL Normal 4-19 [facility] Comment on above: Performed By: #### L 500.4050, L100.0100 #### [facility] [address] [place], [address] Eosinophil percentageOrdered By: Peterson Rm on 03-15-2025 Eosinophils/100 WBC (Bld) 1.1 % 0-5 [facility] Erythrocyte distribution wid th ratioOrdered By: Peterson Rm on 03-15-2025 Erythrocyte distribution width (RBC) [Ratio] 14.8 % High 11.6-14.6 [facility] Erythrocyte distribution wid th standard deviationOrdered By: Peterson Rm on 03-15-2025 Erythrocyte distribution width (RBC) [Ratio] 45.1 fl High 35.1-43.9 [facility] Glomerular filtration rate ( GFR) estimation/1.73 sq m using serum, plasma, or whole bOrdered By: Peterson Rm on 03-15-2025 GFR/1.73 sq M.predicted among non-blacks MDRD (S/P/Bld) [Vol rate/Area] 104 mL/min/{1.73_m2} >60 [facility] Comment on above: mL/min/1.73m2 CKD-EP I Creatinine Equation (2020) Hematocrit Auto (Bld) [Volum e fraction]Ordered By: Peterson Rm on 03-15-2025 Hematocrit (Bld) [Volume fraction] 42.4 % 37-47 [facility] Hemoglobin A1con 03-15-2025 HbA1c (Bld) [Mass fraction] 5.8 % High <=5.6 [facility] Comment on above: Result Comment: Norm al < 5.7 % Prediabetic 5.7 - 6.4 % Diabetic >or= 6.5 % Please note range changes. Performed By: #### L 500.4050, L100.0100 #### [facility] [address] [place], [address] Hemoglobin A1c percentageOrd ered By: Peterson Rm on 03-15-2025 HbA1c (Bld) [Mass fraction] 5.8 % High <5.7 [facility] Comment on above: Normal < 5.7 % Predi abetic 5.7 - 6.4 % Diabetic >or= 6.5 % Please note range changes. Hemoglobin measurementOrdere d By: Peterson Rm on 03-15-2025 Hemoglobin (Bld) [Mass/Vol] 13.6 g/dL 12.0-15.0 [facility] Immature granulocytes/100 WB C Auto (Bld)Ordered By: Peterson Rm on 03-15-2025 Immature granulocytes/100 WBC (Bld) 0.300 % 0.0-0.9 [facility] Comment on above: IG% - Immature Granu locytes (promyelocytes, myelocytes and metamyelocytes) > 1% indicates that a LEFT SHIFT is Present. LDL calc ser/plasOrdered By: Peterson Rm on 03-15-2025 Cholesterol in LDL [Mass/Vol] 93 mg/dL [facility] Comment on above: Zvgjvrzihk=460-451 m g/dL & Higher Jrsh=283 mg/dL or greater Laboratory - Chemistry and C hemistry - challengeOrdered By: Peterson Rm on 03-15-2025 AST [Catalytic activity/Vol] 20 U/L <32 [facility] Lipid Profileon 03-15-2025 CHOL:HDL 3.91 Normal [facility] Comment on above: Performed By: #### L 500.4050, L100.0100 #### [facility] [address] [place], [place], [id number] ([address]) Cholesterol [Mass/Vol] 145 mg/dL Normal <=200 [facility] Comment on above: Result Comment: Chol esterol level, Desirable <200 mg/dL Borderline high cholesterol 200-239 mg/dL High cholesterol >=240 mg/dL Recommendations of the NCEP Adult Treatment Panel for the following risk-cutoff thresholds for the [place] population. Performed By: #### L 500.4050, L100.0100 #### [facility] [address] [place], [address] Cholesterol in HDL [Mass/Vol] 37 mg/dL Low [facility] Comment on above: Result Comment: Susana onal Cholesterol Education Program (NCEP) guidelines: <40 mg/dL: Low HDL-cholesterol (major risk factor for CHD) >= 60 mg/dL: High HDL-cholesterol (negative risk factor for CHD) HDL-cholesterol is affected by a number of factors, e.g. smoking, exercise, hormones, sex and age. Performed By: #### L 500.4050, L100.0100 #### [facility] [address] [place], [address] Cholesterol in LDL [Mass/Vol] 93 mg/dL Normal [facility] Comment on above: Result Comment: Bord ednabs=632-678 mg/dL Higher Doum=206 mg/dL or greater Performed By: #### L 500.4050, L100.0100 #### [facility] [address] [place], [address] Cholesterol in VLDL [Mass/Vol] 14 mg/dL Normal 5-40 [facility] Comment on above: Performed By: #### L 500.4050, L100.0100 #### [facility] [address] [place], [address] Triglyceride [Mass/Vol] 72 mg/dL Normal [facility] Comment on above: Result Comment: The drugs N-Acetylcysteine and Metamizole may falsely depress this assay. Normal range: <150 mg/dL Borderline High: 150-199 mg/dL High: 200-499 mg/dL Very High: >500 mg/dL Performed By: #### L 500.4050, L100.0100 #### [facility] [address] [place], [address] MCV (mean corpuscular volume ) determinationOrdered By: Peterson Rm on 03-15-2025 MCV (RBC) [Entitic vol] 83.8 fL 81-99 [facility] Mean corpuscular hemoglobin (MCH) determinationOrdered By: Peterson Rm on 03-15-2025 MCH (RBC) [Entitic mass] 26.9 pg Low 27.0-32.0 [facility] Mean corpuscular hemoglobin concentration (MCHC) determinationOrdered By: Peterson Rm on 03-15-2025 MCHC (RBC) [Mass/Vol] 32.1 g/dL 32-36 [facility] Mean platelet volume determi nationOrdered By: Peterson Rm on 03-15-2025 Platelet mean volume (Bld) [Entitic vol] 9.5 fL 6.2-12.0 [facility] Microalb:Creat Ratio,Random URon 03-15-2025 Creatinine [Mass/Vol] 116.00 mg/dL Normal 28.00-217.00 [facility] Comment on above: Performed By: #### L 500.4050, L100.0100 #### [facility] [address] [place], [address] MALB:CREAT UNABLE TO CALCULATE Normal [facility] Comment on above: Performed By: #### L 500.4050, L100.0100 #### [facility] [address] [place], [address] MICROALBUMIN,UR < 12.0 Normal NO RANGE EST. [facility] Comment on above: Performed By: #### L 500.4050, L100.0100 #### [facility] [address] [place], [address] Microalbumin/creat ratio urO rdered By: Peterson Rm on 03-15-2025 Urine microalbumin/creatinine ratio measurement UNABLE TO CALCULATE mg/g CRE [facility] Monocyte percentageOrdered B y: Peterson Rm on 03-15-2025 Monocytes/100 WBC (Bld) 4.1 % 0-10 [facility] Neutrophil percentageOrdered By: Peterson Rm on 03-15-2025 Neutrophils/100 WBC (Bld) 68.3 % 47-70 [facility] Nucleated red blood cell per centageOrdered By: Peterson Rm on 03-15-2025 Nucleated RBC/100 WBC (Bld) [Ratio] 0 % 0-5 [facility] Platelet countOrdered By: Mike Rm on 03-15-2025 Platelets (Bld) [#/Vol] 396 10*3/uL 150-450 [facility] Potassium measurement (mass/ volume)Ordered By: Peterson Rm on 03-15-2025 Potassium (Unsp spec) [Mass/Vol] 3.8 mmol/L 3.3-5.1 [facility] RBC Auto (Bld) [#/Vol]Ordere d By: Peterson Rm on 03-15-2025 RBC (Bld) [#/Vol] 5.06 10*6/uL 4.2-5.4 [facility] Random urine creatinine christal urement (mass/volume)Ordered By: Peterson Rm on 03-15-2025 Creatinine Unsp time (U) [Mass/Vol] 116.00 mg/dL 28.00-217.00 [facility] Screening total cholesterol/ high density lipoprotein (HDL) cholesterol ratioOrdered By: Peterson Rm on 03-15-2025 Cholesterol.total/Choles terol in HDL [Mass ratio] 3.91 {ratio} [facility] Serum creatinine measurement (mass/volume)Ordered By: Peterson Rm on 03-15-2025 Creatinine [Mass/Vol] 0.72 mg/dL 0.70-1.20 [facility] Serum globulin measurementOr dered By: Peterson Rm on 03-15-2025 Globulin (S) [Mass/Vol] 4.0 g/dL 2.2-4.2 [facility] Serum glucose measurement (m ass/volume)Ordered By: Peterson Rm on 03-15-2025 Glucose [Mass/Vol] 103 mg/dL High 70-99 [facility] Serum or plasma C reactive p rotein measurement (mass/volume)Ordered By: Petesron Rm on 03-15-2025 CRP [Mass/Vol] 27.80 mg/L High 0.0-3.0 [facility] Serum or plasma alanine pena otransferase (ALT) measurementOrdered By: Peterson Rm on 03-15-2025 ALT [Catalytic activity/Vol] 26 U/L <35 [facility] Serum or plasma albumin christal urement (mass/volume)Ordered By: Peterson Rm on 03-15-2025 Albumin [Mass/Vol] 3.8 g/dL 3.5-5.0 [facility] Serum or plasma albumin/glob ulin mass ratioOrdered By: Peterson Rm on 03-15-2025 Albumin/Globulin [Mass ratio] 1.0 {ratio} 0.9-2.4 [facility] Serum or plasma alkaline enedelia sphatase measurementOrdered By: Peterson Rm on 03-15-2025 ALP [Catalytic activity/Vol] 178 U/L High 35-104 [facility] Serum or plasma calcium christal urement (mass/volume)Ordered By: Peterson Rm on 03-15-2025 Calcium [Mass/Vol] 9.1 mg/dL 7.6-11.0 [facility] Serum or plasma cholesterol in HDL measurement (mass/volume)Ordered By: Peterson Rm on 03-15-2025 Cholesterol in HDL [Mass/Vol] 37 mg/dL Low >40 [facility] Comment on above: National Cholesterol Education Program (NCEP) guidelines:<40 mg/dL: Low HDL-cholesterol (major risk factor for CHD)>= 60 mg/dL: High HDL-cholesterol (negative risk factor for CHD)HDL-cholesterol is affected by a number of factors, e.g. smoking, exercise, hormones, sex and age. Serum or plasma cholesterol measurement (mass/volume)Ordered By: Peterson Rm on 03-15-2025 Cholesterol [Mass/Vol] 145 mg/dL <[address] [facility] Comment on above: Cholesterol level, D esirable <200 mg/dLBorderline high cholesterol 200-239 mg/dLHigh cholesterol >=240 mg/dLRecommendations of the NCEP Adult Treatment Panel for the following risk-cutoff thresholds for the [place] population. Serum or plasma urea nitroge n measurement (mass/volume)Ordered By: Peterson Rm on 03-15-2025 Urea nitrogen [Mass/Vol] 8 mg/dL 4-19 [facility] Sodium levelOrdered By: Peterson Rm on 03-15-2025 Sodium [Moles/Vol] 139 mmol/L 133-145 [facility] Total proteinOrdered By: Amrita Rm on 03-15-2025 Protein [Mass/Vol] 7.8 g/dL 5.9-8.4 [facility] Triglycerides measurementOrd ered By: Peterson Rm on 03-15-2025 Triglyceride [Mass/Vol] 72 mg/dL <199 [facility] Comment on above: The drugs N-Acetylcy steine and Metamizole may falsely depress this assay. Normal range: <150 mg/dLBorderline High: 150-199 mg/dLHigh: 200-499 mg/dLVery High: >500 mg/dL Urine albumin measurement [facility] detection limit of 20 mg/L or less (mass/volume)Ordered By: Peterson Rm on 03-15-2025 Albumin DL <= 20 mg/L (U) [Mass/Vol] < 12.0 mg/L NO RANGE EST. [facility] White blood cell (WBC) count Ordered By: Peterson Rm on 03-15-2025 WBC (Bld) [#/Vol] 10.8 10*3/uL 4.4-11.0 [facility] Protein Electro.Ur-Randomon 12-04-2024 M-SPIKE,U Normal [facility] Comment on above: Result Comment: NOT OBSERVED Performed By: #### L 501.6710, L501.9985, L506.1001, L500.3400, L101.9900 #### [facility] [address] [place], [address] Immunofixation, Serumon -3 MICHAEL RESULT,S Comment Normal . [facility] Comment on above: Result Comment: No m onoclonality detected. Performed By: #### L 501.6710, L501.9985, L506.1001, L500.3400, L101.9900 #### [facility] [address] [place], [address] IMMUNOGLOB A QN 535 mg/dL High 87-352 [facility] Comment on above: Performed By: #### L 501.6710, L501.9985, L506.1001, L500.3400, L101.9900 #### [facility] [address] [place], [address] IMMUNOGLOB G QN 1428 mg/dL Normal 586-1602 [facility] Comment on above: Performed By: #### L 501.6710, L501.9985, L506.1001, L500.3400, L101.9900 #### [facility] [address] [place], [address] IMMUNOGLOB M QN 194 mg/dL Normal 26-217 [facility] Comment on above: Result Comment: Perf ormed at: [facility] [id number] Manager Mac: Mark Balderrama PhD, Phone: [phone] Performed By: #### L 501.6710, L501.9985, L506.1001, L500.3400, L101.9900 #### [facility] [address] [place], [address] Protein Electroph, Son 11-18 Albumin [Mass/Vol] 3.6 g/dL Normal 2.9-4.4 [facility] Comment on above: Performed By: #### L 501.6710, L501.9985, L506.1001, L500.3400, L101.9900 #### [facility] [address] [place], [address] Albumin/Globulin [Mass ratio] 0.9 {ratio} Normal 0.7-1.7 [facility] Comment on above: Performed By: #### L 501.6710, L501.9985, L506.1001, L500.3400, L101.9900 #### [facility] [address] [place], [address] ALPHA-1 GLOBUL 0.3 g/dL Normal 0.0-0.4 [facility] Comment on above: Performed By: #### L 501.6710, L501.9985, L506.1001, L500.3400, L101.9900 #### [facility] [address] [place], [address] ALPHA-2 GLOBUL 1.0 g/dL Normal 0.4-1.0 [facility] Comment on above: Performed By: #### L 501.6710, L501.9985, L506.1001, L500.3400, L101.9900 #### [facility] [address] [place], [address] BETA GLOBULIN 1.2 g/dL Normal 0.7-1.3 [facility] Comment on above: Performed By: #### L 501.6710, L501.9985, L506.1001, L500.3400, L101.9900 #### [facility] [address] [place], [address] GAMMA GLOBULIN 1.4 g/dL Normal 0.4-1.8 [facility] Comment on above: Performed By: #### L 501.6710, L501.9985, L506.1001, L500.3400, L101.9900 #### [facility] [address] [place], [address] Globulin (S) [Mass/Vol] 3.9 g/dL Normal 2.2-3.9 [facility] Comment on above: Performed By: #### L 501.6710, L501.9985, L506.1001, L500.3400, L101.9900 #### [facility] [address] [place], [address] INTERPRETATION Comment Normal . [facility] Comment on above: Result Comment: Prot ein electrophoresis scan will follow via computer, mail, or bowl attendant delivery. Performed By: #### L 501.6710, L501.9985, L506.1001, L500.3400, L101.9900 #### [facility] [address] [place], [address] M-SPIKE Not Observed Normal Not Observed [facility] Comment on above: Performed By: #### L 501.6710, L501.9985, L506.1001, L500.3400, L101.9900 #### [facility] [address] [place], [address] NOTE Comment Normal . [facility] Comment on above: Result Comment: Prot ein electrophoresis scan will follow via computer, mail, or bowl attendant delivery. Performed By: #### L 501.6710, L501.9985, L506.1001, L500.3400, L101.9900 #### [facility] [address] [place], [address] NOTE: Comment Normal . [facility] Comment on above: Result Comment: The SPE pattern appears unremarkable. Evidence of monoclonal protein is not apparent. Performed By: #### L 501.6710, L501.9985, L506.1001, L500.3400, L101.9900 #### [facility] [address] [place], [address] Protein [Mass/Vol] 7.5 g/dL Normal 6.0-8.5 [facility] Comment on above: Performed By: #### L 501.6710, L501.9985, L506.1001, L500.3400, L101.9900 #### [facility] [address] [place], [address] Abdomen Limitedon 11-16-2024 Abdomen Limited [facility] Imaging Services [address] [place] [address] Abdomen Limited MR#: [id number] Acct: [id number] Name: SARY CAST Rep #: [id number] : 1975 F 49 From: Ashok Berger PCP: Dr. Peterson Rm, Status: REG CLI Study: Abdomen Limited Date of Exam: 11/16/24 Exam# [id number] Ordering Dr: Peterson Rm DO PROCEDURE: ABDOMEN [...] hepatocellular disease. 2. Prior cholecystectomy. Reading Location: [address] CC: Dr. Peterson Rm, Sheet Metal Engineer: Signed Normal [facility] CRPon 11-15-2024 C-REACTIVE PROT 22.40 mg/L High 0.0-3.0 [facility] Comment on above: Order Comment: LAY [place]ados FORGOT TO DRAW SPEP, AND IMMUNOFIZATION. SO PT ISCOMING BACK TODAY AFTER WORK RIGHT BEFORE CLOSING. Result Comment: C-Re active Protein (CRP) provides useful information for the diagnosis, therapy and monitoring of inflammatory processes and associated diseases. For the evaluation of Relative Risk for Cardiovascular Disease, a High Sensitivity CRP (HSCRP) should be ordered. Performed By: #### L 501.6710, L501.9985, L506.1001, L500.3400, L101.9900 #### [facility] [address] [place], [address] Erythrocyte Sed Rateon 11-15 SED RATE 29 mm/hr Normal 0-30 [facility] Comment on above: Performed By: #### L 501.6710, L501.9985, L506.1001, L500.3400, L101.9900 #### [facility] [address] [place], [address] CBC W/Diff, Automatedon 10-20 Absolute Lymph 3.11 X10 3/uL Normal 0.83-4.51 [facility] Comment on above: Performed By: #### L 500.4050, L100.0100 #### [facility] [address] [place], [address] Absolute Neut 8.7 X10 3/uL High 2.0-7.7 [facility] Comment on above: Performed By: #### L 500.4050, L100.0100 #### [facility] [address] [place], [address] Basophils/100 WBC (Bld) 0.6 % Normal 0-1 [facility] Comment on above: Performed By: #### L 500.4050, L100.0100 #### [facility] [address] [place], [address] Eosinophils/100 WBC (Bld) 1.0 % Normal 0-5 [facility] Comment on above: Performed By: #### L 500.4050, L100.0100 #### [facility] [address] [place], [address] Erythrocyte distribution width (RBC) [Ratio] 14.8 % High 11.6-14.6 [facility] Comment on above: Performed By: #### L 500.4050, L100.0100 #### [facility] [address] [place], [address] Hematocrit (Bld) [Volume fraction] 43.8 % Normal 37-47 [facility] Comment on above: Performed By: #### L 500.4050, L100.0100 #### [facility] [address] [place], [address] Hemoglobin (Bld) [Mass/Vol] 13.9 g/dL Normal 12.0-15.0 [facility] Comment on above: Performed By: #### L 500.4050, L100.0100 #### [facility] [address] [place], [address] IG% 0.300 Normal 0.0-0.9 [facility] Comment on above: Result Comment: IG% - Immature Granulocytes (promyelocytes, myelocytes and metamyelocytes) > 1% indicates that a LEFT SHIFT is Present. Performed By: #### L 500.4050, L100.0100 #### [facility] [address] [place], [address] Lymphocytes/100 WBC (Bld) 24.9 % Normal 19-41 [facility] Comment on above: Performed By: #### L 500.4050, L100.0100 #### [facility] [address] [place], [address] MCH (RBC) [Entitic mass] 26.9 pg Low 27.0-32.0 [facility] Comment on above: Performed By: #### L 500.4050, L100.0100 #### [facility] [address] [place], [address] MCHC (RBC) [Mass/Vol] 31.7 g/dL Low 32-36 [facility] Comment on above: Performed By: #### L 500.4050, L100.0100 #### [facility] [address] [place], [address] MCV (RBC) [Entitic vol] 84.9 fL Normal 81-99 [facility] Comment on above: Performed By: #### L 500.4050, L100.0100 #### [facility] [address] [place], [address] Monocytes/100 WBC (Bld) 3.5 % Normal 0-10 [facility] Comment on above: Performed By: #### L 500.4050, L100.0100 #### [facility] [address] [place], [address] Neutrophils/100 WBC (Bld) 69.7 % Normal 47-70 [facility] Comment on above: Performed By: #### L 500.4050, L100.0100 #### [facility] [address] [place], [address] Nucleated RBC (Bld) [#/Vol] 0 10*3/uL Normal 0-5 [facility] Comment on above: Performed By: #### L 500.4050, L100.0100 #### [facility] [address] [place], [address] Platelet mean volume (Bld) [Entitic vol] 9.6 fL Normal 6.2-12.0 [facility] Comment on above: Performed By: #### L 500.4050, L100.0100 #### [facility] [address] [place], [address] Platelets (Bld) [#/Vol] 364 10*3/uL Normal 150-450 [facility] Comment on above: Performed By: #### L 500.4050, L100.0100 #### [facility] [address] [place], [address] RBC (Bld) [#/Vol] 5.16 10*6/uL Normal 4.2-5.4 [facility] Comment on above: Performed By: #### L 500.4050, L100.0100 #### [facility] [address] [place], [address] RDW SD 46.4 fl High 35.1-43.9 [facility] Comment on above: Performed By: #### L 500.4050, L100.0100 #### [facility] [address] [place], [address] WBC (Bld) [#/Vol] 12.5 10*3/uL High 4.4-11.0 [facility] Comment on above: Performed By: #### L 500.4050, L100.0100 #### [facility] [address] [place], [address] Comprehensive Metabolic Prof ilon 11-14-2024 Albumin [Mass/Vol] 3.3 g/dL Normal 3.2-5.0 [facility] Comment on above: Performed By: #### L 500.4050, L100.0100 #### [facility] [address] [place], [address] Albumin/Globulin [Mass ratio] 0.6 {ratio} Low 0.9-2.4 [facility] Comment on above: Performed By: #### L 500.4050, L100.0100 #### [facility] [address] [place], [address] ALK P 160 U/L High 45-117 [facility] Comment on above: Performed By: #### L 500.4050, L100.0100 #### [facility] [address] [place], [address] ALT [Catalytic activity/Vol] 27 U/L Normal 13-56 [facility] Comment on above: Performed By: #### L 500.4050, L100.0100 #### [facility] [address] [place], [address] AST [Catalytic activity/Vol] 25 U/L Normal 15-37 [facility] Comment on above: Performed By: #### L 500.4050, L100.0100 #### [facility] [address] [place], [address] Bilirubin [Mass/Vol] 0.50 mg/dL Normal 0.20-1.00 [facility] Comment on above: Result Comment: For patients on eltrombopag therapy, use of Dimension [place] TBIL is not recommended. Performed By: #### L 500.4050, L100.0100 #### [facility] [address] [place], [address] BUN/CRE 11.6 RATIO Normal 10-20 [facility] Comment on above: Performed By: #### L 500.4050, L100.0100 #### [facility] [address] [place], [address] CA,Total 9.4 mg/dL Normal 8.5-10.1 [facility] Comment on above: Performed By: #### L 500.4050, L100.0100 #### [facility] [address] [place], [address] Chloride [Moles/Vol] 108 mmol/L High 98-107 [facility] Comment on above: Performed By: #### L 500.4050, L100.0100 #### [facility] [address] [place], [address] CO2 [Moles/Vol] 22.0 mmol/L Normal 21.0-32.0 [facility] Comment on above: Performed By: #### L 500.4050, L100.0100 #### [facility] [address] [place], [address] Creatinine [Mass/Vol] 0.69 mg/dL Normal 0.55-1.02 [facility] Comment on above: Result Comment: The validity of the calculated GFR GFRAA in patients over 70 years has not been determined. Clinical correlation is essential. Performed By: #### L 500.4050, L100.0100 #### [facility] [address] [place], [address] EST GFR - AA 116 mL/min Normal >60 [facility] Comment on above: Result Comment: Afri can French GFR Calc Performed By: #### L 500.4050, L100.0100 #### [facility] [address] [place], [address] GAP 7 Normal 5-15 [facility] Comment on above: Performed By: #### L 500.4050, L100.0100 #### [facility] [address] [place], [address] GFR/1.73 sq M.predicted among non-blacks MDRD (S/P/Bld) [Vol rate/Area] 96 mL/min/{1.73_m2} Normal >60 [facility] Comment on above: Result Comment: Non- GFR Calc Performed By: #### L 500.4050, L100.0100 #### [facility] [address] [place], [address] Globulin (S) [Mass/Vol] 5.1 g/dL High 2.2-4.2 [facility] Comment on above: Performed By: #### L 500.4050, L100.0100 #### [facility] [address] [place], [address] Glucose [Mass/Vol] 87 mg/dL Normal 74-106 [facility] Comment on above: Performed By: #### L 500.4050, L100.0100 #### [facility] [address] [place], [address] Potassium [Moles/Vol] 4.0 mmol/L Normal 3.5-5.1 [facility] Comment on above: Performed By: #### L 500.4050, L100.0100 #### [facility] [address] [place], [address] Sodium [Moles/Vol] 137 mmol/L Normal 136-145 [facility] Comment on above: Performed By: #### L 500.4050, L100.0100 #### [facility] [address] [place], [address] T PROT 8.4 g/dL High 6.4-8.2 [facility] Comment on above: Performed By: #### L 500.4050, L100.0100 #### [facility] [address] [place], [address] Urea nitrogen [Mass/Vol] 8 mg/dL Normal 7-18 [facility] Comment on above: Performed By: #### L 500.4050, L100.0100 #### [facility] [address] [place], [address] Hemoglobin A1con 08-25-2024 HbA1c (Bld) [Mass fraction] 5.6 % Normal 3.8-5.6 [facility] Comment on above: Result Comment: Norm al < 5.7 % Prediabetic 5.7 - 6.4 % Diabetic >or= 6.5 % Please note range changes. Performed By: #### L 501.9985 #### [facility] [address] [place], [address] Basophil percentageOrdered B y: Peterson Rm on 11-30-2023 Bilirubin [Mass/Vol] 0.40 mg/dL 0.20-1.00 [facility] Comment on above: For patients on eltr ombopag therapy, use of Dimension [place] TBIL is not recommended. Chloride [Moles/Vol] 106 mmol/L 98-107 [facility] Cholesterol [Mass/Vol] 159 mg/dL <200 [facility] Comment on above: <200 mg/dL Desirable 200-240 mg/dL Borderline >240 mg/dL High Risk Glucose [Mass/Vol] 103 mg/dL 74-106 [facility] Comment on above: Fasting Glucose resu lt from 100 to 125 mg/dL suggests IMPAIRED HOMEOSTASIS per A.D.A. criteria. Potassium [Moles/Vol] 3.9 mmol/L 3.5-5.1 [facility] Protein [Mass/Vol] 7.8 g/dL 6.4-8.2 [facility] Sodium [Moles/Vol] 140 mmol/L 136-145 [facility] Triglyceride [Mass/Vol] 87 mg/dL <199 [facility] Comment on above: The drugs N-Acetylcy steine and Metamizole may falsely depress this assay.Serum Triglycerides Reference Interval Normal <150 mg/dL Borderline high 150 - 199 mg/dL High 200 - 499 mg/dL Very High > or = 500 mg/dL Laboratory - Chemistry and C hemistry - challengeOrdered By: Peterson Rm on 11-30-2023 Albumin/Globulin [Mass ratio] 0.7 {ratio} 0.9-2.4 [facility] ALP [Catalytic activity/Vol] 141 U/L 45-117 [facility] ALT [Catalytic activity/Vol] 32 U/L 13-56 [facility] Cholesterol in HDL [Mass/Vol] 40 mg/dL >40 [facility] Comment on above: The drugs N-Acetylcy steine and Metamizole may falsely depress this assay. Reference Range HDL <40 mg/dL Low HDL Cholesterol HDL >or= 60 mg/dL High HDL Cholesterol Cholesterol in LDL [Mass/Vol] 102 mg/dL 0-130 [facility] CO2 [Moles/Vol] 25.0 mmol/L 21.0-32.0 [facility] Globulin (S) [Mass/Vol] 4.6 g/dL 2.2-4.2 [facility] Urea nitrogen/Creatinine [Mass ratio] 16.2 mg/mg 10-20 [facility] No Panel InformationOrdered By: Peterson Rm on 11-30-2023 Estimated GFR (MDRD) Amer 119 mL/min >60 [facility] Comment on above: GFR Calc Estimated GFR (MDRD) Non-Af Amer 98 mL/min >60 [facility] Comment on above: Non- GFR Calc VLDL Cholesterol 17 mg/dL 5-40 [facility] Serum or plasma calcium christal urement (mass/volume)Ordered By: Peterson Rm on 11-30-2023 Calcium [Mass/Vol] 9.3 mg/dL 8.5-10.1 [facility] Serum or plasma creatinine m easurement (mass/volume)Ordered By: Peterson Rm on 11-30-2023 Creatinine [Mass/Vol] 0.68 mg/dL 0.55-1.02 [facility] Comment on above: The validity of the calculated GFR & GFRAA in patients over 70 years has not been determined. Clinical correlation is essential. Serum or plasma urea nitroge n measurement (mass/volume)Ordered By: Peterson Rm on 11-30-2023 Urea nitrogen [Mass/Vol] 11 mg/dL 7-18 [facility] Thin prep Papanicolaou smear with manual screeningOrdered By: Peterson Rm on 11-30-2023 Thin prep Papanicolaou smear with manual screening 3.2 g/dL 3.2-5.0 [facility] Thin prep Papanicolaou smear with manual screening 16 U/L 15-37 [facility] Thin prep Papanicolaou smear with manual screening 9 5-15 [facility] Whole blood hemoglobin A1c/t otal hemoglobin ratio (mass fraction)Ordered By: Peterson Rm on 11-30-2023 HbA1c (Bld) [Mass fraction] 6.3 % 3.8-5.6 [facility] Comment on above: Normal < 5.7 % Predi abetic 5.7 - 6.4 % Diabetic >or= 6.5 % Please note range changes. Office Visiton 08-14-2023 Follow-up visit [id number] Sary Cast 1975 F Date Provider Department Center 08/14/2023 [id number]AS[facility] None Family History Problem Relation Age of Onset Obesity Father Hypertension Father Heart disease Maternal Grandfather Diabetes Father Cancer Maternal Grandmother Family Status - Relation Status Age at Father Maternal Grandfather Alive Maternal Grandmother Alive Mother Alive Sister Alive Level of Service:64725 IN OFFICE/OUTPATIENT ESTABLISHED LOW MDM 20-29 MIN Reason for Visit and Comments: Weight Loss [479065] - NSURG #5 [facility] Progress Noteon 08-14-2023 Progress Note HPI, PHYSICAL [...] Will focus on the portion control Calorie 7375-2121 daily Will restart with meal preparation Discuss [...] was performed.Clinical documentation is updated and completed. [facility] Progress Note [facility] NON-SURGICAL [...] Date of Initial Consultation:@FLOWLA ST(8961)@ Initial Weight: @FLOWLAST([id number]) @ Initial BMI: @FLOWLAST([id number]) @ [place] Body Weight: @FLOWLAST([id number]) @ Excess Body Weight: @FLOWLAST([id number]) @ Body Fat Percentage: No flowsheet data [...] home O2 Completed by: Michelle Barajas LPN [facility] Absolute lymphocyte countOrd ered By: Peterson Rm on 07-13-2023 Lymphocytes Auto (Unsp spec) [#/Vol] 2.91 10*3/uL 0.83-4.51 [facility] Basophil percentageOrdered B y: Peterson Rm on 07-13-2023 Basophils/100 WBC (Bld) 0.4 % 0-1 [facility] Bilirubin [Mass/Vol] 0.40 mg/dL 0.20-1.00 [facility] Comment on above: For patients on eltr ombopag therapy, use of Dimension [place] TBIL is not recommended. Chloride [Moles/Vol] 106 mmol/L 98-107 [facility] Cholesterol [Mass/Vol] 149 mg/dL <200 [facility] Comment on above: <200 mg/dL Desirable 200-240 mg/dL Borderline >240 mg/dL High Risk Eosinophils/100 WBC (Bld) 1.6 % 0-5 [facility] Glucose [Mass/Vol] 107 mg/dL 74-106 [facility] Comment on above: Fasting Glucose resu lt from 100 to 125 mg/dL suggests IMPAIRED HOMEOSTASIS per A.D.A. criteria. Neutrophils (Bld) [#/Vol] 7.8 10*3/uL 2.0-7.7 [facility] Neutrophils/100 WBC (Bld) 68.9 % 47-70 [facility] Potassium [Moles/Vol] 3.6 mmol/L 3.5-5.1 [facility] Protein [Mass/Vol] 7.7 g/dL 6.4-8.2 [facility] Sodium [Moles/Vol] 137 mmol/L 136-145 [facility] Triglyceride [Mass/Vol] 118 mg/dL <199 [facility] Comment on above: The drugs N-Acetylcy steine and Metamizole may falsely depress this assay.Serum Triglycerides Reference Interval Normal <150 mg/dL Borderline high 150 - 199 mg/dL High 200 - 499 mg/dL Very High > or = 500 mg/dL WBC (Bld) [#/Vol] 11.4 10*3/uL 4.4-11.0 [facility] Blood erythrocytes count (nu mber/volume)Ordered By: Peterson Rm on 07-13-2023 RBC (Bld) [#/Vol] 4.72 10*6/uL 4.2-5.4 [facility] Blood hemoglobin measurement (mass/volume)Ordered By: Peterson Rm on 07-13-2023 Hemoglobin (Bld) [Mass/Vol] 12.7 g/dL 12.0-15.0 [facility] Blood lymphocytes/100 leukoc ytesOrdered By: Peterson Rm on 07-13-2023 Lymphocytes/100 WBC (Bld) 25.6 % 19-41 [facility] Blood monocytes/100 leukocyt esOrdered By: Peterson Rm on 07-13-2023 Monocytes/100 WBC (Bld) 3.3 % 0-10 [facility] Blood platelet mean volumeOr dered By: Peterson Rm on 07-13-2023 Platelet mean volume (Bld) [Entitic vol] 9.2 fL 6.2-12.0 [facility] Determination of erythrocyte mean corpuscular volume (MCV)Ordered By: Peterson Rm on 07-13-2023 MCV (RBC) [Entitic vol] 86.2 fL 81-99 [facility] Hematocrit Auto (Bld) [Volum e fraction]Ordered By: Peterson Rm on 07-13-2023 Hematocrit (Bld) [Volume fraction] 40.7 % 37-47 [facility] Laboratory - Chemistry and C hemistry - challengeOrdered By: Peterson Rm on 07-13-2023 ALP [Catalytic activity/Vol] 149 U/L 45-117 [facility] ALT [Catalytic activity/Vol] 31 U/L 13-56 [facility] CO2 [Moles/Vol] 23.0 mmol/L 21.0-32.0 [facility] Globulin (S) [Mass/Vol] 4.6 g/dL 2.2-4.2 [facility] Urea nitrogen/Creatinine [Mass ratio] 11.3 mg/mg 10-20 [facility] - Hematology and Cell countsOrdered By: Peterson Rm on 07-13-2023 Erythrocyte distribution width (RBC) [Entitic vol] 45.5 fL 35.1-43.9 [facility] Erythrocyte distribution width (RBC) [Ratio] 14.4 % 11.6-14.6 [facility] Immature granulocytes/100 WBC (Bld) 0.200 % 0.0-0.9 [facility] Comment on above: IG% - Immature Granu locytes (promyelocytes, myelocytes and metamyelocytes) > 1% indicates that a LEFT SHIFT is Present. MCH (RBC) [Entitic mass] 26.9 pg 27.0-32.0 [facility] Nucleated RBC/100 WBC (Bld) [Ratio] 0 % 0-5 [facility] MCHC Auto (RBC) [Mass/Vol]Or dered By: Peterson Rm on 07-13-2023 MCHC (RBC) [Mass/Vol] 31.2 g/dL 32-36 [facility] No Panel InformationOrdered By: Peterson Rm on 07-13-2023 Estimated GFR (MDRD) Amer 114 mL/min >60 [facility] Comment on above: GFR Calc Estimated GFR (MDRD) Non-Af Amer 94 mL/min >60 [facility] Comment on above: Non- GFR Calc Platelets bldOrdered By: Amrita Rm on 07-13-2023 Platelets (Bld) [#/Vol] 349 10*3/uL 150-450 [facility] Serum or plasma albumin christal urement (mass/volume)Ordered By: Peterson Rm on 07-13-2023 Albumin [Mass/Vol] 3.1 g/dL 3.2-5.0 [facility] Serum or plasma albumin/glob ulin mass ratioOrdered By: Peterson Rm on 07-13-2023 Albumin/Globulin [Mass ratio] 0.7 {ratio} 0.9-2.4 [facility] Serum or plasma calcium christal urement (mass/volume)Ordered By: Peterson Rm on 07-13-2023 Calcium [Mass/Vol] 9.0 mg/dL 8.5-10.1 [facility] Serum or plasma cholesterol in HDL measurement (mass/volume)Ordered By: Peterson Rm on 07-13-2023 Cholesterol in HDL [Mass/Vol] 38 mg/dL >40 [facility] Comment on above: The drugs N-Acetylcy steine and Metamizole may falsely depress this assay. Reference Range HDL <40 mg/dL Low HDL Cholesterol HDL >or= 60 mg/dL High HDL Cholesterol Serum or plasma cholesterol in VLDL measurement (mass/volume)Ordered By: Peterson Rm on 07-13-2023 Cholesterol in VLDL [Mass/Vol] 24 mg/dL 5-40 [facility] Serum or plasma creatinine m easurement (mass/volume)Ordered By: Peterson Rm on 07-13-2023 Creatinine [Mass/Vol] 0.71 mg/dL 0.55-1.02 [facility] Comment on above: The validity of the calculated GFR & GFRAA in patients over 70 years has not been determined. Clinical correlation is essential. Serum or plasma low density lipoprotein (LDL) cholesterol measurement (mass/volume)Ordered By: Peterson Rm on 07-13-2023 Cholesterol in LDL [Mass/Vol] 87 mg/dL 0-130 [facility] Serum or plasma urea nitroge n measurement (mass/volume)Ordered By: Peterson Rm on 07-13-2023 Urea nitrogen [Mass/Vol] 8 mg/dL 7-18 [facility] Thin prep Papanicolaou smear with manual screeningOrdered By: Peterson Rm on 07-13-2023 Thin prep Papanicolaou smear with manual screening 15 U/L 15-37 [facility] Thin prep Papanicolaou smear with manual screening 8 5-15 [facility] Whole blood hemoglobin A1c/t otal hemoglobin ratio (mass fraction)Ordered By: Peterson Rm on 07-13-2023 HbA1c (Bld) [Mass fraction] 6.1 % 3.8-5.6 [facility] Comment on above: Normal < 5.7 % Predi abetic 5.7 - 6.4 % Diabetic >or= 6.5 % Please note range changes. Office Visiton 05-20-2023 Follow-up visit [id number] Sary Cast 1975 F Date Provider Department Center 05/20/2023 OSIRIS GAONA [facility] None Family History Problem Relation Age of Onset Obesity Father Hypertension Father Heart disease Maternal Grandfather Diabetes Father Cancer Maternal Grandmother Family Status - Relation Status Age at Father Maternal Grandfather Alive Maternal Grandmother Alive Mother Alive Sister Alive Level of Service:94925 IN OFFICE/OUTPATIENT ESTABLISHED LOW MDM 20-29 MIN Reason for Visit and Comments: Weight Loss [407445] - NSURG #4 [facility] Progress Noteon 05-20-2023 Progress Note HPI, PHYSICAL [...] Will focus on the portion control Calorie 7836-2504 daily Will restart with meal preparation Discuss [...] performed.Clinical documentation is updated and completed. Normal [facility] Progress Note [facility] NON-SURGICAL [...] Date of Initial Consultation:@FLOWLA ST(8961)@ Initial Weight: @FLOWLAST([id number]) @ Initial BMI: @FLOWLAST([id number]) @ [place] Body Weight: @FLOWLAST([id number]) @ Excess Body Weight: @FLOWLAST([id number]) @ Body Fat Percentage: No flowsheet data [...] home O2 Completed by: Michelle Barajas LPN [facility] Basophil percentageOrdered B y: Dr. Rm on 02-16-2023 Bilirubin [Mass/Vol] 0.40 mg/dL 0.20-1.00 [facility] Comment on above: For patients on eltr ombopag therapy, use of Dimension [place] TBIL is not recommended. Chloride [Moles/Vol] 105 mmol/L 98-107 [facility] Cholesterol [Mass/Vol] 135 mg/dL <200 [facility] Comment on above: <200 mg/dL Desirable 200-240 mg/dL Borderline >240 mg/dL High Risk Glucose [Mass/Vol] 88 mg/dL 74-106 [facility] [facility] Potassium [Moles/Vol] 3.8 mmol/L 3.5-5.1 [facility] Protein [Mass/Vol] 7.9 g/dL 6.4-8.2 [facility] Sodium [Moles/Vol] 140 mmol/L 136-145 [facility] Triglyceride [Mass/Vol] 118 mg/dL <199 [facility] Comment on above: The drugs N-Acetylcy steine and Metamizole may falsely depress this assay.Serum Triglycerides Reference Interval Normal <150 mg/dL Borderline high 150 - 199 mg/dL High 200 - 499 mg/dL Very High > or = 500 mg/dL Laboratory - Chemistry and C hemistry - challengeOrdered By: Dr. Rm on 02-16-2023 ALP [Catalytic activity/Vol] 154 U/L 45-117 [facility] ALT [Catalytic activity/Vol] 27 U/L 13-56 [facility] CO2 [Moles/Vol] 26.0 mmol/L 21.0-32.0 [facility] Globulin (S) [Mass/Vol] 4.7 g/dL 2.2-4.2 [facility] Urea nitrogen/Creatinine [Mass ratio] 13.3 mg/mg 10-20 [facility] No Panel InformationOrdered By: Dr. Rm on 02-16-2023 Estimated GFR (MDRD) Amer 120 mL/min >60 [facility] Comment on above: GFR Calc Estimated GFR (MDRD) Non-Af Amer 99 mL/min >60 [facility] Comment on above: Non- GFR Calc Serum or plasma albumin christal urement (mass/volume)Ordered By: Dr. Rm on 02-16-2023 Albumin [Mass/Vol] 3.2 g/dL 3.2-5.0 [facility] Serum or plasma albumin/glob ulin mass ratioOrdered By: Dr. Rm on 02-16-2023 Albumin/Globulin [Mass ratio] 0.7 {ratio} 0.9-2.4 [facility] Serum or plasma calcium christal urement (mass/volume)Ordered By: Dr. Rm on 02-16-2023 Calcium [Mass/Vol] 9.2 mg/dL 8.5-10.1 [facility] Serum or plasma cholesterol in HDL measurement (mass/volume)Ordered By: Dr. Rm on 02-16-2023 Cholesterol in HDL [Mass/Vol] 36 mg/dL >40 [facility] Comment on above: The drugs N-Acetylcy steine and Metamizole may falsely depress this assay. Reference Range HDL <40 mg/dL Low HDL Cholesterol HDL >or= 60 mg/dL High HDL Cholesterol Serum or plasma cholesterol in VLDL measurement (mass/volume)Ordered By: Dr. Rm on 02-16-2023 Cholesterol in VLDL [Mass/Vol] 24 mg/dL 5-40 [facility] Serum or plasma creatinine m easurement (mass/volume)Ordered By: Dr. Rm on 02-16-2023 Creatinine [Mass/Vol] 0.68 mg/dL 0.55-1.02 [facility] Comment on above: The validity of the calculated GFR & GFRAA in patients over 70 years has not been determined. Clinical correlation is essential. Serum or plasma low density lipoprotein (LDL) cholesterol measurement (mass/volume)Ordered By: Dr. Rm on 02-16-2023 Cholesterol in LDL [Mass/Vol] 75 mg/dL 0-130 [facility] Serum or plasma urea nitroge n measurement (mass/volume)Ordered By: Dr. Rm on 02-16-2023 Urea nitrogen [Mass/Vol] 9 mg/dL 7-18 [facility] Thin prep Papanicolaou smear with manual screeningOrdered By: Dr. Rm on 02-16-2023 Thin prep Papanicolaou smear with manual screening 14 U/L 15-37 [facility] Thin prep Papanicolaou smear with manual screening 9 5-15 [facility] Whole blood hemoglobin A1c/t otal hemoglobin ratio (mass fraction)Ordered By: Dr. Rm on 02-16-2023 HbA1c (Bld) [Mass fraction] 5.8 % 3.8-5.6 [facility] Comment on above: Normal < 5.7 % Predi abetic 5.7 - 6.4 % Diabetic >or= 6.5 % Please note range changes. Office Visiton 01-21-2023 Follow-up visit [id number] Sary Cast 1975 F Date Provider Department Center 01/21/2023 OSIRIS GAONA [facility] None Family History Problem Relation Age of Onset Obesity Father Hypertension Father Heart disease Maternal Grandfather Diabetes Father Cancer Maternal Grandmother Family Status - Relation Status Age at Father Maternal Grandfather Alive Maternal Grandmother Alive Mother Alive Sister Alive Level of Service:21758 IN OFFICE/OUTPATIENT ESTABLISHED LOW MDM 20-29 MIN Reason for Visit and Comments: Weight Loss [[id number]] - NSURG #3 [facility] Progress Noteon 01-21-2023 Progress Note HPI, PHYSICAL [...] Will focus on the portion control Calorie [id number] daily Will start feedback system DM Recent [...] was performed.Clinical documentation is updated and completed. [facility] Progress Note [facility] NON-SURGICAL WEIGHT [...] Date of Initial Consultation:@FLOWLA ST(8961)@ Initial Weight: @FLOWLAST([id number]) @ Initial BMI: @FLOWLAST([id number]) @ [place] Body Weight: @FLOWLAST([id number]) @ Excess Body Weight: @FLOWLAST([id number]) @ Body Fat Percentage: No flowsheet data [...] home O2 Completed by: Michelle Barajas LPN [facility] Office Visiton 12-12-2022 Follow-up visit [id number] Sary Cast 1975 F Date Provider Department Center 12/12/2022 [id number] CRESPO [facility] None Family History Problem Relation Age of Onset Obesity Father Hypertension Father Heart disease Maternal Grandfather Diabetes Father Cancer Maternal Grandmother Family Status - Relation Status Age at Father Maternal Grandfather Alive Maternal Grandmother Alive Mother Alive Sister Alive Level of Service:91804 IN OFFICE/OUTPATIENT ESTABLISHED LOW MDM 20-29 MIN Reason for Visit and Comments: Weight Loss [[id number]] - NSURG #2 [facility] Progress Noteon 12-12-2022 Progress Note BARIATRIC CARE [...] Date of Initial Consultation:@FLOWLA ST(8961)@ Initial Weight: @FLOWLAST([id number]) @ Initial BMI: @FLOWLAST([id number]) @ [place] Body Weight: @FLOWLAST([id number]) @ Excess Body Weight: @FLOWLAST([id number]) @ Body Fat Percentage: No flowsheet data [...] home O2 Completed by: Grecia Gonsales MA [facility] Progress Note HPI, PHYSICAL EXAMINATION & PLAN [...] Will focus on the portion control Calorie [id number] daily Will start feedback system DM Recent [...] performed.Clinical documentation is updated and completed. Normal [facility] Basophil percentageOrdered B y: Dr. Rm on 11-24-2022 Bilirubin [Mass/Vol] 0.40 mg/dL 0.20-1.00 [facility] Comment on above: For patients on eltr ombopag therapy, use of Dimension [place] TBIL is not recommended. Chloride [Moles/Vol] 107 mmol/L 98-107 [facility] Cholesterol [Mass/Vol] 132 mg/dL <200 [facility] Comment on above: <200 mg/dL Desirable 200-240 mg/dL Borderline >240 mg/dL High Risk Glucose [Mass/Vol] 120 mg/dL 74-106 [facility] Comment on above: Fasting Glucose resu lt from 100 to 125 mg/dL suggests IMPAIRED HOMEOSTASIS per A.D.A. criteria. Potassium [Moles/Vol] 4.0 mmol/L 3.5-5.1 [facility] Protein [Mass/Vol] 7.8 g/dL 6.4-8.2 [facility] Sodium [Moles/Vol] 141 mmol/L 136-145 [facility] Triglyceride [Mass/Vol] 113 mg/dL <199 [facility] Comment on above: The drugs N-Acetylcy steine and Metamizole may falsely depress this assay.Serum Triglycerides Reference Interval Normal <150 mg/dL Borderline high 150 - 199 mg/dL High 200 - 499 mg/dL Very High > or = 500 mg/dL Laboratory - Chemistry and C hemistry - challengeOrdered By: Dr. Rm on 11-24-2022 ALP [Catalytic activity/Vol] 139 U/L 45-117 [facility] ALT [Catalytic activity/Vol] 34 U/L 13-56 [facility] CO2 [Moles/Vol] 26.0 mmol/L 21.0-32.0 [facility] Globulin (S) [Mass/Vol] 4.6 g/dL 2.2-4.2 [facility] Urea nitrogen/Creatinine [Mass ratio] 13.1 mg/mg 10-20 [facility] No Panel InformationOrdered By: Dr. Rm on 11-24-2022 Estimated GFR (MDRD) Amer 118 mL/min >60 [facility] Comment on above: GFR Calc Estimated GFR (MDRD) Non-Af Amer 98 mL/min >60 [facility] Comment on above: Non- GFR Calc Vitamin D 25-Hydroxy 61.4 ng/mL [facility] Comment on above: Vitamin D 25(OH) Sta tus Range Deficiency <20 ng/mL (50nmol/L) Insufficiency 20 - 30 ng/mL (50 - 75 nmol/L) Sufficiency 30 - 100 ng/mL (75 - 250 nmol/L) Toxicity >100 ng/mL (>250 nmol/L) Serum or plasma albumin christal urement (mass/volume)Ordered By: Dr. Rm on 11-24-2022 Albumin [Mass/Vol] 3.2 g/dL 3.2-5.0 [facility] Serum or plasma albumin/glob ulin mass ratioOrdered By: Dr. Rm on 11-24-2022 Albumin/Globulin [Mass ratio] 0.7 {ratio} 0.9-2.4 [facility] Serum or plasma calcium christal urement (mass/volume)Ordered By: Dr. Rm on 11-24-2022 Calcium [Mass/Vol] 9.0 mg/dL 8.5-10.1 [facility] Serum or plasma cholesterol in HDL measurement (mass/volume)Ordered By: Dr. Rm on 11-24-2022 Cholesterol in HDL [Mass/Vol] 34 mg/dL >40 [facility] Comment on above: The drugs N-Acetylcy steine and Metamizole may falsely depress this assay. Reference Range HDL <40 mg/dL Low HDL Cholesterol HDL >or= 60 mg/dL High HDL Cholesterol Serum or plasma cholesterol in VLDL measurement (mass/volume)Ordered By: Dr. Rm on 11-24-2022 Cholesterol in VLDL [Mass/Vol] 23 mg/dL 5-40 [facility] Serum or plasma creatinine m easurement (mass/volume)Ordered By: Dr. Rm on 11-24-2022 Creatinine [Mass/Vol] 0.69 mg/dL 0.55-1.02 [facility] Comment on above: The validity of the calculated GFR & GFRAA in patients over 70 years has not been determined. Clinical correlation is essential. Serum or plasma low density lipoprotein (LDL) cholesterol measurement (mass/volume)Ordered By: Dr. Rm on 11-24-2022 Cholesterol in LDL [Mass/Vol] 75 mg/dL 0-130 [facility] Serum or plasma urea nitroge n measurement (mass/volume)Ordered By: Dr. Rm on 11-24-2022 Urea nitrogen [Mass/Vol] 9 mg/dL 7-18 [facility] Thin prep Papanicolaou smear with manual screeningOrdered By: Dr. Rm on 11-24-2022 Thin prep Papanicolaou smear with manual screening 23 U/L 15-37 [facility] Thin prep Papanicolaou smear with manual screening 8 5-15 [facility] Whole blood hemoglobin A1c/t otal hemoglobin ratio (mass fraction)Ordered By: Dr. Rm on 11-24-2022 HbA1c (Bld) [Mass fraction] 6.5 % 3.8-5.6 [facility] Comment on above: Normal < 5.7 % Predi abetic 5.7 - 6.4 % Diabetic >or= 6.5 % Please note range changes. Office Visiton 10-29-2022 Follow-up visit [id number] Sary Cast 1975 F Date Provider Department Center 10/29/2022 [id number] VELASQUEZ [facility] None Family History Problem Relation Age of Onset Obesity Father Hypertension Father Heart disease Maternal Grandfather Diabetes Father Cancer Maternal Grandmother Family Status - Relation Status Age at Father Maternal Grandfather Alive Maternal Grandmother Alive Mother Alive Sister Alive Level of Service:42131 IN OFFICE/OUTPATIENT NEW MODERATE MDM 45-59 MINUTES Reason for Visit and Comments: Weight Loss [[id number]] - NSURG [facility] Progress Noteon 10-29-2022 Progress Note BARIATRIC [...] Weight: 307 lb 12.8 oz (140 kg) [place] Body Weight: 137 lb (62.1 kg) Initial [...] home O2 Completed by: Grecia Gonsales MA [facility] Basophil percentageOrdered B y: Dr. Rm on 08-08-2022 Bilirubin [Mass/Vol] 0.50 mg/dL 0.20-1.00 [facility] Comment on above: For patients on eltr ombopag therapy, use of Dimension [place] TBIL is not recommended. Chloride [Moles/Vol] 105 mmol/L 98-107 [facility] Cholesterol [Mass/Vol] 151 mg/dL <200 [facility] Comment on above: <200 mg/dL Desirable 200-240 mg/dL Borderline >240 mg/dL High Risk Glucose [Mass/Vol] 114 mg/dL 74-106 [facility] Comment on above: Fasting Glucose resu lt from 100 to 125 mg/dL suggests IMPAIRED HOMEOSTASIS per A.D.A. criteria. Potassium [Moles/Vol] 3.8 mmol/L 3.5-5.1 [facility] Protein [Mass/Vol] 8.2 g/dL 6.4-8.2 [facility] Sodium [Moles/Vol] 137 mmol/L 136-145 [facility] Triglyceride [Mass/Vol] 90 mg/dL <199 [facility] Comment on above: The drugs N-Acetylcy steine and Metamizole may falsely depress this assay.Serum Triglycerides Reference Interval Normal <150 mg/dL Borderline high 150 - 199 mg/dL High 200 - 499 mg/dL Very High > or = 500 mg/dL Laboratory - Chemistry and C hemistry - challengeOrdered By: Dr. Rm on 08-08-2022 ALP [Catalytic activity/Vol] 148 U/L 45-117 [facility] ALT [Catalytic activity/Vol] 37 U/L 13-56 [facility] CO2 [Moles/Vol] 24.0 mmol/L 21.0-32.0 [facility] Globulin (S) [Mass/Vol] 4.8 g/dL 2.2-4.2 [facility] Urea nitrogen/Creatinine [Mass ratio] 10.4 mg/mg 10-20 [facility] No Panel InformationOrdered By: Dr. Rm on 08-08-2022 Estimated GFR (MDRD) Amer 120 mL/min >60 [facility] Comment on above: GFR Calc Estimated GFR (MDRD) Non-Af Amer 100 mL/min >60 [facility] Comment on above: Non- GFR Calc Vitamin D 25-Hydroxy 61.0 ng/mL [facility] Comment on above: Vitamin D 25(OH) Sta tus Range Deficiency <20 ng/mL (50nmol/L) Insufficiency 20 - 30 ng/mL (50 - 75 nmol/L) Sufficiency 30 - 100 ng/mL (75 - 250 nmol/L) Toxicity >100 ng/mL (>250 nmol/L) Serum or plasma albumin christal urement (mass/volume)Ordered By: Dr. Rm on 08-08-2022 Albumin [Mass/Vol] 3.4 g/dL 3.2-5.0 [facility] Serum or plasma albumin/glob ulin mass ratioOrdered By: Dr. Rm on 08-08-2022 Albumin/Globulin [Mass ratio] 0.7 {ratio} 0.9-2.4 [facility] Serum or plasma calcium christal urement (mass/volume)Ordered By: Dr. Rm on 08-08-2022 Calcium [Mass/Vol] 9.1 mg/dL 8.5-10.1 [facility] Serum or plasma cholesterol in HDL measurement (mass/volume)Ordered By: Dr. Rm on 08-08-2022 Cholesterol in HDL [Mass/Vol] 42 mg/dL >40 [facility] Comment on above: The drugs N-Acetylcy steine and Metamizole may falsely depress this assay. Reference Range HDL <40 mg/dL Low HDL Cholesterol HDL >or= 60 mg/dL High HDL Cholesterol Serum or plasma cholesterol in VLDL measurement (mass/volume)Ordered By: Dr. Rm on 08-08-2022 Cholesterol in VLDL [Mass/Vol] 18 mg/dL 5-40 [facility] Serum or plasma creatinine m easurement (mass/volume)Ordered By: Dr. Rm on 08-08-2022 Creatinine [Mass/Vol] 0.68 mg/dL 0.55-1.02 [facility] Comment on above: The validity of the calculated GFR & GFRAA in patients over 70 years has not been determined. Clinical correlation is essential. Serum or plasma low density lipoprotein (LDL) cholesterol measurement (mass/volume)Ordered By: Dr. Rm on 08-08-2022 Cholesterol in LDL [Mass/Vol] 91 mg/dL 0-130 [facility] Serum or plasma urea nitroge n measurement (mass/volume)Ordered By: Dr. Rm on 08-08-2022 Urea nitrogen [Mass/Vol] 7 mg/dL 7-18 [facility] Thin prep Papanicolaou smear with manual screeningOrdered By: Dr. Rm on 08-08-2022 Thin prep Papanicolaou smear with manual screening 21 U/L 15-37 [facility] Thin prep Papanicolaou smear with manual screening 8 5-15 [facility] Whole blood hemoglobin A1c/t otal hemoglobin ratio (mass fraction)Ordered By: Dr. Rm on 08-08-2022 HbA1c (Bld) [Mass fraction] 6.2 % 3.8-5.6 [facility] Comment on above: Normal < 5.7 % Predi abetic 5.7 - 6.4 % Diabetic >or= 6.5 % Please note range changes. Absolute lymphocyte counton 07-08-2022 Lymphocytes Auto (Unsp spec) [#/Vol] 2.61 10*3/uL 0.83-4.51 [facility] Work Phone: Basophil percentageon 2021 Basophil percentage 0 SEEN /hpf 0-5 [facility] Work Phone: [phone] Basophils/100 WBC (Bld) 0.4 % 0-1 [facility] Work Phone: Bilirubin [Mass/Vol] 0.40 mg/dL 0.20-1.00 [facility] Work Phone: Comment on above: For patients on eltr ombopag therapy, use of Dimension [place] TBIL is not recommended. Chloride [Moles/Vol] 109 mmol/L 98-107 [facility] Work Phone: [phone] Eosinophils/100 WBC (Bld) 1.0 % 0-5 [facility] Work Phone: [phone] Glucose [Mass/Vol] 122 mg/dL 74-106 [facility] Work Phone: Comment on above: Fasting Glucose resu lt from 100 to 125 mg/dL suggests IMPAIRED HOMEOSTASIS per A.D.A. criteria. Neutrophils (Bld) [#/Vol] 6.5 10*3/uL 2.0-7.7 [facility] Work Phone: [phone] Neutrophils/100 WBC (Bld) 66.9 % 47-70 [facility] Work Phone: [phone] Potassium [Moles/Vol] 3.6 mmol/L 3.5-5.1 [facility] Work Phone: [phone] Protein [Mass/Vol] 7.7 g/dL 6.4-8.2 [facility] Work Phone: [phone] Sodium [Moles/Vol] 143 mmol/L 136-145 [facility] Work Phone: [phone] WBC (Bld) [#/Vol] 9.7 10*3/uL 4.4-11.0 [facility] Work Phone: Bilirubin Test strip Ql (U)o n 07-08-2022 Bilirubin Ql (U) Negative Negative [facility] Work Phone: Blood erythrocytes count (nu mber/volume)on 07-08-2022 RBC (Bld) [#/Vol] 4.65 10*6/uL 4.2-5.4 [facility] Work Phone: Blood hemoglobin measurement (mass/volume)on 07-08-2022 Hemoglobin (Bld) [Mass/Vol] 12.5 g/dL 12.0-15.0 [facility] Work Phone: Blood lymphocytes/100 leukoc yteson 07-08-2022 Lymphocytes/100 WBC (Bld) 27.0 % 19-41 [facility] Work Phone: Blood monocytes/100 leukocyt eson 07-08-2022 Monocytes/100 WBC (Bld) 4.2 % 0-10 [facility] Work Phone: Blood platelet mean volumeon 07-08-2022 Platelet mean volume (Bld) [Entitic vol] 8.9 fL 6.2-12.0 [facility] Work Phone: Determination of erythrocyte mean corpuscular volume (MCV)on 07-08-2022 MCV (RBC) [Entitic vol] 84.3 fL 81-99 [facility] Work Phone: Direct bilirubinon 2 Bilirubin.direct [Mass/Vol] 0.12 mg/dL 0.00-0.30 [facility] Work Phone: Hematocrit Auto (Bld) [Volum e fraction]on 07-08-2022 Hematocrit (Bld) [Volume fraction] 39.2 % 37-47 [facility] Work Phone: Ketones Test strip Ql (U)on 07-08-2022 Ketones Ql (U) Negative Negative [facility] Work Phone: Laboratory - Chemistry and C hemistry - challengeon 07-08-2022 HCG ( test) Ql (U) Negative [facility] Work Phone: Comment on above: Very dilute urine sp ecimens, as indicated by a low specificgravity, may not contain retention representative levels of hCG. If is still suspected, a first morning urinespecimen should be collected 48 hours later and tested. ALP [Catalytic activity/Vol] 131 U/L 45-117 [facility] Work Phone: ALT [Catalytic activity/Vol] 42 U/L 13-56 [facility] Work Phone: CO2 [Moles/Vol] 27.0 mmol/L 21.0-32.0 [facility] Work Phone: Globulin (S) [Mass/Vol] 4.6 g/dL 2.2-4.2 [facility] Work Phone: Lipase [Catalytic activity/Vol] 94 U/L 73-393 [facility] Work Phone: Urea nitrogen/Creatinine [Mass ratio] 10.2 mg/mg 10-20 [facility] Work Phone: Laboratory - Hematology and Cell countson 07-08-2022 Erythrocyte distribution width (RBC) [Entitic vol] 44.3 fL 35.1-43.9 [facility] Work Phone: Erythrocyte distribution width (RBC) [Ratio] 14.6 % 11.6-14.6 [facility] Work Phone: Immature granulocytes/100 WBC (Bld) 0.500 % 0.0-0.9 [facility] Work Phone: Comment on above: IG% - Immature Granu locytes (promyelocytes, myelocytes and metamyelocytes) > 1% indicates that a LEFT SHIFT is Present. MCH (RBC) [Entitic mass] 26.9 pg 27.0-32.0 [facility] Work Phone: Nucleated RBC/100 WBC (Bld) [Ratio] 0 % 0-5 [facility] Work Phone: MCHC Auto (RBC) [Mass/Vol]on 07-08-2022 MCHC (RBC) [Mass/Vol] 31.9 g/dL 32-36 [facility] Work Phone: Mucus LM Ql (Urine sed)on Mucus Ql (Urine sed) 0 SEEN /hpf [facility] Work Phone: Nitrite Test strip Ql (U)on 07-08-2022 Nitrite Ql (U) Negative Negative [facility] Work Phone: No Panel Informationon 07-08 Estimated Creatinine Clearance Calc 91.67 ml/min [facility] Work Phone: Estimated GFR (MDRD) Amer 118 mL/min >60 [facility] Work Phone: Comment on above: GFR Calc Estimated GFR (MDRD) Non-Af Amer 98 mL/min >60 [facility] Work Phone: Comment on above: Non- GFR Calc Troponin I High Sensitivity 3 pg/mL 3.0-54.0 [facility] Work Phone: Comment on above: Please Note: New [place] t Units and Gender Specific Reference Ranges. For more information see Policy Stat Procedure [place] High Sensitivity Troponin (TNIH) and attachments. Platelets bldon 07-08-2022 Platelets (Bld) [#/Vol] 336 10*3/uL 150-450 [facility] Work Phone: Protein Test strip Ql (U)on 07-08-2022 Protein Ql (U) Negative Negative [facility] Work Phone: Serum or plasma albumin christal urement (mass/volume)on 07-08-2022 Albumin [Mass/Vol] 3.1 g/dL 3.2-5.0 [facility] Work Phone: Serum or plasma calcium christal urement (mass/volume)on 07-08-2022 Calcium [Mass/Vol] 9.1 mg/dL 8.5-10.1 [facility] Work Phone: Serum or plasma creatinine m easurement (mass/volume)on 07-08-2022 Creatinine [Mass/Vol] 0.69 mg/dL 0.55-1.02 [facility] Work Phone: Comment on above: The validity of the calculated GFR & GFRAA in patients over 70 years has not been determined. Clinical correlation is essential. Serum or plasma urea nitroge n measurement (mass/volume)on 07-08-2022 Urea nitrogen [Mass/Vol] 7 mg/dL 7-18 [facility] Work Phone: Squamous epithelial cells de tection in urine sediment by light microscopyon 07-08-2022 Epithelial cells.squamous LM Ql (Urine sed) 0-5 SEEN /hpf 5-10 [facility] Work Phone: Thin prep Papanicolaou smear with manual screeningon 07-08-2022 Thin prep Papanicolaou smear with manual screening 26 U/L 15-37 [facility] Work Phone: Thin prep Papanicolaou smear with manual screening 7 5-15 [facility] Work Phone: Urine blood detectionon 06-20 RBC Ql (U) Negative Negative [facility] Work Phone: RBC Ql (U) 0 SEEN /hpf 0-5 [facility] Work Phone: Urine clarityon 07-08-2022 Clarity (U) Clear Clear [facility] Work Phone: Urine color determinationon 07-08-2022 Color (U) Yellow Yellow [facility] Work Phone: Urine glucose detectionon Glucose Ql (U) Normal mg/dl Normal [facility] Work Phone: Urine leukocyte esterase det ection by dipstickon 07-08-2022 Leukocyte esterase Test strip Ql (U) Negative Negative [facility] Work Phone: Urine pHon 07-08-2022 pH (U) 7.0 [pH] 5.0 - 8.0 [facility] Work Phone: Urine sediment bacteria coun t by microscopy (number/high power field)on 07-08-2022 Bacteria LM.HPF (Urine sed) [#/Area] 0 /[HPF] None Seen [facility] Work Phone: Urine specific gravity measu rementon 07-08-2022 Specific gravity (U) [Rel density] 1.005 1.002-1.030 [facility] Work Phone: Urobilinogen Auto test strip Ql (U)on 07-08-2022 Urobilinogen Ql (U) Normal mg/dl Normal [facility] Work Phone: Vital Signs Date Time Vital Sign Value Performing Clinician Faci lity 06-06-2025 08:51-0400 Body height 167 cm Marsha Sung MD Work Phone: [facility] 06-06-2025 08:51-0400 Body mass index (BMI) [Ratio] 44.72 kg/m2 Marsha Sung MD Work Phone: [facility] 06-06-2025 08:51-0400 Body weight 124.74 kg Marsha Sung MD Work Phone: [facility] 06-06-2025 08:51-0400 Diastolic blood pressure 88 mm[Hg] Marsha Sung MD Work Phone: [facility] 06-06-2025 08:51-0400 Systolic blood pressure 124 mm[Hg] Marsha Sung MD Work Phone: [facility] 09-07-2023 09:56-0500 Body height 165.[address] Peterson Rm Work Phone: [facility] 09-07-2023 09:56-0500 Body mass index (BMI) [Ratio] 47 kg/m2 Dr. Peterson Rm Work Phone: [facility] 09-07-2023 09:56-0500 Body temperature 98.2 [degF] Dr. Peterson Rm Work Phone: [facility] 09-07-2023 09:56-0500 Body weight 128.[address] Peterson Rm Work Phone: [facility] 09-07-2023 09:56-0500 Diastolic blood pressure 110 mm[Hg] Dr. Peterson Rm Work Phone: [facility] 09-07-2023 09:56-0500 Heart rate 82 /min Dr. Peterson Rm Work Phone: [facility] 09-07-2023 09:56-0500 Respiratory rate 16 /min Dr. Peterson Rm Work Phone: [facility] 09-07-2023 09:56-0500 SaO2% (BldA) [Mass fraction] 99 % Dr. Peterson Rm Work Phone: [facility] 09-07-2023 09:56-0500 Systolic blood pressure 145 mm[Hg] Dr. Peterson Rm Work Phone: [facility] 08-14-2023 08:19-0400 Body height 166.4 cm Osiris Velasquez MD Work Phone: [facility] 08-14-2023 08:19-0400 Body mass index (BMI) [Ratio] 46.44 kg/m2 Osiris Velasquez MD Work Phone: [facility] 08-14-2023 08:19-0400 Body weight 128.55 kg Osiris Velasquez MD Work Phone: [facility] 08-14-2023 08:19-0400 Diastolic blood pressure 84 mm[Hg] Osiris Velasquez MD Work Phone: [facility] 08-14-2023 08:19-0400 Heart rate 80 /min Osiris Velasquez MD Work Phone: [facility] 08-14-2023 08:19-0400 Systolic blood pressure 123 mm[Hg] Osiris Velasquez MD Work Phone: [facility] 07-07-2023 13:02-0400 Body temperature 98.4 [degF] Dr. Peterson Rm Work Phone: [facility] 07-07-2023 13:02-0400 Body weight 131.[address] Peterson Rm Work Phone: [facility] 07-07-2023 13:02-0400 Diastolic blood pressure 93 mm[Hg] Dr. Peterson Rm Work Phone: [facility] 07-07-2023 13:02-0400 Heart rate 85 /min Dr. Peterson Rm Work Phone: [facility] 07-07-2023 13:02-0400 Respiratory rate 16 /min Dr. Peterson Rm Work Phone: [facility] 07-07-2023 13:02-0400 SaO2% (BldA) [Mass fraction] 97 % Dr. Peterson Rm Work Phone: [facility] 07-07-2023 13:02-0400 Systolic blood pressure 149 mm[Hg] Dr. Peterson Rm Work Phone: [facility] 05-28-2023 08:21-0400 Body height 165.1 cm Marsha Sung MD Work Phone: [facility] 05-28-2023 08:21-0400 Body weight 128.28 kg Marsha Sung MD Work Phone: [facility] 05-28-2023 08:21-0400 Diastolic blood pressure 78 mm[Hg] Marsha Sung MD Work Phone: [facility] 05-28-2023 08:21-0400 Systolic blood pressure 128 mm[Hg] Marsha Sung MD Work Phone: [facility] 05-20-2023 08:03-0400 Body height 166.4 cm Osiris Velasquez MD Work Phone: [facility] [employer] 05-20-2023 08:03-0400 Body mass index (BMI) [Ratio] 47.49 kg/m2 Osiris Velasquez MD Work Phone: [facility] [employer] 05-20-2023 08:03-0400 Body weight 131.45 kg Osiris Velasquez MD Work Phone: [facility] [employer] 05-20-2023 08:03-0400 Diastolic blood pressure 71 mm[Hg] Osiris Velasquez MD Work Phone: [facility] [employer] 05-20-2023 08:03-0400 Heart rate 76 /min Osiris Velasquez MD Work Phone: [facility] [employer] 05-20-2023 08:03-0400 Systolic blood pressure 104 mm[Hg] Osiris Velasquez MD Work Phone: [facility] [employer] 01-21-2023 07:38-0400 Body height 166.4 cm Osiris Velasquez MD Work Phone: [facility] [employer] 01-21-2023 07:38-0400 Body mass index (BMI) [Ratio] 47.03 kg/m2 Osiris Velasquez MD Work Phone: [facility] [employer] 01-21-2023 07:38-0400 Body weight 130.18 kg Osiris Velasquez MD Work Phone: [facility] [employer] 01-21-2023 07:38-0400 Diastolic blood pressure 82 mm[Hg] Osiris Velasquez MD Work Phone: [facility] [employer] 01-21-2023 07:38-0400 Heart rate 85 /min Osiris Velasquez MD Work Phone: [facility] [employer] 01-21-2023 07:38-0400 Systolic blood pressure 126 mm[Hg] Osiris Velasquez MD Work Phone: [facility] [employer] 01-16-2023 14:20-0400 Body weight 134.72 kg Marsha Sung MD Work Phone: [facility] 01-16-2023 14:20-0400 Diastolic blood pressure 88 mm[Hg] Marsha Sung MD Work Phone: [facility] 01-16-2023 14:20-0400 Systolic blood pressure 132 mm[Hg] Marsha Sung MD Work Phone: [facility] 12-12-2022 07:38-0500 Body height 166.4 cm Osiris Velasquez MD Work Phone: [facility] 12-12-2022 07:38-0500 Body mass index (BMI) [Ratio] 48.64 kg/m2 Osiris Velasquez MD Work Phone: [facility] 12-12-2022 07:38-0500 Body weight 134.63 kg Osiris Velasquez MD Work Phone: [facility] 12-12-2022 07:38-0500 Diastolic blood pressure 86 mm[Hg] Osiris Velasquez MD Work Phone: [facility] 12-12-2022 07:38-0500 Heart rate 88 /min Osiris Velasquez MD Work Phone: [facility] 12-12-2022 07:38-0500 Respiratory rate 16 /min Osiris Velasquez MD Work Phone: [facility] 12-12-2022 07:38-0500 Systolic blood pressure 137 mm[Hg] Osiris Velasquez MD Work Phone: [facility] [employer] 10-29-2022 07:39-0500 Body height 166.4 cm Osiris Velasquez MD Work Phone: [facility] [employer] 10-29-2022 07:39-0500 Body mass index (BMI) [Ratio] 50.44 kg/m2 Osiris Velasquez MD Work Phone: [facility] [employer] 10-29-2022 07:39-0500 Body weight 139.62 kg Osiris Velasquez MD Work Phone: [facility] [employer] 10-29-2022 07:39-0500 Diastolic blood pressure 71 mm[Hg] Osiris Velasquez MD Work Phone: [facility] 10-29-2022 07:39-0500 Heart rate 86 /min Osiris Velasquez MD Work Phone: [facility] 10-29-2022 07:39-0500 Respiratory rate 16 /min Osiris Velasquez MD Work Phone: [facility] 10-29-2022 07:39-0500 Systolic blood pressure 119 mm[Hg] Osiris Velasquez MD Work Phone: [facility] 10-13-2022 08:45-0500 Body height 165.[address] Peterson Rm Work Phone: [facility] 10-13-2022 08:45-0500 Body mass index (BMI) [Ratio] 50.7 kg/m2 Dr. Peterson Rm Work Phone: [facility] 10-13-2022 08:45-0500 Body temperature 97.7 [degF] Dr. Peterson Rm Work Phone: [facility] 10-13-2022 08:45-0500 Body weight 138.[address] Peterson Rm Work Phone: [facility] 10-13-2022 08:45-0500 Diastolic blood pressure 92 mm[Hg] Dr. Peterson Rm Work Phone: [facility] 10-13-2022 08:45-0500 Heart rate 93 /min Dr. Peterson Rm Work Phone: [facility] 10-13-2022 08:45-0500 Respiratory rate 16 /min Dr. Peterson Rm Work Phone: [facility] 10-13-2022 08:45-0500 SaO2% (BldA) [Mass fraction] 98 % Dr. Peterson Rm Work Phone: [facility] 10-13-2022 08:45-0500 Systolic blood pressure 142 mm[Hg] Dr. Peterson Rm Work Phone: [facility] 07-08-2022 13:06-0400 Diastolic blood pressure 86 mm[Hg] [facility] Work Phone: 07-08-2022 13:06-0400 Heart rate 80 /min [facility] Work Phone: 07-08-2022 13:06-0400 Respiratory rate 16 /min [facility] Work Phone: 07-08-2022 13:06-0400 SaO2% (BldA) [Mass fraction] 96 % [facility] Work Phone: 07-08-2022 13:06-0400 Systolic blood pressure 129 mm[Hg] [facility] Work Phone: 07-08-2022 07:55-0400 Body height 165.1 cm [facility] Work Phone: 07-08-2022 07:55-0400 Body mass index (BMI) [Ratio] 49.1 kg/m2 [facility] Work Phone: 07-08-2022 07:55-0400 Body temperature 98.2 [degF] [facility] Work Phone: 07-08-2022 07:55-0400 Body weight 133.8 kg [facility] Work Phone: 07-05-2022 08:43-0400 Diastolic blood pressure 75 mm[Hg] [facility] Work Phone: 07-05-2022 08:43-0400 Heart rate 84 /min [facility] Work Phone: 07-05-2022 08:43-0400 Respiratory rate 18 /min [facility] Work Phone: 07-05-2022 08:43-0400 SaO2% (BldA) [Mass fraction] 97 % [facility] Work Phone: 07-05-2022 08:43-0400 Systolic blood pressure 111 mm[Hg] [facility] Work Phone: 07-05-2022 08:02-0400 Body height 167.64 cm [facility] Work Phone: 07-05-2022 08:02-0400 Body mass index (BMI) [Ratio] 48.2 kg/m2 [facility] Work Phone: 07-05-2022 08:02-0400 Body temperature 97.8 [degF] [facility] Work Phone: 07-05-2022 08:02-0400 Body weight 135.62 kg [facility] Work Phone: 02-27-2022 07:51-0400 Body height 167.64 cm [facility] Work Phone: 02-27-2022 07:51-0400 Body weight 140.43 kg [facility] Work Phone: 01-22-2022 14:06-0400 Body weight 138.52 kg [facility] Work Phone: 01-17-2022 00:10-0400 Body weight 140.16 kg [facility] Work Phone: 01-06-2022 19:20-0400 Body weight 140.16 kg [facility] Work Phone: Encounters Encounter Date Encounter Type Care Provider Facility Start: 08-09-2025 End: 08-09-2025 ambulatory Marsha Sung Facility:[facility] Start: 07-14-2025 ambulatory [facility] Facility: [facility] Start: 06-06-2025 End: 06-06-2025 Patient encounter procedure Marsha Sung MD Work Phone: OB/Gynecology Comment on above: Encounter for gyneco logical examination (general) (routine) without abnormal findings (Primary Dx); Screening for cervical cancer; Encounter for screening for human papillomavirus (HPV) Start: 06-06-2025 End: 06-06-2025 Patient encounter status Marsha Sung MD Work Phone: [facility] Start: 06-06-2025 End: 06-06-2025 ambulatory MARSHA SUNG Facility:[facility] Start: 06-06-2025 Encounter for gynecological examination (general) (routine) without abnormal findings MARSHA SUNG [facility] Start: 04-14-2025 End: 04-14-[address] Peterson Rm DO Work Phone: -Laboratory Maximiliano Zaidi [facility] Start: 04-14-2025 End: 04-14-[address] Peterson Rm DO -Laboratory Maximiliano Zaidi [facility] Start: 04-14-2025 End: 04-14-2025 ambulatory Peterson Rm Facility:[facility] Start: 04-12-2025 End: 04-12-[address] Peterson Rm DO Work Phone: -Laboratory [place] Start: 04-12-2025 End: 04-12-[address] Peterson Rm DO -Laboratory [place] Work Phone: Start: 04-12-2025 End: 04-12-2025 ambulatory Peterson Rm Facility:[facility] Start: 03-15-2025 End: 03-15-[address] Peterson Rm DO Work Phone: [facility] Work Phone: Start: 03-15-2025 End: 03-15-[address] Peterson Rm DO -Laboratory [place] Work Phone: Start: 03-15-2025 End: 03-15-2025 ambulatory Peterson Rm Facility:[facility] Start: 11-16-2024 End: 11-16-2024 ambulatory Peterson Rm Facility:[facility] Start: 11-15-2024 End: 11-15-2024 ambulatory Peterson Rm Facility:[facility] Start: 11-14-2024 End: 11-14-2024 ambulatory Peterson Rm Facility:[facility] Start: 08-25-2024 End: 08-25-2024 ambulatory Peterson Rm Facility:[facility] Start: 11-30-2023 End: 11-30-2023 ambulatory [facility] Work Phone: Start: 11-30-2023 End: 11-30-2023 Patient encounter procedure [facility] Work Phone: Start: 09-07-2023 End: 09-07-2023 Emergency department patient visit Dr. Peterson Rm Work Phone: [facility]Emergency Department Work Phone: Start: 08-14-2023 End: 08-14-2023 ambulatory OSIRIS RON [facility] Start: 08-14-2023 End: 08-14-2023 Office outpatient visit 15 minutes Osiris Velasquez MD Work Phone: [facility] [place] Comment on above: Type 2 diabetes kamini itus without complication, without long- term current use of insulin ([facility]/HCC) (HCC) (Primary Dx); BMI 45.0-49.9, adult ([facility]); Class 3 severe obesity with serious comorbidity and body mass index (BMI) of 45.0 to 49.9 in adult, unspecified obesity type ([facility]) Start: 08-05-2023 End: 08-05-[address] Peterson Rm Work Phone: [facility] Work Phone: Start: 08-05-2023 End: 08-05-[address] Peterson Rm Work Phone: [facility]-Outpatient Breast Imaging Work Phone: Start: 07-13-2023 End: 07-13-[address] Peterson Rm Work Phone: [facility] Work Phone: Start: 07-07-2023 End: 07-07-[address] Peterson Rm Work Phone: [facility] Work Phone: Start: 05-28-2023 End: 05-28-2023 Patient encounter procedure Marsha Sung MD Work Phone: OB/Gynecology Comment on above: Encounter for gyneco logical examination (general) (routine) without abnormal findings (Primary Dx); Obesity, Class III, BMI >= 40 Start: 05-28-2023 End: 05-28-2023 Patient encounter status Marsha Sung MD Work Phone: [facility] Work Phone: Start: 05-20-2023 End: [facility]: 05-20-[facility]23 End: 05-20-2023 Office outpatient visit 15 minutes Osiris Velasquez MD Work Phone: [facility] [place] Comment on above: Type 2 diabetes kamini [...] above: Insert Start: 02-16-2023 End: 02-16-2023 ambulatory [facility] Work Phone: Start: 02-16-2023 End: 02-16-2023 Patient encounter procedure [facility]Maximiliano Gardner [facility] Start: 01-21-2023 End: 01-21-2023 ambulatory [facility] Start: 01-21-2023 End: 01-21-2023 Office outpatient visit 15 minutes Osiris Velasquez MD Work Phone: [facility] [place] Comment on above: Type 2 diabetes kamini [...] imary Dx) Start: 12-12-2022 End: 12-12-2022 ambulatory [facility] Start: 12-12-2022 End: 12-12-2022 Office outpatient visit 15 minutes Osiris Velasuqez MD Work Phone: [facility] [place] Comment on above: Type 2 diabetes kamini itus without complication, without long- term current use of insulin (CMS/HCC) (HCC) (Primary Dx); BMI 45.0-49.9, adult (CMS/HCC) (HCC); Class 3 severe obesity with serious comorbidity and body mass index (BMI) of 45.0 to 49.9 in adult, unspecified obesity type (HCC) Start: 11-24-2022 End: 11-24-[address] Peterson Rm Work Phone: [facility] Work Phone: Start: 11-24-2022 End: 11-24-[address] [facility] Start: 10-29-2022 End: 10-29-2022 ambulatory [facility] Start: 10-29-2022 End: 10-29-2022 Office outpatient new 45 minutes Osiris Velasquez MD Work Phone: [facility] [place] Comment on above: Dyslipidemia (Primar y Dx); BMI 50.0-59.9, adult (CMS/HCC) (HCC); Class 3 severe obesity with serious comorbidity and body mass index (BMI) of 50.0 to 59.9 in adult, unspecified obesity type (HCC) Start: 10-13-2022 End: 10-13-[address] Peterson Rm Work Phone: [facility] Start: 09-24-2022 Non-patient / Non-visit Dr. Mike Rm Work Phone: [facility] Start: 09-24-2022 End: 09-24-[address] Peterson Rm Work Phone: [facility] Work Phone: Start: 09-24-2022 End: 09-24-[address] Peterson Rm Work Phone: [facility] Start: 09-23-2022 End: 09-23-[address] Peterson Rm Work Phone: [facility] Work Phone: Start: 09-23-2022 End: 09-23-[address] Peterson Rm Work Phone: [facility] Start: 08-08-2022 End: 08-08-2022 ambulatory [facility] Work Phone: Start: 08-08-2022 End: 08-08-2022 Patient encounter procedure [facility] Start: 08-04-2022 End: 08-04-2022 Patient encounter procedure [facility]-Outpatient Breast Imaging Start: 07-08-2022 End: 07-08-2022 Emergency department patient visit [facility]gency [facility] Start: 07-05-2022 End: 07-05-2022 Emergency department patient visit [facility]Emergency [facility] Start: 05-15-2022 End: 05-15-2022 Patient encounter procedure [facility]-Ultrasound, [facility] Start: 04-18-2022 End: 04-18-2022 Patient encounter procedure [facility]-Ultrasound, [facility] Start: 02-27-2022 End: 03-18-2022 Discharged Recurring [facility] Start: 01-22-2022 End: 02-15-2022 Discharged Recurring [facility] Start: 01-06-2022 End: 01-16-2022 Discharged Recurring [facility] Procedures Date Procedure Procedure Detail Performing Clinician Start: 04-14-[address] Amrita Rm DO Work Phone: Comment on above: Performed at: [facility] [address] [id number] Director: Mark Balderrama PhD, Phone: [phone] Start: 04-14-[address] IgA level [address] Peterson Rm DO Work Phone: Start: 04-14-[address] Peterson Rm DO Work Phone: Comment on above: Thyroglobulin Antibo dy measured by Jovanny CoulterMethodologyIt should be noted that the presence of thyroglobulinantibodies may not be pathogenic nor diagnostic, especiallyat very low levels. The assay machine spring former has found thatfour percent of individuals without evidence of thyroiddisease or autoimmunity will have positive TgAb levels upto 4 IU/mL.Performed at: [facility] [address] [id number] Director: Mark Balderrama PhD, Phone: [phone] Start: 04-12-2025 Vitamin D, 25-hydrox y measurement [...] P,Tdap,Td Vaccine (2 - Td or Tdap) [facility] Start: 06-08-2026 End: 06-08-2026 Patient encounter procedure 06/08/2026 8:40 AM EDT Office Visit OB/Gynecology [address] [place], [place] [id number] Marsha Sung MD [address] [place], [place] [id number] Annual OB/Gynecology Comment on above: Annual Start: 2026 Zoster Vaccines (1 of 2) Zoste r Vaccines (1 of 2) [facility] Start: 08-08-2025 Screening for malign ant neoplasm of breast Mammogram Screening [facility] Start: 06-19-2025 Influenza vaccination Influenza Vacc ine (#1) [facility] Start: 04-17-2025 Procedure [facility] Start: 04-14-2025 Celiac disease screen [facility] Start: 04-14-2025 [facility] Start: 10-21-2024 HPV TESTING HPV TESTING [facility] Start: 10-21-2024 PAP TESTING PAP TESTING [facility] Start: 10-21-2024 Screening for malign ant neoplasm of cervix Cervical Cancer Screening [facility] Start: 08-05-2024 Screening for malign ant neoplasm of breast Mammogram [facility] Start: 09-30-2023 End: 09-30-2023 Patient encounter procedure 09/30/2023 8:00 AM EST Office Visit [facility] [place] [address] [place] [phone] Osiris Velasquez MD [address] [place] [address] [facility] [place] Start: 09-07-2023 [facility] Start: 08-04-2023 Mammography MAMMOGRAM [facility] Start: 08-04-2023 Screening for malign ant neoplasm of breast Mammogram [facility] Start: 07-08-2023 End: 07-08-2023 Patient encounter procedure 07/08/2023 8:20 AM EDT Office Visit [facility] [place] [address] [place] [id number] Osiris Velasquez MD [address] [place], [place] [id number] [facility] [place] Start: 06-19-2023 Influenza vaccination [facility] Start: 02-27-2023 End: 02-27-2023 Patient encounter procedure 02/27/2023 Office Visit Weight Management Osiris Velasquez MD [address] [place], [place] [id number] [facility] [place] Start: 01-21-2023 End: 01-21-2023 Patient encounter procedure 01/21/2023 Office Visit Weight Management Osiris Velasquez MD [address] [place], [place] [id number] [facility] [place] Start: 12-12-2022 End: 12-12-2022 Patient encounter procedure 12/12/2022 Office Visit Weight Management Osiris Velasquez MD [address] [place] [address] [facility] [place] Start: 11-28-2022 End: 11-28-2022 Patient encounter procedure 11/28/2022 Office Visit Weight Management Osiris Velasquez MD [address] [place] [address] [facility] [place] Start: 10-19-2022 DEPRESSION ASSESSMENT DEPRESSION ASS ESSMENT [facility] Start: 12-20-2021 COVID-19 VACCINE (3 - Booster for Moderna series) COVID-19 VACCINE (3 - Booster for Moderna series) [facility] Start: 12-20-2021 COVID-19 VACCINE (3 - Moderna series) COVID-19 VACCINE (3 - Moderna series) [facility] Start: 2021 COLOGUARD (FIT-DNA) COLOGUARD (FIT-D NA) [facility] Start: 2021 Colonoscopy COLONOSCOPY [facility] Start: 2021 COLORECTAL CANCER SCREENING COLORECTAL CANCER SCREENING [facility] Start: [address] COLONOGRAPHY [facility] Start: 2021 DIABETES SCREEN DIABETES SCREEN [facility] Start: 2021 Diabetes Screening Diabetes Screenin g [facility] Start: 2021 FECAL OCCULT BLOOD FECAL OCCULT BLOO D [facility] Start: 2021 Lipid panel Lipid Screening [facility] Start: 2021 LIPID SCREEN LIPID SCREEN [facility] Start: 2021 Screening for malign ant neoplasm of colon [facility] Start: 2021 SIGMOIDOSCOPY SIGMOIDOSCOPY [facility] Start: 2016 Screening for malign ant neoplasm of breast Mammogram [facility] Start: 2006 Screening for malign ant neoplasm of cervix [facility] Start: 1997 Screening for malign ant neoplasm of cervix Pap Smear [facility] Start: 1995 DTaP/Tdap/Td Vaccine s (1 - Tdap) DTaP/Tdap/Td Vaccines (1 - Tdap) [facility] Start: 1995 Hepatitis B Vaccine (1 of 3 - 19+ 3-dose series) Hepatitis B Vaccine (1 of 3 - 19+ 3-dose series) [facility] Start: 1995 Urine microalbumin profile DTAP,TDAP ,TD (1 - Tdap) [facility] Start: 1995 Urine screening for protein Diabetes: Urine Protein Screening [facility] Start: 1994 Anxiety Screening Anxiety Screening [facility] Start: 1994 Depression Screening Depression Scre ening [facility] Start: 1994 Diabetes mellitus screening Diabetes Screening [facility] Start: 1994 HEPATITIS C [facility] Start: 1994 Hepatitis C screening Hepatitis C [facility] Start: 1994 HIV SCREENING HIV SCREENING [facility] Start: 1994 HIV screening HIV Screening [facility] Start: 1988 Depression Screening Depression Scre ening [facility] Start: 1986 Diabetic foot examination Diabetes: Foot Exam [facility] Start: 1986 Glaucoma screening Diabetes: R etinopathy Screening [facility] Start: 1986 Preventive dental service Diabetes: Dental Exam [facility] Start: 1982 Pneumococcal Vaccine : Pediatrics (0 to 5 Years) and At-Risk Patients (6 to 64 Years) (1 - PCV) Pneumococcal Vaccine: Pediatrics (0 to 5 Years) and At-Risk Patients (6 to 64 Years) (1 - PCV) [facility] Start: 1977 MMR Vaccines (1 of 1 - Standard series) MMR Vaccines (1 of 1 - Standard series) [facility] Start: 1976 Hemoglobin A1c measurement Janey betes: Hemoglobin A1C [facility] Start: 1976 HEPATITIS B (1 of 3 - 3-dose series) HEPATITIS B (1 of 3 - 3-dose series) [facility] Start: 1976 Hepatitis B Vaccines (1 of 3 - 3-dose series) Hepatitis B Vaccines (1 of 3 - 3-dose series) [facility] Start: 1976 HIV screening HIV Screening [facility] Start: 1976 Lipid panel Lipid Panel [facility] Start: 1976 Screening for malign ant neoplasm of colon [facility] [employer] citrullinated peptide IgG Ab [Units/volume] in Serum or Plasma [facility] IgA [Mass/volume] in Serum or Plasma [facility] PAP TEST PAP TEST Lab Cosme burk Encounter for gynecological examination (general) (routine) without abnormal findings Screening for cervical cancer Encounter for screening for human papillomavirus (HPV) 06/06/2025 9:41 AM EDT [facility] Work Phone: Patient Education [facility] Work Phone: Patient referral [facility] Work Phone: Thyroglobulin antibo dy measurement [facility] Thyroperoxidase Ab [Units/volume] in Serum or Plasma [facility] Tissue transglutamin ase IgA Ab [Units/volume] in Serum [facility] Immunizations Immunization Date Immunization Notes Care Provider [facility] 07-27-2024 influenza virus vaccine, unspecified formulation Marsha Sung MD Work Phone: [facility] 07-25-2024 influenza, seasonal, injectable, preservative free Marsha Sung MD Work Phone: [facility] 07-17-2023 influenza, injectabl e, quadrivalent, preservative free Marsha Sung MD Work Phone: [facility] 07-17-2023 tetanus toxoid, redu narendra diphtheria toxoid, and acellular pertussis vaccine, adsorbed Marsha Sung MD Work Phone: [facility] 07-30-2022 influenza, injectabl e, quadrivalent, preservative free Marsha Sung MD Work Phone: [facility] 07-30-2022 influenza virus vaccine, unspecified formulation Osiris Velasquez MD Work Phone: [facility] 08-01-2019 influenza, injectabl e, quadrivalent, preservative free Marsha Sung MD Work Phone: [facility] 08-31-2018 influenza, injectabl e, quadrivalent, preservative free Marsha Sung MD Work Phone: [facility] Work Phone: Payers Date Payer Category Payer Self-pay [id number] 2013 [facility] O[facility] [id number] 2013 Unknown [id number] 2010 Unknown [id number] Self-pay [id number] Unknown [id number] Unknown [id number] Unknown [id number] Unknown [id number] Unknown [id number] Unknown [id number] Unknown [id number] Unknown [id number] Unknown [id number] Social History Date Type Detail Facility Start: 08-28-2020 End: 09-07-2023 Tobacco smoking status INIS Unknown if ever smoked [facility] Start: 1975 Sex Assigned At Female [facility] Start: 01-16-2023 End: 05-28-2023 Tobacco smoking status INIS Never smoked tobacco [facility] Start: 01-16-2023 End: 05-28-2023 Tobacco use and exposure Smokeless tobacco non-user [facility] Start: 01-16-2023 End: 06-06-2025 Alcohol intake Ex-drinker (finding) [facility] Start: 1975 Sex Assigned At Not on file [facility] Start: 10-19-2022 End: 05-20-2023 Exposure to SARS-CoV-2 (event) Not sure [facility] Start: 12-12-2022 End: 05-28-2023 History of Social function [facility] Start: 12-12-2022 End: 05-28-2023 Tobacco use panel [facility] Start: 09-19-2012 National Score (1-100), lower number is lower risk 51 [facility] How often to you hav e a drink containing alcohol? Never [facility] NEGATED: Highlighted rowStart: NINF History of tobacco use Passive smoker [facility] Work Phone: Functional Status Date Assessment Result Facility 06-06-2025 Total score [AUDIT-C] 0 06/06/20 25 8:51 AM EDT Marcella Escobar MA [facility] 08-18-2014 Are you deaf, or do you have serious difficulty hearing No 08/18/2014 7:00 PM EDT Swathi Francois LPN [facility] 08-18-2014 Are you blind, or do you have serious difficulty seeing, even when wearing glasses No 08/18/2014 7:00 PM EDT Swathi Francois LPN [facility] 08-18-2014 Do you have serious difficulty walking or climbing stairs No 08/18/2014 7:00 PM EDT Swathi Francois LPN [facility] 08-18-2014 Do you have difficul ty dressing or bathing No 08/18/2014 7:00 PM EDT Swathi Francois LPN [facility] 08-18-2014 Because of a physica l, mental, or emotional condition, do you have difficulty doing errands alone such as visiting a physician's office or shopping No 08/18/2014 7:00 PM EDT Swathi Francois LPN [facility] Mental Status Date Assessment Result Facility 09-07-2023 Cognitive function Level Of Cons ciousness Awake;Alert;Appropriate;Fol lows Commands [facility] Work Phone: 08-18-2014 Because of a physica l, mental, or emotional condition, do you have serious difficulty concentrating, remembering, or making decisions No 08/18/2014 7:00 PM EDT Swathi Francois LPN [facility] Clinical Notes 10-29-2022 to 06-06-2025 Marsha Sung MD - 06/06/2025 8:45 AM Chichi Barajas LPN - 08/14/2023 8:40 AM Cory Velasquez MD - 08/14/2023 8:40 AM Marsha Gonzalez MD - 05/28/2023 8:20 AM EDT Note Date & Type Note Facility 06-06-2025 Note HNO ID: [id number] Author: MARSHA SUNG MD Service: ? 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 As applicable, any other physician, advance practice provider, medical student, or other health professional student that will be observing or involved in the sensitive examination for educational or training purposes was discussed with the Patient or Authorized Oracle Application Architect. 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 As applicable, any other physician, advance practice provider, medical student, or other health professional student that will be observing or involved in the sensitive examination for educational or training purposes was discussed with the Patient or Authorized Oracle Application Architect. The Patient or Authorized Oracle Application Architect has agreed to proceed with the sensitive [...] external genitalia normal, normal Bartholin's glands, urethra, [place]'s glands, no vulvar lesions, no cervical lesions, [...] Marsha Sung MD documented in this encounter [facility] 08-14-2023 History of Presen t illness Narrative [...] Path) Date of Initial Consultation:@FLOWLAST(8961)@ Initial Weight: @FLOWLAST([id number])@ Initial BMI: @FLOWLAST([id number])@ [place] Body Weight: @FLOWLAST([id number])@ Excess Body Weight: @FLOWLAST([id number])@ Body Fat Percentage: No flowsheet data found. Subsequent Body Fat Percentage: No flowsheet data found. Pre Program [facility]) (Surgical Wt Loss Management- baseline) This Visit [...] Will focus on the portion control Calorie 2061-0910 daily Will restart with meal preparation Discuss [...] updated and completed. 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 History Comments: Sexual Activity: Yes; Male; novasure [...] Ischemic Heart Disease Maternal Grandfather 53 of [place] Breast Cancer Maternal Aunt SOCIAL HISTORY Social [...] external genitalia normal, normal Bartholin's glands, urethra, [place]'s glands, no vulvar lesions, no cervical lesions, [...] Marsha Sung MD documented in this encounter [facility] 05-20-2023 History of Presen t illness Narrative [facility] NON-SURGICAL WEIGHT LOSS MANAGEMENT PROGRAM ROOMING [...] Path) Date of Initial Consultation:@FLOWLAST(8961)@ Initial Weight: @FLOWLAST([id number])@ Initial BMI: @FLOWLAST([id number])@ [place] Body Weight: @FLOWLAST([id number])@ Excess Body Weight: @FLOWLAST([id number])@ Body Fat Percentage: No flowsheet data found. [...] Will focus on the portion control Calorie 0000-0665 daily Will restart with meal preparation Discuss [...] updated and completed. documented in this encounter [facility] 02-19-2023 Miscellaneous Notes Please see pt's mychart message and further advise. Sary Cisneros LPN documented in this encounter [facility] 01-21-2023 History of Presen t illness [...] Path) Date of Initial Consultation:@FLOWLAST(8961)@ Initial Weight: @FLOWLAST([id number])@ Initial BMI: @FLOWLAST([id number])@ [place] Body Weight: @FLOWLAST([id number])@ Excess Body Weight: @FLOWLAST([id number])@ Body Fat Percentage: No flowsheet data found. [...] Will focus on the portion control Calorie 2603-0958 daily Will start feedback system DM Recent [...] updated and completed. 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 [...] Will focus on the portion control Calorie 3495-3629 daily Will start feedback system DM Recent [...] updated and completed. documented in this encounter [facility] 10-29-2022 Note [facility]ARE SHAMA Lozano [...] the Patient, which is located in the Assistant Auto Center Manager Tab. History: Past Medical History: Diagnosis Date [...] (140 kg) BMI 50.44 kg/m? Weight Metrics: [place] Body Weight: [place] Body Weight: 137 lb (62.1 kg) Excess Body Weight: [place] BMI: 30 General: This patient is alert [...] Move Struggler [] Self-Conscious Hider [] Inexperienced [place] [] Fag-lp-Crhusud Doer [] Set-Routine Repeater [] Krvld-eym-Ayozt Sufferer [] Gp-zrbw-vf-Exercise Protester [] Emotional Nanotechnology Engineering Technician [] Oen-Sxdz-Pztxgp Sufferer [] Persistent Procrastinator [] Can?t-Say-No Pleaser [...] list 2. Discus (more content not included)... [facility] 01-11-2023 History of Presen t illness Narrative BARIATRIC [...] Weight: 307 lb 12.8 oz (140 kg) [place] Body Weight: 137 lb (62.1 kg) Initial [...] home O2 Completed by: Grecia Gonsales MA [facility] NON-SURGICAL WEIGHT LOSS MANAGEMENT [...] the Patient, which is located in the Assistant Auto Center Manager Tab. History: Past Medical History: Diagnosis Date [...] (140 kg) BMI 50.44 kg/m Weight Metrics: [place] Body Weight: [place] Body Weight: 137 lb (62.1 kg) Excess Body Weight: [place] BMI: 30 General: This patient is alert [...] Move Struggler [] Self-Conscious Hider [] Inexperienced Waldron [] Eie-zs-Ycezmbm Doer [] Set-Routine Repeater [] Iymyv-ubg-Dqjda Sufferer [] Ja-bnvq-rd-Exercise Protester [] Emotional Nanotechnology Engineering Technician [] Zha-Xpck-Hqnxus Sufferer [] Persistent Procrastinator [] Can t-Say-No [...] updated and completed. documented in this encounter [facility] Evaluation note No assessment inform ation available [facility] Work Phone: Evaluation note Diagnosis Onset Date Acute left otitis media acut e [facility] Work Phone: Evaluation note* Diagnosis Abscess of vulva- Primary Other abscess of vulva [facility] Diagnosis Type 2 diabetes mellitus without complication, without long-term current use of insulin ([facility]) ([facility])- Primary BMI 45.0-49.9, adult ([facility]) Class 3 severe obesity with serious comorbidity and body mass index (BMI) of 45.0 to 49.9 in adult, unspecified obesity type (HCC) [facility] Diagnosis Type 2 diabetes mellitus without complication, without long-term current use of insulin (CMS/HCC) ([facility])- Primary BMI 45.0-49.9, adult (HCC) Class 3 severe obesity with serious comorbidity and body mass index (BMI) of 45.0 to 49.9 in adult, unspecified obesity type (HCC) [facility] Diagnosis Type 2 diabetes mellitus without complication, without long-term current use of insulin (CMS/HCC) ([facility])- Primary BMI 45.0-49.9, adult (HCC) Class 3 severe obesity with serious comorbidity and body mass index (BMI) of 45.0 to 49.9 in adult, unspecified obesity type (HCC) documented in this encounter [facility] note* Diagnosis Encounter for gynecological examination (general) (routine) without abnormal findings- Primary Obesity, Class III, BMI >= 40 Morbid obesity documented in this encounter [facility] note* Diagnosis Onset Date Resolution Status Reticular vein acute [facility] Work Phone: Evaluation note* Diagnosis Dyslipidemia- Primary Other and unspecified hyperlipidemia BMI 50.0-59.9, adult ([facility]) (HCC) Class 3 severe obesity with serious comorbidity and body mass index (BMI) of 50.0 to 59.9 in adult, unspecified obesity type (HCC) documented in this encounter [facility] note* Diagnosis Type 2 diabetes mellitus without complication, without long-term current use of insulin (CMS/[facility]) (HCC)- Primary BMI 45.0-49.9, adult ([facility]) (HCC) Class 3 severe obesity with serious comorbidity and body mass index (BMI) of 45.0 to 49.9 in adult, unspecified obesity type (HCC) documented in this encounter [facility] note* Diagnosis Encounter for gynecological examination (general) (routine) without abnormal findings- Primary Screening for cervical cancer Screening for malignant neoplasm of the cervix Encounter for screening for human papillomavirus (HPV) Special screening examination for human papillomavirus (HPV) documented in this encounter [facility] Discharge instructions Additional Instructions Thank you for [...] care physician for further outpatient evaluation and management.[facility] Work Phone: Reason for referral (narrative)No reason for referral information availableWooSelect Medical [facility] Work Phone: Chief Complaint and Reason for [...] Will No August 17 7:23pm Power of Proprietary Trader No August 17, 2015 7:23pm Advance Directive Response Recorded Date/ Time Name of Medical Power of Proprietary Trader sasha berger July 05, 2022 8:41am Advance Directives No September 1:00pm Living Will Yes July 05, 2022 8:41am Power of Proprietary Trader Yes June 8:41am Advance Directive Response Recorded Date/ Time Name of Medical Power of Proprietary Trader sasha babbmarissajanusz berger July 05, 2022 8:41am Advance Directives No September 1:00pm Living Will No July 08, 2022 8:03am Power of Proprietary Trader No June 8:03am Advance Directive Response Recorded Date/ Time Name of Medical Power of Proprietary Trader sasha babbmarissajanusz berger July 05, 2022 7:41am Advance Directives No September 12:00pm Living Will No July 08, 2022 7:03am Power of Proprietary Trader No June 7:03am Advance Directive Response Recorded Date/ Time Advance Directives No September 12:00pm Living Will No July 08, 2022 7:03am Power of Proprietary Trader No June 7:03am Advance Directive Response Recorded Date/ Time Advance Directives No September 1:00pm Living Will No July 08, 2022 8:03am Power of Proprietary Trader No June 8:03am Advance Directive Response Recorded Date/ Time Name of Medical Power of Proprietary Trader JAVON WATERS" DOMINIQUE- September 07, 2023 10:02am Advance Directives No September 12:00pm Living Will Yes September 07, 2 023 10:02am Power of Proprietary Trader Yes September 07, 2023 10:02am Advance Directive [...] Prov ider, Attending Provider, Referring Provider Active Digital Archivist Relationship Specialty Start Date End Date Peterson Rm DO [address] [place] [address] PCP - General Family Medicine 07/06/18 Digital Archivist Relationship Specialty Start Date End Date Peterson Rm [address] [place] [phone] PCP - General 06/09/22 Digital Archivist Relationship Specialty Start Date End Date JagPeterson ferguson [address] [place], [place] [id number] PCP - General Family Medicine 07/06/18 Digital Archivist Relationship Specialty Start Date End Date Peterson Rm [address] [place] [phone] PCP - General 06/09/22 Digital Archivist Relationship Specialty Start Date End Date Peterson Rm [address] [place] [phone] PCP - General 06/09/22 Digital Archivist Relationship Specialty Start Date End Date Jag, Peterson Prado DO [address] [place], [place] [phone] PCP - General Family Medicine 07/06/18 Team [...] , DO Primary Care Provider Active Dr. Lm Patel DO Attending Provider, Emergency Clem mendez Active Digital Archivist Relationship Specialty Start Date End Date Peterson Rm [address] [place] [phone] PCP - General 06/09/22 Team Status: Active [...] April 14, 2025 End: April 14, 2025 Digital Archivist Relationship Specialty Start Date End Date Peterson Rm DO [address] [place] [address] PCP - General Family Medicine 07/06/18 Source Comments (unrecognize d section and content) In the event this informatio n is protected by the Federal Confidentiality of Alcohol and Drug Abuse Patient Records regulations: The Federal rules restrict any use of the information to criminally investigate or prosecute any alcohol or drug abuse patient.[facility] the event this information is protected by the Federal Confidentiality of Alcohol and Drug Abuse Patient Records regulations: The Federal rules restrict any use of the information to criminally investigate or prosecute any alcohol or drug abuse patient.[facility] the event this information is protected by the Federal Confidentiality of Alcohol and Drug Abuse Patient Records regulations: The Federal rules restrict any use of the information to criminally investigate or prosecute any alcohol or drug abuse patient.[facility] the event this information is protected by the Federal Confidentiality of Alcohol and Drug Abuse Patient Records regulations: The Federal rules restrict any use of the information to criminally investigate or prosecute any alcohol or drug abuse patient.[facility] Reason for Visit (unrecogniz ed section [...] section and content) DATE CREATED AUTHOR 08/18/[address] [facility] DATE CREATED AUTHOR AUTHOR'S ORGANIZ ATION 06/11/2025 [facility] DATE CREATED AUTHOR AUTHOR'S ORGANIZ ATION 08/17/2025 [facility] FOR RECORDS PERTAINING TO PATIENTS WHO [...] BE BASED ON THE PRIMARY CLINICAL RECORDS. [facility]. provides no warranty or guarantee of the accuracy or completeness of information in this document.
[2025-09-12 10:28] LABS: AST(SGOT) 23 U/L (<=31); Alanine Aminotransfer ALT/SGPT 30 U/L (<=34); Albumin, Serum 3.8 g/dL (3.5-5.0); Alkaline Phosphatase 146 U/L (35-104); Anion Gap 13 (5-15); BUN 9 mg/dL (4-19); BUN/Creat Ratio 13.2 RATIO (10-20); CRP 18.50 mg/L (0.0-3.0); Calcium,Total 9.0 mg/dL (7.6-11.0); Carbon Dioxide 21.1 mmol/L (21.0-32.0); Chloride 105 mmol/L (98-108); Cholesterol 147 mg/dL (<=200); Globulin 3.9 g/dL (2.2-4.2); Glucose 100 mg/dL (70-99); Low Density Lipoprotein Calc. 95 mg/dL; Potassium 3.8 mmol/L (3.3-5.1); Triglycerides 82 mg/dL; Very Low Density Lipoprotein 16 mg/dL (5-40); cholesterol:hdl ratio screen 4.04
[2025-09-20 11:08] LABS: HLA B27 Positive (.)
== END | disposition home or self-care (01) ==
LOC: MTLAB 07:17
PROVIDERS: PCP Family Medicine; Referring Provider Family Medicine; Visit Provider Family Medicine
DX: I10 Essential (primary) hypertension (principal); E11.9 Type 2 diabetes mellitus without complications; K76.0 Fatty (change of) liver, not elsewhere classified; R79.82 Elevated C-reactive protein (CRP)
CPT/HCPCS: 36415; 80053; 80061; 81374; 83036; 86140